=== PATIENT | female | born 1935 | race African-American/Black ===

== ENCOUNTER 2016-07-21 03:07 | Inpatient (IN) ==
[2016-07-21] MEDS ORDERED: ETOMIDATE 20 MG/10 ML VIAL IV ONE (03:29)
[2016-07-21] MEDS ORDERED: VECURONIUM 10 MG VIAL IV ONE (03:29)
[2016-07-21] MEDS ORDERED: methylPREDNISolone SOD SUC 125 MG/2 ML VIAL IV STA (03:33)
[2016-07-21] MEDS ORDERED: methylPREDNISolone SOD SUC 125 MG/2 ML VIAL ONE (03:34)
[2016-07-21] MEDS ORDERED: ALBUTEROL/IPRATROPIUM 3 ML NEB RESP TX STA (03:34)
[2016-07-21] MEDS ORDERED: SUCCINYLCHOLINE 200 MG/10 ML VIAL ONE (03:35)
--- NOTE | 2016-07-21 03:41 | Emergency Department Note ---
Arrival - Arrival Chief Complaint: Shortness of Breath Stated Complaint: SOB ED Nursing Triage Note: patient to ED via EMS with c/o SOB that woke her up at of her sleep. when EMS picked patient up patient noted to have +JVD and could only speak in 2-3 word sentence. patient history of lung CA. right lobectomy. Dr Broderick called to room immeadately to evaluate patient Mode of Arrival: Stretcher Limitations: Physical Limitation Source: Family Time Seen by Provider: 07/21/16 03:22 - History of Present Illness HPI Narrative: The patient arrives via EMS complaining of shortness of breath. She is currently lethargic and unable to speak so she can give no history. The family member states that she woke her up around 2:00 this morning saying she did not feel well and was short of breath. She complained of some "reflux symptoms" earlier in the day but denied any chest pain. They say she had not had fever or other recent illness. No vomiting. She did develop diaphoresis in route to the hospital. EMS says oxygen saturation was in the 70s and came up to 82 on nonrebreather. Allergies/Adverse Reactions: Allergies Allergy/AdvReac Type Severity Reaction Status Date / Time No Known Allergies Allergy Verified 01/12/15 19:15 Home Medications: Home Medications Medication Instructions Recorded Confirmed Type Allopurinol 100 mg PO BID 01/08/15 07/21/16 History Carvedilol [Coreg] 12.5 mg PO BID 01/08/15 07/21/16 History amLODIPine [Norvasc] 10 mg PO DAILY 01/08/15 07/21/16 History clonazePAM [Klonopin] 1 mg PO DAILY 01/08/15 07/21/16 History Levothyroxine Sodium [Synthroid] 1 tablet PO DAILY 01/12/15 07/21/16 History Ergocalciferol (Vitamin D2) 50,000 unit PO Q7D 04/01/15 07/21/16 History [Vitamin D2] Esomeprazole Magnesium [Nexium] 40 mg PO DAILY PRN 04/01/15 07/21/16 History Calcium Acetate 667 mg PO TID 11/20/15 07/21/16 History methylPREDNISolone DOSEPAK [Medrol 4 mg PO DIRECTED #1 pack 11/20/15 Rx Dosepak] cephALEXin [Keflex] 500 mg PO Q12HR #14 capsule 07/08/16 07/21/16 Rx Omeprazole 20 mg PO DAILY 07/21/16 07/21/16 History Review of System - Review of System ROS unobtainable: due to mental status Medical,Surgical,& Family Hx - Medical History Cardio: History of: CHF, Hypertension HEENT: History of: Eye Problem (GLASSES), Dental Problems (UPPER DENTURE AND LOWER PARITAL) Endocrine: History of: Thyroid Disorder Rheumatology: History of;: Gout Respiratory: History of: Pneumonia, Respiratory Problems (right lung cancer) Renal: History of: Dialysis ([facility]; DR OLVERA) Gastrointestinal: History of: GERD (OCCASIONAL) Musculoskeletal: History of: Back/Neck Problems (VERTABRAE FRACTURES), Musculoskeletal Problems (BURSITIS HIPS) Hematology: History of: Anemia (PAST HISTORY) Other: History of: Anesthesia Reactions (NAUSEA WITH PAIN MEDICATIONS), Cancer ( RIGHT LUNG CANCER), Miscellaneous Medical Problems (HAY FEVER) - Surgical History Thoracic Surgeries: Surgical HX of;: Lobectomy (right lung) HEENT Surgeries: Surgical HX of: Eye Surgery (BILATERAL CATARACT) Abdominal Surgeries: Surgical HX of: Appendectomy, Colonoscopy Reproductive Surgeries: Surgical HX of;: Hysterectomy Orthopedic Surgeries: Surgical HX of;: Implanted Devices (FISTULA RIGHT ARM, CATHETER LEFT SUBCLAVIAN), Spinal Surgery (DR ALEXANDER- KYPHOPLASTY) - Family History Family History: Reports;: Family Heart Disease, Family Hypertension - Social History Smoking Status: Never smoker Frequency of Alcohol Use: Unknown Type of Drug Use: Unknown Exam Physical Examination: GENERAL: Awake but lethargic. Not speaking. Severe respiratory distress. HEENT: Normocephalic and atraumatic. There is no nasal drainage. NECK: Normal inspection. Marked JVD bilaterally. Normal range of motion without evidence of pain. LUNGS: Severe respiratory distress. Tight and wheezing bilaterally with poor air movement. HEART: Regular tachycardia at 120 ABDOMEN: Soft, nontender and nondistended with normoactive bowel sounds. BACK: Normal inspection. SKIN: Color normal. Cool, diaphoretic. EXTREMITIES: Nontender. No pedal edema. Dialysis fistula in the right arm. Palpable pulse and thrill. NEUROLOGICAL/PSYCHIATRIC: Lethargic. Not speaking. Cannot assess orientation. Cranial nerves normal. No motor or sensory deficit. Vital Signs: Vital Signs Temperature 98.9 F 07/21/16 03:07 Pulse Rate 77 07/21/16 04:37 Respiratory Rate 12 07/21/16 04:37 Blood Pressure 73/48 07/21/16 04:37 O2 Sat by Pulse Oximetry 100 07/21/16 04:37 Course - Reevaluation(s) Reevaluation #1: The patient was lethargic on arrival and struggling to breathe. She was using accessory muscles and appeared to be tiring. She could not speak due to her dyspnea. I felt she needed to be intubated and this was done. See procedure note. Patient's sats jignesh to 100% after intubation. Time: 03:49 Reevaluation #2: Patient has remained stable after intubation. Her blood gases came back slightly acidotic with elevated CO2. I have decreased the oxygen concentration and increased ventilation rate and we are rechecking blood gases. I have discussed patient with Dr. Smith and will admit to Dr. Carmichael who will see her this morning. I am also consulting Dr. Sims for ventilator management and will consult Dr. Olvera as well. She will need dialysis this morning. Time: 05:37 Procedures - Intubation Time out performed: Yes sedative: Etomidate Mg Given: 20 paralytic: Vecuronium Mg Given: 5 Laryngoscope: Nara ET Tube Size: 7 ET Tube Uncuffed: No Tube Secured Depth (cm): 22 Tube Secured Location: teeth Tube Placement Confirmation: visualized tube passing through cords, equal breath sounds bilaterally, no breath sounds over epigastrium, confirmation detector color change Patient Tolerated Procedure: no complications Intubation Complications: none Results - Labs CBC & BMP: 07/21/16 03:24 07/21/16 03:24 Lab Results: I have reviewed the patients labs Labs: Laboratory Tests 07/21/16 07/21/16 07/21/16 03:24 03:24 03:24 ABG pH ABG pCO2 ABG pO2 ABG HCO3 ABG Total CO2 ABG O2 Saturation ABG Base Excess Magnesium 2.6 H Total Bilirubin 0.80 AST 25 ALT 16 Alkaline Phosphatase 130 H Troponin I 0.161 H B-Natriuretic Peptide 676 H Urine Leukocytes Large H Urine RBC 10 Urine WBC 291 Urine WBC Clumps Many Urine Bacteria Occasional Ur Culture Indicated? Results to follow 07/21/16 03:39 ABG pH 7.348 L ABG pCO2 57.2 H ABG pO2 465.0 H ABG HCO3 28.3 H ABG Total CO2 28.4 H ABG O2 Saturation 98.1 ABG Base Excess 4.3 H Magnesium Total Bilirubin AST ALT Alkaline Phosphatase Troponin I B-Natriuretic Peptide Urine Leukocytes Urine RBC Urine WBC Urine WBC Clumps Urine Bacteria Ur Culture Indicated? - Impressions Chest x-ray showed the mediastinum shifted to the right as on previous films due to prior lung resection. There is mild pulmonary edema. EKG shows a sinus rhythm with sinus arrhythmia at 95. There is left ventricular hypertrophy. Early re-pole in v1 and flipped T waves in 1 and V6. Critical Care Time Total Critical Care Time: 60 Disposition Clinical Impression: Acute respiratory failure, Bronchospasm, UTI (urinary tract infection), Chronic kidney disease with end stage renal failure on dialysis, Pulmonary edema Case discussed with: patient's family Disposition: Still a Patient Condition: Critical
[2016-07-21 03:44] LABS: Basophils % 0.3 % (0.0-0.8); Eosinophils # 0.3 10*3/uL (0.0-0.87); Eosinophils % 2.7 % (0.00-10.9); Hematocrit 39.2 VOL% (35.7-47.0); Hemoglobin 11.8 GM/DL (12.0-16.0); Immature Granulocytes % 0.7 %; Immature Granulocytes Absolute 0.08 #; Lymphocytes % 24.7 % (21.3-54.2); Mean Corpuscular HGB Conc 30.1 GM/DL (32-36); Mean Corpuscular Hemoglobin 31 PG (27-34); Mean Platelet Volume 12.8 FL (9.6-12.0); Monocytes # 1.4 10*3/uL (0.11-0.8); Neutrophils # 7.4 10*3/uL (1.4-7.4); Neutrophils % 60.6 % (38.7-73.9); Platelet Count 163 T/CUMM (130-400); Red Blood Count 3.77 MC/CUMM (3.8-5.5); Red Cell Distribution Width 15.5 % (9.3-17.3); White Blood Count 12.3 T/CUMM (4-12)
[2016-07-21 03:53] LABS: ABG Base Excess 4.3 MMOL/L (-2.5-2.5); ABG HCO3 28.3 MMOL/L (20-26); ABG Oxygen Saturation 98.1 % (95-100); ABG PCO2 57.2 MM HG (35-48); ABG PH 7.348 (7.35-7.45); ABG TCO2 28.4 MMOL/L (23-27)
[2016-07-21 03:56] LABS: Apearance,Urine CLOUDY (Clear); Bacteria,Urine Occasional /HPF (Few); Bilirubin,Urine Negative (Negative); Blood, Urine Negative (Negative); Glucose,Urine (UA) Negative (Negative); Ketones,Urine 5 mg/dL (Negative); Nitrite,Urine Negative (Negative); Protein,Urine 100 MG/DL; RBC,Urine 10 /HPF (0-4); Squamous Epithelial Cell,Urine Occasional /HPF (0-10); Urine Color Yellow (Yellow); Urine Specific Gravity 1.015 (1.001-1.035); Urine Urobilinogen < 2.0 EU/DL (0.2-1.0); WBC,Urine 291 /HPF (0-6)
[2016-07-21] MEDS: PROPOFOL 1,000 MG/100 ML BOTTLE IV SCH ×3 (04:00→20:33)
[2016-07-21 04:05] LABS: Lactic Acid 1.2 MMOL/L (0.4-2.0)
[2016-07-21 04:08] LABS: Alanine Aminotransferase 16 U/L (13-56); Albumin 3.4 G/DL (3.4-5.0); Alkaline Phosphatase 130 U/L (45-117); Aspartate Amino Transferase 25 U/L (0-37); Blood Urea Nitrogen 27 MG/DL (7-18); Calcium 8.3 MG/DL (8.5-10.1); Glucose 221 MG/DL (74-106); Magnesium 2.6 MG/DL (1.8-2.4); Osmolality,Calculated 292.3 MOS/KG (273-304); Potassium 4.1 MMOL/L (3.5-5.1); Sodium 141 MMOL/L (136-145); Total Protein 7.5 G/DL (6.4-8.3)
[2016-07-21 04:09] LABS: Troponin I Only 0.161 NG/ML (0.00-0.045)
[2016-07-21] MEDS ORDERED: PROPOFOL 1,000 MG/100 ML BOTTLE IV ONE (04:10)
[2016-07-21 04:49] LABS: PT Patient Result 10.7 SECS; Partial Thromboplastin Time 24.2 SECS (0-40)
[2016-07-21 05:40] LABS: ABG Base Excess 6.3 MMOL/L (-2.5-2.5); ABG HCO3 30.2 MMOL/L (20-26); ABG Oxygen Saturation 99.2 % (95-100); ABG PCO2 41.6 MM HG (35-48); ABG PH 7.473 (7.35-7.45); ABG TCO2 27.4 MMOL/L (23-27)
[2016-07-21] MEDS ORDERED: MORPHINE 2 MG/1 ML SYRINGE IV STA (06:00)
--- NOTE | 2016-07-21 06:09 | XRay Report ---
XR chest 1V portable Indication: Endotracheal tube placement confirmation. Comparison: Chest x-ray 07/08/2016. Technique: Portable AP chest was performed. Findings: Endotracheal tube terminates at the level of the aortic knob. Left lung demonstrates linear interstitial markings with a basilar gradient compatible with pulmonary edema primarily interstitial type. A few scattered airspace opacities in the lung base is not excluded. Postoperative changes and right-sided chest wall deformity appear stable. Stent within the right arm is stable. Impression: 1. Findings compatible with pulmonary edema, predominantly interstitial type. 07/21/2016 6:06 AM PROCEDURE INTERPRETED AT [facility] DEPARTMENT OF RADIOLOGY Final Report Signed by: Dr. Mario Bennett
[2016-07-21] MEDS ORDERED: MORPHINE 2 MG/1 ML SYRINGE ONE (06:13)
--- NOTE | 2016-07-21 07:11 | EKG Report ---
Stationary ECG Study [facility] Test Date: 07/21/2016 3:16 AM Pat Name: CARMEN TADEO Department: Room: Gender: F Prism Inspector: NEREYDA : 1935 Requested by: Alexander Alberto Order Number: [id number] Patrick MD: AMBER KEBEDE Intervals [place] Rate: 95 P: 54 NV: 146 QRS: 53 QRSD: 106 T: 176 QT: 351 QTc: 404 Interpretive Statements SINUS RHYTHM WITH SINUS ARRHYTHMIA LEFT VENTRICULAR HYPERTROPHY AND ST-T CHANGE Electronically Signed On 07-24-16 08:19:10 CDT by AMBER KEBEDE [email or web address]
--- NOTE | 2016-07-21 07:49 | EKG Report ---
Stationary ECG Study [facility] Test Date: 07/21/2016 5:18:01 AM Pat Name: CARMEN TADEO Department: Room: Gender: F News Technical Director: GEGE : 1935 Requested by: Alexander Alberto Order Number: [id number] Reading MD: AMBER KEBEDE Intervals [place] Rate: 82 P: 54 SD: 154 QRS: 40 QRSD: 96 T: 158 QT: 417 QTc: 455 Interpretive Statements SINUS RHYTHM LEFT VENTRICULAR HYPERTROPHY AND ST-T CHANGE Electronically Signed On 07-24-16 08:21:04 CDT by AMBER KEBEDE [email or web address]
--- NOTE | 2016-07-21 07:54 | Pulmonology Consult Note ---
Assessment and Plan (1) Status post pneumonectomy Status: Acute Assessment and plan: The patient had a previous right pneumonectomy for lung cancer. Current Visit: Yes (2) Acute respiratory failure Status: Acute Assessment and plan: The patient presents with acute respiratory distress and respiratory failure and is now on the ventilator. She probably had volume overload. Current Visit: Yes (3) Chronic kidney disease with end stage renal failure on dialysis Status: Acute Assessment and plan: She has end-stage renal disease and will continue with dialysis. Current Visit: Yes (4) Pulmonary edema Status: Acute Assessment and plan: This acute event is probably related to pulmonary edema. She will need dialysis soon. Current Visit: Yes History of Present Illness Chief complaint: Ventilator management History of present illness: Ms. Reyes is a 80 year old black female that has had a previous right pneumonectomy and is followed by Dr. Olvera with end-stage renal disease on dialysis. She apparently has been doing fairly well on outpatient dialysis. Recently she had a mild sinus infection was on the Medrol Dosepak and Keflex. She apparently woke up around 2 this morning very short of breath and presented to the emergency room in marked distress. She apparently was very tight in her chest and unable to talk. She was intubated and placed on the ventilator. Her chest x-ray does suggest some mild volume overload. She is now comfortable on the ventilator. 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 She has had a previous right pneumonectomy. She has not been having problems with her breathing in the past. She was not complaining of chest pain or fever. She mainly had the sinus problem. Home Medications Medication Instructions Recorded Confirmed Type Allopurinol 100 mg PO BID 01/08/15 07/21/16 History Carvedilol [Coreg] 12.5 mg PO BID 01/08/15 07/21/16 History amLODIPine [Norvasc] 10 mg PO DAILY 01/08/15 07/21/16 History clonazePAM [Klonopin] 1 mg PO DAILY 01/08/15 07/21/16 History Levothyroxine Sodium [Synthroid] 1 tablet PO DAILY 01/12/15 07/21/16 History Ergocalciferol (Vitamin D2) 50,000 unit PO Q7D 04/01/15 07/21/16 History [Vitamin D2] Esomeprazole Magnesium [Nexium] 40 mg PO DAILY PRN 04/01/15 07/21/16 History Calcium Acetate 667 mg PO TID 11/20/15 07/21/16 History methylPREDNISolone DOSEPAK [Medrol 4 mg PO DIRECTED #1 pack 11/20/15 Rx Dosepak] cephALEXin [Keflex] 500 mg PO Q12HR #14 capsule 07/08/16 07/21/16 Rx Omeprazole 20 mg PO DAILY 07/21/16 07/21/16 History Allergies Allergy/AdvReac Type Severity Reaction Status Date / Time No Known Allergies Allergy Verified 01/12/15 19:15 ROS unobtainable: due to endotracheal tube (She is unable to give any history at present.) Exam (Pulmonay) H&P - Constitutional Vitals: Period Temp Pulse Resp BP Sys/Brody Pulse Ox Last 24 Hr 98.9 F 75-120 10-40 73-181/48-92 79-100 General appearance: normal weight, other (Patient is sedated and comfortable on the ventilator.) - Head Head exam: Present: normal inspection, normocephalic - Eye Eye exam: Present: EOMI. Absent: scleral icterus Pupils: Present: ULISES - ENT ENT exam: Present: other (ET tube is in good position) - Neck Neck exam: Present: normal inspection. Absent: lymphadenopathy, thyromegaly - Respiratory Respiratory exam: Present: decreased breath sounds (She has absent breath sounds on the right), rhonchi - Cardiovascular Cardiovascular exam: Present: JVD, regular rate and rhythm, tachycardia. Absent : gallop, systolic murmur - GI/Abdominal GI/Abdominal exam: Present: normal bowel sounds, soft. Absent: organomegaly, tenderness - Extremities Exam Extremities exam: Absent: calf tenderness, edema - Neurological Exam Neurological exam: Present: other (Patient is sedated on the ventilator) - Skin Skin exam: Present: warm, dry Medical,Surgical,& Family Hx - Medical History Cardio: History of: CHF, Hypertension Neurology: No history of: Seizures HEENT: History of: Eye Problem (GLASSES), Dental Problems (UPPER DENTURE AND LOWER PARITAL) Endocrine: History of: Thyroid Disorder Rheumatology: History of;: Gout Respiratory: History of: Pneumonia, Respiratory Problems (right lung cancer) Renal: History of: Dialysis ([facility]; DR OLVERA) Gastrointestinal: History of: GERD (OCCASIONAL) Musculoskeletal: History of: Back/Neck Problems (VERTABRAE FRACTURES), Musculoskeletal Problems (BURSITIS HIPS) Hematology: History of: Anemia (PAST HISTORY) Other: History of: Anesthesia Reactions (NAUSEA WITH PAIN MEDICATIONS), Cancer ( RIGHT LUNG CANCER), Miscellaneous Medical Problems (HAY FEVER) - Surgical History Thoracic Surgeries: Surgical HX of;: Lobectomy (right lung) HEENT Surgeries: Surgical HX of: Eye Surgery (BILATERAL CATARACT) Abdominal Surgeries: Surgical HX of: Appendectomy, Colonoscopy Reproductive Surgeries: Surgical HX of;: Hysterectomy Orthopedic Surgeries: Surgical HX of;: Implanted Devices (FISTULA RIGHT ARM, CATHETER LEFT SUBCLAVIAN), Spinal Surgery (DR ALEXANDER- KYPHOPLASTY) - Family History Family History: Reports;: Family Heart Disease, Family Hypertension - Social History Smoking Status: Never smoker Frequency of Alcohol Use: Unknown Type of Drug Use: Unknown Results - Labs CBC & BMP: 07/21/16 03:24 07/21/16 03:24 Labs: Her PO2 is 149 now with a PCO2 of 41 and a pH of 7.47 - Diagnostic Findings Procedure: Chest x-ray: image reviewed by me, report reviewed by me (Chest x- ray shows a previous right pneumonectomy. There is increased markings in the left lower lung.)
[2016-07-21] MEDS ORDERED: cefTRIAXone 1,000 MG VIAL ONE (08:51)
[2016-07-21] MEDS: methylPREDNISolone SOD SUC 40 MG/1 ML VIAL IV SCH ×2 (09:19→18:22)
[2016-07-21] MEDS: cefTRIAXone 1,000 MG in SODIUM CHLORIDE 0.9% 100 ML IV SCH (09:19)
[2016-07-21] MEDS ORDERED: PROPOFOL 1,000 MG/100 ML BOTTLE IV SCH (11:51)
[2016-07-21] MEDS ORDERED: NON-FORMULARY MEDICATION (Esomeprazole Magnesium [Nexium] 40 MG) PO PRN (11:51)
[2016-07-21] MEDS ORDERED: ACETAMINOPHEN 325 MG TABLET PO PRN (11:51)
[2016-07-21] MEDS ORDERED: cefTRIAXone 1,000 MG in SODIUM CHLORIDE 0.9% 100 ML IV STA (11:51)
[2016-07-21] MEDS ORDERED: ONDANSETRON 4 MG/2 ML VIAL IV PRN (11:51)
[2016-07-21] MEDS: ALBUTEROL/IPRATROPIUM 3 ML NEB RESP TX SCH ×3 (12:35→19:24)
--- NOTE | 2016-07-21 15:02 | Family Practice History&Phys ---
Assessment and Plan (1) Acute respiratory failure Status: Acute Assessment and plan: Patient required endotracheal intubation in the emergency room and is presently on a respirator. Being followed by pulmonary we will continue present treatment plan Current Visit: Yes (2) Pulmonary edema Status: Acute Assessment and plan: We will start her on appropriate treatment Current Visit: Yes (3) UTI (urinary tract infection) Status: Acute Assessment and plan: We will obtain culture and start her on appropriate antibiotics Current Visit: Yes (4) Chronic kidney disease with end stage renal failure on dialysis Status: Chronic Assessment and plan: Patient is presently receiving dialysis. Current Visit: Yes (5) Hypertension Status: Chronic Assessment and plan: We will resume her home medications Current Visit: Yes (6) Status post carcinoma right lung Status: Chronic Assessment and plan: Stable at present Current Visit: Yes (7) Status post pneumonectomy Status: Acute Assessment and plan: Stable at present Current Visit: Yes (8) Hypothyroid Status: Chronic Assessment and plan: We will resume home medications and monitor Current Visit: Yes History of Present Illness Chief complaint: Respiratory failure History of present illness: Ms. Reyes is a 80 year old female ess Chief complaint: Ventilator management History of present illness: Ms. Reyes is a 80 year old black female that has had a previous right pneumonectomy and is followed by Dr. Olvera with end-stage renal disease on dialysis. She apparently has been doing fairly well on outpatient dialysis. Recently she had a mild sinus infection was on the Medrol Dosepak and Keflex. She apparently woke up around 2 this morning very short of breath and presented to the emergency room in marked distress. She apparently was very tight in her chest and unable to talk. She was intubated and placed on the ventilator. Her chest x-ray does suggest some mild volume overload. She is now comfortable on the ventilator. 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 She has had a previous right pneumonectomy. She has not been having problems with her breathing in the past. She was not complaining of chest pain or fever. She mainly had the sinus problem. Will admit to the intensive care close observation and therapy Home Medications Medication Instructions Recorded Confirmed Type Allopurinol 100 mg PO BID 01/08/15 07/21/16 History Carvedilol [Coreg] 12.5 mg PO BID 01/08/15 07/21/16 History amLODIPine [Norvasc] 10 mg PO DAILY 01/08/15 07/21/16 History clonazePAM [Klonopin] 1 mg PO DAILY 01/08/15 07/21/16 History Levothyroxine Sodium [Synthroid] 1 tablet PO DAILY 01/12/15 07/21/16 History Ergocalciferol (Vitamin D2) 50,000 unit PO Q7D 04/01/15 07/21/16 History [Vitamin D2] Esomeprazole Magnesium [Nexium] 40 mg PO DAILY PRN 04/01/15 07/21/16 History Calcium Acetate 667 mg PO TID 11/20/15 07/21/16 History methylPREDNISolone DOSEPAK [Medrol 4 mg PO DIRECTED #1 pack 11/20/15 Rx Dosepak] cephALEXin [Keflex] 500 mg PO Q12HR #14 capsule 07/08/16 07/21/16 Rx Omeprazole 20 mg PO DAILY 07/21/16 07/21/16 History Allergies Allergy/AdvReac Type Severity Reaction Status Date / Time No Known Allergies Allergy Verified 01/12/15 19:15 Medical,Surgical,& Family Hx - Medical History Cardio: History of: CHF, Hypertension Neurology: No history of: Seizures HEENT: History of: Eye Problem (GLASSES), Dental Problems (UPPER DENTURE AND LOWER PARITAL) Endocrine: History of: Thyroid Disorder Rheumatology: History of;: Gout Respiratory: History of: Pneumonia, Respiratory Problems (right lung cancer) Renal: History of: Dialysis ([facility] --[facility] [place]; DR OLVERA) Gastrointestinal: History of: GERD (OCCASIONAL) Musculoskeletal: History of: Back/Neck Problems (VERTABRAE FRACTURES), Musculoskeletal Problems (BURSITIS HIPS) Hematology: History of: Anemia (PAST HISTORY) Other: History of: Anesthesia Reactions (NAUSEA WITH PAIN MEDICATIONS), Cancer ( RIGHT LUNG CANCER), Miscellaneous Medical Problems (HAY FEVER) - Surgical History Thoracic Surgeries: Surgical HX of;: Lobectomy (right lung) HEENT Surgeries: Surgical HX of: Eye Surgery (BILATERAL CATARACT) Abdominal Surgeries: Surgical HX of: Appendectomy, Colonoscopy Reproductive Surgeries: Surgical HX of;: Hysterectomy Orthopedic Surgeries: Surgical HX of;: Implanted Devices (FISTULA RIGHT ARM, CATHETER LEFT SUBCLAVIAN), Spinal Surgery (DR ALEXANDER- KYPHOPLASTY) - Family History Family History: Reports;: Family Heart Disease, Family Hypertension - Social History Smoking Status: Never smoker Frequency of Alcohol Use: Unknown Type of Drug Use: Unknown Marital Status: Lives With:: Spouse Functional capacity: uses cane/walker Exam - Constitutional Vitals: Period Temp Pulse Resp BP Sys/Brody Pulse Ox Last 24 Hr 64-84 12-20 104-152/61-87 94-100 General appearance: mild distress, other (Presently on ventilator) - Head Head exam: Present: normocephalic - Eye Pupils: Present: ULISES - ENT ENT exam: Present: normal exam - Neck Neck exam: Present: normal inspection - Respiratory Respiratory exam: Present: rhonchi - Cardiovascular Cardiovascular exam: Present: irregular rhythm - GI/Abdominal GI/Abdominal exam: Present: normal bowel sounds, soft - Extremities Exam Extremities exam: Present: normal inspection - Back Exam Back exam: Present: normal inspection - Neurological Exam Neurological exam: Present: altered - Skin Skin exam: Present: normal color Results - Labs CBC & BMP: 07/21/16 03:24 07/21/16 03:24
--- NOTE | 2016-07-21 15:31 | Nephrology Consult Note ---
History of Present Illness Chief complaint: Referred for ESRD on Chronic hemodialysis History of present illness: Ms. Reyes is a 80 year old female with ESRD on CHD MWF at [facility]. Last HD on Sunday to EDW 47.2kg via RUAVF. Pt seen in ED, intubated, sedated , mechanically ventilated. History obtained from chart review, HD unit charge nurse and home health nurse at bedside (takes care of Ms Reyes's ). She states Ms Reyes c/o SOB yesterday. She is seen again in the CCU on dialysis. Urine looks c/w UTI, started empirically on rocephin. Home Medications Medication Instructions Recorded Confirmed Type Allopurinol 100 mg PO BID 01/08/15 07/21/16 History Carvedilol [Coreg] 12.5 mg PO BID 01/08/15 07/21/16 History amLODIPine [Norvasc] 10 mg PO DAILY 01/08/15 07/21/16 History clonazePAM [Klonopin] 1 mg PO DAILY 01/08/15 07/21/16 History Levothyroxine Sodium [Synthroid] 1 tablet PO DAILY 01/12/15 07/21/16 History Ergocalciferol (Vitamin D2) 50,000 unit PO Q7D 04/01/15 07/21/16 History [Vitamin D2] Esomeprazole Magnesium [Nexium] 40 mg PO DAILY PRN 04/01/15 07/21/16 History Calcium Acetate 667 mg PO TID 11/20/15 07/21/16 History methylPREDNISolone DOSEPAK [Medrol 4 mg PO DIRECTED #1 pack 11/20/15 Rx Dosepak] cephALEXin [Keflex] 500 mg PO Q12HR #14 capsule 07/08/16 07/21/16 Rx Omeprazole 20 mg PO DAILY 07/21/16 07/21/16 History Allergies Allergy/AdvReac Type Severity Reaction Status Date / Time No Known Allergies Allergy Verified 01/12/15 19:15 Medical,Surgical,& Family Hx - Medical History Cardio: History of: CHF, Hypertension Neurology: No history of: Seizures HEENT: History of: Eye Problem (GLASSES), Dental Problems (UPPER DENTURE AND LOWER PARITAL) Endocrine: History of: Thyroid Disorder Rheumatology: History of;: Gout Respiratory: History of: Pneumonia, Respiratory Problems (right lung cancer) Renal: History of: Dialysis ([facility], ; DR OLVERA) Gastrointestinal: History of: GERD (OCCASIONAL) Musculoskeletal: History of: Back/Neck Problems (VERTABRAE FRACTURES), Musculoskeletal Problems (BURSITIS HIPS) Hematology: History of: Anemia (PAST HISTORY) Other: History of: Anesthesia Reactions (NAUSEA WITH PAIN MEDICATIONS), Cancer ( RIGHT LUNG CANCER), Miscellaneous Medical Problems (HAY FEVER) - Surgical History Thoracic Surgeries: Surgical HX of;: Lobectomy (right lung) HEENT Surgeries: Surgical HX of: Eye Surgery (BILATERAL CATARACT) Abdominal Surgeries: Surgical HX of: Appendectomy, Colonoscopy Reproductive Surgeries: Surgical HX of;: Hysterectomy Orthopedic Surgeries: Surgical HX of;: Implanted Devices (FISTULA RIGHT ARM, CATHETER LEFT SUBCLAVIAN), Spinal Surgery (DR ALEXANDER- KYPHOPLASTY) - Family History Family History: Reports;: Family Heart Disease, Family Hypertension - Social History Smoking Status: Never smoker Frequency of Alcohol Use: Unknown Type of Drug Use: Unknown Review of Systems ROS unobtainable: due to endotracheal tube Exam - Vital Signs Vital signs: Period Temp Pulse Resp BP Sys/Brody Pulse Ox Last 24 Hr 64-84 12-20 104-152/61-87 94-100 - General Appearance General appearance: well-developed, chronically ill, sedated on ventilator, intubated EENT: ATNC, mucous membranes dry Neck: no JVD, no thyromegaly Respiratory: kyphosis, clear Cardiology: no murmurs, no rub, no edema Gastrointestinal: normoactive bowel sounds, no tenderness Integumentary: no rash, warm and dry Neurologic: obtunded Musculoskeletal: no cyanosis, no clubbing Results - Labs CBC & BMP: 07/21/16 03:24 07/21/16 03:24 Assessment and Plan (1) ESRD (end stage renal disease) on dialysis Problem details: Routine CHD today. UF as tolerated. CXR, BNP do not look impressive for volume overload being the cause of her SOB. Status: Acute Current Visit: Yes (2) UTI (urinary tract infection) Status: Acute Current Visit: Yes
[2016-07-21 16:30] LABS: Troponin I Only 0.325 NG/ML (0.00-0.045)
--- NOTE | 2016-07-21 16:53 | Cardiology Consult Note ---
Assessment and Plan - Time spent with patient Time spent with patient: Greater than 30 minutes (1) Pulmonary edema Status: Acute Assessment and plan: This is possibly multifactorial as patient has history of diastolic heart failure and end-stage renal disease on dialysis. Will adjust patient's medications as needed. -Will order echo in am -Continue to cycle cardiac biomarkers -EKG every am times 3 Further plan and addendum to follow per Dr. Baig. Current Visit: Yes (2) Elevated troponin Status: Acute Assessment and plan: This is in the setting of an elevated creatinine of 5.5. Will continue to cycle cardiac biomarkers and EKG every morning 3. Echo in am. Aspirin added to patient's medication regimen. Further plan and addendum to follow per Dr. Baig. Current Visit: Yes (3) Acute respiratory failure Status: Acute Assessment and plan: Patient is currently mechanically ventilated. Management per pulmonary. Current Visit: Yes (4) ESRD (end stage renal disease) on dialysis Problem details: Routine CHD today. UF as tolerated. CXR, BNP do not look impressive for volume overload being the cause of her SOB. Status: Chronic Assessment and plan: Patient is currently receiving hemodialysis. Tolerating well. Management per nephrology. Current Visit: Yes (5) Status post pneumonectomy Status: Acute Current Visit: Yes (6) UTI (urinary tract infection) Status: Acute Assessment and plan: Urine culture is pending. She is currently receiving appropriate antibiotics. Current Visit: Yes (7) Hypertension Status: Chronic Current Visit: Yes (8) Hypothyroid Status: Chronic Assessment and plan: Continue current plan of care with Synthroid. Current Visit: Yes (9) Status post carcinoma right lung Status: Chronic Assessment and plan: This is clinically stable. Current Visit: Yes History of Present Illness - Data of Consult Patient: known to practice within the last 3 years Consult date: 07/21/16 Requesting Physician: Ryder Carmichael Primary care physician: Ryder Carmichael - Consult Narrative Reason for consult: Volume overload History of present illness: Group Activities Aide: Dr. Baig PCP: Dr. Carmichael Radioisotope Production Operator: Dr. Olvera Cardiology consult note: Ms. Reyes is a 80 year old female without known history of coronary artery disease, routinely followed by Dr. Devyn Baig. Patient presented to the ER today with complaints of shortness of breath and required mechanical intubation in the ER. Patient has cardiac risk factors significant for hypertension, dyslipidemia, advanced age, family history of coronary artery disease and sedentary lifestyle. Patient has past medical history of diastolic heart failure, end-stage renal disease on dialysis, GERD, hypothyroidism, history of lung cancer with pneumonectomy and gout. It does not appear that patient has never undergone left heart catheterization. Patient had normal cardiac stress test May 2016. At that time she had an ejection fraction of 40 %. Patient is sedated and intubated in the CCU. Unable to obtain review of systems. Majority of information in this consult note was obtained from medical personnel and patient's medical record. Patient arrived to [facility] early this morning via EMS complaining of severe shortness of breath. She reports that her shortness of breath awaken her from her sleep. She was extremely lethargic and unable to speak upon arrival to the ER, saturations in the 70s. Per family's report, she denied any chest pain, heaviness and tightness. Chest x-ray does suggest mild volume overload. She is now resting blood on the ventilator, receiving hemodialysis. Patient has been admitted under Dr. Carmichael's service and housed in the CCU. Cardiology has been consulted due to patient's volume overload. Patient was seen and examined in the CCU. She is currently sedated and ventilated, resting comfortably. During my exam, patient was receiving hemodialysis. Patient is hemodynamically stable. Urinalysis reveals UTI. Urine culture pending. Patient's white blood cell count is mildly elevated at 12.3. Blood cultures are currently pending. BNP is elevated at 676. However, this is in the setting of an elevated creatinine of 5.5. Troponin of 0.161 and 0.325, however this is most likely secondary to patient's acute volume overload. Ekg does reveal ST abnormality inferiolaterally. We will continue to cycle cardiac biomarkers and repeat EKG every morning 3. Echocardiogram in a.m. Vital signs are stable. Further plan and addendum to follow per Dr. Baig CC: Ryder Carmichael, DO - Home Medications and Allergies Home Medications: Home Medications Medication Instructions Recorded Confirmed Type Allopurinol 100 mg PO BID 01/08/15 07/21/16 History Carvedilol [Coreg] 12.5 mg PO BID 01/08/15 07/21/16 History amLODIPine [Norvasc] 10 mg PO DAILY 01/08/15 07/21/16 History clonazePAM [Klonopin] 1 mg PO DAILY 01/08/15 07/21/16 History Levothyroxine Sodium [Synthroid] 1 tablet PO DAILY 01/12/15 07/21/16 History Ergocalciferol (Vitamin D2) 50,000 unit PO Q7D 04/01/15 07/21/16 History [Vitamin D2] Esomeprazole Magnesium [Nexium] 40 mg PO DAILY PRN 04/01/15 07/21/16 History Calcium Acetate 667 mg PO TID 11/20/15 07/21/16 History methylPREDNISolone DOSEPAK [Medrol 4 mg PO DIRECTED #1 pack 11/20/15 Rx Dosepak] cephALEXin [Keflex] 500 mg PO Q12HR #14 capsule 07/08/16 07/21/16 Rx Omeprazole 20 mg PO DAILY 07/21/16 07/21/16 History Allergies/Adverse Reactions: Allergies Allergy/AdvReac Type Severity Reaction Status Date / Time No Known Allergies Allergy Verified 01/12/15 19:15 ROS unobtainable: due to endotracheal tube Medical,Surgical,& Family Hx - Medical History Cardio: History of: CHF, Hypertension Neurology: No history of: Seizures Endocrine: History of: Thyroid Disorder Rheumatology: History of;: Gout Respiratory: History of: Pneumonia, Respiratory Problems (right lung cancer) Renal: History of: Dialysis ([facility] --[facility]; DR OLVERA) Gastrointestinal: History of: GERD (OCCASIONAL) Musculoskeletal: History of: Back/Neck Problems (VERTABRAE FRACTURES), Musculoskeletal Problems (BURSITIS HIPS) Hematology: History of: Anemia (PAST HISTORY) Other: History of: Anesthesia Reactions (NAUSEA WITH PAIN MEDICATIONS), Cancer ( RIGHT LUNG CANCER), Miscellaneous Medical Problems (HAY FEVER) - Surgical History Thoracic Surgeries: Surgical HX of;: Lobectomy (right lung) HEENT Surgeries: Surgical HX of: Eye Surgery (BILATERAL CATARACT) Abdominal Surgeries: Surgical HX of: Appendectomy, Colonoscopy Reproductive Surgeries: Surgical HX of;: Hysterectomy Orthopedic Surgeries: Surgical HX of;: Implanted Devices (FISTULA RIGHT ARM, CATHETER LEFT SUBCLAVIAN), Spinal Surgery (DR ALEXANDER- KYPHOPLASTY) - Family History Family History: Reports;: Family Heart Disease, Family Hypertension - Social History Smoking Status: Never smoker Frequency of Alcohol Use: Unknown Type of Drug Use: Unknown Physical Examination Vital Signs Temp Pulse Resp BP Pulse Ox 98.9 F 120 H 40 H 181/92 79 L 07/21/16 03:07 07/21/16 03:07 07/21/16 03:07 07/21/16 03:07 07/21/16 03:07 General: Present: Other (Patient is currently intubated and sedated on the ventilator.) Neck: Present: Supple Neck, Midline Trachea Cardiac: Present: Reg Rate and Rhythm, Regular Rate, Regular Rhythm, S1/S2 Lungs: Present: Ventilated Respirations. Absent: No Wheezes Abdomen: Present: Soft, Active Bowel Sounds, No Masses Skin: Present: Clear. Absent: Rash, Suspicious Lesions Extremities: Present: No Clubbing, No Cyanosis, No Edema, Normal Upper Extr. Pulses, Normal Lower Extr. Pulses Result/EKG - Labs CBC & BMP: 07/21/16 03:24 07/21/16 03:24 Lab Results: I have reviewed the past 24 hour labs
[2016-07-21] MEDS ORDERED: ASPIRIN 325 MG TABLET PO ONE (17:09)
[2016-07-21] MEDS: ALLOPURINOL 100 MG TABLET PO SCH ×2 (18:21→20:32)
[2016-07-21] MEDS: DOCUSATE SODIUM 100 MG CAPSULE PO SCH ×2 (18:21→20:32)
[2016-07-21] MEDS: ERGOCALCIFEROL 50,000 UNIT CAPSULE PO SCH (18:22)
[2016-07-21] MEDS: CARVEDILOL 12.5 MG TABLET PO SCH ×2 (18:22→20:32)
[2016-07-21] MEDS: PANTOPRAZOLE 40 MG VIAL IV SCH (18:22)
[2016-07-21] MEDS: CALCIUM ACETATE 667 MG CAPSULE PO SCH ×2 (18:22→20:31)
[2016-07-21] MEDS: amLODIPine 10 MG TABLET PO SCH (18:22)
[2016-07-21] MEDS: clonazePAM 0.5 MG TABLET PO SCH (18:22)
[2016-07-21] MEDS: LEVOTHYROXINE 25 MCG TABLET PO SCH (18:22)
[2016-07-21 19:23] LABS: Troponin I Only 0.322 NG/ML (0.00-0.045)
[2016-07-21 22:21] LABS: Troponin I Only 0.271 NG/ML (0.00-0.045)
[2016-07-22] MEDS: methylPREDNISolone SOD SUC 40 MG/1 ML VIAL IV SCH ×3 (00:05→16:30)
[2016-07-22] MEDS: ALBUTEROL/IPRATROPIUM 3 ML NEB RESP TX SCH ×4 (01:37→19:55)
[2016-07-22 03:12] LABS: ABG Base Excess 5.4 MMOL/L (-2.5-2.5); ABG HCO3 29.3 MMOL/L (20-26); ABG Oxygen Saturation 99.4 % (95-100); ABG PH 7.577 (7.35-7.45); ABG TCO2 24.2 MMOL/L (23-27); Allen Test Positive; Pt O2 Delivery Device Ventilator
[2016-07-22] MEDS: PROPOFOL 1,000 MG/100 ML BOTTLE IV SCH ×2 (04:00→15:27)
[2016-07-22 04:43] LABS: Basophils % 0.1 % (0.0-0.8); Hematocrit 30.8 VOL% (35.7-47.0); Hemoglobin 10.1 GM/DL (12.0-16.0); Immature Granulocytes % 0.4 %; Immature Granulocytes Absolute 0.06 #; Lymphocytes # 0.6 10*3/uL (1.4-4.0); Lymphocytes % 4.1 % (21.3-54.2); Mean Corpuscular HGB Conc 32.8 GM/DL (32-36); Mean Corpuscular Hemoglobin 31 PG (27-34); Mean Corpuscular Volume 94.5 FL (87-102); Mean Platelet Volume 13.3 FL (9.6-12.0); Monocytes # 0.8 10*3/uL (0.11-0.8); Monocytes % 4.9 % (1.7-12.7); Neutrophils % 90.5 % (38.7-73.9); Platelet Count 142 T/CUMM (130-400); Red Blood Count 3.26 MC/CUMM (3.8-5.5); Red Cell Distribution Width 15.6 % (9.3-17.3); White Blood Count 15.4 T/CUMM (4-12)
[2016-07-22 05:18] LABS: Troponin I Only 0.201 NG/ML (0.00-0.045)
[2016-07-22 05:19] LABS: Albumin 2.6 G/DL (3.4-5.0); Calcium 8.5 MG/DL (8.5-10.1); Free T4 (Free Thyroxine) 1.38 NG/DL (0.76-1.46); Osmolality,Calculated 281.5 MOS/KG (273-304); Potassium 3.6 MMOL/L (3.5-5.1); Risk Ratio 2.82; Thyroid Stimulating Hormone 0.487 uIU/ml (0.358-3.74); Total Protein 6.1 G/DL (6.4-8.3)
[2016-07-22 05:38] LABS: Hypochromasia 1+; Lymphocytes 3 % (20-55); Platelet Estimate Normal; Segmented Neutrophils 92 % (50-85); Total Cells Counted 100
--- NOTE | 2016-07-22 08:01 | EKG Report ---
Stationary ECG Study [facility] Test Date: 07/22/2016 8:01:06 AM Pat Name: CARMEN TADEO Department: Room: 128 Gender: F Post Graduate Internship: MELLO : 1935 Requested by: Opal Chappell Order Number: [id number] Reading MD: AMBER KEBEDE Intervals [place] Rate: 78 P: 54 ME: 141 QRS: 18 QRSD: 97 T: 142 QT: 447 QTc: 481 Interpretive Statements SINUS RHYTHM ST DEVIATION AND MODERATE T-WAVE ABNORMALITY, CONSIDER LATERAL ISCHEMIA Electronically Signed On 07-24-16 08:47:00 CDT by AMBER KEBEDE [email or web address]
[2016-07-22] MEDS: amLODIPine 10 MG TABLET PO SCH (09:17)
[2016-07-22] MEDS: CARVEDILOL 12.5 MG TABLET PO SCH ×2 (09:17→20:03)
[2016-07-22] MEDS: DOCUSATE SODIUM 100 MG CAPSULE PO SCH ×2 (09:17→20:03)
[2016-07-22] MEDS: clonazePAM 0.5 MG TABLET PO SCH (09:17)
[2016-07-22] MEDS: ASPIRIN EC 81 MG TABLET PO SCH (09:17)
[2016-07-22] MEDS: CALCIUM ACETATE 667 MG CAPSULE PO SCH ×3 (09:18→20:03)
[2016-07-22] MEDS: cefTRIAXone 1,000 MG in SODIUM CHLORIDE 0.9% 100 ML IV SCH (09:18)
[2016-07-22] MEDS: PANTOPRAZOLE 40 MG VIAL IV SCH (09:18)
[2016-07-22] MEDS: LEVOTHYROXINE 25 MCG TABLET PO SCH (09:19)
[2016-07-22] MEDS: ALLOPURINOL 100 MG TABLET PO SCH ×2 (09:19→20:03)
--- NOTE | 2016-07-22 09:28 | Pulmonology Progress Note ---
Pulmonary - PN: Subj Interval history: This 80-year-old female has chronic renal failure. She came into the emergency room night before last in respiratory distress and was found to be fluid overloaded. She was intubated. She has been dialyzed and her x-ray looks a little better. PO2 certainly is good. She has one long as previously had a right pneumonectomy. I will decrease her tidal volume and start CPAP and see if we can wean. Exam (Progress Note) - Constitutional Vitals: Period Temp Pulse Resp BP Sys/Brody Pulse Ox Last 24 Hr 97.8 F-99.2 F 64-86 14-21 83-152/50-83 94-100 Exam: Patient is sedated on the ventilator. Vital signs normal. Pupils react to light. Orotracheal tube in place. Neck supple. Chest reveals decreased breath sounds on the right side. Left lung sounds clear. Heart normal rate and rhythm. Abdomen soft nontender. Bowel sounds present. Extremities no clubbing cyanosis or edema. Results - Labs CBC & BMP: 07/22/16 03:51 07/22/16 03:51 Lab Results: I have reviewed the past 24 hour labs - Diagnostic Findings Procedure: Chest x-ray: image reviewed by me (Previous right pneumonectomy. Left lung looks a little bit better than yesterday. Almost clear.) Assessment and Plan (1) Acute respiratory failure Status: Acute Assessment and plan: ABGs look okay. Presently on the ventilator. Probably was fluid overloaded and has just one long since she has had a previous right pneumonectomy. she has been dialyzed now. Hopefully can start weaning Current Visit: Yes (2) Chronic kidney disease with end stage renal failure on dialysis Status: Chronic Assessment and plan: Had dialysis yesterday. Chest x-ray looks better. Current Visit: Yes (3) Pulmonary edema Status: Acute Assessment and plan: Looks better on chest x-ray. Current Visit: Yes (4) Status post pneumonectomy Status: Acute Assessment and plan: Had a right pneumonectomy for lung cancer. 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 Current Visit: Yes
[2016-07-22] MEDS ORDERED: LEVOFLOXACIN INJ 500 MG in PREMIX 1 EACH IV ONE (10:27)
--- NOTE | 2016-07-22 13:39 | XRay Report ---
Exam: XR chest 1V portable Indication: Intubated, history of right pneumonectomy Comparison study: 07/21/2016 Findings: Post surgical changes of right pneumonectomy are again noted. Left lung is predominantly clear with minimal interstitial opacities, which are decreased from prior. Endotracheal tube again terminates approximately 3 cm from the jeff. There is no pneumothorax. No significant pleural effusion is identified. Impression: Interval decrease in interstitial opacities, possibly representing resolving interstitial edema. No other significant change. PROCEDURE INTERPRETED AT [facility] DEPARTMENT OF RADIOLOGY Final Report Signed by: Royce Casanova
--- NOTE | 2016-07-22 14:12 | Nephrology Progress Note ---
Nephrology - PN: Subj Interval history: Intubated, sedated, mechanically ventilated. WBC up, had one dose rocephin on admission. Urine looks dirty, but no growth to date. Tolerated routine dialysis yesterday without complications. Exam (PN)-Nephrology - Vital Signs Vital signs: Period Temp Pulse Resp BP Sys/Brody Pulse Ox Last 24 Hr 97.8 F-99.2 F 77-102 12-27 82-150/50-83 97-100 - General Appearance General appearance: well-developed, chronically ill EENT: ATNC, PERRL Neck: no JVD, no thyromegaly Respiratory: no kyphosis, rales Cardiology: no murmurs, no rub Gastrointestinal: normoactive bowel sounds, no tenderness Integumentary: no rash, warm and dry Neurologic: no focal deficit, no asterixis Musculoskeletal: no deformities, no erythema - Lab 07/22/16 03:51 07/22/16 03:51 Most recent lab results ABG pH 7.577 (7.35-7.45) H 07/22/16 03:00 ABG pCO2 29.0 MM HG (35-48) L 07/22/16 03:00 ABG pO2 151.0 MM HG (80-95) H 07/22/16 03:00 ABG HCO3 29.3 MMOL/L (20-26) H 07/22/16 03:00 ABG O2 Saturation 99.4 % (95-100) 07/22/16 03:00 Calcium 8.5 MG/DL (8.5-10.1) 07/22/16 03:51 Magnesium 2.6 MG/DL (1.8-2.4) H 07/21/16 03:24 Assessment and Plan (1) ESRD (end stage renal disease) on dialysis Problem details: next routine CHD on Sunday. UF as tolerated. Status: Chronic Current Visit: Yes (2) UTI (urinary tract infection) Status: Acute Assessment and plan: Start levofloxacin 500mg IVPB now, then 250mg IVPB q48h. Current Visit: Yes
--- NOTE | 2016-07-22 17:22 | Family Practice Progress Note ---
Family Practice - PN: Subj Interval history: Staff report that the patient is improved today. She is responsive and moving all extremities at times. Dr. Magdaleno is trying to wean her off the respirator start CPAP if tolerated. They have not been able to do as much volume reduction is desired because of hypotension. Appreciate multiple consults. We will continue present treatment plan hopefully will continue to improve Exam (Progress Note) - Constitutional Vitals: Period Temp Pulse Resp BP Sys/Brody Pulse Ox Last 24 Hr 97.8 F-99.2 F 77-102 12-27 80-150/46-83 97-100 Results - Labs CBC & BMP: 07/22/16 03:51 07/22/16 03:51 Assessment and Plan (1) Acute respiratory failure Status: Acute Assessment and plan: Patient required endotracheal intubation in the emergency room and is presently on a respirator. Being followed by pulmonary we will continue present treatment plan Current Visit: Yes (2) Pulmonary edema Status: Acute Assessment and plan: We will start her on appropriate treatment Current Visit: Yes (3) UTI (urinary tract infection) Status: Acute Assessment and plan: We will obtain culture and start her on appropriate antibiotics Current Visit: Yes (4) Chronic kidney disease with end stage renal failure on dialysis Status: Chronic Assessment and plan: Patient is presently receiving dialysis. Current Visit: Yes (5) Hypertension Status: Chronic Assessment and plan: We will resume her home medications Current Visit: Yes (6) Status post carcinoma right lung Status: Chronic Assessment and plan: Stable at present Current Visit: Yes (7) Status post pneumonectomy Status: Acute Assessment and plan: Stable at present Current Visit: Yes (8) Hypothyroid Status: Chronic Assessment and plan: We will resume home medications and monitor Current Visit: Yes
--- NOTE | 2016-07-22 18:43 | ECHO Report ---
Ana Rosa Reyes Exam Date: 07/22/2016 09:23 Referring Physician: Technologist: Natali Zeng Age: 80 Ht (in): 64 Wt (lb): 165 Gender: F Exam Location: [facility] Echo Indications: acute resp failure, ESRD, hypothyroid, HTN, elevated troponin, pulmomary edema BP: 92 / 55 HR: 84 Rhythm: Sinus Technical Quality: Technically difficult study IMPRESSIONS Mildly increased septal wall thickness. Mildly increased posterior wall thickness. Left ventricular ejection fraction is estimated at 10-15 %, 2+ LVE. Mild - moderate mitral annular and leaflet calcification with mild mitral regurgitation. Mild aortic valve sclerosis. Moderate tricuspid valve regurgitation. Tricuspid regurgitation velocities suggest a PAP of 42.0 mmHg + RAP. Trace pulmonary valve regurgitation. No pericardial effusion. MEASUREMENTS (Male / Female) Normal Values 2D ECHO LV Diastolic Diameter PLAX 3.9 cm 4.2 - 5.9 / 3.9 - 5.3 cm LV Systolic Diameter PLAX 3.6 cm LV Fractional Shortening PLAX 7.4 % IVS Diastolic Thickness 1.2 cm 0.6 - 1.0 / 0.6 - 0.9 cm LVPW Diastolic Thickness 1.0 cm 0.6 - 1.0 / 0.6 - 0.9 cm RV Internal Dim ED PLAX 2.0 cm Aortic Root Diameter 2.4 cm LA Systolic Diameter LX 2.9 cm 3.0 - 4.0 / 2.7 - 3.8 cm DOPPLER TR Peak Velocity 324.0 cm/s TR Peak Gradient 42.0 mmHg FINDINGS Left Ventricle Mildly increased septal wall thickness. Mildly increased posterior wall thickness. diastolic dysfunction. Left ventricular ejection fraction is estimated at 10-15 %, 2+ LVE. Right Ventricle Normal right ventricular size and systolic function. Right Atrium The right atrium is mildly enlarged. Left Atrium Normal left atrial size. Mitral Valve Mild - moderate mitral annular and leaflet calcification with mild mitral regurgitation. Aortic Valve Mild aortic valve sclerosis. Tricuspid Valve Mild tricuspid valve sclerosis. Moderate tricuspid valve regurgitation. Tricuspid regurgitation velocities suggest a PAP of 42.0 mmHg + RAP. Pulmonic Valve Morphologically normal pulmonic valve. Trace pulmonary valve regurgitation. Pericardium No pericardial effusion. Aorta Normal size aortic root and proximal ascending aorta. Devyn Baig MD (Electronically Signed) Final Date: 22 July 2016 18:42
--- NOTE | 2016-07-22 20:15 | Cardiology Progress Note ---
Assessment and Plan (1) Pulmonary edema Status: Acute Assessment and plan: Troponins are going up slightly and now coming down. This would be worrisome for ACS/CAD. However, it could be due to the heart failure alone. Echo reveals severe LV systolic dysfunction. Plan/recommendation: Continue treatment for LV systolic dysfunction Dialyzed for volume as tolerated I have added a low-dose of carvedilol We will add a low-dose of MATHEW inhibitor when blood pressure allows We will discontinue Norvasc so we can add an MATHEW inhibitor Will likely need a heart cath on Sunday to evaluate for CAD to be the cause of this LV systolic dysfunction Prognosis remains guarded. Current Visit: Yes (2) Elevated troponin Status: Acute Current Visit: Yes (3) Acute respiratory failure Status: Acute Current Visit: Yes (4) Status post pneumonectomy Status: Acute Current Visit: Yes (5) Chronic kidney disease with end stage renal failure on dialysis Status: Chronic Current Visit: Yes (6) ESRD (end stage renal disease) on dialysis Problem details: next routine CHD on Sunday. UF as tolerated. Status: Chronic Current Visit: Yes (7) Status post carcinoma right lung Status: Chronic Current Visit: Yes Cardiology - PN: Subj Interval history: Remains sedated on the vent. Exam (Progress Note) - Constitutional Vitals: Period Temp Pulse Resp BP Sys/Brody Pulse Ox Last 24 Hr 97.8 F-99.2 F 77-102 12-27 80-144/46-83 97-100 Exam: HEENT: Pupils equal, reactive to light and accommodation Neck: NoJVD or bruit Lungs clear to auscultation Heart: Regular rhythm rate with normal S1 and S2. Apical S4, 2/6 systolic ejection murmur along left lower sternal border. Abdomen: No hepatosplenomegaly Spine/extremities: No clubbing, cyanosis, or edema Neuro: Nonfocal Psych: No depression or anxiety Result/EKG - Labs CBC & BMP: 07/22/16 03:51 07/22/16 03:51 Lab Results: I have reviewed the past 24 hour labs Labs: Laboratory Results - last 24 hr 07/21/16 07/22/16 07/22/16 21:39 03:00 03:51 WBC 15.4 H RBC 3.26 L Hgb 10.1 L Hct 30.8 L MCV 94.5 MCH 31 MCHC 32.8 RDW 15.6 Plt Count 142 MPV 13.3 H Neut % (Auto) 90.5 H Lymph % (Auto) 4.1 L [place] % (Auto) 4.9 Eos % (Auto) 0.0 Baso % (Auto) 0.1 Neut # (Auto) 14.0 H Lymph # (Auto) 0.6 L [place] # (Auto) 0.8 Eos # (Auto) 0.0 Baso # (Auto) 0.0 Total Counted 100 Immature Gran % 0.4 Nucleated RBC % 0.0 Immature Gran # 0.06 Segmented Neutrophils 92 H Lymphocytes 3 L Monocytes 5 Nucleated RBCs # 0.00 Platelet Estimate Normal Hypochromasia 1+ Morphology Comment ABG pH 7.577 H ABG pCO2 29.0 L ABG pO2 151.0 H ABG HCO3 29.3 H ABG Total CO2 24.2 ABG O2 Saturation 99.4 ABG Base Excess 5.4 H FiO2 50.00 Sodium Potassium Chloride Carbon Dioxide Anion Gap BUN Creatinine GFR Calculation BUN/Creatinine Ratio Glucose Calculated Osmolality Calcium Total Bilirubin AST ALT Alkaline Phosphatase Total Creatine Kinase 28 CK-MB (CK-2) < 1.0 Troponin I 0.271 H Total Protein Albumin Globulin Albumin/Globulin Ratio Triglycerides Cholesterol LDL Cholesterol VLDL Cholesterol HDL Cholesterol Heart Disease Risk Ratio Free T4 TSH 3rd Generation 07/22/16 07/22/16 03:51 03:51 WBC RBC Hgb Hct MCV MCH MCHC RDW Plt Count MPV Neut % (Auto) Lymph % (Auto) [place] % (Auto) Eos % (Auto) Baso % (Auto) Neut # (Auto) Lymph # (Auto) [place] # (Auto) Eos # (Auto) Baso # (Auto) Total Counted Immature Gran % Nucleated RBC % Immature Gran # Segmented Neutrophils Lymphocytes Monocytes Nucleated RBCs # Platelet Estimate Hypochromasia Morphology Comment ABG pH ABG pCO2 ABG pO2 ABG HCO3 ABG Total CO2 ABG O2 Saturation ABG Base Excess FiO2 Sodium 139 Potassium 3.6 Chloride 99 Carbon Dioxide 24 Anion Gap 19.6 H BUN 20 H Creatinine 3.80 H GFR Calculation 13 BUN/Creatinine Ratio 5.00 L Glucose 142 H Calculated Osmolality 281.5 Calcium 8.5 Total Bilirubin 1.00 AST 20 ALT 13 Alkaline Phosphatase 105 Total Creatine Kinase 24 L CK-MB (CK-2) < 1.0 Troponin I 0.201 H D Total Protein 6.1 L Albumin 2.6 L Globulin 3.5 Albumin/Globulin Ratio 0.7 L Triglycerides 135 Cholesterol 175 LDL Cholesterol 85.0 VLDL Cholesterol 27.0 HDL Cholesterol 62 H Heart Disease Risk Ratio 2.82 Free T4 1.38 TSH 3rd Generation 0.487 - Diagnostic Findings Procedure: Chest x-ray: report reviewed by me - EKG EKG results: interpreted by me Specialty Discharge - Follow Up or Referrals Follow up with: Devyn Baig MD [Physician] -
[2016-07-23] MEDS: methylPREDNISolone SOD SUC 40 MG/1 ML VIAL IV SCH ×3 (00:03→16:10)
[2016-07-23] MEDS: PROPOFOL 1,000 MG/100 ML BOTTLE IV SCH ×4 (00:25→22:32)
[2016-07-23] MEDS: ALBUTEROL/IPRATROPIUM 3 ML NEB RESP TX SCH ×4 (01:45→19:57)
[2016-07-23 03:14] LABS: ABG HCO3 27.4 MMOL/L (20-26); ABG Oxygen Saturation 98.9 % (95-100); ABG PCO2 36.9 MM HG (35-48); ABG PH 7.489 (7.35-7.45); ABG PO2 207.5 MM HG (80-95); ABG TCO2 28.6 MMOL/L (23-27); Allen Test Positive; Pt O2 Delivery Device Ventilator
[2016-07-23 04:55] LABS: Basophils % 0.1 % (0.0-0.8); Hematocrit 32.1 VOL% (35.7-47.0); Hemoglobin 10.3 GM/DL (12.0-16.0); Immature Granulocytes % 0.6 %; Immature Granulocytes Absolute 0.09 #; Lymphocytes # 0.4 10*3/uL (1.4-4.0); Lymphocytes % 2.6 % (21.3-54.2); Mean Corpuscular HGB Conc 32.1 GM/DL (32-36); Mean Corpuscular Hemoglobin 31 PG (27-34); Mean Corpuscular Volume 96.1 FL (87-102); Mean Platelet Volume 13.1 FL (9.6-12.0); Monocytes # 0.6 10*3/uL (0.11-0.8); Monocytes % 4.2 % (1.7-12.7); Neutrophils # 13.9 10*3/uL (1.4-7.4); Neutrophils % 92.5 % (38.7-73.9); Platelet Count 117 T/CUMM (130-400); Red Blood Count 3.34 MC/CUMM (3.8-5.5); Red Cell Distribution Width 15.6 % (9.3-17.3); White Blood Count 15.1 T/CUMM (4-12)
[2016-07-23 05:00] LABS: Albumin 2.6 G/DL (3.4-5.0); Bilirubin,Total 0.7 MG/DL (0.2-1.0); Calcium 7.8 MG/DL (8.5-10.1); Total Protein 6.1 G/DL (6.4-8.3)
[2016-07-23 05:01] LABS: Osmolality,Calculated 279.5 MOS/KG (273-304); Potassium 4.5 MMOL/L (3.5-5.1)
[2016-07-23 05:50] LABS: Lymphocytes 6 % (20-55); Segmented Neutrophils 91 % (50-85); Total Cells Counted 100
[2016-07-23 05:51] LABS: Platelet Estimate Adequate
--- NOTE | 2016-07-23 07:44 | EKG Report ---
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
--- NOTE | 2016-07-23 08:36 | Pulmonology Progress Note ---
Pulmonary - PN: Subj Interval history: This 80-year-old female has chronic renal failure. She came into the emergency room night before last in respiratory distress and was found to be fluid overloaded. She was intubated. She has been dialyzed and her x-ray looks a little better. PO2 certainly is good. She has one long as previously had a right pneumonectomy. I will decrease her tidal volume and start CPAP and see if we can wean. 07/23/2016 patient is making good progress with CPAP. We will see if we can get her extubated this morning. Chest x-ray is looking better. Exam (Progress Note) - Constitutional Vitals: Period Temp Pulse Resp BP Sys/Brody Pulse Ox Last 24 Hr 9.3 F-98.4 F 67-102 12-27 80-144/45-83 10-100 Exam: Patient is alert, on the ventilator. Vital signs normal. Pupils react to light. Orotracheal tube in place. Neck supple. Chest reveals decreased breath sounds on the right side. Left lung sounds clear. Heart normal rate and rhythm. Abdomen soft nontender. Bowel sounds present. Extremities no clubbing cyanosis or edema. Results - Labs CBC & BMP: 07/23/16 04:21 07/23/16 04:21 Lab Results: I have reviewed the past 24 hour labs - Diagnostic Findings Procedure: Chest x-ray: image reviewed by me (Previous right pneumonectomy. ET tube good position. Minimal bibasilar infiltrate on left side. Overall looks better.) Assessment and Plan (1) Acute respiratory failure Status: Acute Assessment and plan: ABGs look okay. Presently on the ventilator. Probably was fluid overloaded and has just one long since she has had a previous right pneumonectomy. she has been dialyzed now. Hopefully can start weaning 07/23/2016 ABGs look good. Weight is down 10 kg from admission. Tolerating CPAP. Will check mechanics and see if we can get her extubated. Current Visit: Yes (2) Chronic kidney disease with end stage renal failure on dialysis Status: Chronic Assessment and plan: Had dialysis yesterday. Chest x-ray looks better. 07/23/2016 to have dialysis tomorrow. Current Visit: Yes (3) Pulmonary edema Status: Acute Assessment and plan: Looks better on chest x-ray. 07/23/2016 clinically better Current Visit: Yes (4) Status post pneumonectomy Status: Acute Assessment and plan: Had a right pneumonectomy for lung cancer. 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 07/23/2016 restrictive lung disease due to previous right pneumonectomy. No evidence of any recurrence of her cancer. Current Visit: Yes Specialty Discharge - Follow Up or Referrals Follow up with: Devyn Baig MD [Physician] -
[2016-07-23] MEDS: cefTRIAXone 1,000 MG in SODIUM CHLORIDE 0.9% 100 ML IV SCH (09:00)
[2016-07-23 09:36] LABS: ABG Base Excess 1.9 MMOL/L (-2.5-2.5); ABG HCO3 26.1 MMOL/L (20-26); ABG Oxygen Saturation 99.1 % (95-100); ABG PCO2 44.2 MM HG (35-48); ABG PH 7.395 (7.35-7.45); ABG TCO2 24.7 MMOL/L (23-27)
[2016-07-23] MEDS: PANTOPRAZOLE 40 MG VIAL IV SCH (09:45)
[2016-07-23] MEDS: ASPIRIN EC 81 MG TABLET PO SCH (09:58)
[2016-07-23] MEDS: DOCUSATE SODIUM 100 MG CAPSULE PO SCH ×2 (09:58→20:02)
[2016-07-23] MEDS: CALCIUM ACETATE 667 MG CAPSULE PO SCH ×3 (09:58→20:01)
[2016-07-23] MEDS: amLODIPine 10 MG TABLET PO SCH (09:58)
[2016-07-23] MEDS: CARVEDILOL 12.5 MG TABLET PO SCH ×3 (09:58→21:07)
[2016-07-23] MEDS: clonazePAM 0.5 MG TABLET PO SCH (09:58)
[2016-07-23] MEDS: LEVOTHYROXINE 25 MCG TABLET PO SCH (09:59)
[2016-07-23] MEDS: ALLOPURINOL 100 MG TABLET PO SCH ×2 (09:59→20:01)
--- NOTE | 2016-07-23 11:41 | Cardiology Progress Note ---
Assessment and Plan (1) Pulmonary edema Status: Acute Assessment and plan: Troponins are going up slightly and now coming down. This would be worrisome for ACS/CAD. However, it could be due to the heart failure alone. Echo reveals severe LV systolic dysfunction. Plan/recommendation: Continue treatment for LV systolic dysfunction Dialyzed for volume as tolerated I have added a low-dose of carvedilol We will add a low-dose of MATHEW inhibitor when blood pressure allows We will discontinue Norvasc so we can add an MATHEW inhibitor Will likely need a heart cath on Sunday to evaluate for CAD to be the cause of this LV systolic dysfunction Prognosis remains guarded. 07/23/16: Assessment/plan/recommendation: Echo reveals severe LV dysfunction. Concern is for CAD is contributing to the pulmonary edema. Her troponins have trended downward. I had a long discussion with the patient's niece who is representing the family. I would recommend left heart cath and possible PTCA or stent or bypass. The risk and benefits were discussed with her. She agrees to proceed. Cath will be for tomorrow at 9 AM. When she is extubated also to plan her blood pressure will probably better. At that point we could add a low- dose of MATHEW inhibitor. Left heart cath and possible PTCA or stent were discussed with the patient. The risk of the procedure include but are not limited to a small risk of injury to the vessel, abnormal heart rhythm, stroke, heart attack, need for emergent surgery, contrast reaction, restenosis, or . The patient voices understanding, agrees with the plan, and desires to proceed with the heart catheterization. Current Visit: Yes (2) Elevated troponin Status: Acute Current Visit: Yes (3) Acute respiratory failure Status: Acute Current Visit: Yes (4) Status post pneumonectomy Status: Acute Current Visit: Yes (5) Chronic kidney disease with end stage renal failure on dialysis Status: Chronic Current Visit: Yes (6) ESRD (end stage renal disease) on dialysis Problem details: next routine CHD on Sunday. UF as tolerated. Status: Chronic Current Visit: Yes (7) Status post carcinoma right lung Status: Chronic Current Visit: Yes Cardiology - PN: Subj Interval history: On the vent. Awake but cannot interact. Exam (Progress Note) - Constitutional Vitals: Period Temp Pulse Resp BP Sys/Brody Pulse Ox Last 24 Hr 9.3 F-98.4 F 66-99 10-27 79-144/42-83 10-100 Exam: HEENT: Pupils equal, reactive to light and accommodation Neck: NoJVD or bruit Lungs clear to auscultation Heart: Regular rhythm rate with normal S1 and S2. Apical S4, 2/6 systolic ejection murmur along left lower sternal border. Abdomen: No hepatosplenomegaly Spine/extremities: No clubbing, cyanosis, or edema Neuro: Nonfocal Psych: No depression or anxiety Result/EKG - Labs CBC & BMP: 07/23/16 04:21 07/23/16 04:21 Lab Results: I have reviewed the past 24 hour labs Labs: Laboratory Results - last 24 hr 07/23/16 07/23/16 07/23/16 03:00 04:21 04:21 WBC 15.1 H RBC 3.34 L Hgb 10.3 L Hct 32.1 L MCV 96.1 MCH 31 MCHC 32.1 RDW 15.6 Plt Count 117 L MPV 13.1 H Neut % (Auto) 92.5 H Lymph % (Auto) 2.6 L [place] % (Auto) 4.2 Eos % (Auto) 0.0 Baso % (Auto) 0.1 Neut # (Auto) 13.9 H Lymph # (Auto) 0.4 L [place] # (Auto) 0.6 Eos # (Auto) 0.0 Baso # (Auto) 0.0 Total Counted 100 Immature Gran % 0.6 Nucleated RBC % 0.0 Immature Gran # 0.09 Segmented Neutrophils 91 H Lymphocytes 6 L Monocytes 3 Nucleated RBCs # 0.00 Platelet Estimate Adequate Pappenheimer Bodies Crystal Machining Coordinator ABG pH 7.489 H ABG pCO2 36.9 ABG pO2 207.5 H ABG HCO3 27.4 H ABG Total CO2 28.6 H ABG O2 Saturation 98.9 ABG Base Excess 4.0 H FiO2 40.00 Sodium 132 L Potassium 4.5 Chloride 95 L Carbon Dioxide 24 Anion Gap 17.5 H BUN 50 H Creatinine 5.60 H GFR Calculation 6 BUN/Creatinine Ratio 8.00 Glucose 159 H Calculated Osmolality 279.5 Calcium 7.8 L Total Bilirubin 0.70 AST 12 ALT 11 L Alkaline Phosphatase 96 Total Protein 6.1 L Albumin 2.6 L Globulin 3.5 Albumin/Globulin Ratio 0.7 L 07/23/16 09:17 WBC RBC Hgb Hct MCV MCH MCHC RDW Plt Count MPV Neut % (Auto) Lymph % (Auto) [place] % (Auto) Eos % (Auto) Baso % (Auto) Neut # (Auto) Lymph # (Auto) [place] # (Auto) Eos # (Auto) Baso # (Auto) Total Counted Immature Gran % Nucleated RBC % Immature Gran # Segmented Neutrophils Lymphocytes Monocytes Nucleated RBCs # Platelet Estimate Pappenheimer Bodies ABG pH 7.395 ABG pCO2 44.2 ABG pO2 169.0 H ABG HCO3 26.1 H ABG Total CO2 24.7 ABG O2 Saturation 99.1 ABG Base Excess 1.9 FiO2 Sodium Potassium Chloride Carbon Dioxide Anion Gap BUN Creatinine GFR Calculation BUN/Creatinine Ratio Glucose Calculated Osmolality Calcium Total Bilirubin AST ALT Alkaline Phosphatase Total Protein Albumin Globulin Albumin/Globulin Ratio - Diagnostic Findings Procedure: Chest x-ray: report reviewed by me - EKG EKG results: interpreted by me Specialty Discharge - Follow Up or Referrals Follow up with: Devyn Baig MD [Physician] -
[2016-07-23] MEDS ORDERED: MAGNESIUM SULF RIDER 2 GM in PREMIX 1 EACH IV PRN (11:42)
[2016-07-23] MEDS ORDERED: ASPIRIN CHEW 81 MG TABLET PO ONE (11:46)
--- NOTE | 2016-07-23 11:58 | Nephrology Progress Note ---
Nephrology - PN: Subj Interval history: No acute overnight events. Pt more alert this am, spontaneous eye opening. Cath planned for am. Exam (PN)-Nephrology - Vital Signs Vital signs: Period Temp Pulse Resp BP Sys/Brody Pulse Ox Last 24 Hr 9.3 F-98.4 F 66-99 10-27 79-144/42-83 10-100 - General Appearance General appearance: well-developed, chronically ill EENT: ATNC, PERRL, mucous membranes dry, hearing intact, vision intact Neck: no JVD, no thyromegaly Respiratory: no kyphosis, rales Cardiology: no murmurs, no rub Gastrointestinal: normoactive bowel sounds, no tenderness Integumentary: no rash, warm and dry Neurologic: no focal deficit, no asterixis, alert and oriented x3 Psychiatric: mood/affect appropriate, cooperative - Lab 07/23/16 04:21 07/23/16 04:21 Most recent lab results ABG pH 7.395 (7.35-7.45) 07/23/16 09:17 ABG pCO2 44.2 MM HG (35-48) 07/23/16 09:17 ABG pO2 169.0 MM HG (80-95) H 07/23/16 09:17 ABG HCO3 26.1 MMOL/L (20-26) H 07/23/16 09:17 ABG O2 Saturation 99.1 % (95-100) 07/23/16 09:17 Calcium 7.8 MG/DL (8.5-10.1) L 07/23/16 04:21 Magnesium 2.6 MG/DL (1.8-2.4) H 07/21/16 03:24 Assessment and Plan (1) ESRD (end stage renal disease) on dialysis Problem details: Next routine CHD on Sunday after am cath. UF as tolerated by hemodynamics. Status: Chronic Current Visit: Yes (2) UTI (urinary tract infection) Status: Acute Assessment and plan: Start levofloxacin 500mg IVPB now, then 250mg IVPB q48h. Current Visit: Yes Specialty Discharge - Follow Up or Referrals Follow up with: Devyn Baig MD [Physician] -
--- NOTE | 2016-07-23 15:22 | Family Practice Progress Note ---
Family Practice - PN: Subj Interval history: Patient is stable today and staff reports that she awakes and appears to be alert. Dr. Baig's evaluation has revealed severe left ventricular dysfunction. He is concerned that her heart failure may be due to coronary artery disease. He has scheduled her for a heart cath in a.m. It has been decided to not extubate patient until after she has her cath tomorrow. Dr. Baig is discussed this with family as I am not seeing any family members. Multiple consultants involved and I agree with present assessment and treatment plan. Exam (Progress Note) - Constitutional Vitals: Period Temp Pulse Resp BP Sys/Brody Pulse Ox Last 24 Hr 9.3 F-98.4 F 66-87 9-25 79-137/42-76 100-100 Results - Labs CBC & BMP: 07/23/16 04:21 07/23/16 04:21 Assessment and Plan (1) Acute respiratory failure Status: Acute Assessment and plan: Patient required endotracheal intubation in the emergency room and is presently on a respirator. Being followed by pulmonary we will continue present treatment plan Current Visit: Yes (2) Pulmonary edema Status: Acute Assessment and plan: We will start her on appropriate treatment Current Visit: Yes (3) UTI (urinary tract infection) Status: Acute Assessment and plan: We will obtain culture and start her on appropriate antibiotics Current Visit: Yes (4) Chronic kidney disease with end stage renal failure on dialysis Status: Chronic Assessment and plan: Patient is presently receiving dialysis. Current Visit: Yes (5) Hypertension Status: Chronic Assessment and plan: We will resume her home medications Current Visit: Yes (6) Status post carcinoma right lung Status: Chronic Assessment and plan: Stable at present Current Visit: Yes (7) Status post pneumonectomy Status: Acute Assessment and plan: Stable at present Current Visit: Yes (8) Hypothyroid Status: Chronic Assessment and plan: We will resume home medications and monitor Current Visit: Yes Specialty Discharge - Follow Up or Referrals Follow up with: Devyn Baig MD [Physician] -
--- NOTE | 2016-07-23 15:22 | XRay Report ---
Exam: XR chest 1V portable Indication: Intubated Comparison study: 07/22/2016 Findings: Endotracheal tube and esophagogastric tube are in similar position. Postsurgical changes of prior right pneumonectomy appear unchanged. Left lung remains predominantly clear. Impression: Endotracheal and esophagogastric tubes are in stable position. Otherwise, no significant change. PROCEDURE INTERPRETED AT [facility] DEPARTMENT OF RADIOLOGY Final Report Signed by: Royce Casanova
--- NOTE | 2016-07-23 21:00 | History and Physical Update ---
Sedation H&P Update - History and Physical H&P was reviewed, the patient examined and there: are no changes in the patients condition since last H&P was completed. - Dictation Physical: refer to H&P completed by admitting physician - Physical Exam Mental Status: alert and oriented Heart: regular rate and rhythm Lung: clear to auscultation Abdomen: within normal limits Vitals: within normal limits - Sedation Plan for Sedation: minimal Patient Consent: Procedure disscussed with patient and patinet has consented., Risks and benefits were discussed with patient,including infection,, bleeding, injury to surrounding structures, seizure, temporary nerve, Patient understands and accepts potential risks/benefits and agrees to, proceed. ASA Class: III Airway Assessment: Class II: Soft palate, uvula, fauces visible
[2016-07-24] MEDS: methylPREDNISolone SOD SUC 40 MG/1 ML VIAL IV SCH ×3 (00:31→17:28)
[2016-07-24] MEDS: ALBUTEROL/IPRATROPIUM 3 ML NEB RESP TX SCH ×4 (01:17→21:30)
[2016-07-24] MEDS: PROPOFOL 1,000 MG/100 ML BOTTLE IV SCH ×2 (03:08→11:28)
[2016-07-24] MEDS ORDERED: SODIUM CHLORIDE 0.9% 1,000 ML IV SCH (07:00)
--- NOTE | 2016-07-24 07:26 | EKG Report ---
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
[2016-07-24] MEDS ORDERED: diphenhydrAMINE 50 MG/1 ML VIAL IV ONE (08:00)
[2016-07-24] MEDS ORDERED: LIDOCAINE 1%/EPI INJ 20 ML VIAL ONE (08:23)
[2016-07-24] MEDS ORDERED: MEPERIDINE 25 MG/1 ML VIAL ONE (08:41)
[2016-07-24] MEDS ORDERED: HEPARIN 5,000 UNIT/1 ML VIAL ONE (08:53)
--- NOTE | 2016-07-24 09:00 | Pulmonology Progress Note ---
Pulmonary - PN: Subj Interval history: The patient is an 80-year-old black lady that has had a previous right pneumonectomy. She is on dialysis with end-stage renal disease. She came in with tightness in her chest and acute pulmonary edema was placed on the ventilator. She is doing better now and her left lung has cleared. She is going for cardiac catheterization today. Afterwards she will have dialysis. She should be able to come off the ventilator soon. Exam (Progress Note) - Constitutional Vitals: Period Temp Pulse Resp BP Sys/Brody Pulse Ox Last 24 Hr 97.8 F-98.9 F 59-87 9-25 82-153/44-76 10-100 Exam: General appearance: normal weight, other (Patient is sedated and comfortable on the ventilator. She does arouse easily.) - Head Head exam: Present: normal inspection, normocephalic - Eye Eye exam: Present: EOMI. Absent: scleral icterus Pupils: Present: ULISES - ENT ENT exam: Present: other (ET tube is in good position) - Neck Neck exam: Present: normal inspection. Absent: lymphadenopathy, thyromegaly - Respiratory Respiratory exam: Present: decreased breath sounds (She has absent breath sounds on the right), left lung has good breath sounds and is basically clear. - Cardiovascular Cardiovascular exam: Present: She has a regular rhythm now without a murmur or gallop. - GI/Abdominal GI/Abdominal exam: Present: normal bowel sounds, soft. Absent: organomegaly, tenderness - Extremities Exam Extremities exam: Absent: calf tenderness, edema - Neurological Exam Neurological exam: Present: other (Patient is sedated on the ventilator) - Skin Skin exam: Present: warm, dry Results - Labs CBC & BMP: 07/23/16 04:21 07/23/16 04:21 Labs: PO2 is 169 with a PCO2 of 44 and a pH of 7.39 - Diagnostic Findings Procedure: Chest x-ray: image reviewed by me, report reviewed by me (Chest x- ray shows a right pneumonectomy. Left lung is clear now.) Assessment and Plan (1) Status post pneumonectomy Status: Acute Assessment and plan: The patient had a previous right pneumonectomy for lung cancer. Current Visit: Yes (2) Acute respiratory failure Status: Acute Assessment and plan: The patient is stable on the ventilator now. The left lung is clear. She should do okay off the ventilator. Current Visit: Yes (3) Chronic kidney disease with end stage renal failure on dialysis Status: Chronic Assessment and plan: She has end-stage renal disease and will continue with dialysis. Current Visit: Yes (4) Pulmonary edema Status: Acute Assessment and plan: This acute event is probably related to pulmonary edema. Her lung has cleared fairly well on dialysis. Her chest x-ray is clear now. She is going for cardiac catheterization today. Current Visit: Yes Specialty Discharge - Follow Up or Referrals Follow up with: Devyn Baig MD [Physician] -
[2016-07-24] MEDS ORDERED: DOBUTamine 250 ML IV ONE (09:09)
[2016-07-24] MEDS ORDERED: TIROFIBAN 5,000 MCG/100 ML PREMIX IV ONE (09:09)
[2016-07-24] MEDS ORDERED: TIROFIBAN 5,000 MCG/100 ML PREMIX IV SCH (09:19)
[2016-07-24] MEDS: DOBUTamine 500 MG/250 ML PREMIX IV SCH (09:19)
--- NOTE | 2016-07-24 09:52 | Physician Query Form ---
CLICK EDIT DOCUMENT TO SELECT QUERY ANSWER --> OK --> SIGN Radha Bennett RN, CCDS Certified Clinical Distribution Associate W) [phone] (f) [phone] [email or web address] PROVIDERS: Make your selection(s) from the choices in EACH section by typing an "x" and enter comments in the comment section. Please use your independent medical judgment in providing your response. This request does not imply that any particular answer is desired or expected. CLINICAL INDICATORS: (Providers should not edit this section) The patient was admitted with acute respiratory failure, CHF, acute pulmonary edema, BNP of 676, and the patient has ESRD. "Echo/ Doppler-LVEF by gated SPECT imaging was about 40% a month or 2 ago outpatient" Please provide further specificity regarding CHF. ACUITY: ( ) Acute ( ) Chronic ( x) Acute on Chronic ( ) Clinically unable to determine TYPE: ( x) Systolic ( ) Diastolic ( ) Combined Systolic/Diastolic ( ) Other, please specify: ( ) Clinically unable to determine ( ) The patient does NOT have CHF COMMENTS: Use of terms such as suspected, likely, or probable (associated with a specific diagnosis that is being evaluated, monitored, or treated as if it exists) are acceptable and can be restated in the discharge summary if not ruled out. MTDD
[2016-07-24] MEDS ORDERED: PROPOFOL 1,000 MG/100 ML BOTTLE IV ONE (10:13)
[2016-07-24] MEDS ORDERED: TICAGRELOR 90 MG TABLET ONE (10:14)
--- NOTE | 2016-07-24 10:54 | Operative Note ---
Date of procedure: 07/24/16 Procedure Preformed: Left heart cath Coronary angiography Left ventriculography Aggrastat bolus and infusion Infusion of low-dose dobutamine- Angiogram of the right femoral artery Stent of the circumflex in 2 sites; Stent of the LAD in the midportion-second stent vessel Loading with Brilinta, 180 mg p.o. Angio-Seal of the right femoral artery-successful Surgeon / Physician: Devyn Baig Box Stapler: Kevin Jeffers Post-op diagnosis: same (Non-STEMI) Findings: Impression Critical three-vessel CAD Status post successful stenting of 2 lesions in the circumflex Status post successful stenting of the LAD-second vessel Severe LV systolic dysfunction, LVEF 20% Mild LV diastolic dysfunction, LVEDP 18 mmHg Aggrastat bolus and infusion Low-dose dobutamine to help support blood pressure Angiogram right femoral Loading with Brilinta, 180 mg p.o. Angio-Seal right femoral artery Plan/recommendations: The patient will have risk factors optimized.the patient will be on antiplatelet medications to include aspirin indefinitely and Plavix or Brilinta for at least a year. Follow-up will be scheduled. Addenda: I saw the patient post-cath. the groin puncture site and distal pulse are stable. vital signs are stable and the patient will be observed closely overnight. Specimens: none sent Estimated blood loss: minimal Condition: other Anesthesia: local, conscious sedation Disposition: ICU
[2016-07-24] MEDS: CALCIUM ACETATE 667 MG CAPSULE PO SCH ×3 (11:16→20:13)
--- NOTE | 2016-07-24 11:53 | EKG Report ---
Stationary ECG Study [facility] Test Date: 07/24/2016 11:52:59 AM Pat Name: CARMEN TADEO Department: Room: 128 Gender: F Paraplanner: HOWARD : 1935 Requested by: Devyn Baig Order Number: [id number] Reading MD: BOBBY ROBINS Intervals [place] Rate: 73 P: 58 OK: 148 QRS: 26 QRSD: 109 T: 96 QT: 429 QTc: 456 Interpretive Statements SINUS RHYTHM ST-T ABNORMALITY, CONSIDER LATERAL ISCHEMIA. Electronically Signed On 07-25-16 09:24:18 CDT by BOBBY ROBINS [email or web address]
[2016-07-24 11:58] LABS: Troponin I Only 0.102 NG/ML (0.00-0.045)
--- NOTE | 2016-07-24 12:35 | Cardiology Operative Report ---
Date of Procedure:: 07/24/16 Post-op diagnosis: same (Non-STEMI) Procedure: Date of procedure: 07/24/16 Procedure Preformed: Left heart cath Coronary angiography Left ventriculography Aggrastat bolus and infusion Infusion of low-dose dobutamine- Angiogram of the right femoral artery Stent of the circumflex in 2 sites; Stent of the LAD in the midportion-second stent vessel Loading with Brilinta, 180 mg p.o. Angio-Seal of the right femoral artery-successful Surgeon / Physician: Devyn Baig Inspector Assemblies And Installations: Kevin Jeffers Post-op diagnosis: same (Non-STEMI) procedure: The patient was prepped and draped in usual manner. Entered the right femoral artery via the Seldinger technique. I used a sheath and then used a JL4 and engaged left coronary. Multiple views were taken. I then exchanged for a JR4. Multiple views of the right coronary were taken. I then exchanged for an angled pigtail. I crossed the valve. Left ventricular end-diastolic pressures measured. Left ventriculography was done. Left ventricle pullback was done. The catheters were then removed from the patient. Please see the data sheets for the details of catheters used. Intervention: Cardiovascular surgery was available for any complications. I used a low-dose of dobutamine to help support blood pressure predicted intervention. She tolerated intervention very well. The coronary intervention was done using a EBU 3.5 guiding catheter, 0.014 run through wire,, After predilatation of the proximal circumflex with a 2.75 x 12 mm NC apex, then placed a 3.0 x 8 mm Zions Alpine coronary stent across the second lesion, non predilated. It was deployed. The results were good. I then placed a 3.0 x 12 mm Zions Alpine across the proximal lesion which had been dilated. It was deployed. Afterwards, there There was a good result. I then turned my attention to the proximal to mid LAD lesion. I used the same EBU guide and the same wire. I then predilated with the 2.75 x 12 mm NC apex, same balloon. I then placed a 3.0 x 18 mm Zions Alpine across the lesion and it was deployed. Results were very good. In the SINHALA view there was some narrowing but in retrospect that finding was noted on the preintervention films. It was unchanged. Angiogram of the right femoral artery was done, either at that time or as a follow-through from the aortogram/left ventriculogram. Angio-Seal was done. Patient was transferred to her room on telemetry in satisfactory condition. Please see the cath report for details of the pressures and times. Complications: none Hemodynamic data: LVEDP was 18 mmHg. Angiographic data: The left main coronary was large and had minimal luminal irregularities. The left anterior descending artery was large. There there are a few diagnoses a few septal perforators. At the proximal midportion there was a 90% tubular narrowing. The distal LAD had multiple significant, greater than 70% narrowing. The vessel itself had multiple mildly aneurysmal segments. The left circumflex system was moderate to large. It was 1 major obtuse marginal and 1 posterior lateral branches. There was a proximal 99% narrowing which is tubular. At the takeoff the obtuse marginal there was a 80% narrowing. There is ROMINA grade III flow across both these lesions. The right coronary artery was large in size, dominant vessel with the PDA. There was a moderate sized post lateral branch. This vessel was occluded in its mid extent. There were ROMINA grade I left to right collaterals. العلي left ventriculography revealed severe global left ventricle systolic dysfunction, overall ejection fraction is 20%. The inferior and inferobasal segment was more severely hypokinetic. After intervention of the circumflex,, the proximal lesion had a 0% residual and ROMINA grade III flow, the obtuse marginal lesion had a 0% lesion and a ROMINA grade III flow. There was some narrowing of the vessel distal to the obtuse marginal but over time it seemed to open up somewhat, suggestive that it was spasm. Nitroglycerin had not been used because of the borderline hypotension. After intervention of the proximal mid LAD there is a 0% residual and ROMINA grade III flow. Angiogram of the right femoral artery revealed the puncture site to be in a large vessel, above the bifurcation. It was suitable for Angio-Seal. Impression Critical three-vessel CAD Status post successful stenting of 2 lesions in the circumflex--- proximal lesion had a drug-eluting stent, obtuse marginal drug-eluting stent-see dictation above Status post successful stenting of the LAD-second cylgzq-vnla-ibuknol stent, see dictation above Severe LV systolic dysfunction, LVEF 20% Mild LV diastolic dysfunction, LVEDP 18 mmHg Aggrastat bolus and infusion-for ACS/non-STEMI Low-dose dobutamine to help support blood pressure Angiogram right femoral artery Loading with Brilinta, 180 mg p.o. Angio-Seal right femoral artery Plan/recommendations: The patient will have risk factors optimized.the patient will be on antiplatelet medications to include aspirin indefinitely and Plavix or Brilinta for at least a year. Follow-up will be scheduled. Addenda: I saw the patient post-cath. the groin puncture site and distal pulse are stable. vital signs are stable and the patient will be observed closely overnight. Specimens: none sent Estimated blood loss: minimal Condition: other Anesthesia: local, conscious sedation Disposition: ICU Anesthesia: local, minimal conscious sedation Surgeon / Physician: Devyn Baig Inspector Assemblies And Installations: other Estimated blood loss: minimal Specimens: none sent Condition: other Disposition: ICU/CCU
[2016-07-24] MEDS: amLODIPine 10 MG TABLET PO SCH (16:21)
[2016-07-24] MEDS: cefTRIAXone 1,000 MG in SODIUM CHLORIDE 0.9% 100 ML IV SCH (16:23)
[2016-07-24] MEDS: PANTOPRAZOLE 40 MG VIAL IV SCH (16:23)
[2016-07-24] MEDS: LEVOFLOXACIN INJ 250 MG in PREMIX 1 EACH IV SCH (16:23)
[2016-07-24] MEDS: DOCUSATE SODIUM 100 MG CAPSULE PO SCH ×2 (16:24→20:04)
[2016-07-24] MEDS: LEVOTHYROXINE 25 MCG TABLET PO SCH (16:24)
[2016-07-24] MEDS: ASPIRIN EC 81 MG TABLET PO SCH (16:24)
[2016-07-24] MEDS: clonazePAM 0.5 MG TABLET PO SCH (16:24)
[2016-07-24] MEDS: ALLOPURINOL 100 MG TABLET PO SCH ×2 (16:25→20:04)
[2016-07-24] MEDS: CARVEDILOL 12.5 MG TABLET PO SCH ×2 (16:25→20:04)
[2016-07-24] MEDS: TICAGRELOR 90 MG TABLET PO SCH (20:04)
[2016-07-24] MEDS: ROSUVASTATIN 10 MG TABLET PO SCH (20:06)
--- NOTE | 2016-07-24 22:40 | Nephrology Progress Note ---
Nephrology - PN: Subj Interval history: Patient's chart was reviewed. She was seen immediately post cardiac cath. She is still mildly sedated. Blood pressure is stable. She is on the ventilator. Exam (PN)-Nephrology - Vital Signs Vital signs: Period Temp Pulse Resp BP Sys/Brody Pulse Ox Last 24 Hr 97.0 F-98.9 F 59-90 12-20 107-203/44-103 10-100 Exam: Gen.: Sedated ENT: Pupils equal round reactive to light. Intubated Neck: Supple. No JVD or bruit. Cardiovascular: Regular rate and rhythm. No murmur rub or gallop Lungs: Clear on the left. Dullness on the right Abdomen: Soft. Nontender. Positive bowel sounds. No organomegaly Extremities: No edema - Lab 07/23/16 04:21 07/23/16 04:21 Most recent lab results ABG pH 7.395 (7.35-7.45) 07/23/16 09:17 ABG pCO2 44.2 MM HG (35-48) 07/23/16 09:17 ABG pO2 169.0 MM HG (80-95) H 07/23/16 09:17 ABG HCO3 26.1 MMOL/L (20-26) H 07/23/16 09:17 ABG O2 Saturation 99.1 % (95-100) 07/23/16 09:17 Calcium 7.8 MG/DL (8.5-10.1) L 07/23/16 04:21 Magnesium 2.6 MG/DL (1.8-2.4) H 07/21/16 03:24 Assessment and Plan (1) Acute UT Status: Acute Assessment and plan: 80-year-old woman admitted with: * Acute UT. She presented with acute onset shortness of breath and required intubation shortly after presentation. Troponin was elevated. Ejection fraction noted to be markedly depressed compared to recent outpatient study. She has not had prior admissions for pulmonary edema. She has been compliant with fluid restriction and typically has minimal fluid weight gains between dialysis sessions. Chest x-ray on admission showed mild pulmonary edema; I believe this is due to decreased ejection fraction DT ischemic event. * Three-vessel CAD. Status post placement today * Ventilatory failure. Wean from ventilator as tolerated * Remote right pneumonectomy * ESRD. Dialysis today * Hypertension Current Visit: Yes (2) CAD (coronary artery disease) Status: Acute Current Visit: Yes (3) Status post pneumonectomy Status: Acute Current Visit: Yes (4) ESRD (end stage renal disease) on dialysis Status: Chronic Current Visit: Yes (5) Hypertension Status: Chronic Current Visit: Yes (6) Ventilatory failure Status: Acute Current Visit: Yes Specialty Discharge - Follow Up or Referrals Follow up with: Devyn Baig MD [Physician] -
[2016-07-25] MEDS: methylPREDNISolone SOD SUC 40 MG/1 ML VIAL IV SCH ×3 (00:32→17:02)
[2016-07-25] MEDS: ALBUTEROL/IPRATROPIUM 3 ML NEB RESP TX SCH ×4 (01:17→19:03)
[2016-07-25 04:25] LABS: Hemoglobin 8.9 GM/DL (12.0-16.0); Immature Granulocytes % 0.7 %; Lymphocytes # 0.1 10*3/uL (1.4-4.0); Lymphocytes % 0.7 % (21.3-54.2); Mean Corpuscular HGB Conc 31.8 GM/DL (32-36); Mean Corpuscular Hemoglobin 31 PG (27-34); Mean Corpuscular Volume 95.9 FL (87-102); Mean Platelet Volume 13.3 FL (9.6-12.0); Monocytes # 0.4 10*3/uL (0.11-0.8); Monocytes % 3.1 % (1.7-12.7); Neutrophils # 13.8 10*3/uL (1.4-7.4); Neutrophils % 95.5 % (38.7-73.9); Platelet Count 113 T/CUMM (130-400); Red Blood Count 2.92 MC/CUMM (3.8-5.5); Red Cell Distribution Width 15.4 % (9.3-17.3); White Blood Count 14.4 T/CUMM (4-12)
[2016-07-25] MEDS: PROPOFOL 1,000 MG/100 ML BOTTLE IV SCH (04:36)
[2016-07-25 04:42] LABS: Calcium 6.7 MG/DL (8.5-10.1); Calcium 6.8 MG/DL (8.5-10.1); Magnesium 2.2 MG/DL (1.8-2.4); Osmolality,Calculated 275.8 MOS/KG (273-304); Potassium 5.1 MMOL/L (3.5-5.1)
[2016-07-25 04:44] LABS: CKMB % 3.6 %
[2016-07-25 04:45] LABS: Troponin I Only 2.2 NG/ML (0.00-0.045)
[2016-07-25 05:00] LABS: Lymphocytes 1 % (20-55); Segmented Neutrophils 97 % (50-85); Total Cells Counted 100
[2016-07-25 05:01] LABS: Platelet Estimate Adequate
[2016-07-25 05:02] LABS: Hypochromasia 1+; Microcytosis 1+; Target Cells Slight
--- NOTE | 2016-07-25 07:43 | EKG Report ---
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
--- NOTE | 2016-07-25 08:08 | Pulmonology Progress Note ---
Pulmonary - PN: Subj Interval history: The patient is an 80-year-old black lady that has had a previous right pneumonectomy. She is on dialysis with end-stage renal disease. She came in with tightness in her chest and acute pulmonary edema was placed on the ventilator. She is doing better now and her left lung has cleared. She had a cardiac catheterization yesterday and has significant triple-vessel coronary artery disease with a cardiomyopathy. She had multiple stents placed. She did dialysis yesterday and has been stable on the ventilator. Exam (Progress Note) - Constitutional Vitals: Period Temp Pulse Resp BP Sys/Brody Pulse Ox Last 24 Hr 97.0 F-97.9 F 63-90 12-20 121-203/52-103 100-100 Exam: General appearance: normal weight, other (Patient is sedated and comfortable on the ventilator. She does arouse easily.) - Head Head exam: Present: normal inspection, normocephalic - Eye Eye exam: Present: EOMI. Absent: scleral icterus Pupils: Present: ULISES - ENT ENT exam: Present: other (ET tube is in good position) - Neck Neck exam: Present: normal inspection. Absent: lymphadenopathy, thyromegaly - Respiratory Respiratory exam: Present: decreased breath sounds (She has absent breath sounds on the right), left lung has good breath sounds and is basically clear. - Cardiovascular Cardiovascular exam: Present: She has a regular rhythm now without a murmur or gallop. - GI/Abdominal GI/Abdominal exam: Present: normal bowel sounds, soft. Absent: organomegaly, tenderness - Extremities Exam Extremities exam: Absent: calf tenderness, edema - Neurological Exam Neurological exam: Present: other (Patient is sedated on the ventilator. She does respond and moves everything.) - Skin Skin exam: Present: warm, dry Results - Labs CBC & BMP: 07/25/16 03:45 07/25/16 03:45 Assessment and Plan (1) Status post pneumonectomy Status: Acute Assessment and plan: The patient had a previous right pneumonectomy for lung cancer. Current Visit: Yes (2) Acute respiratory failure Status: Acute Assessment and plan: The patient is stable on the ventilator now. The left lung is clear. Will try to extubate soon. Current Visit: Yes (3) Chronic kidney disease with end stage renal failure on dialysis Status: Chronic Assessment and plan: She has end-stage renal disease and will continue with dialysis. Current Visit: Yes (4) Pulmonary edema Status: Acute Assessment and plan: This acute event is probably related to pulmonary edema. Her lung has cleared fairly well on dialysis. She did well with her cardiac catheterization and her dialysis yesterday. Will check ABGs and chest x-ray and try to extubate. Current Visit: Yes Specialty Discharge - Follow Up or Referrals Follow up with: Devyn Baig MD [Physician] -
[2016-07-25] MEDS: clonazePAM 0.5 MG TABLET PO SCH (09:12)
[2016-07-25] MEDS: CALCIUM ACETATE 667 MG CAPSULE PO SCH ×3 (09:12→20:08)
[2016-07-25] MEDS: DOCUSATE SODIUM 100 MG CAPSULE PO SCH ×2 (09:12→20:08)
[2016-07-25] MEDS: CARVEDILOL 12.5 MG TABLET PO SCH ×2 (09:12→20:08)
[2016-07-25] MEDS: PANTOPRAZOLE 40 MG VIAL IV SCH (09:12)
[2016-07-25] MEDS: TICAGRELOR 90 MG TABLET PO SCH ×2 (09:12→20:08)
[2016-07-25] MEDS: cefTRIAXone 1,000 MG in SODIUM CHLORIDE 0.9% 100 ML IV SCH (09:13)
[2016-07-25] MEDS: ALLOPURINOL 100 MG TABLET PO SCH ×2 (09:14→20:08)
[2016-07-25] MEDS: LEVOTHYROXINE 25 MCG TABLET PO SCH (09:14)
--- NOTE | 2016-07-25 09:16 | XRay Report ---
History: Patient on ventilator Date: 07/25/2016 Study: Chest x-ray AP portable Comparison exam: January 22, 2017 chest x-ray The endotracheal and nasogastric tubes are in satisfactory position. The patient is status post right pneumonectomy. There is some minor strandy subsegmental atelectasis in the left lung base without change. There is no new or worsening infiltrate. There is no gross left pleural effusion. The cardiomediastinal silhouette is unchanged. The osseous structures are similar. Impression: No adverse interval change from the previous study. Minor subsegmental atelectasis left lung base. Previous right pneumonectomy PROCEDURE INTERPRETED AT [facility] DEPARTMENT OF RADIOLOGY Final Report Signed by: Dr. Leeanna Romano
[2016-07-25] MEDS: ASPIRIN EC 81 MG TABLET PO SCH (09:20)
[2016-07-25] MEDS: DOBUTamine 500 MG/250 ML PREMIX IV SCH (09:21)
[2016-07-25 09:35] LABS: Pt O2 Delivery Device Ventilator
[2016-07-25 09:37] LABS: ABG HCO3 22.7 MMOL/L (20-26); ABG Oxygen Saturation 98.6 % (95-100); ABG PCO2 39.3 MM HG (35-48); ABG PH 7.375 (7.35-7.45); ABG TCO2 21.1 MMOL/L (23-27)
--- NOTE | 2016-07-25 10:00 | Cardiology Progress Note ---
Assessment and Plan (1) Pulmonary edema Status: Acute Assessment and plan: This is most likely secondary to patient's underlying coronary artery disease. She is now status post revascularization. She seems to be clinically stable. Continue to wean from ventilator as she tolerates. Current Visit: Yes (2) Acute respiratory failure Status: Acute Assessment and plan: Patient is currently mechanically ventilated. Management per pulmonary. Current Visit: Yes (3) ESRD (end stage renal disease) on dialysis Problem details: Next routine CHD on Sunday after am cath. UF as tolerated by hemodynamics. Status: Chronic Assessment and plan: Management per nephrology. Current Visit: Yes (4) Status post pneumonectomy Status: Chronic Current Visit: Yes (5) UTI (urinary tract infection) Status: Acute Assessment and plan: Urine culture revealed no growth at 48 hours. She is currently receiving Rocephin and Levaquin. Management per attending. Current Visit: Yes (6) Hypertension Status: Chronic Assessment and plan: This is clinically stable. Continue current plan of care. Current Visit: Yes (7) Hypothyroid Status: Chronic Assessment and plan: Continue current plan of care with Synthroid. Current Visit: Yes (8) Status post carcinoma right lung Status: Chronic Assessment and plan: This is clinically stable. Current Visit: Yes (9) CAD (coronary artery disease) Status: Acute Assessment and plan: Patient is now status post revascularization. -Continue dual antiplatelet therapy with Brilinta and aspirin -Continue beta-luanne -Continue statin Further plan and addendum to follow per Dr. Gonzalez. Current Visit: Yes (10) Ischemic cardiomyopathy Status: Acute Assessment and plan: Patient is now revascularized. -Continue beta-luanne -We will add Imdur and hydralazine at this time for afterload reduction as patient has chronic renal failure and is on dialysis, avoiding MATHEW inhibitor due to fear of worsening renal function. Current Visit: Yes Cardiology - PN: Subj Interval history: Cupola Operator Insulation: Dr. Baig PCP: Dr. Carmichael Lab Pack Chemist: Dr. Hemphill Cardiology consult note: Ms. Reyes is a 80 year old female without known history of coronary artery disease, routinely followed by Dr. Devyn Baig. Patient has a history of end-stage renal disease on hemodialysis, diastolic heart failure, lung cancer with pneumonectomy, hypertension and dyslipidemia. Patient presented to the ER with sudden onset of pulmonary edema and required mechanical ventilation. Cardiology was consulted to further evaluate patient. Echocardiogram was done this admission which revealed severe LV dysfunction. This was concerning that underlying coronary artery disease was contributing to patient's flash pulmonary edema. Subsequently, patient underwent left heart catheterization per Dr. Baig with the following impressions noted: Impression Critical three-vessel CAD Status post successful stenting of 2 lesions in the circumflex--- proximal lesion had a drug-eluting stent, obtuse marginal drug-eluting stent Status post successful stenting of the LAD-second [id number]-gteb-ufhbivw stent Severe LV systolic dysfunction, LVEF 20% Mild LV diastolic dysfunction, LVEDP 18 mmHg Aggrastat bolus and infusion-for ACS/non-STEMI Low-dose dobutamine to help support blood pressure Angiogram right femoral artery Loading with Brilinta, 180 mg p.o. Angio-Seal right femoral artery Plan/recommendations: Status post NON-Stemi. The patient will have risk factors optimized. The patient will be on antiplatelet medications to include aspirin indefinitely and Plavix or Brilinta for at least a year. Follow-up will be scheduled. Post cardiac catheterization patient was transferred back to the CCU in stable condition. She continues to be sedated and ventilated. Right groin is soft without bleeding, hematoma and bruit. Distal pulses present. Patient is currently on appropriate dual antiplatelet therapy. Vital signs are stable. Further plan and addendum to follow per Dr. Gonzalez. Exam (Progress Note) - Constitutional Vitals: Period Temp Pulse Resp BP Sys/Brody Pulse Ox Last 24 Hr 97.0 F-97.9 F 63-90 12-20 121-203/52-103 100-100 General appearance: other (Patient is sedated and ventilated in the CCU.) - Head Head exam: Present: normal inspection, normocephalic, atraumatic - ENT ENT exam: Present: other (ET tube noted) - Neck Neck exam: Present: normal inspection. Absent: lymphadenopathy, tenderness, thyromegaly - Respiratory Respiratory exam: Present: clear to auscultation bilaterally. Absent: rales, rhonchi, stridor, wheezes - Cardiovascular Cardiovascular exam: Present: regular rate and rhythm, systolic murmur. Absent : gallop, rubs - GI/Abdominal GI/Abdominal exam: Present: hypoactive bowel sounds, soft. Absent: distended, firm, mass - Extremities Exam Extremities exam: Present: normal inspection, normal capillary refill, other ( Right groin is soft without bleeding, hematoma and bruit. Distal pulses present.). Absent: calf tenderness, edema - Neurological Exam Neurological exam: Present: other (Unable to adequately assess due to sedated on the ventilator.) - Psychiatric Psychiatric exam: Present: other (Unable to adequately assess due to patient currently on ventilator.) - Skin Skin exam: Present: normal color, warm, dry Result/EKG - Labs CBC & BMP: 07/25/16 03:45 07/25/16 03:45 Lab Results: I have reviewed the past 24 hour labs Labs: Laboratory Results - last 24 hr 07/24/16 07/24/16 07/25/16 11:18 19:26 03:45 WBC RBC Hgb Hct MCV MCH MCHC RDW Plt Count MPV Neut % (Auto) Lymph % (Auto) [place] % (Auto) Eos % (Auto) Baso % (Auto) Neut # (Auto) Lymph # (Auto) [place] # (Auto) Eos # (Auto) Baso # (Auto) Total Counted Immature Gran % Nucleated RBC % Immature Gran # Segmented Neutrophils Lymphocytes Monocytes Nucleated RBCs # Platelet Estimate Hypochromasia Microcytosis Target Cells ABG pH ABG pCO2 ABG pO2 ABG HCO3 ABG Total CO2 ABG O2 Saturation ABG Base Excess FiO2 Sodium Potassium Chloride Carbon Dioxide Anion Gap BUN Creatinine GFR Calculation BUN/Creatinine Ratio Glucose Calculated Osmolality Calcium Magnesium Total Creatine Kinase 151 D 189 D 222 H CK-MB (CK-2) < 1.0 2.9 8.0 H D CK and CKMB Interp 3.6 Troponin I 0.102 H D 1.020 H D 2.200 H D 07/25/16 07/25/16 07/25/16 03:45 03:45 03:45 WBC 14.4 H RBC 2.92 L Hgb 8.9 L Hct 28.0 L MCV 95.9 MCH 31 MCHC 31.8 L RDW 15.4 Plt Count 113 L MPV 13.3 H Neut % (Auto) 95.5 H Lymph % (Auto) 0.7 L [place] % (Auto) 3.1 Eos % (Auto) 0.0 Baso % (Auto) 0.0 Neut # (Auto) 13.8 H Lymph # (Auto) 0.1 L [place] # (Auto) 0.4 Eos # (Auto) 0.0 Baso # (Auto) 0.0 Total Counted 100 Immature Gran % 0.7 Nucleated RBC % 0.0 Immature Gran # 0.10 Segmented Neutrophils 97 H Lymphocytes 1 L Monocytes 2 Nucleated RBCs # 0.00 Platelet Estimate Adequate Hypochromasia 1+ Microcytosis 1+ Target Cells Slight ABG pH ABG pCO2 ABG pO2 ABG HCO3 ABG Total CO2 ABG O2 Saturation ABG Base Excess FiO2 Sodium 130 L 130 L Potassium 5.1 5.0 Chloride 94 L 93 L Carbon Dioxide 23 23 Anion Gap 18.1 H 19.0 H BUN 52 H 52 H Creatinine 4.40 H 4.40 H GFR Calculation 10 10 BUN/Creatinine Ratio 11.00 11.00 Glucose 130 H 129 H Calculated Osmolality 275.8 275.8 Calcium 6.8 L 6.7 L Magnesium 2.2 Total Creatine Kinase CK-MB (CK-2) CK and CKMB Interp Troponin I 07/25/16 09:30 WBC RBC Hgb Hct MCV MCH MCHC RDW Plt Count MPV Neut % (Auto) Lymph % (Auto) [place] % (Auto) Eos % (Auto) Baso % (Auto) Neut # (Auto) Lymph # (Auto) [place] # (Auto) Eos # (Auto) Baso # (Auto) Total Counted Immature Gran % Nucleated RBC % Immature Gran # Segmented Neutrophils Lymphocytes Monocytes Nucleated RBCs # Platelet Estimate Hypochromasia Microcytosis Target Cells ABG pH 7.375 ABG pCO2 39.3 ABG pO2 130.0 H ABG HCO3 22.7 ABG Total CO2 21.1 L ABG O2 Saturation 98.6 ABG Base Excess -2.0 FiO2 30.00 Sodium Potassium Chloride Carbon Dioxide Anion Gap BUN Creatinine GFR Calculation BUN/Creatinine Ratio Glucose Calculated Osmolality Calcium Magnesium Total Creatine Kinase CK-MB (CK-2) CK and CKMB Interp Troponin I Quality Measures - VTE Contraindication to Pharmacological VTE Prophylaxis: High Risk of Bleeding Specialty Discharge - Follow Up or Referrals Follow up with: Devyn Baig MD [Physician] -
[2016-07-25] MEDS: ISOSORBIDE MONONITRATE 30 MG TABLET PO SCH (12:25)
[2016-07-25] MEDS: hydrALAZINE 25 MG TABLET PO SCH ×2 (15:38→20:08)
--- NOTE | 2016-07-25 19:43 | Family Practice Progress Note ---
Family Practice - PN: Subj Interval history: Patient has done remarkably well post cardiac catheterization. Dr. Magdaleno is trying to wean off respirator. Reviewed multiple consultants notes and agree with their recommendations. No acute problems identified. Agree with present treatment recommendations. Exam (Progress Note) - Constitutional Vitals: Period Temp Pulse Resp BP Sys/Brody Pulse Ox Last 24 Hr 97.6 F-99.7 F 63-87 12-28 101-171/46-74 98-100 Results - Labs CBC & BMP: 07/25/16 03:45 07/25/16 03:45 Assessment and Plan (1) Acute respiratory failure Status: Acute Assessment and plan: Patient required endotracheal intubation in the emergency room and is presently on a respirator. Being followed by pulmonary we will continue present treatment plan Current Visit: Yes (2) Pulmonary edema Status: Acute Assessment and plan: We will start her on appropriate treatment Current Visit: Yes (3) UTI (urinary tract infection) Status: Acute Assessment and plan: We will obtain culture and start her on appropriate antibiotics Current Visit: Yes (4) Chronic kidney disease with end stage renal failure on dialysis Status: Chronic Assessment and plan: Patient is presently receiving dialysis. Current Visit: Yes (5) Hypertension Status: Chronic Assessment and plan: We will resume her home medications Current Visit: Yes (6) Status post carcinoma right lung Status: Chronic Assessment and plan: Stable at present Current Visit: Yes (7) Status post pneumonectomy Status: Chronic Assessment and plan: Stable at present Current Visit: Yes (8) Hypothyroid Status: Chronic Assessment and plan: We will resume home medications and monitor Current Visit: Yes Quality Measures - VTE Contraindication to Pharmacological VTE Prophylaxis: High Risk of Bleeding Specialty Discharge - Follow Up or Referrals Follow up with: Devyn Baig MD [Physician] -
[2016-07-25] MEDS: ROSUVASTATIN 10 MG TABLET PO SCH (20:07)
--- NOTE | 2016-07-25 21:17 | Nephrology Progress Note ---
Nephrology - PN: Subj Interval history: She was extubated late this morning. She is awake and alert. She denies chest pain Exam (PN)-Nephrology - Vital Signs Vital signs: Period Temp Pulse Resp BP Sys/Brody Pulse Ox Last 24 Hr 97.6 F-99.7 F 63-92 12-29 101-171/46-74 98-100 Exam: Gen.: Alert and oriented x3. ENT: Pupils equal round reactive to light. EOMs intact. Mucous membranes moist. Neck: Supple. No JVD or bruit. Cardiovascular: Regular rate and rhythm. No murmur rub or gallop Lungs: Clear Abdomen: Soft. Nontender. Positive bowel sounds. No organomegaly Extremities: No edema - Lab 07/25/16 03:45 07/25/16 03:45 Most recent lab results ABG pH 7.375 (7.35-7.45) 07/25/16 09:30 ABG pCO2 39.3 MM HG (35-48) 07/25/16 09:30 ABG pO2 130.0 MM HG (80-95) H 07/25/16 09:30 ABG HCO3 22.7 MMOL/L (20-26) 07/25/16 09:30 ABG O2 Saturation 98.6 % (95-100) 07/25/16 09:30 Calcium 6.8 MG/DL (8.5-10.1) L 07/25/16 03:45 Magnesium 2.2 MG/DL (1.8-2.4) 07/25/16 03:45 Assessment and Plan (1) Acute NH Status: Acute Assessment and plan: 80-year-old woman admitted with: * Acute NH. * Three-vessel CAD. Status post stent placement * Ventilatory failure. She was just extubated * Remote right pneumonectomy * ESRD. Dialysis MWF * Hypertension Current Visit: Yes (2) CAD (coronary artery disease) Status: Acute Current Visit: Yes (3) Status post pneumonectomy Status: Chronic Current Visit: Yes (4) ESRD (end stage renal disease) on dialysis Status: Chronic Current Visit: Yes (5) Hypertension Status: Chronic Current Visit: Yes (6) Ventilatory failure Status: Acute Current Visit: Yes Specialty Discharge - Follow Up or Referrals Follow up with: Devyn Baig MD [Physician] -
[2016-07-26] MEDS: methylPREDNISolone SOD SUC 40 MG/1 ML VIAL IV SCH ×3 (00:25→17:25)
[2016-07-26] MEDS: ALBUTEROL/IPRATROPIUM 3 ML NEB RESP TX SCH ×4 (01:24→18:58)
[2016-07-26] MEDS: PROPOFOL 1,000 MG/100 ML BOTTLE IV SCH (03:48)
[2016-07-26 04:57] LABS: Basophils % 0.1 % (0.0-0.8); Hematocrit 30.7 VOL% (35.7-47.0); Hemoglobin 9.7 GM/DL (12.0-16.0); Immature Granulocytes % 0.8 %; Immature Granulocytes Absolute 0.15 #; Lymphocytes # 0.1 10*3/uL (1.4-4.0); Lymphocytes % 0.8 % (21.3-54.2); Mean Corpuscular HGB Conc 31.6 GM/DL (32-36); Mean Corpuscular Hemoglobin 31 PG (27-34); Mean Corpuscular Volume 96.8 FL (87-102); Mean Platelet Volume 12.9 FL (9.6-12.0); Monocytes # 0.5 10*3/uL (0.11-0.8); Monocytes % 2.6 % (1.7-12.7); Neutrophils # 17.5 10*3/uL (1.4-7.4); Neutrophils % 95.7 % (38.7-73.9); Platelet Count 138 T/CUMM (130-400); Red Blood Count 3.17 MC/CUMM (3.8-5.5); Red Cell Distribution Width 15.2 % (9.3-17.3); White Blood Count 18.2 T/CUMM (4-12)
[2016-07-26 05:43] LABS: Albumin 2.9 G/DL (3.4-5.0); Bilirubin,Total 1.2 MG/DL (0.2-1.0); Calcium 6.9 MG/DL (8.5-10.1); Osmolality,Calculated 278.4 MOS/KG (273-304); Total Protein 6.4 G/DL (6.4-8.3)
[2016-07-26 05:44] LABS: Elliptocytes Few; Hypochromasia 1+; Lymphocytes 1 % (20-55); Microcytosis 1+; Platelet Estimate Normal; Segmented Neutrophils 98 % (50-85); Total Cells Counted 100
[2016-07-26 05:46] LABS: Potassium 5.9 MMOL/L (3.5-5.1)
--- NOTE | 2016-07-26 07:21 | EKG Report ---
Stationary ECG Study [facility] Test Date: 07/26/2016 7:06:05 AM Pat Name: CARMEN TADEO Department: Room: 128 Gender: F Marketing Project Lead: HOWARD : 1935 Requested by: Devyn Baig Order Number: [id number] Reading MD: JOSÉ MANUEL GERONIMO Intervals [place] Rate: 87 P: 18 MN: 149 QRS: 17 QRSD: 108 T: 209 QT: 388 QTc: 432 Interpretive Statements SINUS RHYTHM LEFT VENTRICULAR HYPERTROPHY AND ST-T CHANGE Electronically Signed On 07-26-16 13:54:01 CDT by JOSÉ MANUEL GERONIMO [email or web address]
--- NOTE | 2016-07-26 07:59 | Pulmonology Progress Note ---
Pulmonary - PN: Subj Interval history: The patient is an 80-year-old black lady that has had a previous right pneumonectomy. She is on dialysis with end-stage renal disease. She came in with tightness in her chest and acute pulmonary edema was placed on the ventilator. She is doing better now and her left lung has cleared. She had a cardiac catheterization and has significant triple-vessel coronary artery disease with a cardiomyopathy. She had multiple stents placed. She was extubated yesterday and her breathing is done well. She was very lethargic early on, but now she is quite confused. She is talking a lot more but she is not making much sense. She is not having any trouble breathing. Overall she is reasonably stable Exam (Progress Note) - Constitutional Vitals: Period Temp Pulse Resp BP Sys/Brody Pulse Ox Last 24 Hr 97.6 F-99.7 F 73-101 14-34 101-161/46-87 96-100 Exam: General appearance: normal weight, other (Patient is comfortable off of the ventilator but is confused.) - Head Head exam: Present: normal inspection, normocephalic - Eye Eye exam: Present: EOMI. Absent: scleral icterus Pupils: Present: ULISES - ENT ENT exam: Present: Unremarkable - Neck Neck exam: Present: normal inspection. Absent: lymphadenopathy, thyromegaly - Respiratory Respiratory exam: Present: decreased breath sounds (She has absent breath sounds on the right), left lung has good breath sounds and is basically clear. - Cardiovascular Cardiovascular exam: Present: She has a regular rhythm now without a murmur or gallop. - GI/Abdominal GI/Abdominal exam: Present: normal bowel sounds, soft. Absent: organomegaly, tenderness - Extremities Exam Extremities exam: Absent: calf tenderness, edema - Neurological Exam Neurological exam: Present: other (Patient is awake and talking and somewhat confused.) - Skin Skin exam: Present: warm, dry Results - Labs CBC & BMP: 07/26/16 03:30 07/26/16 03:30 Assessment and Plan (1) Status post pneumonectomy Status: Chronic Assessment and plan: The patient had a previous right pneumonectomy for lung cancer. Current Visit: Yes (2) Acute respiratory failure Status: Acute Assessment and plan: The patient is breathing comfortably now and doing well off the ventilator. Current Visit: Yes (3) Chronic kidney disease with end stage renal failure on dialysis Status: Chronic Assessment and plan: She has end-stage renal disease and will continue with dialysis. She will have dialysis today. Current Visit: Yes (4) Pulmonary edema Status: Acute Assessment and plan: This acute event is probably related to pulmonary edema. Her lung has cleared fairly well on dialysis. She does not have any respiratory problems now. Current Visit: Yes Specialty Discharge - Follow Up or Referrals Follow up with: Devyn Baig MD [Physician] -
[2016-07-26] MEDS: cefTRIAXone 1,000 MG in SODIUM CHLORIDE 0.9% 100 ML IV SCH (10:31)
[2016-07-26] MEDS: PANTOPRAZOLE 40 MG VIAL IV SCH (10:31)
[2016-07-26] MEDS: LEVOFLOXACIN INJ 250 MG in PREMIX 1 EACH IV SCH (10:32)
[2016-07-26] MEDS: DOBUTamine 500 MG/250 ML PREMIX IV SCH (11:54)
[2016-07-26] MEDS: hydrALAZINE 25 MG TABLET PO SCH ×3 (12:03→20:12)
[2016-07-26] MEDS: CARVEDILOL 12.5 MG TABLET PO SCH ×2 (12:04→20:12)
[2016-07-26] MEDS: ISOSORBIDE MONONITRATE 30 MG TABLET PO SCH (12:04)
[2016-07-26] MEDS: clonazePAM 0.5 MG TABLET PO SCH (12:04)
[2016-07-26] MEDS: DOCUSATE SODIUM 100 MG CAPSULE PO SCH ×2 (12:04→20:11)
[2016-07-26] MEDS: TICAGRELOR 90 MG TABLET PO SCH ×2 (12:04→20:11)
[2016-07-26] MEDS: ASPIRIN EC 81 MG TABLET PO SCH (12:04)
[2016-07-26] MEDS: LEVOTHYROXINE 25 MCG TABLET PO SCH (12:05)
[2016-07-26] MEDS: ALLOPURINOL 100 MG TABLET PO SCH ×2 (12:05→20:11)
[2016-07-26] MEDS: CALCIUM ACETATE 667 MG CAPSULE PO SCH ×3 (12:05→20:11)
--- NOTE | 2016-07-26 12:08 | Cardiology Progress Note ---
Assessment and Plan (1) Pulmonary edema Status: Acute Assessment and plan: She seems to be clinically stable. She was extubated from the ventilator yesterday afternoon. She is doing well post extubation and is without respiratory distress. Current Visit: Yes (2) Acute respiratory failure Status: Acute Assessment and plan: Patient was expanded from the ventilator yesterday afternoon and appears to be doing well today. Management per pulmonary. Current Visit: Yes (3) ESRD (end stage renal disease) on dialysis Problem details: Next routine CHD on Sunday after am cath. UF as tolerated by hemodynamics. Status: Chronic Assessment and plan: Management per nephrology. Current Visit: Yes (4) Status post pneumonectomy Status: Chronic Assessment and plan: This is stable at present. Current Visit: Yes (5) UTI (urinary tract infection) Status: Acute Assessment and plan: Urine culture revealed no growth at 48 hours. She is currently receiving Rocephin and Levaquin. Management per attending. Current Visit: Yes (6) Hypertension Status: Chronic Assessment and plan: This is clinically stable. Continue current plan of care. Current Visit: Yes (7) Hypothyroid Status: Chronic Assessment and plan: Continue current plan of care with Synthroid. Current Visit: Yes (8) Status post carcinoma right lung Status: Chronic Assessment and plan: This is clinically stable. Current Visit: Yes (9) CAD (coronary artery disease) Status: Acute Assessment and plan: Patient has now been revascularized. EKG this morning does reveal diffuse T- wave inversions with peaked T waves. Patient is in fact hyperkalemic. Currently undergoing hemodialysis. It is unclear whether her EKG changes are secondary to her hyperkalemia, possible stroke or cardiac ischemia. She currently denies chest pain, heaviness and tightness. However, due to her altered mental status it is unclear how reliable this information is. We will continue to monitor patient's cardiac biomarkers to ensure that these are infact trending down. She will undergo head CT after hemodialysis is completed. -Continue dual antiplatelet therapy with Brilinta and aspirin -Continue beta-luanne -Continue statin Further plan and addendum to follow per Dr. Gonzalez. Current Visit: Yes (10) Ischemic cardiomyopathy Status: Acute Assessment and plan: Patient is now revascularized. Status post successful PCI per Dr. Holden on Sunday. -Continue beta-luanne -Continue Imdur and hydralazine Further plan and addendum to follow per Dr. Gonzalez. Current Visit: Yes (11) Leukocytosis Status: Acute Assessment and plan: White blood cell count continues to trend up. Today 18.2. This could possibly be contributing to her confusion. We will repeat patient's blood cultures and urine culture at this time. Will defer further management to attending. Current Visit: Yes (12) Hyperkalemia Status: Acute Assessment and plan: Patient is currently undergoing hemodialysis. Will defer further management to nephrology. Current Visit: Yes (13) Hyponatremia Status: Acute Assessment and plan: This could possibly be contributing to patient's confusion. Will defer management of this to nephrology. Current Visit: Yes (14) Altered mental status Status: Acute Assessment and plan: Patient seems to be confused this morning. Daughter is at bedside and she confirms that this is not consistent with her baseline. Head CT has been ordered per Dr. Carmichael. I will repeat her blood cultures and urine culture at this time. Will defer further management of this to attending. Current Visit: Yes Cardiology - PN: Subj Interval history: Gasoline Service Attendant: Dr. Baig PCP: Dr. Carmichael Vinyl Flooring Installer: Dr. Hemphill Cardiology consult note: Ms. Reyes is a 80 year old female without known history of coronary artery disease, routinely followed by Dr. Devyn Baig. Patient has a history of end-stage renal disease on hemodialysis, diastolic heart failure, lung cancer with pneumonectomy, hypertension and dyslipidemia. Patient presented to the ER with sudden onset of pulmonary edema and required mechanical ventilation. Cardiology was consulted to further evaluate patient. Echocardiogram was done this admission which revealed severe LV dysfunction. This was concerning that underlying coronary artery disease was contributing to patient's flash pulmonary edema. Subsequently, patient underwent left heart catheterization per Dr. Baig with the following impressions noted: Impression Critical three-vessel CAD Status post successful stenting of 2 lesions in the circumflex--- proximal lesion had a drug-eluting stent, obtuse marginal drug-eluting stent Status post successful stenting of the LAD-second hmdetv-eblv-vtioyzn stent Severe LV systolic dysfunction, LVEF 20% Mild LV diastolic dysfunction, LVEDP 18 mmHg Aggrastat bolus and infusion-for ACS/non-STEMI Low-dose dobutamine to help support blood pressure Angiogram right femoral artery Loading with Brilinta, 180 mg p.o. Angio-Seal right femoral artery Plan/recommendations: Status post Non-STEMI. The patient will have risk factors optimized. The patient will be on antiplatelet medications to include aspirin indefinitely and Brilinta for at least a year. Follow-up will be scheduled. Post cardiac catheterization patient was transferred back to the CCU in stable condition. Patient was extubated from the ventilator yesterday afternoon. This morning she appears to be doing well and is without respiratory distress. She is currently on hemodialysis, tolerating well. Patient seem to be confused this morning. Daughter is at bedside and she confirms that this is not consistent with her baseline. Dr. Carmichael has ordered CT head that will be done after she completes hemodialysis. Right groin is soft without bleeding, hematoma and bruit. Distal pulses present. Patient is currently on appropriate dual antiplatelet therapy. EKG this morning does reveal diffuse T- wave inversions with peaked T waves. Patient is in fact hyperkalemic. Currently undergoing hemodialysis. It is unclear whether her EKG changes are secondary to her hyperkalemia, possible stroke or cardiac ischemia. She currently denies chest pain, heaviness and tightness. However, due to her altered mental status it is unclear how reliable this information is. We will continue to monitor patient's cardiac biomarkers and get EKG in the morning. Vital signs are stable. Further plan and addendum to follow per Dr. Gonzalez. Further plan and addendum to follow per Dr. Gonzalez. Exam (Progress Note) - Constitutional Vitals: Period Temp Pulse Resp BP Sys/Brody Pulse Ox Last 24 Hr 98.6 F-99.7 F 79-101 16-34 101-139/46-87 96-100 General appearance: normal weight, no acute distress - Head Head exam: Present: normal inspection, normocephalic, atraumatic - Neck Neck exam: Present: normal inspection. Absent: lymphadenopathy, tenderness, thyromegaly - Respiratory Respiratory exam: Present: decreased breath sounds (Decreased breath sounds on the right.), other (Left is clear throughout.). Absent: accessory muscle use, chest wall tenderness, rales, rhonchi, stridor, wheezes - Cardiovascular Cardiovascular exam: Present: regular rate and rhythm, systolic murmur. Absent : gallop, rubs - GI/Abdominal GI/Abdominal exam: Present: normal bowel sounds, soft. Absent: distended, firm , mass, tenderness - Extremities Exam Extremities exam: Present: normal inspection, other (Right groin is soft without bleeding, hematoma and bruit. Distal pulses present.). Absent: edema - Neurological Exam Neurological exam: Present: altered - Skin Skin exam: Present: normal color, warm, dry. Absent: cyanosis Result/EKG - Labs CBC & BMP: 07/26/16 03:30 07/26/16 03:30 Lab Results: I have reviewed the past 24 hour labs Labs: Laboratory Results - last 24 hr 07/26/16 07/26/16 03:30 03:30 WBC 18.2 H RBC 3.17 L Hgb 9.7 L Hct 30.7 L MCV 96.8 MCH 31 MCHC 31.6 L RDW 15.2 Plt Count 138 D MPV 12.9 H Neut % (Auto) 95.7 H Lymph % (Auto) 0.8 L [place] % (Auto) 2.6 Eos % (Auto) 0.0 Baso % (Auto) 0.1 Neut # (Auto) 17.5 H Lymph # (Auto) 0.1 L [place] # (Auto) 0.5 Eos # (Auto) 0.0 Baso # (Auto) 0.0 Total Counted 100 Immature Gran % 0.8 Nucleated RBC % 0.0 Immature Gran # 0.15 Segmented Neutrophils 98 H Lymphocytes 1 L Monocytes 1 L Nucleated RBCs # 0.00 Platelet Estimate Normal Hypochromasia 1+ Microcytosis 1+ Elliptocytes Few Morphology Comment Sodium 126 L Potassium 5.9 H Chloride 88 L Carbon Dioxide 19 L Anion Gap 24.9 H BUN 81 H D Creatinine 5.80 H GFR Calculation 7 BUN/Creatinine Ratio 13.00 Glucose 134 H Calculated Osmolality 278.4 Calcium 6.9 L Total Bilirubin 1.20 H AST 35 ALT 14 Alkaline Phosphatase 98 Total Protein 6.4 Albumin 2.9 L Globulin 3.5 Albumin/Globulin Ratio 0.8 L Quality Measures - VTE Contraindication to Pharmacological VTE Prophylaxis: High Risk of Bleeding Specialty Discharge - Follow Up or Referrals Follow up with: Devyn Baig MD [Physician] -
--- NOTE | 2016-07-26 14:29 | Nephrology Progress Note ---
Nephrology - PN: Subj Interval history: She tolerated dialysis this morning without problems. However she is significantly confused. She is awake and alert and recognized me but is refusing medications and thinks that nursing staff is trying to harm her rather than help her. She denies chest pain or shortness of breath. This is a significant variation from her normal mental status Exam (PN)-Nephrology - Vital Signs Vital signs: Period Temp Pulse Resp BP Sys/Brody Pulse Ox Last 24 Hr 98.6 F-99.7 F 79-101 16-34 102-141/46-87 96-100 Exam: ENT: Normal Cardiovascular: Regular rate and rhythm. No murmur rub or gallop Lungs: Clear Extremities: No edema - Lab 07/26/16 03:30 07/26/16 03:30 Most recent lab results ABG pH 7.375 (7.35-7.45) 07/25/16 09:30 ABG pCO2 39.3 MM HG (35-48) 07/25/16 09:30 ABG pO2 130.0 MM HG (80-95) H 07/25/16 09:30 ABG HCO3 22.7 MMOL/L (20-26) 07/25/16 09:30 ABG O2 Saturation 98.6 % (95-100) 07/25/16 09:30 Calcium 6.9 MG/DL (8.5-10.1) L 07/26/16 03:30 Magnesium 2.2 MG/DL (1.8-2.4) 07/25/16 03:45 Assessment and Plan (1) Acute MT Status: Acute Assessment and plan: 80-year-old woman admitted with: * Acute MT. * Three-vessel CAD. Status post stent placement * Confusion. CT has just been performed. She is hemodynamically stable. Electrolytes are being repeated * Remote right pneumonectomy * ESRD. Dialysis MWF. She tolerated dialysis without problems today * Hypertension Current Visit: Yes (2) CAD (coronary artery disease) Status: Acute Current Visit: Yes (3) Status post pneumonectomy Status: Chronic Current Visit: Yes (4) ESRD (end stage renal disease) on dialysis Status: Chronic Current Visit: Yes (5) Hypertension Status: Chronic Current Visit: Yes (6) Ventilatory failure Status: Acute Current Visit: Yes Specialty Discharge - Follow Up or Referrals Follow up with: Devyn Baig MD [Physician] -
[2016-07-26 14:33] LABS: CKMB % 2.4 %
[2016-07-26 14:37] LABS: Troponin I Only 5.08 NG/ML (0.00-0.045)
--- NOTE | 2016-07-26 15:58 | CT Report ---
CT head/brain wo/w con INDICATION: Altered mental status/confusion The total DLP is 2383 mGy*cm. COMPARISON: Noncontrast CT head dated 02/20/2014 Technique: Serial axial tomographic images of the brain were obtained prior to and following administration of intravenous contrast. Dose reduction: This CT exam was performed using one or more of the following dose reduction techniques: Automated exposure control, automated adjustment of the mA and/or KV according to patient size, or use of iterative reconstruction technique. Findings: Moderate generalized atrophy is noted with mild prominence of the sulci and cortical volume loss. Periventricular white matter hypodensity changes are noted bilaterally which do not demonstrate mass effect and are nonspecific but favored to represent sequela of chronic microvascular ischemia. There is no evidence of vascular territory infarct or acute intracranial hemorrhage. The news[place]-white matter differentiation is generally maintained. There is no hydrocephalus. The basilar cisterns are patent. On the precontrast images, there is an area of hyperdensity along the medial aspect of the right middle cranial fossa measuring 1.8 x 1.0 cm. In retrospect, a similar soft tissue density is noted at this location on the 2014 CT. Postcontrast imaging does not demonstrate evidence of abnormal parenchymal or leptomeningeal enhancement. However, there is significant motion at the skull base and evaluation for enhancement of the previously noted hyperdense lesion is severely limited. The visualized paranasal sinuses, mastoid air cells and middle ear cavities are predominantly clear. The included orbits and their contents appear within normal limits. The visualized osseous structures and overlying soft tissues of the skull and face demonstrate no acute abnormality. IMPRESSION: No acute intracranial hemorrhage or infarction. Denies atrophy and sequela of chronic microvascular ischemia. Hyperdense lesion along the middle cranial fossa which appears similar to slightly increased in size from the prior study may represent a meningioma or other suprasellar mass, but is otherwise indeterminant. Definitive evaluation could be obtained with MR imaging of the brain without and with contrast. No definite abnormal enhancement following administration of intravenous contrast. Portions of the post contrast images are nondiagnostic due to significant patient motion. PROCEDURE INTERPRETED AT [facility] DEPARTMENT OF RADIOLOGY Final Report Signed by: Royce Casanova
[2016-07-26 18:43] LABS: Potassium 4.6 MMOL/L (3.5-5.1)
[2016-07-26 18:58] LABS: CKMB % 2.5 %
[2016-07-26 19:01] LABS: Troponin I Only 4.48 NG/ML (0.00-0.045)
--- NOTE | 2016-07-26 19:13 | Family Practice Progress Note ---
Family Practice - PN: Subj Interval history: Patient has been stable today except for significant mental confusion. She has been confused and agitated since awakening this a.m. have reviewed lab studies and repeated abnormal electrolytes which are now back in the near normal range. Obtained a head CT in view of the confusion which is essentially unremarkable. The Patient is moving all extremities and is talking and swallowing well. No localizing features of any cerebrovascular event. I feel the confusion is secondary to her medical condition, age, and having been through significant treatment over the last several days. The confusion should slowly improve. We will continue present treatment plan and monitor. Will consider further evaluation if not improved. Have discussed in detail with daughter. Exam (Progress Note) - Constitutional Vitals: Period Temp Pulse Resp BP Sys/Brody Pulse Ox Last 24 Hr 97.1 F-99.4 F 80-101 16-34 97-149/47-87 96-100 Results - Labs CBC & BMP: 07/26/16 03:30 07/26/16 17:44 Assessment and Plan (1) Acute respiratory failure Status: Acute Assessment and plan: Patient required endotracheal intubation in the emergency room and is presently on a respirator. Being followed by pulmonary we will continue present treatment plan Current Visit: Yes (2) Pulmonary edema Status: Acute Assessment and plan: We will start her on appropriate treatment Current Visit: Yes (3) UTI (urinary tract infection) Status: Acute Assessment and plan: We will obtain culture and start her on appropriate antibiotics Current Visit: Yes (4) Chronic kidney disease with end stage renal failure on dialysis Status: Chronic Assessment and plan: Patient is presently receiving dialysis. Current Visit: Yes (5) Hypertension Status: Chronic Assessment and plan: We will resume her home medications Current Visit: Yes (6) Status post carcinoma right lung Status: Chronic Assessment and plan: Stable at present Current Visit: Yes (7) Status post pneumonectomy Status: Chronic Assessment and plan: Stable at present Current Visit: Yes (8) Hypothyroid Status: Chronic Assessment and plan: We will resume home medications and monitor Current Visit: Yes Quality Measures - VTE Contraindication to Pharmacological VTE Prophylaxis: High Risk of Bleeding Specialty Discharge - Follow Up or Referrals Follow up with: Devyn Baig MD [Physician] -
[2016-07-26] MEDS: ROSUVASTATIN 10 MG TABLET PO SCH (20:12)
[2016-07-26] MEDS: LORazepam 2 MG/1 ML VIAL IV PRN (20:16)
[2016-07-27] MEDS: methylPREDNISolone SOD SUC 40 MG/1 ML VIAL IV SCH ×3 (00:08→17:43)
[2016-07-27] MEDS: LORazepam 2 MG/1 ML VIAL IV PRN ×3 (00:08→08:57)
[2016-07-27] MEDS: ALBUTEROL/IPRATROPIUM 3 ML NEB RESP TX SCH ×5 (01:03→23:56)
[2016-07-27 04:49] LABS: Hematocrit 28.5 VOL% (35.7-47.0); Hemoglobin 9.3 GM/DL (12.0-16.0); Immature Granulocytes % 0.6 %; Immature Granulocytes Absolute 0.08 #; Lymphocytes # 0.1 10*3/uL (1.4-4.0); Lymphocytes % 0.5 % (21.3-54.2); Mean Corpuscular HGB Conc 32.6 GM/DL (32-36); Mean Corpuscular Hemoglobin 31 PG (27-34); Mean Corpuscular Volume 94.1 FL (87-102); Mean Platelet Volume 13.2 FL (9.6-12.0); Monocytes # 0.5 10*3/uL (0.11-0.8); Monocytes % 3.4 % (1.7-12.7); Neutrophils # 12.6 10*3/uL (1.4-7.4); Neutrophils % 95.5 % (38.7-73.9); Platelet Count 140 T/CUMM (130-400); Red Blood Count 3.03 MC/CUMM (3.8-5.5); Red Cell Distribution Width 15.1 % (9.3-17.3); White Blood Count 13.2 T/CUMM (4-12)
[2016-07-27 05:22] LABS: Calcium 7.3 MG/DL (8.5-10.1); Magnesium 2.6 MG/DL (1.8-2.4); Osmolality,Calculated 281.5 MOS/KG (273-304); Potassium 5.1 MMOL/L (3.5-5.1)
[2016-07-27 05:41] LABS: Total Cells Counted 100
[2016-07-27 05:45] LABS: Basophilic Stippling Few; Platelet Estimate Normal
[2016-07-27 05:46] LABS: Segmented Neutrophils 98 % (50-85)
[2016-07-27 06:18] LABS: Albumin 2.7 G/DL (3.4-5.0); Bilirubin,Total 0.7 MG/DL (0.2-1.0); Calcium 7.1 MG/DL (8.5-10.1); Osmolality,Calculated 280.5 MOS/KG (273-304); Potassium 5.1 MMOL/L (3.5-5.1)
--- NOTE | 2016-07-27 06:39 | EKG Report ---
Stationary ECG Study [facility] Test Date: 07/27/2016 6:38:41 AM Pat Name: CARMEN TADEO Department: Room: 128 Gender: F Transformer Maker: HOWARD : 1935 Requested by: Devyn Baig Order Number: [id number] Reading MD: NAILA ROBERTS Intervals [place] Rate: 96 P: 38 LA: 140 QRS: 24 QRSD: 102 T: 230 QT: 362 QTc: 415 Interpretive Statements SINUS RHYTHM LEFT VENTRICULAR HYPERTROPHY AND ST-T CHANGE Electronically Signed On 07-28-16 17:59:41 CDT by NAILA ROBERTS [email or web address]
--- NOTE | 2016-07-27 08:22 | Pulmonology Progress Note ---
Pulmonary - PN: Subj Interval history: The patient is an 80-year-old black lady that has had a previous right pneumonectomy. She is on dialysis with end-stage renal disease. She came in with tightness in her chest and acute pulmonary edema was placed on the ventilator. She is doing better now and her left lung has cleared. She had a cardiac catheterization and has significant triple-vessel coronary artery disease with a cardiomyopathy. She had multiple stents placed. She has done well off the ventilator and her breathing seems to be okay. She still has considerable confusion and anxiety. She apparently did not sleep very well at all last night despite getting some IV Ativan. She is breathing comfortably. She may do better in a regular room. Exam (Progress Note) - Constitutional Vitals: Period Temp Pulse Resp BP Sys/Brody Pulse Ox Last 24 Hr 97.1 F-99.3 F 80-99 9-26 97-149/48-82 97-100 Exam: General appearance: normal weight, other (Patient is comfortable off of the ventilator but is confused. She gets agitated easily.) - Head Head exam: Present: normal inspection, normocephalic - Eye Eye exam: Present: EOMI. Absent: scleral icterus Pupils: Present: ULISES - ENT ENT exam: Present: Unremarkable - Neck Neck exam: Present: normal inspection. Absent: lymphadenopathy, thyromegaly - Respiratory Respiratory exam: Present: decreased breath sounds (She has absent breath sounds on the right), left lung has good breath sounds and is basically clear. - Cardiovascular Cardiovascular exam: Present: She has a regular rhythm now without a murmur or gallop. - GI/Abdominal GI/Abdominal exam: Present: normal bowel sounds, soft. Absent: organomegaly, tenderness - Extremities Exam Extremities exam: Absent: calf tenderness, edema - Neurological Exam Neurological exam: Present: other (Patient is awake and talking and somewhat confused. She has no focal deficits.) - Skin Skin exam: Present: warm, dry Results - Labs CBC & BMP: 07/27/16 04:19 07/27/16 04:19 - Diagnostic Findings Procedure: CT: report reviewed by me (The CT of her head was unremarkable.) Assessment and Plan (1) Status post pneumonectomy Status: Chronic Assessment and plan: The patient had a previous right pneumonectomy for lung cancer. Current Visit: Yes (2) Acute respiratory failure Status: Acute Assessment and plan: The patient is breathing comfortably now and doing well off the ventilator. She does not appear to have any respiratory distress now. Current Visit: Yes (3) Chronic kidney disease with end stage renal failure on dialysis Status: Chronic Assessment and plan: She has end-stage renal disease and will continue with dialysis. Her volume status appears better. Current Visit: Yes (4) Pulmonary edema Status: Acute Assessment and plan: This acute event is probably related to pulmonary edema. Her lung has cleared fairly well on dialysis. She does not have any respiratory problems now. She is stable from a pulmonary standpoint and can move to a regular room. Current Visit: Yes (5) Altered mental status Status: Acute Assessment and plan: She continues to have considerable confusion but maybe this will clear when she is with her family. Her CT scan was negative. Current Visit: Yes Specialty Discharge - Follow Up or Referrals Follow up with: Devyn Baig MD [Physician] -
[2016-07-27] MEDS: cefTRIAXone 1,000 MG in SODIUM CHLORIDE 0.9% 100 ML IV SCH (08:59)
[2016-07-27] MEDS: TICAGRELOR 90 MG TABLET PO SCH ×2 (08:59→20:16)
[2016-07-27] MEDS: PANTOPRAZOLE 40 MG VIAL IV SCH (08:59)
[2016-07-27] MEDS: ASPIRIN EC 81 MG TABLET PO SCH (08:59)
[2016-07-27] MEDS: CALCIUM ACETATE 667 MG CAPSULE PO SCH ×3 (08:59→20:15)
[2016-07-27] MEDS: ISOSORBIDE MONONITRATE 30 MG TABLET PO SCH (08:59)
[2016-07-27] MEDS: CARVEDILOL 12.5 MG TABLET PO SCH ×2 (08:59→20:15)
[2016-07-27] MEDS: DOCUSATE SODIUM 100 MG CAPSULE PO SCH ×2 (08:59→20:15)
[2016-07-27] MEDS: hydrALAZINE 25 MG TABLET PO SCH ×3 (08:59→20:15)
[2016-07-27] MEDS: clonazePAM 0.5 MG TABLET PO SCH (08:59)
[2016-07-27] MEDS: ALLOPURINOL 100 MG TABLET PO SCH ×2 (09:00→20:15)
[2016-07-27] MEDS: LEVOTHYROXINE 25 MCG TABLET PO SCH (09:00)
[2016-07-27] MEDS: DOBUTamine 500 MG/250 ML PREMIX IV SCH (09:02)
--- NOTE | 2016-07-27 10:31 | Cardiology Progress Note ---
Assessment and Plan (1) CAD (coronary artery disease) Status: Acute Assessment and plan: Patient has now been revascularized. EKG this morning continues to show diffuse T-wave inversions. She continues to deny chest pain, heaviness and tightness. However, due to her altered mental status it is unclear how reliable this information is. Troponin is now trending down. This morning 4.48. However, patient does have history of chronic renal failure on hemodialysis with troponin of 4.2. We will obtain echocardiogram this morning to reevaluate patient's cardiomyopathy. At time of catheterization her ejection fraction was noted to be 20%. If her ejection fraction is in fact getting better this will make cardiac ischemia very unlikely. -Continue dual antiplatelet therapy with Brilinta and aspirin -Continue beta-luanne -Continue statin Further plan and addendum to follow per Dr. Gonzalez. Current Visit: Yes (2) Pulmonary edema Status: Acute Assessment and plan: This seems to be clinically stable. She is doing well post extubation and is without respiratory distress. Continue current plan of care. Current Visit: Yes (3) Acute respiratory failure Status: Resolved Assessment and plan: Resolved. Current Visit: Yes (4) ESRD (end stage renal disease) on dialysis Problem details: Next routine CHD on Sunday after am cath. UF as tolerated by hemodynamics. Status: Chronic Assessment and plan: Management per nephrology. Current Visit: Yes (5) Status post pneumonectomy Status: Chronic Assessment and plan: This is stable at present. Current Visit: Yes (6) UTI (urinary tract infection) Status: Acute Assessment and plan: Urine culture revealed no growth at 48 hours. She is currently receiving Rocephin and Levaquin. Management per attending. Current Visit: Yes (7) Hypertension Status: Chronic Assessment and plan: This is clinically stable. Continue current plan of care. Current Visit: Yes (8) Hypothyroid Status: Chronic Assessment and plan: Continue current plan of care with Synthroid. Current Visit: Yes (9) Status post carcinoma right lung Status: Chronic Assessment and plan: This is clinically stable. Current Visit: Yes (10) Ischemic cardiomyopathy Status: Acute Assessment and plan: Patient is now revascularized. Status post successful PCI per Dr. Baig on Sunday. -Continue beta-luanne -Continue Imdur and hydralazine Further plan and addendum to follow per Dr. Gonzalez. Current Visit: Yes (11) Leukocytosis Status: Acute Assessment and plan: This is down trending down this morning. Afebrile. Repeat blood cultures and urine culture was obtained yesterday. Defer further management to attending. Current Visit: Yes (12) Hyperkalemia Status: Resolved Assessment and plan: Resolved. Current Visit: Yes (13) Hyponatremia Status: Acute Assessment and plan: This could possibly be contributing to patient's confusion. Will defer management of this to nephrology. Current Visit: Yes (14) Altered mental status Status: Acute Assessment and plan: Patient remains confused this morning. Nurse reports that patient has been without sleep since she was extubated a few days ago. Repeat blood and urine cultures were obtained yesterday. Head CT was completed yesterday. This did not reveal acute intracranial hemorrhage or infarction. However, hyperdense lesion along the middle cranial fossa was noted. This may represent a meningioma or other type of mass. Patient may benefit from MRI. Will defer further management of this to patient's attending physician. Current Visit: Yes Cardiology - PN: Subj Interval history: [employer]: Dr. Baig PCP: Dr. Carmichael St[employer]: Dr. Hemphill Cardiology consult note: Ms. Reyes is a 80 year old female without known history of coronary artery disease, routinely followed by Dr. Devyn Baig. Patient has a history of end-stage renal disease on hemodialysis, diastolic heart failure, lung cancer with pneumonectomy, hypertension and dyslipidemia. Patient presented to the ER with sudden onset of pulmonary edema and required mechanical ventilation. Cardiology was consulted to further evaluate patient. Echocardiogram was done this admission which revealed severe LV dysfunction. This was concerning that underlying coronary artery disease was contributing to patient's flash pulmonary edema. Subsequently, patient underwent left heart catheterization per Dr. Baig with the following impressions noted: Impression Critical three-vessel CAD Status post successful stenting of 2 lesions in the circumflex--- proximal lesion had a drug-eluting stent, obtuse marginal drug-eluting stent Status post successful stenting of the LAD-second [id number] stent Severe LV systolic dysfunction, LVEF 20% Mild LV diastolic dysfunction, LVEDP 18 mmHg Aggrastat bolus and infusion-for ACS/non-STEMI Low-dose dobutamine to help support blood pressure Angiogram right femoral artery Loading with Brilinta, 180 mg p.o. Angio-Seal right femoral artery Plan/recommendations: Status post Non-STEMI. The patient will have risk factors optimized. The patient will be on antiplatelet medications to include aspirin indefinitely and Brilinta for at least a year. Follow-up will be scheduled. Patient was seen and examined in the CCU. She remains confused this morning. She underwent head CT yesterday which did not reveal any acute hemorrhage or infarction. Patient may benefit from undergoing MRI. She continues to deny chest pain, heaviness and tightness. She also denies shortness of breath. She continues to do well post extubation and is without any respiratory distress. Right groin is soft without bleeding, hematoma and bruit. Distal pulses present. Vital signs are stable. Further plan an addendum to follow per Dr. Gonzalez. Exam (Progress Note) - Constitutional Vitals: Period Temp Pulse Resp BP Sys/Brody Pulse Ox Last 24 Hr 97.1 F-99.3 F 80-99 9-26 97-149/48-82 96-100 Exam: General appearance: normal weight, no acute distress - Head Head exam: Present: normal inspection, normocephalic, atraumatic - Neck Neck exam: Present: normal inspection. Absent: lymphadenopathy, tenderness, thyromegaly - Respiratory Respiratory exam: Present: decreased breath sounds (Decreased breath sounds on the right.), other (Left is clear throughout.). Absent: accessory muscle use, chest wall tenderness, rales, rhonchi, stridor, wheezes - Cardiovascular Cardiovascular exam: Present: regular rate and rhythm, systolic murmur. Absent : gallop, rubs - GI/Abdominal GI/Abdominal exam: Present: normal bowel sounds, soft. Absent: distended, firm , mass, tenderness - Extremities Exam Extremities exam: Present: normal inspection, other (Right groin is soft without bleeding, hematoma and bruit. Distal pulses present.). Absent: edema - Neurological Exam Neurological exam: Present: altered - Skin Skin exam: Present: normal color, warm, dry. Absent: cyanosis Result/EKG - Labs CBC & BMP: 07/27/16 04:19 07/27/16 04:19 Lab Results: I have reviewed the past 24 hour labs Labs: Laboratory Results - last 24 hr 07/26/16 07/26/16 07/26/16 13:41 17:44 17:44 WBC RBC Hgb Hct MCV MCH MCHC RDW Plt Count MPV Neut % (Auto) Lymph % (Auto) [place] % (Auto) Eos % (Auto) Baso % (Auto) Neut # (Auto) Lymph # (Auto) Valencia # (Auto) Eos # (Auto) Baso # (Auto) Total Counted Immature Gran % Nucleated RBC % Immature Gran # Segmented Neutrophils Monocytes Nucleated RBCs # Platelet Estimate Basophilic Stippling Sodium 131 L Potassium 4.6 Chloride 94 L Carbon Dioxide 23 Anion Gap 18.6 H BUN Creatinine GFR Calculation BUN/Creatinine Ratio Glucose Calculated Osmolality Calcium Magnesium Total Bilirubin AST ALT Alkaline Phosphatase Total Creatine Kinase 450 H D 382 H CK-MB (CK-2) 10.6 H 9.5 H CK and CKMB Interp 2.4 2.5 Troponin I 5.080 H D 4.480 H Total Protein Albumin Globulin Albumin/Globulin Ratio 07/27/16 07/27/16 07/27/16 04:19 04:19 04:19 WBC 13.2 H RBC 3.03 L Hgb 9.3 L Hct 28.5 L MCV 94.1 MCH 31 MCHC 32.6 RDW 15.1 Plt Count 140 MPV 13.2 H Neut % (Auto) 95.5 H Lymph % (Auto) 0.5 L Valencia % (Auto) 3.4 Eos % (Auto) 0.0 Baso % (Auto) 0.0 Neut # (Auto) 12.6 H Lymph # (Auto) 0.1 L Valencia # (Auto) 0.5 Eos # (Auto) 0.0 Baso # (Auto) 0.0 Total Counted 100 Immature Gran % 0.6 Nucleated RBC % 0.0 Immature Gran # 0.08 Segmented Neutrophils 98 H Monocytes 2 Nucleated RBCs # 0.00 Platelet Estimate Normal Basophilic Stippling Few Sodium 132 L 132 L Potassium 5.1 5.1 Chloride 95 L 95 L Carbon Dioxide 22 22 Anion Gap 20.1 H 20.1 H BUN 54 H 52 H Creatinine 4.20 H 4.20 H GFR Calculation 10 9 BUN/Creatinine Ratio 12.00 12.00 Glucose 150 H 149 H Calculated Osmolality 281.5 280.5 Calcium 7.3 L 7.1 L Magnesium 2.6 H Total Bilirubin 0.70 AST 29 ALT 11 L Alkaline Phosphatase 97 Total Creatine Kinase CK-MB (CK-2) CK and CKMB Interp Troponin I Total Protein 6.0 L Albumin 2.7 L Globulin 3.3 Albumin/Globulin Ratio 0.8 L Quality Measures - VTE Contraindication to Pharmacological VTE Prophylaxis: High Risk of Bleeding Specialty Discharge - Follow Up or Referrals Follow up with: Devyn Baig MD [Physician] -
--- NOTE | 2016-07-27 13:43 | Physician Query Form ---
CLICK EDIT DOCUMENT TO SELECT QUERY ANSWER --> OK --> SIGN Radha Bennett RN, CCDS Certified Clinical Instructional Systems Specialist W) [phone] (f) [phone] [email or web address] PROVIDERS: Make your selection(s) from the choices in EACH section by typing an "x" and enter comments in the comment section. Please use your independent medical judgment in providing your response. This request does not imply that any particular answer is desired or expected. CLINICAL INDICATORS: (Providers should not edit this section) The medical record indicates that the patient was admitted with respiratory failure, on the "she is significantly confused", "this is a significant variation from her normal mental status" and "obtained a head CT in view of the confusion which is essentially unremarkable". ACUITY: ( x) Acute ( ) Acute on Chronic ( ) Chronic ( ) Clinically unable to determine NATURE: ( x) Delirium due to general medical condition ( ) Dementia ( ) Encephalopathy ( ) Unconscious ( ) Transient level of awareness ( ) Comatose ( ) Locked-in State ( ) Persistent Vegetative State ( ) Other, please specify: ( ) Clinically unable to determine Please indicate the underlying cause of the altered mental status (CHECK ALL THAT APPLY): ( ) Baseline dementia ( ) Alzheimer's disease ( ) Parkinson's disease ( ) Lewy body dementia ( ) Acute stroke ( ) Late effect of stroke ( ) Reactive (from emotional stress, psychological trauma) ( ) Due to narcotics/other drugs ( ) Post procedural delirium ( ) Transient ischemic attack ( ) Generalized cerebral edema ( ) Normal pressure hydrocephalus ( ) Psychiatric illness (x ) Other, please specify multifactorial from respiratory failure, acute myocardial infarction, and pulmonary edema ( ) Clinically unable to determine Please indicate if there is an infection, sepsis, dehydration or specific organ failure that is causing the dementia. Be specific with clarifying the relationship between that process and the mental status change. COMMENTS: Use of terms such as suspected, likely, or probable (associated with a specific diagnosis that is being evaluated, monitored, or treated as if it exists) are acceptable and can be restated in the discharge summary if not ruled out. MTDD
--- NOTE | 2016-07-27 17:42 | Nephrology Progress Note ---
Nephrology - PN: Subj Interval history: She remains confused today. Blood pressure is stable. No shortness of breath or chest pain. Exam (PN)-Nephrology - Vital Signs Vital signs: Period Temp Pulse Resp BP Sys/Brody Pulse Ox Last 24 Hr 97.7 F-99.3 F 80-100 9-26 95-147/48-91 94-100 Exam: Gen.: Awake but confused ENT: Pupils equal round reactive to light. EOMs intact. Mucous membranes moist. Neck: Supple. No JVD or bruit. Cardiovascular: Regular rate and rhythm. No murmur rub or gallop Lungs: Clear Abdomen: Soft. Nontender. Positive bowel sounds. No organomegaly Extremities: No edema - Lab 07/27/16 04:19 07/27/16 04:19 Most recent lab results ABG pH 7.375 (7.35-7.45) 07/25/16 09:30 ABG pCO2 39.3 MM HG (35-48) 07/25/16 09:30 ABG pO2 130.0 MM HG (80-95) H 07/25/16 09:30 ABG HCO3 22.7 MMOL/L (20-26) 07/25/16 09:30 ABG O2 Saturation 98.6 % (95-100) 07/25/16 09:30 Calcium 7.1 MG/DL (8.5-10.1) L 07/27/16 04:19 Magnesium 2.6 MG/DL (1.8-2.4) H 07/27/16 04:19 Assessment and Plan (1) Acute [place] Status: Acute Assessment and plan: 80-year-old woman admitted with: * Acute [place]. * Three-vessel CAD. Status post stent placement * Confusion. CT showed no acute pathology * Hyperkalemia, hyponatremia resolved dialysis * Remote right pneumonectomy * ESRD. Dialysis MWF. She tolerated dialysis without problems today * Hypertension Current Visit: Yes (2) CAD (coronary artery disease) Status: Acute Current Visit: Yes (3) Status post pneumonectomy Status: Chronic Current Visit: Yes (4) ESRD (end stage renal disease) on dialysis Status: Chronic Current Visit: Yes (5) Hypertension Status: Chronic Current Visit: Yes (6) Ventilatory failure Status: Acute Current Visit: Yes Specialty Discharge - Follow Up or Referrals Follow up with: Devyn Baig MD [Physician] -
--- NOTE | 2016-07-27 19:19 | Family Practice Progress Note ---
Family Practice - PN: Subj Interval history: The patient is had a much better afternoon. Family and staff thinks that she is more alert. She still has some confusion but this is improved significantly. She slept a good part of the day and is somewhat lethargic at the time of evaluation. I reviewed lab studies which are stable. Reviewed multiple consultants notes and recommendations. She had a cardiac echo this p.m. which is pending. Her physical exam is stable at present. She recognizes me, know she is at [facility].She is moving all extremities and is swallowing and talking well. No localizing neurological deficits noted. I discussed in detail with patient's son. We will continue present treatment plan and moved to telemetry floor in a.m. if doing well. Hopefully she will continue to improve Exam (Progress Note) - Constitutional Vitals: Period Temp Pulse Resp BP Sys/Brody Pulse Ox Last 24 Hr 97.7 F-99.3 F 80-100 9-26 95-147/48-91 94-100 Results - Labs CBC & BMP: 07/27/16 04:19 07/27/16 04:19 Assessment and Plan (1) Acute respiratory failure Status: Resolved Assessment and plan: Patient required endotracheal intubation in the emergency room and is presently on a respirator. Being followed by pulmonary we will continue present treatment plan Current Visit: Yes (2) Pulmonary edema Status: Acute Assessment and plan: We will start her on appropriate treatment Current Visit: Yes (3) UTI (urinary tract infection) Status: Acute Assessment and plan: We will obtain culture and start her on appropriate antibiotics Current Visit: Yes (4) Chronic kidney disease with end stage renal failure on dialysis Status: Chronic Assessment and plan: Patient is presently receiving dialysis. Current Visit: Yes (5) Hypertension Status: Chronic Assessment and plan: We will resume her home medications Current Visit: Yes (6) Status post carcinoma right lung Status: Chronic Assessment and plan: Stable at present Current Visit: Yes (7) Status post pneumonectomy Status: Chronic Assessment and plan: Stable at present Current Visit: Yes (8) Hypothyroid Status: Chronic Assessment and plan: We will resume home medications and monitor Current Visit: Yes Quality Measures - VTE Contraindication to Pharmacological VTE Prophylaxis: High Risk of Bleeding Specialty Discharge - Follow Up or Referrals Follow up with: Devyn Baig MD [Physician] -
[2016-07-27] MEDS: ROSUVASTATIN 10 MG TABLET PO SCH (20:15)
[2016-07-28] MEDS: methylPREDNISolone SOD SUC 40 MG/1 ML VIAL IV SCH ×2 (02:01→14:12)
[2016-07-28 07:10] LABS: Basophils % 0.1 % (0.0-0.8); Hematocrit 30.3 VOL% (35.7-47.0); Hemoglobin 9.7 GM/DL (12.0-16.0); Immature Granulocytes % 1.1 %; Immature Granulocytes Absolute 0.17 #; Lymphocytes # 0.1 10*3/uL (1.4-4.0); Lymphocytes % 0.5 % (21.3-54.2); Mean Corpuscular Hemoglobin 31 PG (27-34); Mean Corpuscular Volume 97.4 FL (87-102); Mean Platelet Volume 12.4 FL (9.6-12.0); Monocytes # 0.6 10*3/uL (0.11-0.8); Monocytes % 3.7 % (1.7-12.7); Neutrophils # 14.7 10*3/uL (1.4-7.4); Neutrophils % 94.6 % (38.7-73.9); Platelet Count 147 T/CUMM (130-400); Red Blood Count 3.11 MC/CUMM (3.8-5.5); Red Cell Distribution Width 15.7 % (9.3-17.3); White Blood Count 15.5 T/CUMM (4-12)
--- NOTE | 2016-07-28 07:31 | EKG Report ---
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
[2016-07-28 07:40] LABS: Calcium 6.7 MG/DL (8.5-10.1); Magnesium 2.8 MG/DL (1.8-2.4); Osmolality,Calculated 295.4 MOS/KG (273-304); Potassium 5.8 MMOL/L (3.5-5.1)
--- NOTE | 2016-07-28 07:59 | Pulmonology Progress Note ---
Pulmonary - PN: Subj Interval history: The patient is an 80-year-old black lady that has had a previous right pneumonectomy. She is on dialysis with end-stage renal disease. She came in with tightness in her chest and acute pulmonary edema was placed on the ventilator. She is doing better now and her left lung has cleared. She had a cardiac catheterization and has significant triple-vessel coronary artery disease with a cardiomyopathy. She had multiple stents placed. She has done well off the ventilator and her breathing seems to be okay. She did have a better day and apparently slept better. This morning she says she feels much better. She says she had a good night sleep. She is not as agitated today. She has not had any breathing problems. Exam (Progress Note) - Constitutional Vitals: Period Temp Pulse Resp BP Sys/Brody Pulse Ox Last 24 Hr 97.6 F-98.5 F 84-100 14-33 95-147/46-91 94-100 Exam: General appearance: normal weight, other (Patient is comfortable off of the ventilator. She seems calmer and is resting better.) - Head Head exam: Present: normal inspection, normocephalic - Eye Eye exam: Present: EOMI. Absent: scleral icterus Pupils: Present: ULISES - ENT ENT exam: Present: Unremarkable - Neck Neck exam: Present: normal inspection. Absent: lymphadenopathy, thyromegaly - Respiratory Respiratory exam: Present: decreased breath sounds (She has absent breath sounds on the right), left lung has good breath sounds and is basically clear. - Cardiovascular Cardiovascular exam: Present: She has a regular rhythm now without a murmur or gallop. - GI/Abdominal GI/Abdominal exam: Present: normal bowel sounds, soft. Absent: organomegaly, tenderness - Extremities Exam Extremities exam: Absent: calf tenderness, edema - Neurological Exam Neurological exam: Present: other (Patient is responding okay and does seem to be resting better.) - Skin Skin exam: Present: warm, dry Results - Labs CBC & BMP: 07/28/16 06:28 07/28/16 06:28 Assessment and Plan (1) Status post pneumonectomy Status: Chronic Assessment and plan: The patient had a previous right pneumonectomy for lung cancer. Current Visit: Yes (2) Acute respiratory failure Status: Resolved Assessment and plan: The patient is breathing comfortably now and doing well off the ventilator. Her left lung is clear. She is maintaining her O2 saturation well and is not having any respiratory distress. Current Visit: Yes (3) Chronic kidney disease with end stage renal failure on dialysis Status: Chronic Assessment and plan: She has end-stage renal disease and will continue with dialysis. Her volume status appears better. Current Visit: Yes (4) Pulmonary edema Status: Acute Assessment and plan: This acute event is probably related to pulmonary edema. Her lung has cleared fairly well on dialysis. She does not have any respiratory problems now. She is stable from a pulmonary standpoint and can move to a regular room. Current Visit: Yes (5) Altered mental status Status: Acute Assessment and plan: She apparently rested much better last night after Ativan. She seems calmer and less confused. Current Visit: Yes Specialty Discharge - Follow Up or Referrals Follow up with: Devyn Baig MD [Physician] -
--- NOTE | 2016-07-28 08:17 | Cardiology Progress Note ---
Assessment and Plan (1) CAD (coronary artery disease) Status: Acute Assessment and plan: Patient has now been revascularized. EKG is better this morning. No longer revealing diffuse T-wave inversions. Peaked T waves noted. Potassium is 5.8. She continues to deny anginal symptoms and is hemodynamically stable. Echocardiogram was obtained yesterday, results pending. -Continue dual antiplatelet therapy with Brilinta and aspirin -Continue beta-luanne -Continue statin Further plan and addendum to follow per Dr. Gonzalez. Current Visit: Yes (2) Pulmonary edema Status: Acute Assessment and plan: This seems to be clinically stable. She is doing well post extubation and is without respiratory distress. Continue current plan of care. Current Visit: Yes (3) Acute respiratory failure Status: Resolved Assessment and plan: Resolved. Current Visit: Yes (4) ESRD (end stage renal disease) on dialysis Problem details: Next routine CHD on Sunday after am cath. UF as tolerated by hemodynamics. Status: Chronic Assessment and plan: Management per nephrology. Current Visit: Yes (5) Status post pneumonectomy Status: Chronic Assessment and plan: This is stable at present. Current Visit: Yes (6) UTI (urinary tract infection) Status: Acute Assessment and plan: Urine culture revealed no growth at 48 hours. She is currently receiving Rocephin and Levaquin. Management per attending. Current Visit: Yes (7) Hypertension Status: Chronic Assessment and plan: This is clinically stable. Continue current plan of care. Current Visit: Yes (8) Hypothyroid Status: Chronic Assessment and plan: Continue current plan of care with Synthroid. Current Visit: Yes (9) Status post carcinoma right lung Status: Chronic Assessment and plan: This is clinically stable. Current Visit: Yes (10) Ischemic cardiomyopathy Status: Acute Assessment and plan: Patient is now revascularized. Status post successful PCI per Dr. Baig on Sunday. -Continue beta-luanne -Continue Imdur and hydralazine -Echocardiogram was performed yesterday, results pending. Further plan and addendum to follow per Dr. Gonzalez. Current Visit: Yes (11) Leukocytosis Status: Acute Assessment and plan: Afebrile. Blood cultures and urine cultures have been repeated. Blood cultures revealed no growth at 1 day. Urine culture is pending. Defer further management to attending. Current Visit: Yes (12) Hyperkalemia Status: Resolved Assessment and plan: Potassium is 5.8. She is scheduled for hemodialysis today. Defer management of this to nephrology. Current Visit: Yes (13) Hyponatremia Status: Acute Assessment and plan: defer management of this to nephrology. Current Visit: Yes (14) Altered mental status Status: Acute Assessment and plan: This has somewhat improved overnight. Nursing staff reports that she rested well overnight and most of the day yesterday. Head CT did not reveal acute intracranial hemorrhage or infarction. Will defer further management of this to patient's attending physician. Current Visit: Yes Cardiology - PN: Subj Interval history: Membership Solicitor: Dr. Baig PCP: Dr. Carmichael Animal Feeder: Dr. Hemphill Cardiology consult note: Ms. Reyes is a 80 year old female without known history of coronary artery disease, routinely followed by Dr. Devyn Baig. Patient has a history of end-stage renal disease on hemodialysis, diastolic heart failure, lung cancer with pneumonectomy, hypertension and dyslipidemia. Patient presented to the ER with sudden onset of pulmonary edema and required mechanical ventilation. Cardiology was consulted to further evaluate patient. Echocardiogram was done this admission which revealed severe LV dysfunction. This was concerning that underlying coronary artery disease was contributing to patient's flash pulmonary edema. Subsequently, patient underwent left heart catheterization per Dr. Baig with the following impressions noted: Impression Critical three-vessel CAD Status post successful stenting of 2 lesions in the circumflex--- proximal lesion had a drug-eluting stent, obtuse marginal drug-eluting stent Status post successful stenting of the LAD-second [id number] stent Severe LV systolic dysfunction, LVEF 20% Mild LV diastolic dysfunction, LVEDP 18 mmHg Aggrastat bolus and infusion-for ACS/non-STEMI Low-dose dobutamine to help support blood pressure Angiogram right femoral artery Loading with Brilinta, 180 mg p.o. Angio-Seal right femoral artery Plan/recommendations: Status post Non-STEMI. The patient will have risk factors optimized. The patient will be on antiplatelet medications to include aspirin indefinitely and Brilinta for at least a year. Follow-up will be scheduled. Patient was seen and examined in the CCU. Patient remains slightly confused. However, this has somewhat improved overnight. Nursing staff reports that patient has rested well throughout the night and most of the day yesterday. She is drowsy this morning. She had echocardiogram yesterday. These results are pending. She is without complaints this morning. She denies chest pain, heaviness and tightness. She also denies shortness of breath. Right groin is soft without bleeding, hematoma and bruit. Distal pulses present. EKG this morning reveals peaked T waves. Diffuse T-wave inversions have now resolved. Labs have been reviewed. Potassium is noted to be 5.8. Patient will undergo dialysis today. Vital signs are stable. Patient is currently normal sinus rhythm with heart rates in the 90s without any overt arrhythmias or ectopy noted. Further plan and addendum to follow per Dr. Gonzalez. Exam (Progress Note) - Constitutional Vitals: Period Temp Pulse Resp BP Sys/Brody Pulse Ox Last 24 Hr 97.6 F-98.5 F 84-100 14-33 95-147/46-91 94-100 Exam: General appearance: Drowsy, resting comfortably in bed. Normal weight, no acute distress - Head Head exam: Present: normal inspection, normocephalic, atraumatic - Neck Neck exam: Present: normal inspection. Absent: lymphadenopathy, tenderness, thyromegaly - Respiratory Respiratory exam: Present: decreased breath sounds (Decreased breath sounds on the right.), other (Left is clear throughout.). Absent: accessory muscle use, chest wall tenderness, rales, rhonchi, stridor, wheezes - Cardiovascular Cardiovascular exam: Present: regular rate and rhythm, systolic murmur. Absent : gallop, rubs - GI/Abdominal GI/Abdominal exam: Present: normal bowel sounds, soft. Absent: distended, firm , mass, tenderness - Extremities Exam Extremities exam: Present: normal inspection, other (Right groin is soft without bleeding, hematoma and bruit. Distal pulses present.). Absent: edema - Neurological Exam Neurological exam: Present: altered - Skin Skin exam: Present: normal color, warm, dry. Absent: cyanosis Result/EKG - Labs CBC & BMP: 07/28/16 06:28 07/28/16 06:28 Lab Results: I have reviewed the past 24 hour labs Labs: Laboratory Results - last 24 hr 07/28/16 07/28/16 06:28 06:28 WBC 15.5 H RBC 3.11 L Hgb 9.7 L Hct 30.3 L MCV 97.4 MCH 31 MCHC 32.0 RDW 15.7 Plt Count 147 MPV 12.4 H Neut % (Auto) 94.6 H Lymph % (Auto) 0.5 L [place] % (Auto) 3.7 Eos % (Auto) 0.0 Baso % (Auto) 0.1 Neut # (Auto) 14.7 H Lymph # (Auto) 0.1 L [place] # (Auto) 0.6 Eos # (Auto) 0.0 Baso # (Auto) 0.0 Immature Gran % 1.1 Nucleated RBC % 0.0 Immature Gran # 0.17 Nucleated RBCs # 0.00 Sodium 133 L Potassium 5.8 H Chloride 96 L Carbon Dioxide 22 Anion Gap 20.8 H BUN 85 H Creatinine 5.90 H GFR Calculation 6 BUN/Creatinine Ratio 14.00 Glucose 167 H Calculated Osmolality 295.4 Calcium 6.7 L Magnesium 2.8 H Quality Measures - VTE Contraindication to Pharmacological VTE Prophylaxis: High Risk of Bleeding Specialty Discharge - Follow Up or Referrals Follow up with: Devyn Baig MD [Physician] -
[2016-07-28] MEDS: ALBUTEROL/IPRATROPIUM 3 ML NEB RESP TX SCH ×3 (08:23→20:14)
[2016-07-28] MEDS: cefTRIAXone 1,000 MG in SODIUM CHLORIDE 0.9% 100 ML IV SCH (08:35)
[2016-07-28] MEDS: PANTOPRAZOLE 40 MG VIAL IV SCH (08:37)
[2016-07-28] MEDS: ASPIRIN EC 81 MG TABLET PO SCH (08:37)
[2016-07-28] MEDS: CALCIUM ACETATE 667 MG CAPSULE PO SCH ×3 (08:37→20:58)
[2016-07-28] MEDS: clonazePAM 0.5 MG TABLET PO SCH (08:37)
[2016-07-28] MEDS: ALLOPURINOL 100 MG TABLET PO SCH ×2 (08:38→20:53)
[2016-07-28] MEDS: LEVOTHYROXINE 25 MCG TABLET PO SCH (08:38)
[2016-07-28] MEDS: CARVEDILOL 12.5 MG TABLET PO SCH ×2 (08:38→20:52)
[2016-07-28] MEDS: DOCUSATE SODIUM 100 MG CAPSULE PO SCH ×2 (08:38→20:58)
[2016-07-28] MEDS: ISOSORBIDE MONONITRATE 30 MG TABLET PO SCH (08:38)
[2016-07-28] MEDS: hydrALAZINE 25 MG TABLET PO SCH ×3 (08:38→20:58)
[2016-07-28] MEDS: TICAGRELOR 90 MG TABLET PO SCH ×2 (08:38→20:52)
[2016-07-28 08:56] LABS: Hypochromasia 1+; Lymphocytes 2 % (20-55); Platelet Estimate Adequate; Polychromasia Slight; Segmented Neutrophils 96 % (50-85); Spherocytes Few; Target Cells Slight; Total Cells Counted 100
[2016-07-28] MEDS: DOBUTamine 500 MG/250 ML PREMIX IV SCH (09:09)
--- NOTE | 2016-07-28 10:12 | ECHO Report ---
Ana Rosa Reyes Exam Date: 07/27/2016 10:55 Referring Physician: Technologist: Marilia Barahona WILLIAN Age: 80 Ht (in): 64 Wt (lb): 102 Gender: F Exam Location: [facility] Echo Indications: Altered mental status, CAD, Ischemic cardiomyopathy, Pulmonary edema, Acute respiratory failure, unspecified whether with hypoxia or hypercapnia, End stage renal disease, Essential (primary) hypertension, Leukocytosis, Hyperkalemia, Re-Evaluate EF BP: 108 / 52 HR: 90 Rhythm: Sinus Technical Quality: Very technically difficult study IMPRESSIONS Very technically difficult study. Left ventricular ejection fraction is estimated at 35-40 % which is improved since her intervention. Mild mitral annular and leaflet calcification with mild mitral regurgitation. Mild aortic valve sclerosis without stenosis. Trace to mild tricuspid valve regurgitation. MEASUREMENTS (Male / Female) Normal Values 2D ECHO LV Diastolic Diameter PLAX 5.1 cm 4.2 - 5.9 / 3.9 - 5.3 cm LV Systolic Diameter PLAX 4.4 cm LV Fractional Shortening PLAX 14.1 % IVS Diastolic Thickness 0.8 cm 0.6 - 1.0 / 0.6 - 0.9 cm LVPW Diastolic Thickness 0.8 cm 0.6 - 1.0 / 0.6 - 0.9 cm RV Internal Dim ED PLAX 2.6 cm Aortic Root Diameter 2.6 cm LA Systolic Diameter LX 2.7 cm 3.0 - 4.0 / 2.7 - 3.8 cm DOPPLER TR Peak Velocity 328.0 cm/s TR Peak Gradient 43.0 mmHg FINDINGS Left Ventricle Mostly normal left ventricular cavity size. Normal left ventricular wall thickness. Left ventricular ejection fraction is estimated at 35- 40 %. Right Ventricle The right ventricle is normal in size and function. Right Atrium Grossly normal Left Atrium Grossly normal Mitral Valve Mild mitral annular and leaflet calcification with mild mitral regurgitation. Aortic Valve Mild aortic valve sclerosis without stenosis. Tricuspid Valve Morphologically normal tricuspid valve. Trace to mild tricuspid valve regurgitation. Tricuspid regurgitation velocities suggest a PAP of 53 mmHg. Pulmonic Valve Morphologically normal pulmonic valve without significant stenosis. There is no pulmonic regurgitation. Pericardium Normal pericardium without effusion. Aorta Normal ascending aorta dimension. Gonzalez Gonzalez (Electronically Signed) Final Date: 28 Jul 2016 10:10
[2016-07-28] MEDS: LEVOFLOXACIN INJ 250 MG in PREMIX 1 EACH IV SCH (11:05)
--- NOTE | 2016-07-28 11:23 | Family Practice Progress Note ---
Family Practice - PN: Subj Interval history: Patient is less agitated and is more lethargic this a.m.. Answers questions appropriately. Apparently he rested well during the night. Son feels that he can see an improvement this a.m.. Reviewed echo report which reveals a improved left ventricular function with ejection fraction of 35-40% which is significantly improved from the initial 20% prior to the calf. I reviewed chart and labs in detail. Patient appears to be stable for transfer to telemetry floor. Hopefully the patient will continue to improve. We will continue present treatment plan. Discussed in detail with the patient's son and he seems to have a good understanding of the overall situation. Exam (Progress Note) - Constitutional Vitals: Period Temp Pulse Resp BP Sys/Brody Pulse Ox Last 24 Hr 97.1 F-98.5 F 84-95 14-33 81-127/46-66 99-100 Results - Labs CBC & BMP: 07/28/16 06:28 07/28/16 06:28 Assessment and Plan (1) Acute respiratory failure Status: Resolved Assessment and plan: Patient required endotracheal intubation in the emergency room and is presently on a respirator. Being followed by pulmonary we will continue present treatment plan Current Visit: Yes (2) Pulmonary edema Status: Acute Assessment and plan: We will start her on appropriate treatment Current Visit: Yes (3) UTI (urinary tract infection) Status: Acute Assessment and plan: We will obtain culture and start her on appropriate antibiotics Current Visit: Yes (4) Chronic kidney disease with end stage renal failure on dialysis Status: Chronic Assessment and plan: Patient is presently receiving dialysis. Current Visit: Yes (5) Hypertension Status: Chronic Assessment and plan: We will resume her home medications Current Visit: Yes (6) Status post carcinoma right lung Status: Chronic Assessment and plan: Stable at present Current Visit: Yes (7) Status post pneumonectomy Status: Chronic Assessment and plan: Stable at present Current Visit: Yes (8) Hypothyroid Status: Chronic Assessment and plan: We will resume home medications and monitor Current Visit: Yes Quality Measures - VTE Contraindication to Pharmacological VTE Prophylaxis: High Risk of Bleeding Specialty Discharge - Follow Up or Referrals Follow up with: Devyn Baig MD [Physician] -
[2016-07-28] MEDS: ERGOCALCIFEROL 50,000 UNIT CAPSULE PO SCH (14:11)
[2016-07-28] MEDS: ROSUVASTATIN 10 MG TABLET PO SCH (20:51)
--- NOTE | 2016-07-28 23:29 | Nephrology Progress Note ---
Nephrology - PN: Subj Interval history: Seen during dialysis. She is much better oriented today. Exam (PN)-Nephrology - Vital Signs Vital signs: Period Temp Pulse Resp BP Sys/Brody Pulse Ox Last 24 Hr 96.6 F-98.4 F 71-95 14-27 81-128/46-66 91-100 Exam: ENT: Normal Cardiovascular: Regular rate and rhythm. No murmur rub or gallop Lungs: Clear Extremities: No edema - Lab 07/28/16 06:28 07/28/16 06:28 Most recent lab results ABG pH 7.375 (7.35-7.45) 07/25/16 09:30 ABG pCO2 39.3 MM HG (35-48) 07/25/16 09:30 ABG pO2 130.0 MM HG (80-95) H 07/25/16 09:30 ABG HCO3 22.7 MMOL/L (20-26) 07/25/16 09:30 ABG O2 Saturation 98.6 % (95-100) 07/25/16 09:30 Calcium 6.7 MG/DL (8.5-10.1) L 07/28/16 06:28 Magnesium 2.8 MG/DL (1.8-2.4) H 07/28/16 06:28 Assessment and Plan (1) Acute [place] Status: Acute Assessment and plan: 80-year-old woman admitted with: * Acute [place]. * Three-vessel CAD. Status post stent placement * Confusion. CT showed no acute pathology. Mental status has improved * Remote right pneumonectomy * ESRD. Dialysis MWF. Stable during dialysis today * Hypertension Current Visit: Yes (2) CAD (coronary artery disease) Status: Acute Current Visit: Yes (3) Status post pneumonectomy Status: Chronic Current Visit: Yes (4) ESRD (end stage renal disease) on dialysis Status: Chronic Current Visit: Yes (5) Hypertension Status: Chronic Current Visit: Yes (6) Ventilatory failure Status: Acute Current Visit: Yes Specialty Discharge - Follow Up or Referrals Follow up with: Devyn Baig MD [Physician] -
[2016-07-29] MEDS: ALBUTEROL/IPRATROPIUM 3 ML NEB RESP TX SCH ×4 (01:23→21:17)
[2016-07-29] MEDS: methylPREDNISolone SOD SUC 40 MG/1 ML VIAL IV SCH ×2 (02:18→16:03)
[2016-07-29 04:22] LABS: Basophils % 0.1 % (0.0-0.8); Hematocrit 27.9 VOL% (35.7-47.0); Hemoglobin 8.6 GM/DL (12.0-16.0); Immature Granulocytes % 0.9 %; Immature Granulocytes Absolute 0.13 #; Lymphocytes # 0.2 10*3/uL (1.4-4.0); Lymphocytes % 1.3 % (21.3-54.2); Mean Corpuscular HGB Conc 30.8 GM/DL (32-36); Mean Corpuscular Hemoglobin 31 PG (27-34); Mean Corpuscular Volume 98.9 FL (87-102); Mean Platelet Volume 12.6 FL (9.6-12.0); Monocytes # 1.3 10*3/uL (0.11-0.8); Monocytes % 8.6 % (1.7-12.7); Neutrophils # 13.1 10*3/uL (1.4-7.4); Neutrophils % 89.1 % (38.7-73.9); Platelet Count 132 T/CUMM (130-400); Red Blood Count 2.82 MC/CUMM (3.8-5.5); Red Cell Distribution Width 15.3 % (9.3-17.3); White Blood Count 14.7 T/CUMM (4-12)
[2016-07-29 04:53] LABS: Calcium 7.5 MG/DL (8.5-10.1); Magnesium 2.6 MG/DL (1.8-2.4); Potassium 4.7 MMOL/L (3.5-5.1)
[2016-07-29 05:27] LABS: Hypochromasia 1+; Lymphocytes 4 % (20-55); Microcytosis Slight; Ovalocytes Slight; Platelet Estimate Normal; Segmented Neutrophils 92 % (50-85); Total Cells Counted 100
--- NOTE | 2016-07-29 07:57 | EKG Report ---
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
[2016-07-29] MEDS: DOBUTamine 500 MG/250 ML PREMIX IV SCH (09:02)
--- NOTE | 2016-07-29 09:08 | Pulmonology Progress Note ---
Pulmonary - PN: Subj Interval history: The patient is an 80-year-old black lady that has had a previous right pneumonectomy. She is on dialysis with end-stage renal disease. She came in with tightness in her chest and acute pulmonary edema was placed on the ventilator. She is doing better now and her left lung has cleared. She had a cardiac catheterization and has significant triple-vessel coronary artery disease with a cardiomyopathy. She had multiple stents placed. She has been moved to telemetry and is doing better. She says she rested fairly well last night. Her confusion has been improving. She says she wants to try to get up today. She is not having any shortness of breath. Exam (Progress Note) - Constitutional Vitals: Period Temp Pulse Resp BP Sys/Brody Pulse Ox Last 24 Hr 96.6 F-99.6 F 71-96 12-23 81-128/46-66 90-100 Exam: General appearance: normal weight, other (Patient is fairly alert now and breathing comfortably. ) - Head Head exam: Present: normal inspection, normocephalic - Eye Eye exam: Present: EOMI. Absent: scleral icterus Pupils: Present: ULISES - ENT ENT exam: Present: Unremarkable - Neck Neck exam: Present: normal inspection. Absent: lymphadenopathy, thyromegaly - Respiratory Respiratory exam: Present: decreased breath sounds (She has absent breath sounds on the right), left lung has good breath sounds and is basically clear. She is moving air well on the left. - Cardiovascular Cardiovascular exam: Present: She has a regular rhythm now without a murmur or gallop. - GI/Abdominal GI/Abdominal exam: Present: normal bowel sounds, soft. Absent: organomegaly, tenderness - Extremities Exam Extremities exam: Absent: calf tenderness, edema - Neurological Exam Neurological exam: Present: other (Patient is more alert today and is having less confusion.) - Skin Skin exam: Present: warm, dry Results - Labs CBC & BMP: 07/29/16 03:14 07/29/16 03:14 Assessment and Plan (1) Status post pneumonectomy Status: Chronic Assessment and plan: The patient had a previous right pneumonectomy for lung cancer. Current Visit: Yes (2) Acute respiratory failure Status: Resolved Assessment and plan: The patient is breathing comfortably now and doing well off the ventilator. Her left lung is clear. She is not having any respiratory distress now. Current Visit: Yes (3) Chronic kidney disease with end stage renal failure on dialysis Status: Chronic Assessment and plan: She has end-stage renal disease and will continue with dialysis. Her volume status appears better. Current Visit: Yes (4) Pulmonary edema Status: Acute Assessment and plan: This acute event is probably related to pulmonary edema. Her lung has cleared fairly well on dialysis. She does not have any respiratory problems now. She did well last night on telemetry. Current Visit: Yes (5) Altered mental status Status: Acute Assessment and plan: She is not as confused now . Current Visit: Yes Specialty Discharge - Follow Up or Referrals Follow up with: Devyn Baig MD [Physician] -
[2016-07-29] MEDS: CALCIUM ACETATE 667 MG CAPSULE PO SCH ×3 (10:00→21:04)
[2016-07-29] MEDS: PANTOPRAZOLE 40 MG VIAL IV SCH (10:09)
[2016-07-29] MEDS: LEVOTHYROXINE 25 MCG TABLET PO SCH (10:13)
[2016-07-29] MEDS: TICAGRELOR 90 MG TABLET PO SCH ×2 (10:13→21:04)
[2016-07-29] MEDS: hydrALAZINE 25 MG TABLET PO SCH ×3 (10:13→21:03)
[2016-07-29] MEDS: ASPIRIN EC 81 MG TABLET PO SCH (10:18)
[2016-07-29] MEDS: CARVEDILOL 12.5 MG TABLET PO SCH ×2 (10:18→21:04)
[2016-07-29] MEDS: ISOSORBIDE MONONITRATE 30 MG TABLET PO SCH (10:19)
[2016-07-29] MEDS: cefTRIAXone 1,000 MG in SODIUM CHLORIDE 0.9% 100 ML IV SCH (10:36)
--- NOTE | 2016-07-29 11:55 | Cardiology Progress Note ---
Assessment and Plan (1) CAD (coronary artery disease) Status: Acute Assessment and plan: She is status post stenting by Dr. Baig. Her left ventricular ejection fraction has improved since stenting. She is slowly better. Continue current management. Current Visit: Yes (2) Ischemic cardiomyopathy Status: Acute Assessment and plan: This seems improved since percutaneous coronary intervention by Dr. Baig. Continue current management. Current Visit: Yes (3) ESRD (end stage renal disease) on dialysis Problem details: Next routine CHD on Sunday after am cath. UF as tolerated by hemodynamics. Status: Chronic Current Visit: Yes (4) Hypertension Status: Chronic Current Visit: Yes (5) Hypothyroid Status: Chronic Current Visit: Yes (6) Status post carcinoma right lung Status: Chronic Current Visit: Yes (7) Acute respiratory failure Status: Resolved Current Visit: Yes (8) Hyperkalemia Status: Resolved Current Visit: Yes (9) Debility Status: Acute Assessment and plan: The patient may need transfer to a swing bed or LTAC for continued recovery. Current Visit: Yes (10) Frailty Status: Acute Current Visit: Yes Cardiology - PN: Subj Interval history: Clinically the patient is slowly improving. She is still very weak. She denies any angina or palpitations. Her recent echo showed an improvement in the left ventricular ejection fraction from prior to the stents. Her EKG changes were transient and seem to be resolving back to baseline. She denies any new complaints today. Current Medications Acetaminophen (Tylenol Tab) 650 mg PO Q6H PRN PRN Reason: Fever > 100.4 or Headache Albuterol/Ipratropium (Duoneb) 3 ml RESP TX RT Q6H [facility] Last Admin: 07/29/16 07:50 Dose: 3 ml Allopurinol (Zyloprim) 100 mg PO BID [facility] Last Admin: 07/28/16 20:53 Dose: 100 mg Aspirin () 81 mg PO DAILY [facility] Last Admin: 07/29/16 10:18 Dose: 81 mg Calcium Acetate (Phoslo) 667 mg PO TID [facility] Last Admin: 07/29/16 10:00 Dose: Not Given Carvedilol (Coreg) 12.5 mg PO BID [facility] Last Admin: 07/29/16 10:18 Dose: 12.5 mg Docusate Sodium (Colace Cap) 100 mg PO BID [facility] Last Admin: 07/28/16 20:58 Dose: 100 mg Ergocalciferol (Drisdol) 50,000 unit PO Q7D [facility] Last Admin: 07/28/16 14:11 Dose: 50,000 unit Hydralazine HCl (Apresoline Tab) 25 mg PO TID [facility] Last Admin: 07/29/16 10:13 Dose: Not Given Ceftriaxone Sodium 1,000 mg/ (Sodium Chloride) 100 mls @ 200 mls/hr IV Q24H [facility] Last Admin: 07/29/16 10:36 Dose: 100 mls/hr Levofloxacin/Dextrose 250 mg/ (Premix) 50 mls @ 50 mls/hr IV Q48H [facility] Last Admin: 07/28/16 11:05 Dose: 50 mls/hr Magnesium Sulfate 2 gm/ Premix 50 mls @ 25 mls/hr IV ONCE PRN PRN Reason: Magnesium less than 1.8 Potassium Chloride 10 meq/ (Premix) 100 mls @ 100 mls/hr IV Q1H PRN PRN Reason: Potassium less than 3.5 Dobutamine HCl/Dextrose () 500 mg in 250 mls @ 4.056 mls/hr IV TITRATE JOSÉ MIGUEL; 2 MCG/KG/MIN PRN Reason: Protocol Last Admin: 07/29/16 09:02 Dose: Not Given Isosorbide Mononitrate (Imdur) 30 mg PO DAILY [facility] Last Admin: 07/29/16 10:19 Dose: 30 mg Levothyroxine Sodium (Synthroid Tab) 25 mcg PO DAILY [facility] Last Admin: 07/29/16 10:13 Dose: 25 mcg Lorazepam (Ativan Inj) 0.5 mg IV Q4H PRN PRN Reason: Agitation Last Admin: 07/27/16 08:57 Dose: 0.5 mg Methylprednisolone Sodium Succinate (Solumedrol) 20 mg IV Q12H [facility] Last Admin: 07/29/16 02:18 Dose: 20 mg Ondansetron HCl (Zofran Inj) 4 mg IV Q6H PRN PRN Reason: Nausea/Vomiting Pantoprazole Sodium (Protonix Inj) 40 mg IV DAILY [facility] Last Admin: 07/29/16 10:09 Dose: 40 mg Rosuvastatin Calcium (Crestor) 5 mg PO BEDTIME [facility] Last Admin: 07/28/16 20:51 Dose: 5 mg Ticagrelor (Brilinta) 90 mg PO BID [facility] Last Admin: 07/29/16 10:13 Dose: 90 mg Exam (Progress Note) - Constitutional Vitals: Period Temp Pulse Resp BP Sys/Brody Pulse Ox Last 24 Hr 96.6 F-99.6 F 71-96 12-20 104-128/47-66 90-100 Exam: General: Frail, elderly, chronically ill-appearing HEENT: Normocephalic, atraumatic Neck: Supple Neck, Midline Trachea Cardiac: Regular rhythm, 2/6 systolic murmur, no gallop, no rub Lungs: Clear to Ascultation, No Wheeze, Rales, Rhonchi Neuro: Cranial Nerve 2-12 Intact, diffuse generalized weakness Abdomen: Soft, Active Bowel Sounds, No Masses, No Pulsations/Bruits Skin: Normal color, no rash Extremities: No Clubbing, No Cyanosis, No Edema, Normal Upper Extr. Pulses Musculoskeletal: No acute abnormality noted Psychiatric: The patient is alert and oriented. The patient has a flat affect but does not appear to be anxious or depressed. Result/EKG - Labs CBC & BMP: 07/29/16 03:14 07/29/16 03:14 Lab Results: I have reviewed the past 24 hour labs Labs: Laboratory Results - last 24 hr 07/29/16 07/29/16 03:14 03:14 WBC 14.7 H RBC 2.82 L Hgb 8.6 L Hct 27.9 L MCV 98.9 MCH 31 MCHC 30.8 L RDW 15.3 Plt Count 132 MPV 12.6 H Neut % (Auto) 89.1 H Lymph % (Auto) 1.3 L [place] % (Auto) 8.6 Eos % (Auto) 0.0 Baso % (Auto) 0.1 Neut # (Auto) 13.1 H Lymph # (Auto) 0.2 L [place] # (Auto) 1.3 H Eos # (Auto) 0.0 Baso # (Auto) 0.0 Total Counted 100 Immature Gran % 0.9 Nucleated RBC % 0.0 Immature Gran # 0.13 Segmented Neutrophils 92 H Lymphocytes 4 L Monocytes 4 Nucleated RBCs # 0.00 Platelet Estimate Normal Hypochromasia 1+ Microcytosis Slight Ovalocytes Slight Morphology Comment Sodium 136 Potassium 4.7 Chloride 99 Carbon Dioxide 23 Anion Gap 18.7 H BUN 55 H D Creatinine 4.20 H GFR Calculation 9 BUN/Creatinine Ratio 13.00 Glucose 109 H Calculated Osmolality 287.0 Calcium 7.5 L Magnesium 2.6 H - EKG EKG results: interpreted by me Quality Measures - VTE Contraindication to Pharmacological VTE Prophylaxis: High Risk of Bleeding Specialty Discharge - Follow Up or Referrals Follow up with: Devyn Baig MD [Physician] -
--- NOTE | 2016-07-29 12:06 | Internal Med Progress Note ---
Assessment and Plan (1) CAD (coronary artery disease) Status: Acute Assessment and plan: 80-year-old female admitted to acute * Coronary artery disease. Status post stent placement. She is stable. Her echocardiogram showed better ejection fraction * Hypertension. Blood pressure is stable * Hypothyroidism. Continue levothyroxine * Respiratory failure. Much better * End-stage renal disease. On hemodialysis 3 times a week * Continue current management Current Visit: Yes (2) Ischemic cardiomyopathy Status: Acute Current Visit: Yes (3) Pulmonary edema Status: Acute Current Visit: Yes (4) ESRD (end stage renal disease) on dialysis Problem details: Next routine CHD on Sunday after am cath. UF as tolerated by hemodynamics. Status: Chronic Current Visit: Yes (5) Hypertension Status: Chronic Current Visit: Yes (6) Hypothyroid Status: Chronic Current Visit: Yes Internal Medicine - PN: Subj Interval history: 80-year-old female with history of multiple medical problems who was admitted with pulmonary edema and was on ventilator. She has history of previous right pneumonectomy, end-stage renal disease on hemodialysis, coronary artery disease , cardiomyopathy. She had recent stents placed. She moved to telemetry a few days ago and is feeling better. She denies any chest pain or shortness of breath. She denies any nausea or vomiting Exam (Progress Note) - Constitutional Vitals: Period Temp Pulse Resp BP Sys/Brody Pulse Ox Last 24 Hr 96.7 F-99.6 F 71-96 12-20 104-119/47-66 90-100 General appearance: normal weight, no acute distress - Head Head exam: Present: normal inspection - Eye Eye exam: Present: EOMI Pupils: Present: ULISES - Neck Neck exam: Present: normal inspection - Respiratory Respiratory exam: Present: clear to auscultation bilaterally - Cardiovascular Cardiovascular exam: Present: regular rate and rhythm - GI/Abdominal GI/Abdominal exam: Present: normal bowel sounds, soft. Absent: tenderness - Extremities Exam Extremities exam: Present: normal inspection. Absent: edema Results - Labs CBC & BMP: 07/29/16 03:14 07/29/16 03:14 Lab Results: I have reviewed the past 24 hour labs Quality Measures - VTE Contraindication to Pharmacological VTE Prophylaxis: High Risk of Bleeding Specialty Discharge - Follow Up or Referrals Follow up with: Devyn Baig MD [Physician] -
--- NOTE | 2016-07-29 12:39 | Nephrology Progress Note ---
Nephrology - PN: Subj Interval history: Ms. Reyes is seen in follow-up for end-stage renal disease. We saw her during lunch and she had apparently choked on some of her food. She was having a difficult time talking but once she was able to cough up some of that and vomit a bit she was able to talk again. She is in no distress but is quite weak and will continue to support with dialysis. We will get a chest x-ray following this episode of possible aspiration. Exam (PN)-Nephrology - Vital Signs Vital signs: Period Temp Pulse Resp BP Sys/Brody Pulse Ox Last 24 Hr 96.7 F-99.6 F 71-96 12-20 104-119/47-66 90-100 - Lab 07/29/16 03:14 07/29/16 03:14 Most recent lab results ABG pH 7.375 (7.35-7.45) 07/25/16 09:30 ABG pCO2 39.3 MM HG (35-48) 07/25/16 09:30 ABG pO2 130.0 MM HG (80-95) H 07/25/16 09:30 ABG HCO3 22.7 MMOL/L (20-26) 07/25/16 09:30 ABG O2 Saturation 98.6 % (95-100) 07/25/16 09:30 Calcium 7.5 MG/DL (8.5-10.1) L 07/29/16 03:14 Magnesium 2.6 MG/DL (1.8-2.4) H 07/29/16 03:14 Specialty Discharge - Follow Up or Referrals Follow up with: Devyn Baig MD [Physician] -
[2016-07-29] MEDS: ALLOPURINOL 100 MG TABLET PO SCH ×2 (13:16→21:04)
[2016-07-29] MEDS: DOCUSATE SODIUM 100 MG CAPSULE PO SCH ×2 (13:16→21:04)
--- NOTE | 2016-07-29 14:02 | XRay Report ---
Referring Physician: Lincoln Patricio Exam: XR chest 1V portable Date: July 29, 2016 at 1:25 PM Reason: Shortness of breath Comparison: Chest one view portable July 25, 2016, chest PA lateral January 26, 2014 Findings: The previously seen endotracheal tube and feeding tube have been removed. The cardiomediastinal silhouette appears stable. There is surgical change at the right chest, which is suggestive of right pneumonectomy. This is similar to multiple prior studies. There are mild opacities at the left lung base which are most consistent with atelectasis. There could also be minimal pulmonary edema. No pneumothorax is identified, but minimal left pleural fluid is suspected. The osseous structures appear stable. A vascular stent and surgical clips are noted at the right arm. Impression: There is slight increased atelectasis at the left lung base, and minimal left pleural fluid is suspected. The previously seen endotracheal tube and feeding tube have also been removed. The study is otherwise similar to before. PROCEDURE INTERPRETED AT [facility] DEPARTMENT OF RADIOLOGY Final Report Signed by: Dr. Devyn Banda
[2016-07-29] MEDS: ROSUVASTATIN 10 MG TABLET PO SCH (21:04)
[2016-07-30] MEDS: ALBUTEROL/IPRATROPIUM 3 ML NEB RESP TX SCH ×4 (01:29→18:20)
[2016-07-30] MEDS: methylPREDNISolone SOD SUC 40 MG/1 ML VIAL IV SCH ×2 (03:35→15:20)
[2016-07-30 04:24] LABS: Hematocrit 25.4 VOL% (35.7-47.0); Hemoglobin 8.1 GM/DL (12.0-16.0); Immature Granulocytes % 1.5 %; Immature Granulocytes Absolute 0.22 #; Lymphocytes # 0.1 10*3/uL (1.4-4.0); Lymphocytes % 0.8 % (21.3-54.2); Mean Corpuscular HGB Conc 31.9 GM/DL (32-36); Mean Corpuscular Hemoglobin 31 PG (27-34); Mean Corpuscular Volume 97.7 FL (87-102); Mean Platelet Volume 12.8 FL (9.6-12.0); Monocytes # 1.1 10*3/uL (0.11-0.8); Monocytes % 7.3 % (1.7-12.7); Neutrophils # 13.1 10*3/uL (1.4-7.4); Neutrophils % 90.4 % (38.7-73.9); Platelet Count 135 T/CUMM (130-400); Red Cell Distribution Width 15.5 % (9.3-17.3); White Blood Count 14.5 T/CUMM (4-12)
[2016-07-30 05:46] LABS: Band Neutrophils 2 % (0-10); Hypochromasia 2+; Lymphocytes 1 % (20-55); Platelet Estimate Decreased; Segmented Neutrophils 93 % (50-85); Total Cells Counted 100
--- NOTE | 2016-07-30 08:50 | Pulmonology Progress Note ---
Pulmonary - PN: Subj Interval history: The patient is an 80-year-old black lady that has had a previous right pneumonectomy. She is on dialysis with end-stage renal disease. She came in with tightness in her chest and acute pulmonary edema was placed on the ventilator. She is doing better now and her left lung has cleared. She had a cardiac catheterization and has significant triple-vessel coronary artery disease with a cardiomyopathy. She had multiple stents placed. The patient says that she had a fairly good night and rested better. She apparently had some choking spell yesterday but is breathing better now. She says she is not short of breath. Her chest x-ray looks relatively stable. Exam (Progress Note) - Constitutional Vitals: Period Temp Pulse Resp BP Sys/Brody Pulse Ox Last 24 Hr 96.8 F-98.1 F 76-98 12-20 106-121/54-63 91-100 Exam: General appearance: normal weight, other (Patient is fairly alert now and breathing comfortably. ) - Head Head exam: Present: normal inspection, normocephalic - Eye Eye exam: Present: EOMI. Absent: scleral icterus Pupils: Present: ULISES - ENT ENT exam: Present: Unremarkable - Neck Neck exam: Present: normal inspection. Absent: lymphadenopathy, thyromegaly - Respiratory Respiratory exam: Present: decreased breath sounds (She has absent breath sounds on the right), left lung has good breath sounds and is basically clear. Her lungs still sound fairly clear on the left. - Cardiovascular Cardiovascular exam: Present: She has a regular rhythm now without a murmur or gallop. - GI/Abdominal GI/Abdominal exam: Present: normal bowel sounds, soft. Absent: organomegaly, tenderness - Extremities Exam Extremities exam: Absent: calf tenderness, edema - Neurological Exam Neurological exam: Present: other (Patient is more alert today and seems to be talking clearly now. ) - Skin Skin exam: Present: warm, dry Results - Labs CBC & BMP: 07/30/16 03:15 07/29/16 03:14 - Diagnostic Findings Procedure: Chest x-ray: image reviewed by me, report reviewed by me (Chest x- ray shows a right pneumonectomy in the left lung is basically clear.) Assessment and Plan (1) Status post pneumonectomy Status: Chronic Assessment and plan: The patient had a previous right pneumonectomy for lung cancer. Current Visit: Yes (2) Acute respiratory failure Status: Resolved Assessment and plan: The patient is breathing comfortably now and doing well off the ventilator. Her left lung is clear. She is not having any respiratory distress now. She did have some coughing yesterday but is better now. Current Visit: Yes (3) Chronic kidney disease with end stage renal failure on dialysis Status: Chronic Assessment and plan: She has end-stage renal disease and will continue with dialysis. Her volume status appears better. Current Visit: Yes (4) Pulmonary edema Status: Acute Assessment and plan: This acute event is probably related to pulmonary edema. Her lung has cleared fairly well on dialysis. She does not have any respiratory problems now. She appears to be stable at this point. Current Visit: Yes (5) Altered mental status Status: Acute Assessment and plan: She is not as confused now . She does seem to be a little more alert. Current Visit: Yes Specialty Discharge - Follow Up or Referrals Follow up with: Devyn Baig MD [Physician] -
[2016-07-30] MEDS: PANTOPRAZOLE 40 MG VIAL IV SCH (09:16)
[2016-07-30] MEDS: ASPIRIN EC 81 MG TABLET PO SCH (09:17)
[2016-07-30] MEDS: CALCIUM ACETATE 667 MG CAPSULE PO SCH ×3 (09:17→22:19)
[2016-07-30] MEDS: ISOSORBIDE MONONITRATE 30 MG TABLET PO SCH (09:17)
[2016-07-30] MEDS: CARVEDILOL 12.5 MG TABLET PO SCH ×2 (09:17→22:19)
[2016-07-30] MEDS: hydrALAZINE 25 MG TABLET PO SCH ×3 (09:17→22:19)
[2016-07-30] MEDS: TICAGRELOR 90 MG TABLET PO SCH ×2 (09:17→22:19)
[2016-07-30] MEDS: LEVOTHYROXINE 25 MCG TABLET PO SCH (09:17)
[2016-07-30] MEDS: DOCUSATE SODIUM 100 MG CAPSULE PO SCH ×2 (09:17→22:19)
[2016-07-30] MEDS: ALLOPURINOL 100 MG TABLET PO SCH ×2 (09:17→22:19)
[2016-07-30] MEDS: cefTRIAXone 1,000 MG in SODIUM CHLORIDE 0.9% 100 ML IV SCH (09:18)
[2016-07-30] MEDS: DOBUTamine 500 MG/250 ML PREMIX IV SCH (09:18)
--- NOTE | 2016-07-30 10:15 | Nephrology Progress Note ---
Nephrology - PN: Subj Interval history: Ms. Reyes is seen in follow-up of her end-stage renal disease. She dialyzed on Sunday. Yesterday she had an episode of choking on some food. Chest x-ray demonstrated no significant atelectasis in the left lung yesterday after that episode. Today she is stronger but still has a very weak voice but is in no distress. Plan is for dialysis again tomorrow. Exam (PN)-Nephrology - Vital Signs Vital signs: Period Temp Pulse Resp BP Sys/Brody Pulse Ox Last 24 Hr 96.8 F-98.1 F 76-98 12-20 106-121/54-63 91-100 - Lab 07/30/16 03:15 07/29/16 03:14 Most recent lab results ABG pH 7.375 (7.35-7.45) 07/25/16 09:30 ABG pCO2 39.3 MM HG (35-48) 07/25/16 09:30 ABG pO2 130.0 MM HG (80-95) H 07/25/16 09:30 ABG HCO3 22.7 MMOL/L (20-26) 07/25/16 09:30 ABG O2 Saturation 98.6 % (95-100) 07/25/16 09:30 Calcium 7.5 MG/DL (8.5-10.1) L 07/29/16 03:14 Magnesium 2.6 MG/DL (1.8-2.4) H 07/29/16 03:14 Specialty Discharge - Follow Up or Referrals Follow up with: Devyn Baig MD [Physician] -
--- NOTE | 2016-07-30 10:54 | Internal Med Progress Note ---
Assessment and Plan (1) CAD (coronary artery disease) Status: Acute Assessment and plan: 80-year-old female admitted to acute * Coronary artery disease. Doing well * Hypertension. Blood pressure is stable * Hypothyroidism. Continue levothyroxine * Respiratory failure. Her chest x-ray looked okay yesterday * We will get speech therapy to evaluate her. * End-stage renal disease. On hemodialysis 3 times a week * Continue current management Current Visit: Yes (2) Ischemic cardiomyopathy Status: Acute Current Visit: Yes (3) Pulmonary edema Status: Acute Current Visit: Yes (4) ESRD (end stage renal disease) on dialysis Problem details: Next routine CHD on Sunday after am cath. UF as tolerated by hemodynamics. Status: Chronic Current Visit: Yes (5) Hypertension Status: Chronic Current Visit: Yes (6) Hypothyroid Status: Chronic Current Visit: Yes Internal Medicine - PN: Subj Interval history: 80-year-old female with history of multiple medical problems who was admitted with pulmonary edema and was on ventilator. She has history of previous right pneumonectomy, end-stage renal disease on hemodialysis, coronary artery disease , cardiomyopathy. Recently had stents placed. She moved to telemetry a few days ago and is feeling better. She had an episode yesterday on which she choked on [place]. She feels okay this morning. No specific complaints Exam (Progress Note) - Constitutional Vitals: Period Temp Pulse Resp BP Sys/Brody Pulse Ox Last 24 Hr 96.8 F-98.1 F 76-98 12-20 106-121/54-63 91-100 General appearance: normal weight, no acute distress - Head Head exam: Present: normal inspection - Eye Eye exam: Present: EOMI Pupils: Present: ULISES - Neck Neck exam: Present: normal inspection - Respiratory Respiratory exam: Present: clear to auscultation bilaterally - Cardiovascular Cardiovascular exam: Present: regular rate and rhythm - GI/Abdominal GI/Abdominal exam: Present: normal bowel sounds, soft. Absent: tenderness - Extremities Exam Extremities exam: Present: normal inspection. Absent: edema Results - Labs CBC & BMP: 07/30/16 03:15 07/29/16 03:14 Lab Results: I have reviewed the past 24 hour labs Quality Measures - VTE Contraindication to Pharmacological VTE Prophylaxis: High Risk of Bleeding Specialty Discharge - Follow Up or Referrals Follow up with: Devyn Baig MD [Physician] -
--- NOTE | 2016-07-30 11:03 | Cardiology Progress Note ---
Assessment and Plan (1) CAD (coronary artery disease) Status: Acute Assessment and plan: She is status post stenting by Dr. Baig. Her left ventricular ejection fraction has improved since stenting. She is slowly better. Continue current management. Current Visit: Yes (2) Ischemic cardiomyopathy Status: Acute Assessment and plan: This seems improved since percutaneous coronary intervention by Dr. Baig. Continue current management. Current Visit: Yes (3) ESRD (end stage renal disease) on dialysis Problem details: Next routine CHD on Sunday after am cath. UF as tolerated by hemodynamics. Status: Chronic Current Visit: Yes (4) Hypertension Status: Chronic Current Visit: Yes (5) Hypothyroid Status: Chronic Current Visit: Yes (6) Status post carcinoma right lung Status: Chronic Current Visit: Yes (7) Acute respiratory failure Status: Resolved Current Visit: Yes (8) Hyperkalemia Status: Resolved Current Visit: Yes (9) Debility Status: Acute Assessment and plan: The patient may need transfer to a swing bed or LTAC for continued recovery. Current Visit: Yes (10) Frailty Status: Acute Current Visit: Yes Cardiology - PN: Subj Interval history: Clinically the patient is slowly improving. She is still very weak. She denies any cardiac symptoms such as angina or palpitations. Her recent echo showed an improvement in the left ventricular ejection fraction from prior to the stents. Her EKG changes were transient and seem to be resolving back to baseline. She denies any new complaints today. Current Medications Acetaminophen (Tylenol Tab) 650 mg PO Q6H PRN PRN Reason: Fever > 100.4 or Headache Albuterol/Ipratropium (Duoneb) 3 ml RESP TX RT Q6H [facility] Last Admin: 07/30/16 07:16 Dose: 3 ml Allopurinol (Zyloprim) 100 mg PO BID [facility] Last Admin: 07/30/16 09:17 Dose: 100 mg Aspirin () 81 mg PO DAILY [facility] Last Admin: 07/30/16 09:17 Dose: 81 mg Calcium Acetate (Phoslo) 667 mg PO TID [facility] Last Admin: 07/30/16 09:17 Dose: 667 mg Carvedilol (Coreg) 12.5 mg PO BID [facility] Last Admin: 07/30/16 09:17 Dose: 12.5 mg Docusate Sodium (Colace Cap) 100 mg PO BID [facility] Last Admin: 07/30/16 09:17 Dose: 100 mg Ergocalciferol (Drisdol) 50,000 unit PO Q7D [facility] Last Admin: 07/28/16 14:11 Dose: 50,000 unit Hydralazine HCl (Apresoline Tab) 25 mg PO TID [facility] Last Admin: 07/30/16 09:17 Dose: 25 mg Ceftriaxone Sodium 1,000 mg/ (Sodium Chloride) 100 mls @ 200 mls/hr IV Q24H [facility] Last Admin: 07/30/16 09:18 Dose: 100 mls/hr Levofloxacin/Dextrose 250 mg/ (Premix) 50 mls @ 50 mls/hr IV Q48H [facility] Last Admin: 07/28/16 11:05 Dose: 50 mls/hr Magnesium Sulfate 2 gm/ Premix 50 mls @ 25 mls/hr IV ONCE PRN PRN Reason: Magnesium less than 1.8 Potassium Chloride 10 meq/ (Premix) 100 mls @ 100 mls/hr IV Q1H PRN PRN Reason: Potassium less than 3.5 Dobutamine HCl/Dextrose () 500 mg in 250 mls @ 4.056 mls/hr IV TITRATE JOSÉ MIGUEL; 2 MCG/KG/MIN PRN Reason: Protocol Last Admin: 07/30/16 09:18 Dose: Not Given Isosorbide Mononitrate (Imdur) 30 mg PO DAILY [facility] Last Admin: 07/30/16 09:17 Dose: 30 mg Levothyroxine Sodium (Synthroid Tab) 25 mcg PO DAILY [facility] Last Admin: 07/30/16 09:17 Dose: 25 mcg Lorazepam (Ativan Inj) 0.5 mg IV Q4H PRN PRN Reason: Agitation Last Admin: 07/27/16 08:57 Dose: 0.5 mg Methylprednisolone Sodium Succinate (Solumedrol) 20 mg IV Q12H [facility] Last Admin: 07/30/16 03:35 Dose: 20 mg Ondansetron HCl (Zofran Inj) 4 mg IV Q6H PRN PRN Reason: Nausea/Vomiting Pantoprazole Sodium (Protonix Inj) 40 mg IV DAILY [facility] Last Admin: 07/30/16 09:16 Dose: 40 mg Rosuvastatin Calcium (Crestor) 5 mg PO BEDTIME [facility] Last Admin: 07/29/16 21:04 Dose: 5 mg Ticagrelor (Brilinta) 90 mg PO BID [facility] Last Admin: 07/30/16 09:17 Dose: 90 mg Exam (Progress Note) - Constitutional Vitals: Period Temp Pulse Resp BP Sys/Brody Pulse Ox Last 24 Hr 96.8 F-98.1 F 76-98 12-20 106-121/54-63 91-100 Exam: General: Frail, elderly, chronically ill-appearing HEENT: Normocephalic, atraumatic Neck: Supple Neck, Midline Trachea Cardiac: Regular rhythm, 2/6 systolic murmur, no gallop, no rub Lungs: Clear to Ascultation, No Wheeze, Rales, Rhonchi Neuro: Cranial Nerve 2-12 Intact, diffuse generalized weakness Abdomen: Soft, Active Bowel Sounds, No Masses, No Pulsations/Bruits Skin: Normal color, no rash Extremities: No Clubbing, No Cyanosis, No Edema, Normal Upper Extr. Pulses Musculoskeletal: No acute abnormality noted Psychiatric: The patient is a little drowsy. The patient has a flat affect but does not appear to be anxious or depressed. Result/EKG - Labs CBC & BMP: 07/30/16 03:15 07/29/16 03:14 Lab Results: I have reviewed the past 24 hour labs Labs: Laboratory Results - last 24 hr 07/30/16 03:15 WBC 14.5 H RBC 2.60 L Hgb 8.1 L Hct 25.4 L MCV 97.7 MCH 31 MCHC 31.9 L RDW 15.5 Plt Count 135 MPV 12.8 H Neut % (Auto) 90.4 H Lymph % (Auto) 0.8 L Petroleum % (Auto) 7.3 Eos % (Auto) 0.0 Baso % (Auto) 0.0 Neut # (Auto) 13.1 H Lymph # (Auto) 0.1 L Petroleum # (Auto) 1.1 H Eos # (Auto) 0.0 Baso # (Auto) 0.0 Total Counted 100 Immature Gran % 1.5 Nucleated RBC % 0.0 Immature Gran # 0.22 Segmented Neutrophils 93 H Band Neutrophils 2 Lymphocytes 1 L Monocytes 4 Nucleated RBCs # 0.00 Platelet Estimate Decreased Hypochromasia 2+ - EKG EKG results: interpreted by me Quality Measures - VTE Contraindication to Pharmacological VTE Prophylaxis: High Risk of Bleeding Specialty Discharge - Follow Up or Referrals Follow up with: Devyn Baig MD [Physician] -
[2016-07-30] MEDS: LEVOFLOXACIN INJ 250 MG in PREMIX 1 EACH IV SCH (12:11)
[2016-07-30] MEDS: ROSUVASTATIN 10 MG TABLET PO SCH (22:15)
[2016-07-31] MEDS: ALBUTEROL/IPRATROPIUM 3 ML NEB RESP TX SCH ×4 (00:52→19:27)
[2016-07-31] MEDS: methylPREDNISolone SOD SUC 40 MG/1 ML VIAL IV SCH ×2 (02:00→18:04)
[2016-07-31] MEDS: TICAGRELOR 90 MG TABLET PO SCH ×4 (02:59→21:34)
[2016-07-31] MEDS: hydrALAZINE 25 MG TABLET PO SCH ×5 (02:59→21:34)
[2016-07-31] MEDS: DOCUSATE SODIUM 100 MG CAPSULE PO SCH ×4 (02:59→21:34)
[2016-07-31] MEDS: CALCIUM ACETATE 667 MG CAPSULE PO SCH ×5 (03:00→21:34)
[2016-07-31] MEDS: ALLOPURINOL 100 MG TABLET PO SCH ×4 (03:00→21:34)
[2016-07-31] MEDS: CARVEDILOL 12.5 MG TABLET PO SCH ×4 (03:00→21:34)
[2016-07-31] MEDS ORDERED: LACTULOSE 20 GM/30 ML UDCUP PO PRN (08:59)
[2016-07-31] MEDS: ISOSORBIDE MONONITRATE 30 MG TABLET PO SCH ×2 (10:12→12:45)
[2016-07-31] MEDS: LEVOTHYROXINE 25 MCG TABLET PO SCH ×2 (10:12→12:44)
[2016-07-31] MEDS: ASPIRIN EC 81 MG TABLET PO SCH ×2 (10:12→12:59)
[2016-07-31] MEDS: cefTRIAXone 1,000 MG in SODIUM CHLORIDE 0.9% 100 ML IV SCH (10:13)
[2016-07-31] MEDS: PANTOPRAZOLE 40 MG VIAL IV SCH (10:13)
--- NOTE | 2016-07-31 10:29 | Cardiology Progress Note ---
<Opal Chappell - Last Filed: 07/31/16 10:23> Assessment and Plan (1) CAD (coronary artery disease) Status: Acute Assessment and plan: Patient has now been revascularized, status post stenting per Dr. Baig. Her left ventricular ejection fraction has improved since stenting, EF 35-40%. She is slowly improving. Continue current management. -Continue dual antiplatelet therapy with Brilinta and aspirin -Continue beta-luanne -Continue statin Further plan and addendum to follow per Dr. Vang. Current Visit: Yes (2) Acute respiratory failure Status: Resolved Assessment and plan: Resolved. Current Visit: Yes (3) ESRD (end stage renal disease) on dialysis Problem details: Next routine CHD on Sunday after am cath. UF as tolerated by hemodynamics. Status: Chronic Assessment and plan: Management per nephrology. Dialysis MWF. Current Visit: Yes (4) Status post pneumonectomy Status: Chronic Assessment and plan: This is stable at present. Current Visit: Yes (5) Hypertension Status: Chronic Assessment and plan: This is clinically stable. Continue current plan of care. Current Visit: Yes (6) Hypothyroid Status: Chronic Assessment and plan: Continue current plan of care with Synthroid. Current Visit: Yes (7) Status post carcinoma right lung Status: Chronic Assessment and plan: This is clinically stable. Current Visit: Yes (8) Ischemic cardiomyopathy Status: Acute Assessment and plan: Patient is now revascularized. Status post successful PCI per Dr. Baig. Per echo ejection fraction has improved since [facility], EF 35-40%. -Continue beta-luanne -Continue Imdur and hydralazine -Echocardiogram was performed yesterday, results pending. Further plan and addendum to follow per Dr. Vang. Current Visit: Yes (9) Leukocytosis Status: Acute Assessment and plan: Afebrile. Defer further management to attending. Current Visit: Yes (10) Hyperkalemia Status: Resolved Current Visit: Yes (11) Hyponatremia Status: Resolved Current Visit: Yes (12) Debility Status: Acute Assessment and plan: The patient may need transfer to a swing bed or LTAC for continued recovery. Current Visit: Yes Cardiology - PN: Subj Interval history: Course Developer: Dr. Baig PCP: Dr. Carmichael Hris Administrator: Dr. Hemphill Cardiology consult note: Ms. Reyes is a 80 year old female without known history of coronary artery disease, routinely followed by Dr. Devyn Baig. Patient has a history of end-stage renal disease on hemodialysis, diastolic heart failure, lung cancer with pneumonectomy, hypertension and dyslipidemia. Patient presented to the ER with sudden onset of pulmonary edema and required mechanical ventilation. Cardiology was consulted to further evaluate patient. Echocardiogram was done this admission which revealed severe LV dysfunction. This was concerning that underlying coronary artery disease was contributing to patient's flash pulmonary edema. Subsequently, patient underwent left heart catheterization per Dr. Baig with the following impressions noted: Impression Critical three-vessel CAD Status post successful stenting of 2 lesions in the circumflex--- proximal lesion had a drug-eluting stent, obtuse marginal drug-eluting stent Status post successful stenting of the LAD-second [id number] stent Severe LV systolic dysfunction, LVEF 20% Mild LV diastolic dysfunction, LVEDP 18 mmHg Aggrastat bolus and infusion-for ACS/non-STEMI Low-dose dobutamine to help support blood pressure Angiogram right femoral artery Loading with Brilinta, 180 mg p.o. Angio-Seal right femoral artery Plan/recommendations: Status post Non-STEMI. The patient will have risk factors optimized. The patient will be on antiplatelet medications to include aspirin indefinitely and Brilinta for at least a year. Follow-up will be scheduled. Patient was seen and examined on the telemetry unit. Patient remains slightly confused and drowsy. Clinically, the patient is slowly improving. She is still very weak. PT has been consulted to evaluate patient. She denies any cardiac symptoms such as angina or palpitations. Her recent echo showed an improvement in the left ventricular ejection fraction since her [facility] last week, EF 35-40%. Post cath she did have EKG changes. These were transient and seem to be resolving back to baseline. She denies any new complaints today. She denies chest pain, heaviness and tightness. Right groin is soft without bleeding, hematoma and bruit. Distal pulses present. Patient will undergo dialysis today. Vital signs are stable. Patient is currently normal sinus rhythm with heart rates in the 90s. Further plan and addendum to follow per Dr. Vang. Exam (Progress Note) - Constitutional Vitals: Period Temp Pulse Resp BP Sys/Brody Pulse Ox Last 24 Hr 97 F-98.9 F 85-101 12-20 119-148/57-73 83-100 Exam: General: Frail, elderly, chronically ill-appearing HEENT: Normocephalic, atraumatic Neck: Supple Neck, Midline Trachea Cardiac: Regular rhythm, 2/6 systolic murmur, no gallop, no rub Lungs: Clear to Ascultation, No Wheeze, Rales, Rhonchi Neuro: Cranial Nerve 2-12 Intact, diffuse generalized weakness Abdomen: Soft, Active Bowel Sounds, No Masses, No Pulsations/Bruits Skin: Normal color, no rash Extremities: No Clubbing, No Cyanosis, No Edema, Normal Upper Extr. Pulses Musculoskeletal: No acute abnormality noted Psychiatric: The patient is a little drowsy. The patient has a flat affect but does not appear to be anxious or depressed. Result/EKG - Labs CBC & BMP: 07/30/16 03:15 07/29/16 03:14 Lab Results: I have reviewed the past 24 hour labs Quality Measures - VTE Contraindication to Pharmacological VTE Prophylaxis: High Risk of Bleeding Specialty Discharge - Follow Up or Referrals Follow up with: Devyn Baig MD [Physician] - <Curt Vang - Last Filed: 07/31/16 15:54> Cardiology - PN: Subj Interval history: Patient personally interviewed and examined and chart reviewed. Discussed his case with Opal Chappell PSYCHIATRIC REGISTERED NURSE. Agree with evaluation and assessment. This patient has had mental status changes and neurology is to evaluate today. Part of the issue though is that she's been unable to swallow her medications including her Brilinta, she's had recent PCI. She needs NG tube/feeding tube for administration of her medications. Clinically her evaluation is unchanged. She is on dialysis this afternoon. We'll continue to monitor her cardiac status. Exam (Progress Note) - Constitutional Vitals: Period Temp Pulse Resp BP Sys/Brody Pulse Ox Last 24 Hr 97.7 F-98.9 F 88-101 12-20 119-148/57-75 83-98 Result/EKG - Labs CBC & BMP: 07/30/16 03:15 07/29/16 03:14 Labs: Laboratory Results - last 24 hr 07/31/16 12:50 POC Glucose 119 H
[2016-07-31] MEDS: DOBUTamine 500 MG/250 ML PREMIX IV SCH (10:45)
--- NOTE | 2016-07-31 11:49 | Pulmonology Progress Note ---
Pulmonary - PN: Subj Interval history: The patient is an 80-year-old black lady that has had a previous right pneumonectomy. She is on dialysis with end-stage renal disease. She came in with tightness in her chest and acute pulmonary edema was placed on the ventilator. She is doing better now and her left lung has cleared. She had a cardiac catheterization and has significant triple-vessel coronary artery disease with a cardiomyopathy. She had multiple stents placed. Over the weekend she has been very weak. The sitter says she is having some choking spells. She apparently is complaining of some mild nausea and abdominal discomfort. She may be constipated a little. She seems to be breathing okay. Exam (Progress Note) - Constitutional Vitals: Period Temp Pulse Resp BP Sys/Brody Pulse Ox Last 24 Hr 97 F-98.9 F 85-101 12-20 119-148/57-73 83-100 Exam: General appearance: normal weight, other (Patient does look chronically ill and fatigued. She seems to be breathing okay.) - Head Head exam: Present: normal inspection, normocephalic - Eye Eye exam: Present: EOMI. Absent: scleral icterus Pupils: Present: ULISES - ENT ENT exam: Present: Unremarkable - Neck Neck exam: Present: normal inspection. Absent: lymphadenopathy, thyromegaly - Respiratory Respiratory exam: Present: decreased breath sounds (She has absent breath sounds on the right), left lung has good breath sounds and is basically clear. Her lungs still sound fairly clear on the left. - Cardiovascular Cardiovascular exam: Present: She has a regular rhythm now without a murmur or gallop. - GI/Abdominal GI/Abdominal exam: Present: normal bowel sounds, soft. Her abdomen is soft and nontender and no localized findings. - Extremities Exam Extremities exam: Absent: calf tenderness, edema - Neurological Exam Neurological exam: Present: other (Patient is quite sleepy but does arouse okay. ) - Skin Skin exam: Present: warm, dry Results - Labs CBC & BMP: 07/30/16 03:15 07/29/16 03:14 Assessment and Plan (1) Status post pneumonectomy Status: Chronic Assessment and plan: The patient had a previous right pneumonectomy for lung cancer. Current Visit: Yes (2) Acute respiratory failure Status: Resolved Assessment and plan: The patient is breathing comfortably now and doing well off the ventilator. Her left lung is clear. She seems to be breathing okay although she is a little lethargic. We will have to watch her closely. Current Visit: Yes (3) Chronic kidney disease with end stage renal failure on dialysis Status: Chronic Assessment and plan: She has end-stage renal disease and will continue with dialysis. She is scheduled for dialysis today. Current Visit: Yes (4) Pulmonary edema Status: Acute Assessment and plan: This acute event is probably related to pulmonary edema. Her lung has cleared fairly well on dialysis. She does not have any respiratory problems now. She appears to be stable at this point. Current Visit: Yes (5) Altered mental status Status: Acute Assessment and plan: She is sleeping a lot and very weak. She does arouse easily. She does not seem to be too terribly confused. Current Visit: Yes Specialty Discharge - Follow Up or Referrals Follow up with: Devyn Baig MD [Physician] -
--- NOTE | 2016-07-31 17:08 | Event Note ---
Patient is gone for dialysis
--- NOTE | 2016-07-31 17:38 | Neurology Consult Note ---
History of Present Illness History of present illness: Ms. Reyes is a 80 year old -[place] lady with ESRD on on hemodialysis at [facility]. Last HD on Sunday to EDW 47.2kg via RUAVF. Pt came to the emergency department frequently intubated, sedated, mechanically ventilated then extubated. Family reported that she has been quite obtunded for last 2-3 days since she had cardiac cath and stenting done. She is not eating. She is appended to the point that she is not waking up much at all. She would open her eyes and drift off frequently. A CT scan revealed no acute abnormalities done on 07/26/2016. Home Medications Medication Instructions Recorded Confirmed Type Allopurinol 100 mg PO BID 01/08/15 07/21/16 History Carvedilol [Coreg] 12.5 mg PO BID 01/08/15 07/21/16 History amLODIPine [Norvasc] 10 mg PO DAILY 01/08/15 07/21/16 History clonazePAM [Klonopin] 1 mg PO DAILY 01/08/15 07/21/16 History Levothyroxine Sodium [Synthroid] 1 tablet PO DAILY 01/12/15 07/21/16 History Ergocalciferol (Vitamin D2) 50,000 unit PO Q7D 04/01/15 07/21/16 History [Vitamin D2] Esomeprazole Magnesium [Nexium] 40 mg PO DAILY PRN 04/01/15 07/21/16 History Calcium Acetate 667 mg PO TID 11/20/15 07/21/16 History methylPREDNISolone DOSEPAK [Medrol 4 mg PO DIRECTED #1 pack 11/20/15 Rx Dosepak] cephALEXin [Keflex] 500 mg PO Q12HR #14 capsule 07/08/16 07/21/16 Rx Omeprazole 20 mg PO DAILY 07/21/16 07/21/16 History Allergies Allergy/AdvReac Type Severity Reaction Status Date / Time No Known Allergies Allergy Verified 01/12/15 19:15 ROS unobtainable: due to mental status Medical,Surgical,& Family Hx - Medical History Cardio: History of: CHF, Hypertension Neurology: No history of: Seizures HEENT: History of: Eye Problem (GLASSES), Dental Problems (UPPER DENTURE AND LOWER PARITAL) Endocrine: History of: Thyroid Disorder Rheumatology: History of;: Gout Respiratory: History of: Pneumonia, Respiratory Problems (right lung cancer) Renal: History of: Dialysis ([facility] --[facility] [place]; DR OLVERA) Gastrointestinal: History of: GERD (OCCASIONAL) Musculoskeletal: History of: Back/Neck Problems (VERTABRAE FRACTURES), Musculoskeletal Problems (BURSITIS HIPS) Hematology: History of: Anemia (PAST HISTORY) Other: History of: Anesthesia Reactions (NAUSEA WITH PAIN MEDICATIONS), Cancer ( RIGHT LUNG CANCER), Miscellaneous Medical Problems (HAY FEVER) - Surgical History Thoracic Surgeries: Surgical HX of;: Lobectomy (right lung) HEENT Surgeries: Surgical HX of: Eye Surgery (BILATERAL CATARACT) Abdominal Surgeries: Surgical HX of: Appendectomy, Colonoscopy Reproductive Surgeries: Surgical HX of;: Hysterectomy Orthopedic Surgeries: Surgical HX of;: Implanted Devices (FISTULA RIGHT ARM, CATHETER LEFT SUBCLAVIAN), Spinal Surgery (DR ALEXANDER- KYPHOPLASTY) - Family History Family History: Reports;: Family Heart Disease, Family Hypertension - Social History Smoking Status: Never smoker Frequency of Alcohol Use: Unknown Type of Drug Use: Unknown Exam - Constitutional Vitals: Period Temp Pulse Resp BP Sys/Brody Pulse Ox Last 24 Hr 97.7 F-98.9 F 88-101 12-20 122-148/57-75 83-98 Exam: GENERAL: Patient is in no acute distress. NECK: Neck is supple. There is no JVD. No carotid bruits present. No thyroid masses. CVS: First and second heart sounds are normal. There is no S3 present. Regular rate and rhythm. RESPIRATORY: Lungs are clear to auscultation without any rales or rhonchi. ABDOMEN: Soft and non-tender. Bowel sounds are present. There is no hepatosplenomegaly. EXT: There is no palpable edema. Peripheral pulses are present. Skin: No rashes Central Nervous system: General: Obtunded Speech: None Comprehension: Impaired Facial expressions: Normal Cranial Nerves: Pupils are equally reactive to light. Doll's head eye movements are positive. No facial asymmetry seen Motor: Bulk and Tone is normal. Strength symmetrical however unable to assess much Sensory: Cannot be assessed Reflexes: 1+ and symmetrical Cerebellar function: Cannot be assessed Toes: Equivocal Gait: Cannot be assessed Results - Labs CBC & BMP: 07/30/16 03:15 05/06/17 03:14 Assessment and Plan (1) Decreased level of consciousness Status: Acute Assessment and plan: Etiology is not clear, differential would include infectious encephalopathy, stroke, metabolic encephalopathy. Repeat CAT scan head EEG Check ammonia level Thank you for the consult Current Visit: Yes Specialty Discharge - Follow Up or Referrals Follow up with: Devyn Baig MD [Physician] -
[2016-07-31] MEDS ORDERED: ENOXAPARIN 40 MG/0.4 ML SYRINGE SUBCUT SCH (18:00)
--- NOTE | 2016-07-31 19:14 | Family Practice Progress Note ---
Family Practice - PN: Subj Interval history: Staff reports that patient has been very lethargic throughout the day today. Staff and family report that she is much more lethargic and obtunded today than she has since her recent cardiac cath. Reviewed labs and x-rays and did not find any abnormalities that would explain this acute change. Patient is having a head CT repeated and plan to repeat lab studies in early a.m.. Appreciate consultants help with this case. I have discussed with family member. Exam (Progress Note) - Constitutional Vitals: Period Temp Pulse Resp BP Sys/Brody Pulse Ox Last 24 Hr 97.7 F-98.9 F 88-101 12-20 122-148/57-75 83-98 Results - Labs CBC & BMP: 07/30/16 03:15 07/29/16 03:14 Assessment and Plan (1) Acute respiratory failure Status: Resolved Assessment and plan: Patient required endotracheal intubation in the emergency room and is presently on a respirator. Being followed by pulmonary we will continue present treatment plan Current Visit: Yes (2) Pulmonary edema Status: Acute Assessment and plan: We will start her on appropriate treatment Current Visit: Yes (3) UTI (urinary tract infection) Status: Acute Assessment and plan: We will obtain culture and start her on appropriate antibiotics Current Visit: Yes (4) Chronic kidney disease with end stage renal failure on dialysis Status: Chronic Assessment and plan: Patient is presently receiving dialysis. Current Visit: Yes (5) Hypertension Status: Chronic Assessment and plan: We will resume her home medications Current Visit: Yes (6) Status post carcinoma right lung Status: Chronic Assessment and plan: Stable at present Current Visit: Yes (7) Status post pneumonectomy Status: Chronic Assessment and plan: Stable at present Current Visit: Yes (8) Hypothyroid Status: Chronic Assessment and plan: We will resume home medications and monitor Current Visit: Yes Quality Measures - VTE Contraindication to Pharmacological VTE Prophylaxis: High Risk of Bleeding Specialty Discharge - Follow Up or Referrals Follow up with: Devyn Baig MD [Physician] -
--- NOTE | 2016-07-31 19:19 | CT Report ---
Referring physician: Ryder Carmichael Exam: CT brain without contrast Date: July 31, 2016 Comparison: CT brain without contrast July 26, 2016 Reason: Mental status change The patient is an inpatient who was admitted on July 21, 2016. Technique: Axial images of the head were obtained without the use of contrast. Total DLP was 1042.6 mGy*cm. Findings: There is a stable well-circumscribed hyperdensity at the medial aspect of the right middle cranial fossa, again measuring approximately 1.8 x 1.0 cm. This could represent a meningioma. There is mild generalized cerebral and cerebellar atrophy/volume loss and probable chronic microvascular ischemic change. No hydrocephalus or midline shift is present. There is no evidence of recent intracranial hemorrhage or acute infarction. No acute osseous process is seen. Prominent calcified plaque is noted at the intracranial internal carotid arteries bilaterally. There is moderate fluid within the right mastoid air cells, which could reflect mastoiditis. The left mastoid air cells are clear. There is mild mucosal thickening within the ethmoid air cells bilaterally. Impression: 1. No acute intracranial process is identified. 2. Chronic intracranial findings, similar to before. 3. Interval development of moderate fluid within the right mastoid air cells. This could represent mastoiditis. The CT exam was performed using one or more of the following dose reduction techniques: Automated exposure control and adjustment of the mA and/or kV according to patient size. PROCEDURE INTERPRETED AT [facility] [place] DEPARTMENT OF RADIOLOGY Final Report Signed by: Dr. Devyn Banda
--- NOTE | 2016-07-31 19:23 | XRay Report ---
Referring Physician: Ryder Carmichael Exam: XR chest 1V portable Date: July 31, 2016 at 6:36 PM Reason: Nasogastric tube placement Comparison: Chest one view portable July 29, 2016 Findings: A feeding tube is in place with its distal tip within the stomach, likely at the junction of the gastric fundus and body. The cardiomediastinal silhouette appears stable. There is again surgical change and diffuse density at the right chest, suggesting pneumonectomy. Scattered opacities are also again seen within the left lung. Contrast is noted within the bowel. The osseous structures appear stable with kyphoplasty/vertebroplasty change at the lumbar spine. Surgical clips are noted at the left arm. Impression: A feeding tube is in place with its distal tip within the stomach, likely at the junction of the gastric fundus and body. PROCEDURE INTERPRETED AT [facility] DEPARTMENT OF RADIOLOGY Final Report Signed by: Dr. Devyn Banda
--- NOTE | 2016-07-31 20:24 | Nephrology Progress Note ---
Nephrology - PN: Subj Interval history: Seen during dialysis. She has been more lethargic since yesterday, according to family members. She will awaken to her name but drifts off to sleep quickly. Blood pressure has been stable. Accu-Chek just done was 119 Exam (PN)-Nephrology - Vital Signs Vital signs: Period Temp Pulse Resp BP Sys/Brody Pulse Ox Last 24 Hr 97.7 F-98.9 F 88-101 15-20 122-146/57-75 83-98 Exam: ENT: CHARLEYRLA. Cardiovascular: Regular rate and rhythm. No murmur rub or gallop Lungs: Clear Extremities: Trace edema - Lab 07/30/16 03:15 07/29/16 03:14 Most recent lab results ABG pH 7.375 (7.35-7.45) 07/25/16 09:30 ABG pCO2 39.3 MM HG (35-48) 07/25/16 09:30 ABG pO2 130.0 MM HG (80-95) H 07/25/16 09:30 ABG HCO3 22.7 MMOL/L (20-26) 07/25/16 09:30 ABG O2 Saturation 98.6 % (95-100) 07/25/16 09:30 Calcium 7.5 MG/DL (8.5-10.1) L 07/29/16 03:14 Magnesium 2.6 MG/DL (1.8-2.4) H 07/29/16 03:14 Assessment and Plan (1) Acute DC Status: Acute Assessment and plan: 80-year-old woman admitted with: * Acute DC. * Three-vessel CAD. Status post stent placement * Decreased LOC. Repeat CT pending. Neurology has been consulted * Remote right pneumonectomy * ESRD. Dialysis MWF. Stable during dialysis today * Hypertension Current Visit: Yes (2) CAD (coronary artery disease) Status: Acute Current Visit: Yes (3) Status post pneumonectomy Status: Chronic Current Visit: Yes (4) ESRD (end stage renal disease) on dialysis Status: Chronic Current Visit: Yes (5) Hypertension Status: Chronic Current Visit: Yes (6) Ventilatory failure Status: Acute Current Visit: Yes Specialty Discharge - Follow Up or Referrals Follow up with: Devyn Baig MD [Physician] -
[2016-07-31] MEDS: ROSUVASTATIN 10 MG TABLET PO SCH (21:33)
[2016-08-01] MEDS: ALBUTEROL/IPRATROPIUM 3 ML NEB RESP TX SCH ×4 (01:12→20:15)
[2016-08-01] MEDS: methylPREDNISolone SOD SUC 40 MG/1 ML VIAL IV SCH ×2 (01:47→14:45)
[2016-08-01 05:20] LABS: Basophils % 0.1 % (0.0-0.8); Hematocrit 24.2 VOL% (35.7-47.0); Hemoglobin 7.5 GM/DL (12.0-16.0); Immature Granulocytes % 1.3 %; Immature Granulocytes Absolute 0.18 #; Lymphocytes # 0.1 10*3/uL (1.4-4.0); Lymphocytes % 0.6 % (21.3-54.2); Mean Corpuscular Hemoglobin 31 PG (27-34); Mean Corpuscular Volume 99.2 FL (87-102); Mean Platelet Volume 12.4 FL (9.6-12.0); Monocytes # 0.6 10*3/uL (0.11-0.8); Platelet Count 142 T/CUMM (130-400); Red Blood Count 2.44 MC/CUMM (3.8-5.5); White Blood Count 13.9 T/CUMM (4-12)
[2016-08-01 05:45] LABS: Basophilic Stippling Slight; Hypochromasia 1+; Lymphocytes 1 % (20-55); Segmented Neutrophils 98 % (50-85); Total Cells Counted 100
[2016-08-01 05:46] LABS: Macrocytosis Slight; Platelet Estimate Adequate
[2016-08-01 05:58] LABS: Albumin 2.5 G/DL (3.4-5.0); Bilirubin,Total 0.6 MG/DL (0.2-1.0); Calcium 7.8 MG/DL (8.5-10.1); Magnesium 2.4 MG/DL (1.8-2.4); Osmolality,Calculated 286.8 MOS/KG (273-304); Potassium 4.5 MMOL/L (3.5-5.1); Total Protein 5.3 G/DL (6.4-8.3)
--- NOTE | 2016-08-01 07:48 | XRay Report ---
XR chest 1V portable Indication: Bronchitis Comparison: Chest x-ray dated July 31, 2016 Technique: Single frontal view of the chest Findings: Side-port of enteric tube near the expected location of the gastroesophageal junction. Heart remains obscured. Diffuse opacification of the right hemithorax with volume loss and significant rib cage deformity again noted. Surgical clips again project over the right hilar region. Continued nonspecific interstitial prominence throughout the left lung may reflect interstitial pulmonary edema or bronchitis. Vascular stent noted within the proximal right arm. IMPRESSION: As above. PROCEDURE INTERPRETED AT [facility] DEPARTMENT OF RADIOLOGY Final Report Signed by: Dr Kirt Ureña
--- NOTE | 2016-08-01 08:10 | Family Practice Progress Note ---
Family Practice - PN: Subj Interval history: Patient is mentally much improved this a.m. She is awake and answering questions appropriately. Requested to have the NG tube removed. Daughter states that she is near her normal mental state. CT scan last p.m. was normal. Her a.m. labs are stable except hemoglobin is 7.5 with hematocrit of 24.2. No new problems identified. Lung villavicencio are clear to auscultation. Will have staff try sips of fluid in if patient is swallowing well will consider removing NG tube and start liquid diet. Also have physical therapy try to stand and ambulate. hopefully she is turning the corner and will continue to improve. Exam (Progress Note) - Constitutional Vitals: Period Temp Pulse Resp BP Sys/Brody Pulse Ox Last 24 Hr 97.4 F-99.2 F 88-111 15-25 96-146/53-75 92-98 Results - Labs CBC & BMP: 08/01/16 04:54 08/01/16 04:54 Assessment and Plan (1) Acute respiratory failure Status: Resolved Assessment and plan: Patient required endotracheal intubation in the emergency room and is presently on a respirator. Being followed by pulmonary we will continue present treatment plan Current Visit: Yes (2) Pulmonary edema Status: Acute Assessment and plan: We will start her on appropriate treatment Current Visit: Yes (3) UTI (urinary tract infection) Status: Acute Assessment and plan: We will obtain culture and start her on appropriate antibiotics Current Visit: Yes (4) Chronic kidney disease with end stage renal failure on dialysis Status: Chronic Assessment and plan: Patient is presently receiving dialysis. Current Visit: Yes (5) Hypertension Status: Chronic Assessment and plan: We will resume her home medications Current Visit: Yes (6) Status post carcinoma right lung Status: Chronic Assessment and plan: Stable at present Current Visit: Yes (7) Status post pneumonectomy Status: Chronic Assessment and plan: Stable at present Current Visit: Yes (8) Hypothyroid Status: Chronic Assessment and plan: We will resume home medications and monitor Current Visit: Yes Quality Measures - VTE Contraindication to Pharmacological VTE Prophylaxis: High Risk of Bleeding Specialty Discharge - Follow Up or Referrals Follow up with: Devyn Baig MD [Physician] -
--- NOTE | 2016-08-01 08:34 | Pulmonology Progress Note ---
Pulmonary - PN: Subj Interval history: The patient is an 80-year-old black lady that has had a previous right pneumonectomy. She is on dialysis with end-stage renal disease. She came in with tightness in her chest and acute pulmonary edema was placed on the ventilator. She is doing better now and her left lung has cleared. She had a cardiac catheterization and has significant triple-vessel coronary artery disease with a cardiomyopathy. She had multiple stents placed. Yesterday she had some abdominal discomfort and confusion. She did do okay with dialysis. She is more alert today and is feeling better. She has not had any nausea or vomiting or abdominal pain now. She is breathing comfortably at present. Exam (Progress Note) - Constitutional Vitals: Period Temp Pulse Resp BP Sys/Brody Pulse Ox Last 24 Hr 97.4 F-99.2 F 88-111 15-25 96-146/53-75 92-99 Exam: General appearance: normal weight, other (Patient does look chronically ill and fatigued. She seems to be breathing okay. She looks like she feels better today.) - Head Head exam: Present: normal inspection, normocephalic - Eye Eye exam: Present: EOMI. Absent: scleral icterus Pupils: Present: ULISES - ENT ENT exam: Present: Unremarkable, she has an NG tube in place. - Neck Neck exam: Present: normal inspection. Absent: lymphadenopathy, thyromegaly - Respiratory Respiratory exam: Present: decreased breath sounds (She has absent breath sounds on the right), left lung has good breath sounds and is basically clear. Her lungs still sound fairly clear on the left. - Cardiovascular Cardiovascular exam: Present: She has a regular rhythm now without a murmur or gallop. - GI/Abdominal GI/Abdominal exam: Present: normal bowel sounds, soft. Her abdomen is soft and nontender and no localized findings. - Extremities Exam Extremities exam: Absent: calf tenderness, edema - Neurological Exam Neurological exam: Present: other (Patient is more alert today and talking more. ) - Skin Skin exam: Present: warm, dry Results - Labs CBC & BMP: 08/01/16 04:54 08/01/16 04:54 Assessment and Plan (1) Status post pneumonectomy Status: Chronic Assessment and plan: The patient had a previous right pneumonectomy for lung cancer. Current Visit: Yes (2) Acute respiratory failure Status: Resolved Assessment and plan: The patient is breathing comfortably now and doing well off the ventilator. Her left lung is clear. She looks like she feels better today and is breathing comfortably. Current Visit: Yes (3) Chronic kidney disease with end stage renal failure on dialysis Status: Chronic Assessment and plan: She has end-stage renal disease and will continue with dialysis. She is scheduled for dialysis today. Current Visit: Yes (4) Pulmonary edema Status: Acute Assessment and plan: This acute event is probably related to pulmonary edema. Her lung has cleared fairly well on dialysis. She does not have any respiratory problems now. She appears to be stable at this point. Current Visit: Yes (5) Altered mental status Status: Acute Assessment and plan: She is more alert today and looks comfortable. She looks like she feels better today. Current Visit: Yes Specialty Discharge - Follow Up or Referrals Follow up with: Devyn Baig MD [Physician] -
[2016-08-01] MEDS: ISOSORBIDE MONONITRATE 30 MG TABLET PO SCH (09:09)
[2016-08-01] MEDS: CARVEDILOL 12.5 MG TABLET PO SCH ×2 (09:09→21:33)
[2016-08-01] MEDS: ASPIRIN EC 81 MG TABLET PO SCH (09:09)
[2016-08-01] MEDS: DOCUSATE SODIUM 100 MG CAPSULE PO SCH ×2 (09:09→21:33)
[2016-08-01] MEDS: TICAGRELOR 90 MG TABLET PO SCH ×2 (09:09→21:33)
[2016-08-01] MEDS: hydrALAZINE 25 MG TABLET PO SCH ×3 (09:10→21:33)
[2016-08-01] MEDS: LEVOTHYROXINE 25 MCG TABLET PO SCH (09:10)
[2016-08-01] MEDS: ALLOPURINOL 100 MG TABLET PO SCH ×2 (09:10→21:33)
[2016-08-01] MEDS: cefTRIAXone 1,000 MG in SODIUM CHLORIDE 0.9% 100 ML IV SCH ×2 (09:10→11:40)
[2016-08-01] MEDS: CALCIUM ACETATE 667 MG CAPSULE PO SCH ×3 (09:10→21:33)
[2016-08-01] MEDS: PANTOPRAZOLE 40 MG VIAL IV SCH ×2 (09:10→11:40)
[2016-08-01] MEDS: DOBUTamine 500 MG/250 ML PREMIX IV SCH (10:17)
--- NOTE | 2016-08-01 11:18 | Cardiology Progress Note ---
<Opal Chappell - Last Filed: 08/01/16 11:15> Assessment and Plan (1) CAD (coronary artery disease) Status: Acute Assessment and plan: Patient has now been revascularized, status post stenting per Dr. Baig. Her left ventricular ejection fraction has improved since stenting, EF 35-40%. Continue current management. -Continue dual antiplatelet therapy with Brilinta and aspirin -Continue beta-luanne -Continue statin Further plan and addendum to follow per Dr. Vang. Current Visit: Yes (2) Ischemic cardiomyopathy Status: Acute Assessment and plan: Patient is now revascularized. Status post successful PCI per Dr. Baig. Per recent echo, ejection fraction has improved since [facility], EF 35-40%. -Continue beta-luanne -Continue Imdur and hydralazine -Echocardiogram was performed yesterday, results pending. Further plan and addendum to follow per Dr. Vnag. Current Visit: Yes (3) ESRD (end stage renal disease) on dialysis Problem details: Next routine CHD on Sunday after am cath. UF as tolerated by hemodynamics. Status: Chronic Assessment and plan: Management per nephrology. Dialysis MWF. Current Visit: Yes (4) Status post pneumonectomy Status: Chronic Assessment and plan: This is stable at present. Current Visit: Yes (5) Hypertension Status: Chronic Assessment and plan: This is clinically stable. Continue current plan of care. Current Visit: Yes (6) Hypothyroid Status: Chronic Assessment and plan: Continue current plan of care with Synthroid. Current Visit: Yes (7) Status post carcinoma right lung Status: Chronic Assessment and plan: This is clinically stable. Current Visit: Yes (8) Leukocytosis Status: Acute Assessment and plan: Afebrile. Urine and blood cultures reveal no growth. Defer further management to attending. Current Visit: Yes (9) Debility Status: Acute Assessment and plan: Physical therapy has been consulted. The patient may need transfer to a swing bed or LTAC for continued recovery. Current Visit: Yes (10) Altered mental status Status: Acute Assessment and plan: This has somewhat improved overnight. Dr. Deluna saw patient in consultation yesterday. His differential diagnoses included infectious encephalopathy, stroke and metabolic encephalopathy. She underwent repeat head CT yesterday which did not reveal any acute intracranial processes. However, interval development of moderate fluid within the right mastoid air cells was noted which could possibly represent mastoiditis. EEG was done this morning. Results are pending. Ammonia level within normal limits. White blood cell count remains high with a left shift. Blood and urine cultures have been negative. Will defer further workup of this to attending and neurology. Current Visit: Yes Cardiology - PN: Subj Interval history: Dry Placer Machine Operator: Dr. Baig PCP: Dr. Carmichael Pile Driver Operator Helper: Dr. Hemphill Ms. Reyse is a 80 year old female without known history of coronary artery disease, routinely followed by Dr. Devyn Baig. Patient has a history of end-stage renal disease on hemodialysis, diastolic heart failure, lung cancer with pneumonectomy, hypertension and dyslipidemia. Patient presented to the ER with sudden onset of pulmonary edema and required mechanical ventilation. Cardiology was consulted to further evaluate patient. Echocardiogram was done this admission which revealed severe LV dysfunction. This was concerning that underlying coronary artery disease was contributing to patient's flash pulmonary edema. Subsequently, patient underwent left heart catheterization per Dr. Baig with the following impressions noted: Impression Critical three-vessel CAD Status post successful stenting of 2 lesions in the circumflex--- proximal lesion had a drug-eluting stent, obtuse marginal drug-eluting stent Status post successful stenting of the LAD-second [id number] stent Severe LV systolic dysfunction, LVEF 20% Mild LV diastolic dysfunction, LVEDP 18 mmHg Aggrastat bolus and infusion-for ACS/non-STEMI Low-dose dobutamine to help support blood pressure Angiogram right femoral artery Loading with Brilinta, 180 mg p.o. Angio-Seal right femoral artery Plan/recommendations: Status post Non-STEMI. The patient will have risk factors optimized. The patient will be on antiplatelet medications to include aspirin indefinitely and Brilinta for at least a year. Follow-up will be scheduled. Patient was seen and examined on the telemetry unit. Clinically, the patient is slowly improving. Mental status seems to have improved overnight. Her daughter is at bedside and she confirms that her confusion has improved. However, she is not back to her baseline. Neurology was consulted yesterday. She underwent repeat head CT which did not reveal any acute intracranial processes. Interval development of moderate fluid within the right mastoid air cells which could possibly represent mastoiditis. EEG was done this morning. Results are pending. Ammonia level within normal limits. She is still very weak. PT was consulted and will evaluate the patient today. NGT was placed yesterday as patient was too lethargic to take her Brilinta. This has now been discontinued and patient is able to take medicines as directed. She denies any new complaints today. She denies chest pain, heaviness and tightness. Right groin is soft without bleeding, hematoma and bruit. Distal pulses present. Patient will undergo dialysis tomorrow. Vital signs are stable. Patient is currently normal sinus rhythm with heart rates in the 90s. Further plan and addendum to follow per Dr. Vang. Exam (Progress Note) - Constitutional Vitals: Period Temp Pulse Resp BP Sys/Brody Pulse Ox Last 24 Hr 97.4 F-99.2 F 88-111 15-25 96-146/53-75 92-100 Exam: General: Frail, elderly, chronically ill-appearing HEENT: Normocephalic, atraumatic Neck: Supple Neck, Midline Trachea Cardiac: Regular rhythm, 2/6 systolic murmur, no gallop, no rub Lungs: Clear to Ascultation, No Wheeze, Rales, Rhonchi Neuro: Cranial Nerve 2-12 Intact, diffuse generalized weakness Abdomen: Soft, Active Bowel Sounds, No Masses, No Pulsations/Bruits Skin: Normal color, no rash Extremities: No Clubbing, No Cyanosis, No Edema, Normal Upper Extr. Pulses. Right groin soft without bleeding, hematoma or bruit. Distal pulses present. Musculoskeletal: No acute abnormality noted Psychiatric: The patient is a little drowsy. The patient has a flat affect but does not appear to be anxious or depressed. Result/EKG - Labs CBC & BMP: 08/01/16 04:54 08/01/16 04:54 Lab Results: I have reviewed the past 24 hour labs Labs: Laboratory Results - last 24 hr 07/31/16 07/31/16 08/01/16 12:50 18:09 04:54 WBC RBC Hgb Hct MCV MCH MCHC RDW Plt Count MPV Neut % (Auto) Lymph % (Auto) [place] % (Auto) Eos % (Auto) Baso % (Auto) Neut # (Auto) Lymph # (Auto) [place] # (Auto) Eos # (Auto) Baso # (Auto) Total Counted Immature Gran % Nucleated RBC % Immature Gran # Segmented Neutrophils Lymphocytes Monocytes Nucleated RBCs # Platelet Estimate Hypochromasia Basophilic Stippling Macrocytosis Sodium 137 Potassium 4.5 Chloride 98 Carbon Dioxide 26 Anion Gap 17.5 H BUN 53 H Creatinine 4.10 H GFR Calculation 10 BUN/Creatinine Ratio 12.00 Glucose 99 POC Glucose 119 H Calculated Osmolality 286.8 Calcium 7.8 L Magnesium 2.4 Total Bilirubin 0.60 AST 19 ALT 13 Alkaline Phosphatase 85 Ammonia 22 Total Protein 5.3 L Albumin 2.5 L Globulin 2.8 Albumin/Globulin Ratio 0.8 L 08/01/16 04:54 WBC 13.9 H RBC 2.44 L Hgb 7.5 L Hct 24.2 L MCV 99.2 MCH 31 MCHC 31.0 L RDW 15.0 Plt Count 142 MPV 12.4 H Neut % (Auto) 94.0 H Lymph % (Auto) 0.6 L [place] % (Auto) 4.0 Eos % (Auto) 0.0 Baso % (Auto) 0.1 Neut # (Auto) 13.0 H Lymph # (Auto) 0.1 L [place] # (Auto) 0.6 Eos # (Auto) 0.0 Baso # (Auto) 0.0 Total Counted 100 Immature Gran % 1.3 Nucleated RBC % 0.0 Immature Gran # 0.18 Segmented Neutrophils 98 H Lymphocytes 1 L Monocytes 1 L Nucleated RBCs # 0.00 Platelet Estimate Adequate Hypochromasia 1+ Basophilic Stippling Slight Macrocytosis Slight Sodium Potassium Chloride Carbon Dioxide Anion Gap BUN Creatinine GFR Calculation BUN/Creatinine Ratio Glucose POC Glucose Calculated Osmolality Calcium Magnesium Total Bilirubin AST ALT Alkaline Phosphatase Ammonia Total Protein Albumin Globulin Albumin/Globulin Ratio Quality Measures - VTE Contraindication to Pharmacological VTE Prophylaxis: High Risk of Bleeding Specialty Discharge - Follow Up or Referrals Follow up with: Devyn Baig MD [Physician] - <Curt Vang - Last Filed: 08/01/16 12:37> Cardiology - PN: Subj Interval history: Patient personally interviewed and examined and chart reviewed. Discussed case with Opal Chappell NP. Agree with assessment and evaluation and plans. Data the patient has noticed certainly much more awake and responsive. She is taking by mouth medications now. She's not had any cardiac symptomatology of angina or equivalent. She denies any shortness of breath. She has a persistent chronic fair appetite. Telemetry is been stable. Exam (Progress Note) - Constitutional Vitals: Period Temp Pulse Resp BP Sys/Brody Pulse Ox Last 24 Hr 97.4 F-99.5 F 89-111 16-25 96-135/53-67 95-100 Result/EKG - Labs CBC & BMP: 08/01/16 04:54 08/01/16 04:54 Labs: Laboratory Results - last 24 hr 07/31/16 07/31/16 08/01/16 12:50 18:09 04:54 WBC RBC Hgb Hct MCV MCH MCHC RDW Plt Count MPV Neut % (Auto) Lymph % (Auto) [place] % (Auto) Eos % (Auto) Baso % (Auto) Neut # (Auto) Lymph # (Auto) [place] # (Auto) Eos # (Auto) Baso # (Auto) Total Counted Immature Gran % Nucleated RBC % Immature Gran # Segmented Neutrophils Lymphocytes Monocytes Nucleated RBCs # Platelet Estimate Hypochromasia Basophilic Stippling Macrocytosis Sodium 137 Potassium 4.5 Chloride 98 Carbon Dioxide 26 Anion Gap 17.5 H BUN 53 H Creatinine 4.10 H GFR Calculation 10 BUN/Creatinine Ratio 12.00 Glucose 99 POC Glucose 119 H Calculated Osmolality 286.8 Calcium 7.8 L Magnesium 2.4 Total Bilirubin 0.60 AST 19 ALT 13 Alkaline Phosphatase 85 Ammonia 22 Total Protein 5.3 L Albumin 2.5 L Globulin 2.8 Albumin/Globulin Ratio 0.8 L 08/01/16 04:54 WBC 13.9 H RBC 2.44 L Hgb 7.5 L Hct 24.2 L MCV 99.2 MCH 31 MCHC 31.0 L RDW 15.0 Plt Count 142 MPV 12.4 H Neut % (Auto) 94.0 H Lymph % (Auto) 0.6 L [place] % (Auto) 4.0 Eos % (Auto) 0.0 Baso % (Auto) 0.1 Neut # (Auto) 13.0 H Lymph # (Auto) 0.1 L [place] # (Auto) 0.6 Eos # (Auto) 0.0 Baso # (Auto) 0.0 Total Counted 100 Immature Gran % 1.3 Nucleated RBC % 0.0 Immature Gran # 0.18 Segmented Neutrophils 98 H Lymphocytes 1 L Monocytes 1 L Nucleated RBCs # 0.00 Platelet Estimate Adequate Hypochromasia 1+ Basophilic Stippling Slight Macrocytosis Slight Sodium Potassium Chloride Carbon Dioxide Anion Gap BUN Creatinine GFR Calculation BUN/Creatinine Ratio Glucose POC Glucose Calculated Osmolality Calcium Magnesium Total Bilirubin AST ALT Alkaline Phosphatase Ammonia Total Protein Albumin Globulin Albumin/Globulin Ratio
[2016-08-01] MEDS: LEVOFLOXACIN INJ 250 MG in PREMIX 1 EACH IV SCH (12:47)
--- NOTE | 2016-08-01 15:12 | Neurology Progress Note ---
Neurology - PN : Subjective Interval history: Patient seems to be doing really well this morning. She woke up this morning and doing very well. She is alert awake and oriented. Her speech is fluent. She is just weak all over. Exam (Progress Note) - Constitutional Vitals: Period Temp Pulse Resp BP Sys/Brody Pulse Ox Last 24 Hr 97.4 F-99.5 F 89-111 16-25 96-135/53-67 95-100 Exam: GENERAL: Patient is in no acute distress. NECK: Neck is supple. There is no JVD. No carotid bruits present. No thyroid masses. CVS: First and second heart sounds are normal. There is no S3 present. Regular rate and rhythm. RESPIRATORY: Lungs are clear to auscultation without any rales or rhonchi. ABDOMEN: Soft and non-tender. Bowel sounds are present. There is no hepatosplenomegaly. EXT: There is no palpable edema. Peripheral pulses are present. Skin: No rashes Central Nervous system: General: Obtunded Speech: None Comprehension: Impaired Facial expressions: Normal Cranial Nerves: Pupils are equally reactive to light. Doll's head eye movements are positive. No facial asymmetry seen Motor: Bulk and Tone is normal. Strength symmetrical however unable to assess much Sensory: Cannot be assessed Reflexes: 1+ and symmetrical Cerebellar function: Cannot be assessed Toes: Equivocal Gait: Cannot be assessed Results - Labs CBC & BMP: 08/01/16 04:54 08/01/16 04:54 Assessment and Plan (1) Decreased level of consciousness Status: Acute Assessment and plan: This is likely due to infection. No evidence of a stroke. Continue current management. She may benefit from inpatient rehab. Current Visit: Yes Quality Measures - VTE Contraindication to Pharmacological VTE Prophylaxis: High Risk of Bleeding Specialty Discharge - Follow Up or Referrals Follow up with: Devyn Baig MD [Physician] -
[2016-08-01] MEDS: ROSUVASTATIN 10 MG TABLET PO SCH (21:33)
[2016-08-01] MEDS: ENOXAPARIN 30 MG/0.3 ML SYRINGE SUBCUT SCH (21:34)
--- NOTE | 2016-08-01 22:20 | Nephrology Progress Note ---
Nephrology - PN: Subj Interval history: She is much more alert today. She is oriented. She denies shortness of breath. Exam (PN)-Nephrology - Vital Signs Vital signs: Period Temp Pulse Resp BP Sys/Brody Pulse Ox Last 24 Hr 97.4 F-99.5 F 86-111 16-25 96-135/53-67 95-100 Exam: ENT: Normal Cardiovascular: Regular rate and rhythm. No murmur rub or gallop Lungs: Clear Extremities: No edema - Lab 08/01/16 04:54 08/01/16 04:54 Most recent lab results ABG pH 7.375 (7.35-7.45) 07/25/16 09:30 ABG pCO2 39.3 MM HG (35-48) 07/25/16 09:30 ABG pO2 130.0 MM HG (80-95) H 07/25/16 09:30 ABG HCO3 22.7 MMOL/L (20-26) 07/25/16 09:30 ABG O2 Saturation 98.6 % (95-100) 07/25/16 09:30 Calcium 7.8 MG/DL (8.5-10.1) L 08/01/16 04:54 Magnesium 2.4 MG/DL (1.8-2.4) 08/01/16 04:54 Assessment and Plan (1) Acute [place] Status: Acute Assessment and plan: 80-year-old woman admitted with: * Acute [place]. * Three-vessel CAD. Status post stent placement * Decreased LOC. Markedly improved today * Remote right pneumonectomy * ESRD. Dialysis MWF. * Hypertension * Anemia. She may require transfusion during dialysis tomorrow Current Visit: Yes (2) CAD (coronary artery disease) Status: Acute Current Visit: Yes (3) Status post pneumonectomy Status: Chronic Current Visit: Yes (4) ESRD (end stage renal disease) on dialysis Status: Chronic Current Visit: Yes (5) Hypertension Status: Chronic Current Visit: Yes (6) Ventilatory failure Status: Acute Current Visit: Yes Specialty Discharge - Follow Up or Referrals Follow up with: Devyn Baig MD [Physician] -
[2016-08-02] MEDS: methylPREDNISolone SOD SUC 40 MG/1 ML VIAL IV SCH ×2 (01:30→15:00)
[2016-08-02] MEDS: ALBUTEROL/IPRATROPIUM 3 ML NEB RESP TX SCH ×4 (01:30→19:28)
[2016-08-02 05:48] LABS: Basophils % 0.1 % (0.0-0.8); Hematocrit 24.2 VOL% (35.7-47.0); Hemoglobin 7.6 GM/DL (12.0-16.0); Immature Granulocytes % 0.8 %; Immature Granulocytes Absolute 0.12 #; Lymphocytes # 0.1 10*3/uL (1.4-4.0); Lymphocytes % 0.5 % (21.3-54.2); Mean Corpuscular HGB Conc 31.4 GM/DL (32-36); Mean Corpuscular Hemoglobin 31 PG (27-34); Mean Corpuscular Volume 98.4 FL (87-102); Mean Platelet Volume 12.6 FL (9.6-12.0); Monocytes # 0.7 10*3/uL (0.11-0.8); Monocytes % 4.7 % (1.7-12.7); Neutrophils # 14.9 10*3/uL (1.4-7.4); Neutrophils % 93.9 % (38.7-73.9); Platelet Count 150 T/CUMM (130-400); Red Blood Count 2.46 MC/CUMM (3.8-5.5); White Blood Count 15.9 T/CUMM (4-12)
[2016-08-02 06:10] LABS: Hypochromasia 1+; Lymphocytes 4 % (20-55); Segmented Neutrophils 92 % (50-85); Total Cells Counted 100
[2016-08-02 06:11] LABS: Macrocytosis Slight; Platelet Estimate Adequate
[2016-08-02 06:27] LABS: Calcium 7.9 MG/DL (8.5-10.1); Magnesium 2.5 MG/DL (1.8-2.4); Osmolality,Calculated 293.1 MOS/KG (273-304)
--- NOTE | 2016-08-02 08:06 | Family Practice Progress Note ---
Family Practice - PN: Subj Interval history: Patient continues to improve mentally. Very alert this a.m. answering questions appropriately. Daughter states that she ate well yesterday. She sat up on the side of the bed but did not stand or attempt to ambulate. Advised daughter that this is a major next is for his getting the patient moving and ambulating. Reviewed her a.m. labs which are stable for this patient. Patient denies any new complaints. Physical examination is stable this a.m. We will again encourage physical therapy to ambulate with walker and to get up in chair as much as possible. We will otherwise continue present treatment plan Exam (Progress Note) - Constitutional Vitals: Period Temp Pulse Resp BP Sys/Brody Pulse Ox Last 24 Hr 98.1 F-99.5 F 86-98 16-18 107-137/49-104 92-100 Results - Labs CBC & BMP: 08/02/16 05:07 08/02/16 05:07 Assessment and Plan (1) Acute respiratory failure Status: Resolved Assessment and plan: Patient required endotracheal intubation in the emergency room and is presently on a respirator. Being followed by pulmonary we will continue present treatment plan Current Visit: Yes (2) Pulmonary edema Status: Acute Assessment and plan: We will start her on appropriate treatment Current Visit: Yes (3) UTI (urinary tract infection) Status: Acute Assessment and plan: We will obtain culture and start her on appropriate antibiotics Current Visit: Yes (4) Chronic kidney disease with end stage renal failure on dialysis Status: Chronic Assessment and plan: Patient is presently receiving dialysis. Current Visit: Yes (5) Hypertension Status: Chronic Assessment and plan: We will resume her home medications Current Visit: Yes (6) Status post carcinoma right lung Status: Chronic Assessment and plan: Stable at present Current Visit: Yes (7) Status post pneumonectomy Status: Chronic Assessment and plan: Stable at present Current Visit: Yes (8) Hypothyroid Status: Chronic Assessment and plan: We will resume home medications and monitor Current Visit: Yes Quality Measures - VTE Contraindication to Pharmacological VTE Prophylaxis: High Risk of Bleeding Specialty Discharge - Follow Up or Referrals Follow up with: Devyn Baig MD [Physician] -
--- NOTE | 2016-08-02 08:38 | Pulmonology Progress Note ---
Pulmonary - PN: Subj Interval history: The patient is an 80-year-old black lady that has had a previous right pneumonectomy. She is on dialysis with end-stage renal disease. She came in with tightness in her chest and acute pulmonary edema was placed on the ventilator. She is doing better now and her left lung has cleared. She had a cardiac catheterization and has significant triple-vessel coronary artery disease with a cardiomyopathy. She had multiple stents placed. She apparently had a fairly good day yesterday. She is trying to sit up a little and she did eat. Her confusion is getting better. She is not having any respiratory distress. She is going to dialysis today. Exam (Progress Note) - Constitutional Vitals: Period Temp Pulse Resp BP Sys/Brody Pulse Ox Last 24 Hr 98.6 F-99.5 F 86-98 16-18 107-137/49-104 92-100 Exam: General appearance: normal weight, other (Patient does look chronically ill and fatigued. She seems to be breathing okay. She is more alert and comfortable today.) - Head Head exam: Present: normal inspection, normocephalic - Eye Eye exam: Present: EOMI. Absent: scleral icterus Pupils: Present: ULISES - ENT ENT exam: Present: Unremarkable - Neck Neck exam: Present: normal inspection. Absent: lymphadenopathy, thyromegaly - Respiratory Respiratory exam: Present: decreased breath sounds (She has absent breath sounds on the right), left lung has good breath sounds and is basically clear. Her lungs still sound fairly clear on the left. - Cardiovascular Cardiovascular exam: Present: She has a regular rhythm now without a murmur or gallop. - GI/Abdominal GI/Abdominal exam: Present: normal bowel sounds, soft. Her abdomen is soft and nontender and no localized findings. - Extremities Exam Extremities exam: Absent: calf tenderness, edema - Neurological Exam Neurological exam: Present: other (Patient is more alert today and talking more. ) - Skin Skin exam: Present: warm, dry Results - Labs CBC & BMP: 08/02/16 05:07 08/02/16 05:07 Assessment and Plan (1) Status post pneumonectomy Status: Chronic Assessment and plan: The patient had a previous right pneumonectomy for lung cancer. Current Visit: Yes (2) Acute respiratory failure Status: Resolved Assessment and plan: The patient is breathing comfortably now and doing well off the ventilator. Her left lung is clear. She is not having any respiratory distress now. I will sign off for now.Thanks Current Visit: Yes (3) Chronic kidney disease with end stage renal failure on dialysis Status: Chronic Assessment and plan: She has end-stage renal disease and will continue with dialysis. She is scheduled for dialysis today. Current Visit: Yes (4) Pulmonary edema Status: Acute Assessment and plan: This acute event is probably related to pulmonary edema. Her lung has cleared fairly well on dialysis. She does not have any respiratory problems now. She appears to be stable at this point. Current Visit: Yes (5) Altered mental status Status: Acute Assessment and plan: She is more alert today and looks comfortable. She looks like she feels better today. She is eating better and moving around a little more. She does appear more alert. Current Visit: Yes Specialty Discharge - Follow Up or Referrals Follow up with: Devyn Baig MD [Physician] -
[2016-08-02] MEDS: ALLOPURINOL 100 MG TABLET PO SCH ×2 (09:04→21:47)
[2016-08-02] MEDS: CARVEDILOL 12.5 MG TABLET PO SCH ×2 (09:04→21:47)
[2016-08-02] MEDS: hydrALAZINE 25 MG TABLET PO SCH ×3 (09:04→21:47)
[2016-08-02] MEDS: DOCUSATE SODIUM 100 MG CAPSULE PO SCH ×2 (09:04→21:47)
[2016-08-02] MEDS: PANTOPRAZOLE 40 MG VIAL IV SCH (09:04)
[2016-08-02] MEDS: LEVOTHYROXINE 25 MCG TABLET PO SCH (09:04)
[2016-08-02] MEDS: TICAGRELOR 90 MG TABLET PO SCH ×2 (09:04→21:47)
[2016-08-02] MEDS: ISOSORBIDE MONONITRATE 30 MG TABLET PO SCH (09:04)
[2016-08-02] MEDS: CALCIUM ACETATE 667 MG CAPSULE PO SCH ×3 (09:04→21:47)
[2016-08-02] MEDS: ASPIRIN EC 81 MG TABLET PO SCH (09:05)
[2016-08-02] MEDS: cefTRIAXone 1,000 MG in SODIUM CHLORIDE 0.9% 100 ML IV SCH (09:05)
[2016-08-02] MEDS: DOBUTamine 500 MG/250 ML PREMIX IV SCH (09:54)
[2016-08-02] MEDS ORDERED: SODIUM CHLORIDE 0.9% 250 ML IV PRN (12:51)
--- NOTE | 2016-08-02 14:35 | Nephrology Progress Note ---
Nephrology - PN: Subj Interval history: She is seen during dialysis. She is awake and alert. Mental status normal Exam (PN)-Nephrology - Vital Signs Vital signs: Period Temp Pulse Resp BP Sys/Brody Pulse Ox Last 24 Hr 98.6 F-99.3 F 86-95 16-18 107-137/49-104 92-100 Exam: ENT: Normal Cardiovascular: Regular rate and rhythm. No murmur rub or gallop Lungs: Clear Extremities: No edema - Lab 08/02/16 05:07 08/02/16 05:07 Most recent lab results ABG pH 7.375 (7.35-7.45) 07/25/16 09:30 ABG pCO2 39.3 MM HG (35-48) 07/25/16 09:30 ABG pO2 130.0 MM HG (80-95) H 07/25/16 09:30 ABG HCO3 22.7 MMOL/L (20-26) 07/25/16 09:30 ABG O2 Saturation 98.6 % (95-100) 07/25/16 09:30 Calcium 7.9 MG/DL (8.5-10.1) L 08/02/16 05:07 Magnesium 2.5 MG/DL (1.8-2.4) H 08/02/16 05:07 Assessment and Plan (1) Acute [place] Status: Acute Assessment and plan: 80-year-old woman admitted with: * Acute [place]. * Three-vessel CAD. Status post stent placement * Confusion. Resolved * Remote right pneumonectomy * ESRD. Dialysis MWF. Stable during dialysis today * Hypertension * Anemia. She is to be transfused today Current Visit: Yes (2) CAD (coronary artery disease) Status: Acute Current Visit: Yes (3) Status post pneumonectomy Status: Chronic Current Visit: Yes (4) ESRD (end stage renal disease) on dialysis Status: Chronic Current Visit: Yes (5) Hypertension Status: Chronic Current Visit: Yes (6) Ventilatory failure Status: Acute Current Visit: Yes Specialty Discharge - Follow Up or Referrals Follow up with: Devyn Baig MD [Physician] -
--- NOTE | 2016-08-02 15:33 | Cardiology Progress Note ---
<Opal Chappell - Last Filed: 08/02/16 15:31> Assessment and Plan (1) CAD (coronary artery disease) Status: Acute Assessment and plan: Patient has now been revascularized, status post stenting per Dr. Baig. Her left ventricular ejection fraction has improved since stenting, EF 35-40%. Continue current management. -Continue dual antiplatelet therapy with Brilinta and aspirin -Continue beta-luanne -Continue statin Further plan and addendum to follow per Dr. Vang. Current Visit: Yes (2) Ischemic cardiomyopathy Status: Acute Assessment and plan: Patient is now revascularized. Status post successful PCI per Dr. Baig. Per recent echo, ejection fraction has improved since [facility], EF 35-40%. -Continue beta-luanne -Continue Imdur and hydralazine for afterload reduction Current Visit: Yes (3) ESRD (end stage renal disease) on dialysis Problem details: Next routine CHD on Sunday after am cath. UF as tolerated by hemodynamics. Status: Chronic Assessment and plan: Management per nephrology. Dialysis MWF. Current Visit: Yes (4) Status post pneumonectomy Status: Chronic Assessment and plan: This is stable at present. Current Visit: Yes (5) Hypertension Status: Chronic Assessment and plan: This is clinically stable. Continue current plan of care. Current Visit: Yes (6) Hypothyroid Status: Chronic Assessment and plan: Continue current plan of care with Synthroid. Current Visit: Yes (7) Status post carcinoma right lung Status: Chronic Assessment and plan: This is clinically stable. Current Visit: Yes (8) Leukocytosis Status: Acute Assessment and plan: Afebrile. Urine and blood cultures reveal no growth. Defer further management to attending. Current Visit: Yes (9) Debility Status: Acute Assessment and plan: Physical therapy has been consulted. The patient may need transfer to a swing bed or LTAC for continued recovery. Current Visit: Yes (10) Altered mental status Status: Acute Assessment and plan: This continues to slowly improve. Dr. Deluna is now on board. He feels as though this is secondary to infection. No evidence of acute stroke. White blood cell count remains high with a left shift. Blood and urine cultures have been negative. Defer management of this to attending and neurology. Current Visit: Yes (11) Anemia Status: Chronic Assessment and plan: Most likely anemia of chronic disease. Today H&H 7 and 24. No overt bleeding noted. Patient is currently undergoing dialysis with defer further management of this to nephrology. Current Visit: Yes Cardiology - PN: Subj Interval history: Infantryman: Dr. Baig PCP: Dr. Carmichael Data Entry Operator: Dr. Hemphill Ms. Reyes is a 80 year old female without known history of coronary artery disease, routinely followed by Dr. Devyn Baig. Patient has a history of end-stage renal disease on hemodialysis, diastolic heart failure, lung cancer with pneumonectomy, hypertension and dyslipidemia. Patient presented to the ER with sudden onset of pulmonary edema and required mechanical ventilation. Cardiology was consulted to further evaluate patient. Echocardiogram was done this admission which revealed severe LV dysfunction. This was concerning that underlying coronary artery disease was contributing to patient's flash pulmonary edema. Subsequently, patient underwent left heart catheterization per Dr. Baig with the following impressions noted: Impression Critical three-vessel CAD Status post successful stenting of 2 lesions in the circumflex--- proximal lesion had a drug-eluting stent, obtuse marginal drug-eluting stent Status post successful stenting of the LAD-second [id number] stent Severe LV systolic dysfunction, LVEF 20% Mild LV diastolic dysfunction, LVEDP 18 mmHg Aggrastat bolus and infusion-for ACS/non-STEMI Low-dose dobutamine to help support blood pressure Angiogram right femoral artery Loading with Brilinta, 180 mg p.o. Angio-Seal right femoral artery Plan/recommendations: Status post Non-STEMI. The patient will have risk factors optimized. The patient will be on antiplatelet medications to include aspirin indefinitely and Brilinta for at least a year. Follow-up will be scheduled. Patient was seen and examined in dialysis. Mental status continues to slowly improve. She is awake and alert this afternoon able to answer all questions appropriately. She is tolerating dialysis well and is without complaints of chest pain, heaviness and tightness. Dr. Deluna is now on board and feels that patient's altered mental status is most likely related to an infectious process. White blood cell count remains elevated with left shift. Urine and blood cultures negative. EEG results pending. Patient remains extremely weak. Physical therapy was consulted yesterday. Today, patient has taken her medicines without difficulty. Right groin is soft without bleeding, hematoma and bruit. Distal pulses present. Vital signs are stable. Further plan and addendum to follow per Dr. Vang. Exam (Progress Note) - Constitutional Vitals: Period Temp Pulse Resp BP Sys/Brody Pulse Ox Last 24 Hr 98.6 F-99.3 F 86-95 16-18 107-137/49-104 92-100 Exam: General: Frail, elderly, chronically ill-appearing HEENT: Normocephalic, atraumatic Neck: Supple Neck, Midline Trachea Cardiac: Regular rhythm, 2/6 systolic murmur, no gallop, no rub Lungs: Clear to Ascultation, No Wheeze, Rales, Rhonchi Neuro: Cranial Nerve 2-12 Intact, diffuse generalized weakness Abdomen: Soft, Active Bowel Sounds, No Masses, No Pulsations/Bruits Skin: Normal color, no rash Extremities: No Clubbing, No Cyanosis, No Edema, Normal Upper Extr. Pulses. Right groin soft without bleeding, hematoma or bruit. Distal pulses present. Musculoskeletal: No acute abnormality noted Psychiatric: The patient is a little drowsy. The patient has a flat affect but does not appear to be anxious or depressed. Result/EKG - Labs CBC & BMP: 08/02/16 05:07 08/02/16 05:07 Lab Results: I have reviewed the past 24 hour labs Labs: Laboratory Results - last 24 hr 08/02/16 08/02/16 08/02/16 05:07 05:07 13:38 WBC 15.9 H RBC 2.46 L Hgb 7.6 L Hct 24.2 L MCV 98.4 MCH 31 MCHC 31.4 L RDW 15.0 Plt Count 150 MPV 12.6 H Neut % (Auto) 93.9 H Lymph % (Auto) 0.5 L Burnet % (Auto) 4.7 Eos % (Auto) 0.0 Baso % (Auto) 0.1 Neut # (Auto) 14.9 H Lymph # (Auto) 0.1 L Burnet # (Auto) 0.7 Eos # (Auto) 0.0 Baso # (Auto) 0.0 Total Counted 100 Immature Gran % 0.8 Nucleated RBC % 0.0 Immature Gran # 0.12 Segmented Neutrophils 92 H Lymphocytes 4 L Monocytes 4 Nucleated RBCs # 0.00 Platelet Estimate Adequate Hypochromasia 1+ Macrocytosis Slight Sodium 135 L Potassium 5.0 Chloride 97 L Carbon Dioxide 24 Anion Gap 19.0 H BUN 73 H Creatinine 5.50 H GFR Calculation 7 BUN/Creatinine Ratio 13.00 Glucose 136 H Calculated Osmolality 293.1 Calcium 7.9 L Magnesium 2.5 H Blood Type AB POSITIVE Antibody Screen Crossmatch 08/02/16 Unknown WBC RBC Hgb Hct MCV MCH MCHC RDW Plt Count MPV Neut % (Auto) Lymph % (Auto) Burnet % (Auto) Eos % (Auto) Baso % (Auto) Neut # (Auto) Lymph # (Auto) Burnet # (Auto) Eos # (Auto) Baso # (Auto) Total Counted Immature Gran % Nucleated RBC % Immature Gran # Segmented Neutrophils Lymphocytes Monocytes Nucleated RBCs # Platelet Estimate Hypochromasia Macrocytosis Sodium Potassium Chloride Carbon Dioxide Anion Gap BUN Creatinine GFR Calculation BUN/Creatinine Ratio Glucose Calculated Osmolality Calcium Magnesium Blood Type AB POSITIVE Antibody Screen Negative Crossmatch See Detail Quality Measures - VTE Contraindication to Pharmacological VTE Prophylaxis: High Risk of Bleeding Specialty Discharge - Follow Up or Referrals Follow up with: Devyn Baig MD [Physician] - <Curt Vang - Last Filed: 08/02/16 19:20> Cardiology - PN: Subj Interval history: Patient personally interviewed and examined chart reviewed. Discussed this case with Opal Chappell DOUGHNUT DOUGH MIXER. I agree with the assessment and evaluation and plan. From a cardiac standpoint the patient really has done well. His or other issues of been a problem. She is being dialyzed and has mental status issues but this is slowly improving. We will continue to monitor while she is in the hospital. We have no changes to recommend today. Exam (Progress Note) - Constitutional Vitals: Period Temp Pulse Resp BP Sys/Brody Pulse Ox Last 24 Hr 98.3 F-99.3 F 86-95 16-18 107-166/49-104 92-100 Result/EKG - Labs CBC & BMP: 08/02/16 05:07 08/02/16 05:07 Labs: Laboratory Results - last 24 hr 08/02/16 08/02/16 08/02/16 05:07 05:07 13:38 WBC 15.9 H RBC 2.46 L Hgb 7.6 L Hct 24.2 L MCV 98.4 MCH 31 MCHC 31.4 L RDW 15.0 Plt Count 150 MPV 12.6 H Neut % (Auto) 93.9 H Lymph % (Auto) 0.5 L Burnet % (Auto) 4.7 Eos % (Auto) 0.0 Baso % (Auto) 0.1 Neut # (Auto) 14.9 H Lymph # (Auto) 0.1 L Burnet # (Auto) 0.7 Eos # (Auto) 0.0 Baso # (Auto) 0.0 Total Counted 100 Immature Gran % 0.8 Nucleated RBC % 0.0 Immature Gran # 0.12 Segmented Neutrophils 92 H Lymphocytes 4 L Monocytes 4 Nucleated RBCs # 0.00 Platelet Estimate Adequate Hypochromasia 1+ Macrocytosis Slight Sodium 135 L Potassium 5.0 Chloride 97 L Carbon Dioxide 24 Anion Gap 19.0 H BUN 73 H Creatinine 5.50 H GFR Calculation 7 BUN/Creatinine Ratio 13.00 Glucose 136 H Calculated Osmolality 293.1 Calcium 7.9 L Magnesium 2.5 H Blood Type AB POSITIVE Antibody Screen Crossmatch 08/02/16 Unknown WBC RBC Hgb Hct MCV MCH MCHC RDW Plt Count MPV Neut % (Auto) Lymph % (Auto) Burnet % (Auto) Eos % (Auto) Baso % (Auto) Neut # (Auto) Lymph # (Auto) Burnet # (Auto) Eos # (Auto) Baso # (Auto) Total Counted Immature Gran % Nucleated RBC % Immature Gran # Segmented Neutrophils Lymphocytes Monocytes Nucleated RBCs # Platelet Estimate Hypochromasia Macrocytosis Sodium Potassium Chloride Carbon Dioxide Anion Gap BUN Creatinine GFR Calculation BUN/Creatinine Ratio Glucose Calculated Osmolality Calcium Magnesium Blood Type AB POSITIVE Antibody Screen Negative Crossmatch See Detail
--- NOTE | 2016-08-02 16:14 | Electroencephalogram ---
HISTORY: An 80-year-old patient with a history of change in mental status. INTRODUCTION: A digital EEG was performed using the standard 10/20 system of electrode placement wi th one channel of EKG monitoring. Photic stimulation is performed. DESCRIPTION OF RECORD: The background is very disorganized and consists of intermixed 4 to 6 hertz delta-theta activity. Photic stimulation elicit a driving response of slower flash frequencies. Hy perventilation was not performed. There are no focal, sharp wave, spike or wave activity seen. Heart rate 60 beats per minute. IMPRESSION: ABNORMAL ELECTROENCEPHALOGRAM DUE TO GENERALIZED SLOWING. CLINICAL CORRELATION: This record is supportive of moderate to severe encephalopathy, which could be secondary to postictal state, posthypoxic state, metabolic disorder, diffuse DISTRICT WILDLIFE MANAGER insult or increase d intracranial pressure. No epileptiform/seizure activity seen. Clinical correlation suggested.
--- NOTE | 2016-08-02 16:15 | Neurology Progress Note ---
Neurology - PN : Subjective Interval history: Patient seems to be doing really well. No new problems reported. Getting dialyzed today. Exam (Progress Note) - Constitutional Vitals: Period Temp Pulse Resp BP Sys/Brody Pulse Ox Last 24 Hr 98.6 F-99.3 F 89-95 16-18 107-137/49-104 92-100 Exam: GENERAL: Patient is in no acute distress. NECK: Neck is supple. There is no JVD. No carotid bruits present. No thyroid masses. CVS: First and second heart sounds are normal. There is no S3 present. Regular rate and rhythm. RESPIRATORY: Lungs are clear to auscultation without any rales or rhonchi. ABDOMEN: Soft and non-tender. Bowel sounds are present. There is no hepatosplenomegaly. EXT: There is no palpable edema. Peripheral pulses are present. Skin: No rashes Central Nervous system: General: Obtunded Speech: None Comprehension: Impaired Facial expressions: Normal Cranial Nerves: Pupils are equally reactive to light. Doll's head eye movements are positive. No facial asymmetry seen Motor: Bulk and Tone is normal. Strength symmetrical however unable to assess much Sensory: Cannot be assessed Reflexes: 1+ and symmetrical Cerebellar function: Cannot be assessed Toes: Equivocal Gait: Cannot be assessed Results - Labs CBC & BMP: 08/02/16 05:07 08/02/16 05:07 Assessment and Plan (1) Decreased level of consciousness Status: Acute Assessment and plan: This is likely due to infection. No evidence of a stroke. Continue current management. Consider TMR if indicated Sign off please call as needed Current Visit: Yes Quality Measures - VTE Contraindication to Pharmacological VTE Prophylaxis: High Risk of Bleeding Specialty Discharge - Follow Up or Referrals Follow up with: Devyn Baig MD [Physician] -
[2016-08-02] MEDS: ROSUVASTATIN 10 MG TABLET PO SCH (21:47)
[2016-08-02] MEDS: ENOXAPARIN 30 MG/0.3 ML SYRINGE SUBCUT SCH (21:48)
[2016-08-03] MEDS: ALBUTEROL/IPRATROPIUM 3 ML NEB RESP TX SCH ×4 (00:23→21:30)
[2016-08-03] MEDS: methylPREDNISolone SOD SUC 40 MG/1 ML VIAL IV SCH ×2 (05:52→13:30)
[2016-08-03 06:59] LABS: Basophils % 0.1 % (0.0-0.8); Hematocrit 30.4 VOL% (35.7-47.0); Immature Granulocytes % 0.8 %; Immature Granulocytes Absolute 0.12 #; Lymphocytes # 0.3 10*3/uL (1.4-4.0); Lymphocytes % 2.1 % (21.3-54.2); Mean Corpuscular HGB Conc 33.9 GM/DL (32-36); Mean Corpuscular Hemoglobin 31 PG (27-34); Mean Corpuscular Volume 91.3 FL (87-102); Mean Platelet Volume 11.7 FL (9.6-12.0); Monocytes # 1.6 10*3/uL (0.11-0.8); Monocytes % 10.2 % (1.7-12.7); Neutrophils # 13.2 10*3/uL (1.4-7.4); Neutrophils % 86.8 % (38.7-73.9); Red Cell Distribution Width 16.2 % (9.3-17.3); White Blood Count 15.2 T/CUMM (4-12)
[2016-08-03 07:09] LABS: Red Blood Count 3.33 MC/CUMM (3.8-5.5)
[2016-08-03 07:10] LABS: Hemoglobin 10.3 GM/DL (12.0-16.0); Platelet Count 116 T/CUMM (130-400)
[2016-08-03 07:26] LABS: Band Neutrophils 1 % (0-10); Hypochromasia 2+; Lymphocytes 2 % (20-55); Microcytosis 1+; Segmented Neutrophils 91 % (50-85); Total Cells Counted 100
[2016-08-03 07:27] LABS: Platelet Estimate Decreased; Target Cells Slight
[2016-08-03 07:33] LABS: Calcium 7.7 MG/DL (8.5-10.1); Magnesium 2.2 MG/DL (1.8-2.4); Potassium 3.3 MMOL/L (3.5-5.1)
[2016-08-03] MEDS: PANTOPRAZOLE 40 MG VIAL IV SCH ×2 (08:22→09:12)
[2016-08-03] MEDS: hydrALAZINE 25 MG TABLET PO SCH ×3 (08:23→21:21)
[2016-08-03] MEDS: CARVEDILOL 12.5 MG TABLET PO SCH ×2 (08:23→21:20)
[2016-08-03] MEDS: CALCIUM ACETATE 667 MG CAPSULE PO SCH ×3 (08:23→21:20)
[2016-08-03] MEDS: ASPIRIN EC 81 MG TABLET PO SCH (08:23)
[2016-08-03] MEDS: DOCUSATE SODIUM 100 MG CAPSULE PO SCH ×2 (08:24→21:20)
[2016-08-03] MEDS: LEVOTHYROXINE 25 MCG TABLET PO SCH (08:24)
[2016-08-03] MEDS: ALLOPURINOL 100 MG TABLET PO SCH ×2 (08:24→21:20)
[2016-08-03] MEDS: ISOSORBIDE MONONITRATE 30 MG TABLET PO SCH (08:24)
[2016-08-03] MEDS: cefTRIAXone 1,000 MG in SODIUM CHLORIDE 0.9% 100 ML IV SCH (09:13)
[2016-08-03] MEDS: TICAGRELOR 90 MG TABLET PO SCH ×2 (09:32→21:20)
[2016-08-03] MEDS: POTASSIUM CHLORIDE RIDER 10 MEQ in PREMIX 1 EACH IV PRN ×2 (09:50→10:59)
--- NOTE | 2016-08-03 10:35 | EKG Report ---
Stationary ECG Study [facility] Test Date: 08/03/2016 10:35:07 AM Pat Name: CARMEN TADEO Department: Room: 284 Gender: F Clinical Data Management Director: : [id number] Requested by: Opal Chappell Order Number: [id number] Reading MD: TAVARES MACHADO Intervals [place] Rate: 94 P: 55 NV: 134 QRS: 8 QRSD: 92 T: 100 QT: 381 QTc: 433 Interpretive Statements SINUS RHYTHM WITH OCCASIONAL VENTRICULAR PREMATURE COMPLEXES at [address] DEPRESSIO; UNCHANGED FROM PREVIOUS TRACING July 29, 2016 ABNORMAL QRS-T ANGLE Electronically Signed On 08-07-16 16:03:55 CDT by TAVARES MACHADO [email or web address]
--- NOTE | 2016-08-03 11:25 | XRay Report ---
Exam: XR chest 1V portable Date: 08/03/2016 9:07 AM Indication: Hemoptysis Comparison: 08/01/2016 Technical: AP portable Findings: Deformity of the right chest cavity with previous right pneumonectomy suspected and volume loss shift of the mediastinum and heart towards the right. Complete opacification right hemithorax present. Surgical clips are present. Stents are present in the right upper arm. Mediastinum reveals slight prominence on the left unchanged from prior study. Previous vertebral plasty lower thoracic lumbar junction Impression: 1. Status post right pneumonectomy with deformity of the right chest cavity 2. Removal of the nasogastric tube 3. Previous right upper arm stents 4. No obvious pneumothorax or infiltrates otherwise noted within the lung parenchyma bilaterally PROCEDURE INTERPRETED AT [facility] DEPARTMENT OF RADIOLOGY Final Report Signed by: Dr. Alexander Raman
[2016-08-03] MEDS: LEVOFLOXACIN INJ 250 MG in PREMIX 1 EACH IV SCH (12:32)
--- NOTE | 2016-08-03 13:40 | Cardiology Progress Note ---
Assessment and Plan (1) CAD (coronary artery disease) Status: Acute Assessment and plan: She is post coronary stent placement. She is doing well with this. Current Visit: Yes (2) Hypertension Status: Chronic Assessment and plan: This is stable. Current Visit: Yes (3) Chronic kidney disease with end stage renal failure on dialysis Status: Chronic Assessment and plan: This is managed by nephrology. Current Visit: Yes (4) Status post pneumonectomy Status: Chronic Current Visit: Yes (5) Ischemic cardiomyopathy Status: Acute Assessment and plan: Clinically this is stable. Current Visit: Yes (6) Frailty Status: Acute Assessment and plan: Patient would probably benefit from swing bed or rehabilitation center after discharge. Current Visit: Yes Cardiology - PN: Subj Interval history: Patient has been generally stable from cardiac standpoint. She is real sedate but opens her eyes when spoken to and carries out in response to commands. She is generally weak. Physical therapy apparently try to work with her today but was unable to stand. She's not had any cardiac symptomatology. Her ECG today is unchanged and stable. Telemetry revealed a continuous sinus rhythm without abnormalities. Her heart rates at times are elevated and for the most part are in the 90s. At this time I'm not going to change her medication but we could go up on her beta blockers necessary. I discussed the patient's situation with the daughter that is present. She will probably need to go to a swing bed or rehabilitation center. We will sign off at this time but will be around and available if needed. She should follow-up with Dr. Baig about 3 weeks after discharge. Exam (Progress Note) - Constitutional Vitals: Period Temp Pulse Resp BP Sys/Brody Pulse Ox Last 24 Hr 98.2 F-99 F 86-105 16-20 117-166/58-93 91-100 Exam: General: Frail, elderly, chronically ill-appearing. She's not spontaneous but does respond to commands and some verbal stimulation. HEENT: Normocephalic, atraumatic Neck: Supple Neck, Midline Trachea Cardiac: Regular rhythm, 1-2/6 systolic murmur, no gallop, no rub Lungs: Clear to Ascultation, No Wheeze, Rales, Rhonchi Neuro: Cranial Nerve 2-12 Intact, diffuse generalized weakness Abdomen: Soft, Active Bowel Sounds, No Masses, No Pulsations/Bruits Skin: Normal color, no rash Extremities: No Clubbing, No Cyanosis, No Edema, Normal Upper Extr. Pulses. Right groin cath site is stable. Distal pulses present. Musculoskeletal: No acute abnormality noted Neurologic/Psychiatric: Patient remains somewhat lethargic but responds to commands and verbal stimuli. She is not very spontaneous at all. Result/EKG - Labs CBC & BMP: 08/03/16 06:50 08/03/16 06:50 Lab Results: I have reviewed the past 24 hour labs (her H&H is better, potassium is a little low and magnesium is okay. Creatinine continues to improve.) Labs: Laboratory Results - last 24 hr 08/02/16 08/02/16 08/03/16 13:38 Unknown 06:50 WBC 15.2 H RBC 3.33 L D Hgb 10.3 L D Hct 30.4 L MCV 91.3 MCH 31 MCHC 33.9 RDW 16.2 Plt Count 116 L D MPV 11.7 Neut % (Auto) 86.8 H Lymph % (Auto) 2.1 L Mobile % (Auto) 10.2 Eos % (Auto) 0.0 Baso % (Auto) 0.1 Neut # (Auto) 13.2 H Lymph # (Auto) 0.3 L Mobile # (Auto) 1.6 H Eos # (Auto) 0.0 Baso # (Auto) 0.0 Total Counted 100 Immature Gran % 0.8 Nucleated RBC % 0.0 Immature Gran # 0.12 Segmented Neutrophils 91 H Band Neutrophils 1 Lymphocytes 2 L Monocytes 6 Nucleated RBCs # 0.00 Platelet Estimate Decreased Hypochromasia 2+ Microcytosis 1+ Target Cells Slight Sodium Potassium Chloride Carbon Dioxide Anion Gap BUN Creatinine GFR Calculation BUN/Creatinine Ratio Glucose Calculated Osmolality Calcium Magnesium Blood Type AB POSITIVE AB POSITIVE Antibody Screen Negative Crossmatch See Detail 08/03/16 06:50 WBC RBC Hgb Hct MCV MCH MCHC RDW Plt Count MPV Neut % (Auto) Lymph % (Auto) [place] % (Auto) Eos % (Auto) Baso % (Auto) Neut # (Auto) Lymph # (Auto) Mobile # (Auto) Eos # (Auto) Baso # (Auto) Total Counted Immature Gran % Nucleated RBC % Immature Gran # Segmented Neutrophils Band Neutrophils Lymphocytes Monocytes Nucleated RBCs # Platelet Estimate Hypochromasia Microcytosis Target Cells Sodium 136 Potassium 3.3 L Chloride 99 Carbon Dioxide 27 Anion Gap 13.3 BUN 21 H Creatinine 2.40 H GFR Calculation 18 BUN/Creatinine Ratio 8.00 Glucose 100 Calculated Osmolality 274.0 Calcium 7.7 L Magnesium 2.2 Blood Type Antibody Screen Crossmatch - Impressions Impressions: ECG today was sinus rhythm with isolated PVC. There are no acute changes. Chest x-ray report from today reveals no real significant changes. Quality Measures - VTE Contraindication to Pharmacological VTE Prophylaxis: High Risk of Bleeding Specialty Discharge - Follow Up or Referrals Follow up with: Devyn Baig MD [Physician] - (Follow with Dr. Devyn Baig with ECG 3 weeks after discharge)
--- NOTE | 2016-08-03 14:47 | Post Interventional Procedure ---
Pre-op diagnosis: UTI, ESRD on HD Post-op diagnosis: same Procedure: Left subclavian 3-lumen central line Flouroscopy: 0.3 min Radiologist: Curt Forde Anesthesia: local Specimens: none sent Estimated blood loss: none Complications: none Condition: stable Description/Findings: Central line placed per DOQI guidelines. Assessment and Plan - Time spent with patient Time spent with patient: Less than 30 minutes
--- NOTE | 2016-08-03 15:10 | Interventional Radiology Rpt ---
IR cvc insert nt >5, Consult to Interventional Rad, US guide vascular access Indication: UTI. MRSA infection. Patient is on dialysis, relative contraindication to PICC. CENTRAL LINE Description: A formal timeout was performed. Maximum sterile barrier technique was used. Sonographic evaluation of the left subclavian region demonstrates patent and compressible left subclavian vein. The left anterior upper chest wall was prepped and draped in sterile fashion. 3 cc 1% lidocaine was administered subcutaneously. Under sonographic guidance, a micropuncture needle was advanced into the vein. A captured sonographic image documents the position of the needle. Needle was exchanged over a wire for a vascular dilator. A triple lumen central line was advanced until the tip was at the RA-SVC junction. The catheter depth was noted to be 18 cm. The position of the catheter was confirmed with fluoroscopic guidance and an image stored in PACS. The wire was removed. All 3 ports of the central line were aspirated and flushed with heparinized saline. The device was secured with suture, and a sterile dressing applied. Fluoroscopy: 0.3 minutes, one captured image. Impression: Central ready for immediate use. Routine catheter care. PROCEDURE INTERPRETED AT [facility] DEPARTMENT OF RADIOLOGY Final Report Signed by: Curt Forde M.D.
--- NOTE | 2016-08-03 17:36 | Nephrology Progress Note ---
Nephrology - PN: Subj Interval history: No shortness of breath or chest pain. She is alert and responsive Exam (PN)-Nephrology - Vital Signs Vital signs: Period Temp Pulse Resp BP Sys/Brody Pulse Ox Last 24 Hr 98.2 F-99 F 91-105 16-20 117-144/58-93 91-100 Exam: ENT: Normal Cardiovascular: Regular rate and rhythm. No murmur rub or gallop Lungs: Clear Extremities: No edema - Lab 08/03/16 06:50 08/03/16 06:50 Most recent lab results ABG pH 7.375 (7.35-7.45) 07/25/16 09:30 ABG pCO2 39.3 MM HG (35-48) 07/25/16 09:30 ABG pO2 130.0 MM HG (80-95) H 07/25/16 09:30 ABG HCO3 22.7 MMOL/L (20-26) 07/25/16 09:30 ABG O2 Saturation 98.6 % (95-100) 07/25/16 09:30 Calcium 7.7 MG/DL (8.5-10.1) L 08/03/16 06:50 Magnesium 2.2 MG/DL (1.8-2.4) 08/03/16 06:50 Assessment and Plan (1) Acute DE Status: Acute Assessment and plan: 80-year-old woman admitted with: * Acute DE. * Three-vessel CAD. Status post stent placement * Remote right pneumonectomy * ESRD. Dialysis MWF. * Hypertension * Anemia. Posttransfusion Current Visit: Yes (2) CAD (coronary artery disease) Status: Acute Current Visit: Yes (3) Status post pneumonectomy Status: Chronic Current Visit: Yes (4) ESRD (end stage renal disease) on dialysis Status: Chronic Current Visit: Yes (5) Hypertension Status: Chronic Current Visit: Yes (6) Ventilatory failure Status: Acute Current Visit: Yes Specialty Discharge - Follow Up or Referrals Follow up with: Devyn Baig MD [Physician] - (Follow with Dr. Devyn Baig with ECG 3 weeks after discharge)
[2016-08-03] MEDS: ROSUVASTATIN 10 MG TABLET PO SCH (21:20)
[2016-08-03] MEDS: ENOXAPARIN 30 MG/0.3 ML SYRINGE SUBCUT SCH (21:20)
[2016-08-04] MEDS: ALBUTEROL/IPRATROPIUM 3 ML NEB RESP TX SCH ×4 (01:25→19:44)
[2016-08-04] MEDS: methylPREDNISolone SOD SUC 40 MG/1 ML VIAL IV SCH ×2 (01:35→13:20)
[2016-08-04] MEDS: TICAGRELOR 90 MG TABLET PO SCH ×2 (08:09→21:02)
[2016-08-04] MEDS: ASPIRIN EC 81 MG TABLET PO SCH (08:09)
[2016-08-04] MEDS: LEVOTHYROXINE 25 MCG TABLET PO SCH (08:09)
[2016-08-04] MEDS: DOCUSATE SODIUM 100 MG CAPSULE PO SCH ×2 (08:09→21:02)
[2016-08-04] MEDS: CALCIUM ACETATE 667 MG CAPSULE PO SCH ×3 (08:09→21:01)
[2016-08-04] MEDS: ALLOPURINOL 100 MG TABLET PO SCH ×2 (08:09→21:02)
[2016-08-04] MEDS: PANTOPRAZOLE 40 MG VIAL IV SCH (08:09)
--- NOTE | 2016-08-04 08:25 | Case Mgmt Physician Query Form ---
LONG STAY PHYSICIAN RECERTIFICATION *This form is to be completed for all Medicare patients before they reach day 20 of their hospitalization. Please complete each section as appropriate.* I certify that hospitalization, and continued hospitalization, for this patient is medically necessary as follows: 1) Reasons of either continued hospitalization of the patient for medical treatment or medically required diagnostic study or special or unusual services for cost outlier cases are as follows: 2) Estimated time patient will need to remain in hospital: 3) Plan for Post Hospital Care: ( ) Home with Primary Care Follow up ( ) Home with Home Health Follow up (x ) LTACH/ Acute Care Rehab/ SNF/Retirement ( ) Other: If you have any questions, please contact me. Thank you, Maylin Leigh RN Case Management P: [phone] F [phone] E: [email or web address]
[2016-08-04 08:39] LABS: Basophils % 0.1 % (0.0-0.8); Hematocrit 31.2 VOL% (35.7-47.0); Hemoglobin 10.3 GM/DL (12.0-16.0); Immature Granulocytes % 1.1 %; Immature Granulocytes Absolute 0.19 #; Lymphocytes # 0.1 10*3/uL (1.4-4.0); Lymphocytes % 0.7 % (21.3-54.2); Mean Corpuscular Hemoglobin 31 PG (27-34); Mean Corpuscular Volume 92.9 FL (87-102); Mean Platelet Volume 12.5 FL (9.6-12.0); Monocytes # 0.5 10*3/uL (0.11-0.8); Monocytes % 3.1 % (1.7-12.7); Neutrophils # 16.2 10*3/uL (1.4-7.4); Platelet Count 103 T/CUMM (130-400); Red Blood Count 3.36 MC/CUMM (3.8-5.5); Red Cell Distribution Width 16.1 % (9.3-17.3)
[2016-08-04 09:01] LABS: Band Neutrophils 1 % (0-10); Lymphocytes 2 % (20-55); Segmented Neutrophils 93 % (50-85); Total Cells Counted 100
[2016-08-04 09:02] LABS: Hypochromasia Slight; Microcytosis 1+; Platelet Estimate Decreased
[2016-08-04 09:19] LABS: Magnesium 2.3 MG/DL (1.8-2.4); Osmolality,Calculated 282.2 MOS/KG (273-304); Potassium 4.2 MMOL/L (3.5-5.1)
[2016-08-04] MEDS: hydrALAZINE 25 MG TABLET PO SCH ×3 (11:06→21:02)
--- NOTE | 2016-08-04 11:58 | Cardiology Progress Note ---
Assessment and Plan (1) CAD (coronary artery disease) Status: Acute Assessment and plan: Patient has now been revascularized, status post stenting per Dr. Baig. Her left ventricular ejection fraction has improved since stenting, EF 35-40%. Continue current management. -Continue dual antiplatelet therapy with Brilinta and aspirin -Continue beta-luanne -Continue statin Further plan and addendum to follow per Dr. Vang. Current Visit: Yes (2) Ischemic cardiomyopathy Status: Acute Assessment and plan: Patient is now revascularized. Status post successful PCI per Dr. Baig. Per recent echo, ejection fraction has improved since [facility], EF 35-40%. -Continue beta-luanne -Continue Imdur and hydralazine for afterload reduction Current Visit: Yes (3) ESRD (end stage renal disease) on dialysis Problem details: Next routine CHD on Sunday after am cath. UF as tolerated by hemodynamics. Status: Chronic Assessment and plan: Management per nephrology. Dialysis MWF. Current Visit: Yes (4) Status post pneumonectomy Status: Chronic Assessment and plan: This is stable at present. Current Visit: Yes (5) Hypertension Status: Chronic Assessment and plan: This is clinically stable. Continue current plan of care. Current Visit: Yes (6) Hypothyroid Status: Chronic Assessment and plan: Continue current plan of care with Synthroid. Current Visit: Yes (7) Status post carcinoma right lung Status: Chronic Assessment and plan: This is clinically stable. Current Visit: Yes (8) Leukocytosis Status: Acute Assessment and plan: Afebrile. Urine and blood cultures reveal no growth. Defer further management to attending. Current Visit: Yes (9) Debility Status: Acute Assessment and plan: Physical therapy has been consulted. The patient may need transfer to a swing bed or LTAC for continued recovery. Current Visit: Yes (10) Altered mental status Status: Acute Assessment and plan: This continues to slowly improve. Dr. Deluna is now on board. He feels as though this is secondary to infection. No evidence of acute stroke. White blood cell count remains high with a left shift. Blood and urine cultures have been negative. Defer management of this to attending and neurology. Current Visit: Yes (11) Anemia Status: Chronic Assessment and plan: Most likely anemia of chronic disease. Today H&H 7 and 24. No overt bleeding noted. Patient is currently undergoing dialysis with defer further management of this to nephrology. Current Visit: Yes Cardiology - PN: Subj Interval history: Tunnel Elastic Operator Lockstitch: Dr. Baig PCP: Dr. Carmichael Leasing Coordinator: Dr. Hemphill Ms. Reyes is a 80 year old female without known history of coronary artery disease, routinely followed by Dr. Devyn Baig. Patient has a history of end-stage renal disease on hemodialysis, diastolic heart failure, lung cancer with pneumonectomy, hypertension and dyslipidemia. Patient presented to the ER with sudden onset of pulmonary edema and required mechanical ventilation. Cardiology was consulted to further evaluate patient. Echocardiogram was done this admission which revealed severe LV dysfunction. This was concerning that underlying coronary artery disease was contributing to patient's flash pulmonary edema. Subsequently, patient underwent left heart catheterization per Dr. Baig with the following impressions noted: Impression Critical three-vessel CAD Status post successful stenting of 2 lesions in the circumflex--- proximal lesion had a drug-eluting stent, obtuse marginal drug-eluting stent Status post successful stenting of the LAD-second [id number] stent Severe LV systolic dysfunction, LVEF 20% Mild LV diastolic dysfunction, LVEDP 18 mmHg Aggrastat bolus and infusion-for ACS/non-STEMI Low-dose dobutamine to help support blood pressure Angiogram right femoral artery Loading with Brilinta, 180 mg p.o. Angio-Seal right femoral artery Plan/recommendations: Status post Non-STEMI. The patient will have risk factors optimized. The patient will be on antiplatelet medications to include aspirin indefinitely and Brilinta for at least a year. Follow-up will be scheduled. Patient was seen and examined in the dialysis unit. Patient is alert and able to answer questions appropriately. She denies chest pain, heaviness and tightness. Right groin remained stable without bleeding, hematoma or bruit noted. Distal pulses present. Patient remains weak. Physical therapy is now on board and working with patient. Vital signs stable. Exam (Progress Note) - Constitutional Vitals: Period Temp Pulse Resp BP Sys/Brody Pulse Ox Last 24 Hr 98.1 F-100.2 F 85-99 16-20 108-130/52-64 94-100 Result/EKG - Labs CBC & BMP: 08/04/16 07:56 08/04/16 07:56 Labs: Laboratory Results - last 24 hr 08/04/16 08/04/16 07:56 07:56 WBC 17.0 H RBC 3.36 L Hgb 10.3 L Hct 31.2 L MCV 92.9 MCH 31 MCHC 33.0 RDW 16.1 Plt Count 103 L MPV 12.5 H Neut % (Auto) 95.0 H Lymph % (Auto) 0.7 L [place]verse % (Auto) 3.1 Eos % (Auto) 0.0 Baso % (Auto) 0.1 Neut # (Auto) 16.2 H Lymph # (Auto) 0.1 L [place] # (Auto) 0.5 Eos # (Auto) 0.0 Baso # (Auto) 0.0 Total Counted 100 Immature Gran % 1.1 Nucleated RBC % 0.0 Immature Gran # 0.19 Segmented Neutrophils 93 H Band Neutrophils 1 Lymphocytes 2 L Monocytes 4 Nucleated RBCs # 0.00 Platelet Estimate Decreased Hypochromasia Slight Microcytosis 1+ Morphology Comment Sodium 134 L Potassium 4.2 Chloride 98 Carbon Dioxide 26 Anion Gap 14.2 BUN 50 H Creatinine 3.90 H GFR Calculation 10 BUN/Creatinine Ratio 12.00 Glucose 127 H Calculated Osmolality 282.2 Calcium 8.0 L Magnesium 2.3 Quality Measures - VTE Contraindication to Pharmacological VTE Prophylaxis: High Risk of Bleeding Specialty Discharge - Follow Up or Referrals Follow up with: Devyn Baig MD [Physician] - (Follow with Dr. Devyn Baig with ECG 3 weeks after discharge)
[2016-08-04] MEDS: ISOSORBIDE MONONITRATE 30 MG TABLET PO SCH (13:20)
[2016-08-04] MEDS: ERGOCALCIFEROL 50,000 UNIT CAPSULE PO SCH (13:20)
[2016-08-04] MEDS: CARVEDILOL 12.5 MG TABLET PO SCH ×2 (13:20→21:02)
[2016-08-04] MEDS: cefTRIAXone 1,000 MG in SODIUM CHLORIDE 0.9% 100 ML IV SCH (13:25)
--- NOTE | 2016-08-04 13:46 | Family Practice Progress Note ---
Family Practice - PN: Subj Interval history: Patient has just returned from dialysis. He is alert and probably back to her normal mental status. She still extremely weak. Still not ambulating. Discussed with family about rehab on discharge. Family states they will discuss it is a family unit this week and will give me a decision. I explained that it would be very difficult to manage her at home in her present state. She is otherwise stable and improving daily. No new problems identified. Appetite is slowly improving. We will continue present treatment plan over the weekend. Exam (Progress Note) - Constitutional Vitals: Period Temp Pulse Resp BP Sys/Brody Pulse Ox Last 24 Hr 98.1 F-100.2 F 85-99 16-20 99-130/50-64 94-100 Results - Labs CBC & BMP: 08/04/16 07:56 08/04/16 07:56 Assessment and Plan (1) Acute respiratory failure Status: Resolved Assessment and plan: Patient required endotracheal intubation in the emergency room and is presently on a respirator. Being followed by pulmonary we will continue present treatment plan Current Visit: Yes (2) Pulmonary edema Status: Acute Assessment and plan: We will start her on appropriate treatment Current Visit: Yes (3) UTI (urinary tract infection) Status: Acute Assessment and plan: We will obtain culture and start her on appropriate antibiotics Current Visit: Yes (4) Chronic kidney disease with end stage renal failure on dialysis Status: Chronic Assessment and plan: Patient is presently receiving dialysis. Current Visit: Yes (5) Hypertension Status: Chronic Assessment and plan: We will resume her home medications Current Visit: Yes (6) Status post carcinoma right lung Status: Chronic Assessment and plan: Stable at present Current Visit: Yes (7) Status post pneumonectomy Status: Chronic Assessment and plan: Stable at present Current Visit: Yes (8) Hypothyroid Status: Chronic Assessment and plan: We will resume home medications and monitor Current Visit: Yes Quality Measures - VTE Contraindication to Pharmacological VTE Prophylaxis: High Risk of Bleeding Specialty Discharge - Follow Up or Referrals Follow up with: Devyn Baig MD [Physician] - (Follow with Dr. Devyn Baig with ECG 3 weeks after discharge)
--- NOTE | 2016-08-04 14:08 | Nephrology Progress Note ---
Nephrology - PN: Subj Interval history: Seen during dialysis. Blood pressure stable. Mental status normal Exam (PN)-Nephrology - Vital Signs Vital signs: Period Temp Pulse Resp BP Sys/Brody Pulse Ox Last 24 Hr 98.1 F-100.2 F 85-99 16-20 99-130/50-64 94-100 Exam: ENT: Normal Cardiovascular: Regular rate and rhythm. No murmur rub or gallop Lungs: Clear Extremities: No edema - Lab 08/04/16 07:56 08/04/16 07:56 Most recent lab results ABG pH 7.375 (7.35-7.45) 07/25/16 09:30 ABG pCO2 39.3 MM HG (35-48) 07/25/16 09:30 ABG pO2 130.0 MM HG (80-95) H 07/25/16 09:30 ABG HCO3 22.7 MMOL/L (20-26) 07/25/16 09:30 ABG O2 Saturation 98.6 % (95-100) 07/25/16 09:30 Calcium 8.0 MG/DL (8.5-10.1) L 08/04/16 07:56 Magnesium 2.3 MG/DL (1.8-2.4) 08/04/16 07:56 Assessment and Plan (1) Acute [place] Status: Acute Assessment and plan: 80-year-old woman admitted with: * Acute [place]. * Three-vessel CAD. Status post stent placement * Remote right pneumonectomy * ESRD. Dialysis MWF. Stable during dialysis today * Hypertension * Anemia. Posttransfusion Current Visit: Yes (2) CAD (coronary artery disease) Status: Acute Current Visit: Yes (3) Status post pneumonectomy Status: Chronic Current Visit: Yes (4) ESRD (end stage renal disease) on dialysis Status: Chronic Current Visit: Yes (5) Hypertension Status: Chronic Current Visit: Yes (6) Ventilatory failure Status: Acute Current Visit: Yes Specialty Discharge - Follow Up or Referrals Follow up with: Devyn Baig MD [Physician] - (Follow with Dr. Devyn Baig with ECG 3 weeks after discharge)
[2016-08-04] MEDS: ROSUVASTATIN 10 MG TABLET PO SCH (21:01)
[2016-08-04] MEDS: ENOXAPARIN 30 MG/0.3 ML SYRINGE SUBCUT SCH (21:03)
[2016-08-05] MEDS: ALBUTEROL/IPRATROPIUM 3 ML NEB RESP TX SCH ×4 (00:06→20:32)
[2016-08-05] MEDS: methylPREDNISolone SOD SUC 40 MG/1 ML VIAL IV SCH ×2 (01:43→13:39)
[2016-08-05 04:44] LABS: Basophils % 0.1 % (0.0-0.8); Eosinophils % 0.1 % (0.00-10.9); Hematocrit 30.1 VOL% (35.7-47.0); Hemoglobin 9.9 GM/DL (12.0-16.0); Immature Granulocytes Absolute 0.17 #; Lymphocytes # 0.2 10*3/uL (1.4-4.0); Mean Corpuscular HGB Conc 32.9 GM/DL (32-36); Mean Corpuscular Hemoglobin 31 PG (27-34); Mean Corpuscular Volume 92.6 FL (87-102); Mean Platelet Volume 12.7 FL (9.6-12.0); Monocytes # 1.1 10*3/uL (0.11-0.8); Monocytes % 6.1 % (1.7-12.7); Neutrophils % 91.7 % (38.7-73.9); Platelet Count 95 T/CUMM (130-400); Red Blood Count 3.25 MC/CUMM (3.8-5.5); Red Cell Distribution Width 15.6 % (9.3-17.3); White Blood Count 17.4 T/CUMM (4-12)
[2016-08-05 05:10] LABS: Lymphocytes 10 % (20-55); Platelet Estimate Decreased; Segmented Neutrophils 87 % (50-85); Total Cells Counted 100
[2016-08-05 05:11] LABS: INR 1.1; PT Patient Result 11.4 SECS
[2016-08-05 05:12] LABS: Calcium 7.5 MG/DL (8.5-10.1); Magnesium 2.2 MG/DL (1.8-2.4); Potassium 4.1 MMOL/L (3.5-5.1)
[2016-08-05] MEDS: LEVOTHYROXINE 25 MCG TABLET PO SCH (08:54)
[2016-08-05] MEDS: hydrALAZINE 25 MG TABLET PO SCH ×3 (08:55→21:33)
[2016-08-05] MEDS: CALCIUM ACETATE 667 MG CAPSULE PO SCH ×3 (08:55→21:33)
[2016-08-05] MEDS: DOCUSATE SODIUM 100 MG CAPSULE PO SCH ×2 (08:55→21:33)
[2016-08-05] MEDS: CARVEDILOL 12.5 MG TABLET PO SCH ×2 (08:55→21:33)
[2016-08-05] MEDS: ALLOPURINOL 100 MG TABLET PO SCH ×2 (08:55→21:34)
[2016-08-05] MEDS: ISOSORBIDE MONONITRATE 30 MG TABLET PO SCH (08:55)
[2016-08-05] MEDS: PANTOPRAZOLE 40 MG VIAL IV SCH (08:55)
[2016-08-05] MEDS: ASPIRIN EC 81 MG TABLET PO SCH (08:55)
[2016-08-05] MEDS: TICAGRELOR 90 MG TABLET PO SCH ×2 (08:55→21:33)
[2016-08-05] MEDS: LEVOFLOXACIN INJ 250 MG in PREMIX 1 EACH IV SCH (12:40)
--- NOTE | 2016-08-05 13:03 | Internal Med Progress Note ---
Assessment and Plan (1) Acute [place] Status: Resolved Current Visit: Yes Qualifiers: Myocardial infarction ST status: ST elevation myocardial infarction (2) CAD (coronary artery disease) Status: Chronic Current Visit: Yes Qualifiers: Coronary Disease-Associated Artery/Lesion type: [place] artery [place] vs. transplanted heart: [place] heart Associated angina: with unstable angina Qualified Code(s): I25.110 - Atherosclerotic heart disease of [place] coronary artery with unstable angina pectoris (3) Debility Status: Chronic Current Visit: Yes (4) Ischemic cardiomyopathy Status: Chronic Current Visit: Yes (5) Anemia Status: Chronic Current Visit: Yes Qualifiers: Other causes of anemia: chronic disease, kidney (6) ESRD (end stage renal disease) on dialysis Problem details: Next routine CHD on Sunday after am cath. UF as tolerated by hemodynamics. Status: Chronic Current Visit: Yes (7) Hypertension Status: Chronic Current Visit: Yes (8) Hypothyroid Status: Chronic Current Visit: Yes (9) Status post carcinoma right lung Status: Chronic Current Visit: Yes (10) Status post pneumonectomy Status: Chronic Current Visit: Yes Internal Medicine - PN: Subj Interval history: This is an 80 year old female patient of Dr. Carmichael with history of ESRD on hemodialysis followed by Dr. Hemphill, CHF, ischemic cardiomyopathy, CAD and status post stent placement, HTN, dyslipidemia, anemia of chronic illness and status post blood transfusion, who presented to ER with CHF and was found to have UTI, acute [place], CAD three vessel disease requiring stent placement. She is now on Brilinta. The cental line site was oozing this morning, and prophylactic lovenox was stopped. Exam (Progress Note) - Constitutional Vitals: Period Temp Pulse Resp BP Sys/Brody Pulse Ox Last 24 Hr 97.4 F-99.7 F 95-108 15-20 96-136/47-76 92-100 General appearance: no acute distress - Head Head exam: Present: normocephalic - Eye Eye exam: Present: EOMI - Respiratory Respiratory exam: Present: clear to auscultation bilaterally. Absent: rhonchi - Cardiovascular Cardiovascular exam: Present: regular rate and rhythm - GI/Abdominal GI/Abdominal exam: Present: soft. Absent: tenderness - Extremities Exam Extremities exam: Absent: edema - Neurological Exam Neurological exam: Present: alert - Psychiatric Psychiatric exam: Present: normal mood - Skin Skin exam: Present: warm, dry Results - Labs CBC & BMP: 08/05/16 03:52 08/05/16 03:52 Quality Measures - VTE Contraindication to Pharmacological VTE Prophylaxis: High Risk of Bleeding Specialty Discharge - Follow Up or Referrals Follow up with: Devyn Baig MD [Physician] - (Follow with Dr. Devyn Baig with ECG 3 weeks after discharge)
--- NOTE | 2016-08-05 16:26 | Nephrology Progress Note ---
Nephrology - PN: Subj Interval history: The patient is resting comfortably no acute changes. Family at the bedside. Exam (PN)-Nephrology - Vital Signs Vital signs: Period Temp Pulse Resp BP Sys/Brody Pulse Ox Last 24 Hr 97.4 F-99.4 F 95-108 15-20 96-136/60-76 92-100 - General Appearance General appearance: well-developed, well-nourished EENT: ATNC Neck: supple Respiratory: clear Cardiology: regular rate, regular rhythm Gastrointestinal: normoactive bowel sounds, no tenderness, no guarding Neurologic: alert and oriented x3 Musculoskeletal: no clubbing Psychiatric: mood/affect appropriate - Lab 08/05/16 03:52 08/05/16 03:52 Most recent lab results ABG pH 7.375 (7.35-7.45) 07/25/16 09:30 ABG pCO2 39.3 MM HG (35-48) 07/25/16 09:30 ABG pO2 130.0 MM HG (80-95) H 07/25/16 09:30 ABG HCO3 22.7 MMOL/L (20-26) 07/25/16 09:30 ABG O2 Saturation 98.6 % (95-100) 07/25/16 09:30 Calcium 7.5 MG/DL (8.5-10.1) L 08/05/16 03:52 Magnesium 2.2 MG/DL (1.8-2.4) 08/05/16 03:52 Assessment and Plan (1) ESRD (end stage renal disease) on dialysis Problem details: Next routine CHD on Sunday after am cath. UF as tolerated by hemodynamics. Status: Chronic Current Visit: Yes (2) Status post pneumonectomy Status: Chronic Assessment and plan: The patient is continued to recover. Current Visit: Yes Specialty Discharge - Follow Up or Referrals Follow up with: Devyn Baig MD [Physician] - (Follow with Dr. Devyn Baig with ECG 3 weeks after discharge)
[2016-08-05] MEDS: ROSUVASTATIN 10 MG TABLET PO SCH (21:33)
[2016-08-05] MEDS: ZALEPLON 5 MG CAPSULE PO PRN (21:33)
[2016-08-06] MEDS: ALBUTEROL/IPRATROPIUM 3 ML NEB RESP TX SCH ×4 (01:58→19:16)
[2016-08-06] MEDS: methylPREDNISolone SOD SUC 40 MG/1 ML VIAL IV SCH ×2 (05:45→15:30)
[2016-08-06 06:08] LABS: Basophils % 0.1 % (0.0-0.8); Eosinophils % 0.2 % (0.00-10.9); Hematocrit 28.3 VOL% (35.7-47.0); Hemoglobin 9.6 GM/DL (12.0-16.0); Immature Granulocytes Absolute 0.15 #; Lymphocytes # 0.5 10*3/uL (1.4-4.0); Lymphocytes % 3.3 % (21.3-54.2); Mean Corpuscular HGB Conc 33.9 GM/DL (32-36); Mean Corpuscular Hemoglobin 31 PG (27-34); Mean Corpuscular Volume 92.5 FL (87-102); Mean Platelet Volume 12.5 FL (9.6-12.0); Monocytes # 1.3 10*3/uL (0.11-0.8); Monocytes % 8.9 % (1.7-12.7); Neutrophils % 86.5 % (38.7-73.9); Platelet Count 97 T/CUMM (130-400); Red Blood Count 3.06 MC/CUMM (3.8-5.5); Red Cell Distribution Width 15.4 % (9.3-17.3)
[2016-08-06 06:24] LABS: Calcium 7.8 MG/DL (8.5-10.1); Magnesium 2.1 MG/DL (1.8-2.4); Osmolality,Calculated 284.1 MOS/KG (273-304); Potassium 4.1 MMOL/L (3.5-5.1)
[2016-08-06 07:32] LABS: Hypochromasia 1+; Lymphocytes 4 % (20-55); Platelet Estimate Decreased; Segmented Neutrophils 91 % (50-85); Total Cells Counted 100
[2016-08-06] MEDS: CARVEDILOL 12.5 MG TABLET PO SCH ×2 (09:09→21:36)
[2016-08-06] MEDS: ALLOPURINOL 100 MG TABLET PO SCH ×2 (09:10→21:37)
[2016-08-06] MEDS: ISOSORBIDE MONONITRATE 30 MG TABLET PO SCH (09:10)
[2016-08-06] MEDS: PANTOPRAZOLE 40 MG VIAL IV SCH (09:10)
[2016-08-06] MEDS: CALCIUM ACETATE 667 MG CAPSULE PO SCH ×3 (09:10→21:37)
[2016-08-06] MEDS: hydrALAZINE 25 MG TABLET PO SCH ×3 (09:10→21:35)
[2016-08-06] MEDS: DOCUSATE SODIUM 100 MG CAPSULE PO SCH ×2 (09:10→21:36)
[2016-08-06] MEDS: LEVOTHYROXINE 25 MCG TABLET PO SCH (09:10)
[2016-08-06] MEDS: ASPIRIN EC 81 MG TABLET PO SCH (09:10)
[2016-08-06] MEDS: TICAGRELOR 90 MG TABLET PO SCH ×2 (09:10→21:35)
--- NOTE | 2016-08-06 12:31 | Nephrology Progress Note ---
Nephrology - PN: Subj Interval history: Patient is resting. States she just feels tired today. Not been able to eat much of solid foods today. Continuing to encourage patient. No fevers or chills. Exam (PN)-Nephrology - Vital Signs Vital signs: Period Temp Pulse Resp BP Sys/Brody Pulse Ox Last 24 Hr 98 F-99.1 F 89-98 15-20 124-182/60-84 91-99 - General Appearance General appearance: fatigue, frail EENT: ATNC Neck: supple Respiratory: clear Cardiology: regular rate, regular rhythm Gastrointestinal: normoactive bowel sounds, no tenderness Neurologic: alert and oriented x3 Musculoskeletal: no clubbing - Lab 08/06/16 03:55 08/06/16 03:55 Most recent lab results ABG pH 7.375 (7.35-7.45) 07/25/16 09:30 ABG pCO2 39.3 MM HG (35-48) 07/25/16 09:30 ABG pO2 130.0 MM HG (80-95) H 07/25/16 09:30 ABG HCO3 22.7 MMOL/L (20-26) 07/25/16 09:30 ABG O2 Saturation 98.6 % (95-100) 07/25/16 09:30 Calcium 7.8 MG/DL (8.5-10.1) L 08/06/16 03:55 Magnesium 2.1 MG/DL (1.8-2.4) 08/06/16 03:55 Assessment and Plan (1) ESRD (end stage renal disease) on dialysis Problem details: Next routine CHD on Sunday after am cath. UF as tolerated by hemodynamics. Status: Chronic Current Visit: Yes (2) Status post pneumonectomy Status: Chronic Assessment and plan: The patient is continued to recover. Current Visit: Yes Specialty Discharge - Follow Up or Referrals Follow up with: Devyn Baig MD [Physician] - (Follow with Dr. Devyn Baig with ECG 3 weeks after discharge)
--- NOTE | 2016-08-06 15:35 | Internal Med Progress Note ---
Assessment and Plan (1) CAD (coronary artery disease) Status: Chronic Current Visit: Yes Qualifiers: Coronary Disease-Associated Artery/Lesion type: [place] artery [place] vs. transplanted heart: [place] heart Associated angina: with unstable angina Qualified Code(s): I25.110 - Atherosclerotic heart disease of [place] coronary artery with unstable angina pectoris (2) Debility Status: Chronic Current Visit: Yes (3) Ischemic cardiomyopathy Status: Chronic Current Visit: Yes (4) Anemia Status: Chronic Current Visit: Yes Qualifiers: Other causes of anemia: chronic disease, kidney (5) ESRD (end stage renal disease) on dialysis Problem details: Next routine CHD on Sunday after am cath. UF as tolerated by hemodynamics. Status: Chronic Current Visit: Yes (6) Hypertension Status: Chronic Current Visit: Yes Internal Medicine - PN: Subj Interval history: This is an 80 year old female patient of Dr. Carmichael with history of ESRD on hemodialysis followed by Dr. Hemphill, CHF, ischemic cardiomyopathy, CAD and status post stent placement, HTN, dyslipidemia, anemia of chronic illness and status post blood transfusion, who presented to ER with CHF and was found to have UTI, acute [place], CAD three vessel disease requiring stent placement. She is now on Brilinta. The cental line site was oozing this morning, and prophylactic lovenox was stopped. Sunday, she is doing better overall, but seems depressed. Zoloft started low dose. A beautiful day outdoors, but she had curtain closed and in a dark room. The oozing from around central line entry site has resolved with pressure bandage. Looks better today. Exam (Progress Note) - Constitutional Vitals: Period Temp Pulse Resp BP Sys/Brody Pulse Ox Last 24 Hr 98 F-99.1 F 85-97 16-20 109-182/56-84 91-100 General appearance: no acute distress - Respiratory Respiratory exam: Present: clear to auscultation bilaterally - Cardiovascular Cardiovascular exam: Present: regular rate and rhythm - GI/Abdominal GI/Abdominal exam: Present: soft. Absent: tenderness - Extremities Exam Extremities exam: Absent: edema - Neurological Exam Neurological exam: Present: alert - Psychiatric Psychiatric exam: Present: depressed - Skin Skin exam: Present: warm, dry Results - Labs CBC & BMP: 08/06/16 03:55 08/06/16 03:55 Quality Measures - VTE Contraindication to Pharmacological VTE Prophylaxis: High Risk of Bleeding Specialty Discharge - Follow Up or Referrals Follow up with: Devyn Baig MD [Physician] - (Follow with Dr. Devyn Baig with ECG 3 weeks after discharge)
[2016-08-06] MEDS: ROSUVASTATIN 10 MG TABLET PO SCH (21:36)
[2016-08-06] MEDS: ZALEPLON 5 MG CAPSULE PO PRN (21:46)
[2016-08-07] MEDS: ALBUTEROL/IPRATROPIUM 3 ML NEB RESP TX SCH ×4 (00:37→19:08)
[2016-08-07] MEDS: methylPREDNISolone SOD SUC 40 MG/1 ML VIAL IV SCH ×2 (02:03→13:39)
[2016-08-07 05:58] LABS: Basophils % 0.1 % (0.0-0.8); Hematocrit 29.2 VOL% (35.7-47.0); Hemoglobin 9.6 GM/DL (12.0-16.0); Immature Granulocytes % 0.6 %; Immature Granulocytes Absolute 0.09 #; Lymphocytes # 0.2 10*3/uL (1.4-4.0); Lymphocytes % 0.9 % (21.3-54.2); Mean Corpuscular HGB Conc 32.9 GM/DL (32-36); Mean Corpuscular Hemoglobin 31 PG (27-34); Mean Corpuscular Volume 92.7 FL (87-102); Mean Platelet Volume 12.5 FL (9.6-12.0); Monocytes # 0.5 10*3/uL (0.11-0.8); Neutrophils # 15.3 10*3/uL (1.4-7.4); Neutrophils % 95.4 % (38.7-73.9); Platelet Count 104 T/CUMM (130-400); Red Blood Count 3.15 MC/CUMM (3.8-5.5); White Blood Count 16.1 T/CUMM (4-12)
[2016-08-07 06:18] LABS: Calcium 7.7 MG/DL (8.5-10.1); Magnesium 2.4 MG/DL (1.8-2.4); Osmolality,Calculated 292.1 MOS/KG (273-304); Potassium 5.2 MMOL/L (3.5-5.1)
[2016-08-07 06:36] LABS: Hypochromasia Slight; Lymphocytes 1 % (20-55); Segmented Neutrophils 96 % (50-85); Total Cells Counted 100
[2016-08-07 06:37] LABS: Microcytosis 1+; Platelet Estimate Decreased
--- NOTE | 2016-08-07 12:26 | Nephrology Progress Note ---
Nephrology - PN: Subj Interval history: Seen during dialysis. Blood pressure stable. No shortness of breath. Exam (PN)-Nephrology - Vital Signs Vital signs: Period Temp Pulse Resp BP Sys/Brody Pulse Ox Last 24 Hr 98.0 F-98.7 F 81-103 18-92 124-129/57-68 92-99 Exam: ENT: Normal Cardiovascular: Regular rate and rhythm. No murmur rub or gallop Lungs: Clear Extremities: No edema - Lab 08/07/16 04:46 08/07/16 04:46 Most recent lab results ABG pH 7.375 (7.35-7.45) 07/25/16 09:30 ABG pCO2 39.3 MM HG (35-48) 07/25/16 09:30 ABG pO2 130.0 MM HG (80-95) H 07/25/16 09:30 ABG HCO3 22.7 MMOL/L (20-26) 07/25/16 09:30 ABG O2 Saturation 98.6 % (95-100) 07/25/16 09:30 Calcium 7.7 MG/DL (8.5-10.1) L 08/07/16 04:46 Magnesium 2.4 MG/DL (1.8-2.4) 08/07/16 04:46 Assessment and Plan (1) Acute [place] Status: Resolved Assessment and plan: 80-year-old woman admitted with: * Acute [place]. * Three-vessel CAD. Status post stent placement * Remote right pneumonectomy * ESRD. Dialysis MWF. Stable during dialysis today * Hypertension * Anemia. Posttransfusion Current Visit: Yes Qualifiers: Myocardial infarction ST status: ST elevation myocardial infarction (2) CAD (coronary artery disease) Status: Chronic Current Visit: Yes Qualifiers: Coronary Disease-Associated Artery/Lesion type: [place] artery [place] vs. transplanted heart: [place] heart Associated angina: with unstable angina Qualified Code(s): I25.110 - Atherosclerotic heart disease of [place] coronary artery with unstable angina pectoris (3) Status post pneumonectomy Status: Chronic Current Visit: Yes (4) ESRD (end stage renal disease) on dialysis Status: Chronic Current Visit: Yes (5) Hypertension Status: Chronic Current Visit: Yes (6) Ventilatory failure Status: Acute Current Visit: Yes Specialty Discharge - Follow Up or Referrals Follow up with: Devyn Baig MD [Physician] - (AUGUST 30, 2016 AT 10:20 AT [facility] SEPTEMBER 05, 2016 AT 8:[address] [facility] [address] MOREIRA)
[2016-08-07] MEDS: ASPIRIN EC 81 MG TABLET PO SCH (13:29)
[2016-08-07] MEDS: CALCIUM ACETATE 667 MG CAPSULE PO SCH ×3 (13:29→20:26)
[2016-08-07] MEDS: LEVOTHYROXINE 25 MCG TABLET PO SCH (13:29)
[2016-08-07] MEDS: SERTRALINE 25 MG TABLET PO SCH (13:29)
[2016-08-07] MEDS: DOCUSATE SODIUM 100 MG CAPSULE PO SCH ×2 (13:29→20:26)
[2016-08-07] MEDS: PANTOPRAZOLE 40 MG VIAL IV SCH (13:30)
[2016-08-07] MEDS: TICAGRELOR 90 MG TABLET PO SCH ×2 (13:31→20:26)
[2016-08-07] MEDS: ISOSORBIDE MONONITRATE 30 MG TABLET PO SCH (13:31)
[2016-08-07] MEDS: hydrALAZINE 25 MG TABLET PO SCH ×3 (13:31→20:26)
[2016-08-07] MEDS: ALLOPURINOL 100 MG TABLET PO SCH ×2 (13:31→20:27)
[2016-08-07] MEDS: CARVEDILOL 12.5 MG TABLET PO SCH ×2 (13:31→20:27)
--- NOTE | 2016-08-07 18:21 | Family Practice Progress Note ---
Family Practice - PN: Subj Interval history: Patient doing much better spirits today. Smiling and is eating better. Patient has still not ambulating. She remains extremely weak. Overall she has continued to improve. I discussed in detail with 2 of the daughters and they seem to have poor understanding about swing bed placement. Daughter seem to think that we were talking that sometime in the future. I have advised it patient is ready for placement in swing bed immediately. She has reached maximum medical improvement for inpatient stay and family needs to make decision about swing bed placement. Daughter states that she will talk with social work associate in a.m. and try to make some type of arrangements. Her physical examination is otherwise stable. We will continue present treatment plan. Exam (Progress Note) - Constitutional Vitals: Period Temp Pulse Resp BP Sys/Brody Pulse Ox Last 24 Hr 97.8 F-98.6 F 81-103 16-92 124-144/57-72 92-99 Results - Labs CBC & BMP: 08/07/16 04:46 08/07/16 04:46 Assessment and Plan (1) Acute respiratory failure Status: Resolved Assessment and plan: Patient required endotracheal intubation in the emergency room and is presently on a respirator. Being followed by pulmonary we will continue present treatment plan Current Visit: Yes (2) Pulmonary edema Status: Acute Assessment and plan: We will start her on appropriate treatment Current Visit: Yes (3) UTI (urinary tract infection) Status: Acute Assessment and plan: We will obtain culture and start her on appropriate antibiotics Current Visit: Yes (4) Chronic kidney disease with end stage renal failure on dialysis Status: Chronic Assessment and plan: Patient is presently receiving dialysis. Current Visit: Yes (5) Hypertension Status: Chronic Assessment and plan: We will resume her home medications Current Visit: Yes (6) Status post carcinoma right lung Status: Chronic Assessment and plan: Stable at present Current Visit: Yes (7) Status post pneumonectomy Status: Chronic Assessment and plan: Stable at present Current Visit: Yes (8) Hypothyroid Status: Chronic Assessment and plan: We will resume home medications and monitor Current Visit: Yes Quality Measures - VTE Contraindication to Pharmacological VTE Prophylaxis: High Risk of Bleeding Specialty Discharge - Follow Up or Referrals Follow up with: Devyn Baig MD [Physician] - (AUGUST 30, 2016 AT 10:20 AT [facility] SEPTEMBER 05, 2016 AT 8:[address] [facility] [address] MOREIRA)
[2016-08-07] MEDS: ZALEPLON 5 MG CAPSULE PO PRN (20:26)
[2016-08-07] MEDS: ROSUVASTATIN 10 MG TABLET PO SCH (20:26)
[2016-08-08] MEDS: ALBUTEROL/IPRATROPIUM 3 ML NEB RESP TX SCH ×3 (02:39→13:20)
[2016-08-08] MEDS: methylPREDNISolone SOD SUC 40 MG/1 ML VIAL IV SCH (03:48)
[2016-08-08 05:30] LABS: Basophils % 0.1 % (0.0-0.8); Eosinophils % 0.1 % (0.00-10.9); Hematocrit 28.7 VOL% (35.7-47.0); Hemoglobin 9.5 GM/DL (12.0-16.0); Immature Granulocytes % 0.7 %; Lymphocytes # 0.2 10*3/uL (1.4-4.0); Lymphocytes % 1.5 % (21.3-54.2); Mean Corpuscular HGB Conc 33.1 GM/DL (32-36); Mean Corpuscular Hemoglobin 31 PG (27-34); Mean Corpuscular Volume 93.5 FL (87-102); Monocytes # 0.9 10*3/uL (0.11-0.8); Monocytes % 5.6 % (1.7-12.7); Platelet Count 100 T/CUMM (130-400); Red Blood Count 3.07 MC/CUMM (3.8-5.5); Red Cell Distribution Width 14.9 % (9.3-17.3); White Blood Count 15.2 T/CUMM (4-12)
[2016-08-08 05:53] LABS: Hypochromasia 1+; Lymphocytes 2 % (20-55); Platelet Estimate Decreased; Segmented Neutrophils 95 % (50-85); Total Cells Counted 100
[2016-08-08 05:54] LABS: Microcytosis Slight; Ovalocytes Slight
[2016-08-08 05:58] LABS: Calcium 7.8 MG/DL (8.5-10.1); Osmolality,Calculated 279.1 MOS/KG (273-304); Potassium 4.3 MMOL/L (3.5-5.1)
[2016-08-08] MEDS ORDERED: methylPREDNISolone SOD SUC 40 MG/1 ML VIAL IM SCH (07:30)
--- NOTE | 2016-08-08 08:01 | Family Practice Progress Note ---
Family Practice - PN: Subj Interval history: Family states that patient rested well. Patient alert and denies any new issues. Appetite is slowly returning. Knows her daughter is present this a.m. who apparently is 1 makes the decisions. States she will discuss was child protective services social worker today about swing bed placement. A.m. labs are stable. Physical examination is stable her lung villavicencio are clear abdomen is soft. His area of blister formation on the posterior left heel. Staff states that she has had heel protectors on but has not kept him in place. Will have them make sure that the heel protectors stay attached appropriately. We will watch this closely. We will otherwise continue present therapy and await swing bed placement Exam (Progress Note) - Constitutional Vitals: Period Temp Pulse Resp BP Sys/Brody Pulse Ox Last 24 Hr 97.2 F-98.7 F 70-96 16-20 124-153/57-72 95-99 Results - Labs CBC & BMP: 08/08/16 05:22 08/08/16 05:22 Assessment and Plan (1) Acute respiratory failure Status: Resolved Assessment and plan: Patient required endotracheal intubation in the emergency room and is presently on a respirator. Being followed by pulmonary we will continue present treatment plan Current Visit: Yes (2) Pulmonary edema Status: Acute Assessment and plan: We will start her on appropriate treatment Current Visit: Yes (3) UTI (urinary tract infection) Status: Acute Assessment and plan: We will obtain culture and start her on appropriate antibiotics Current Visit: Yes (4) Chronic kidney disease with end stage renal failure on dialysis Status: Chronic Assessment and plan: Patient is presently receiving dialysis. Current Visit: Yes (5) Hypertension Status: Chronic Assessment and plan: We will resume her home medications Current Visit: Yes (6) Status post carcinoma right lung Status: Chronic Assessment and plan: Stable at present Current Visit: Yes (7) Status post pneumonectomy Status: Chronic Assessment and plan: Stable at present Current Visit: Yes (8) Hypothyroid Status: Chronic Assessment and plan: We will resume home medications and monitor Current Visit: Yes Quality Measures - VTE Contraindication to Pharmacological VTE Prophylaxis: High Risk of Bleeding Specialty Discharge - Follow Up or Referrals Follow up with: Devyn Baig MD [Physician] - (AUGUST 30, 2016 AT 10:20 AT [facility] FOR LAB SEPTEMBER 05, 2016 AT 8:40 [address] [facility] [address] MOREIRA)
[2016-08-08] MEDS: PANTOPRAZOLE 40 MG VIAL IV SCH (08:27)
[2016-08-08] MEDS: hydrALAZINE 25 MG TABLET PO SCH ×2 (08:28→14:39)
[2016-08-08] MEDS: SERTRALINE 25 MG TABLET PO SCH (08:28)
[2016-08-08] MEDS: ISOSORBIDE MONONITRATE 30 MG TABLET PO SCH (08:28)
[2016-08-08] MEDS: DOCUSATE SODIUM 100 MG CAPSULE PO SCH (08:28)
[2016-08-08] MEDS: CALCIUM ACETATE 667 MG CAPSULE PO SCH ×2 (08:28→14:38)
[2016-08-08] MEDS: ASPIRIN EC 81 MG TABLET PO SCH (08:28)
[2016-08-08] MEDS: LEVOTHYROXINE 25 MCG TABLET PO SCH (08:28)
[2016-08-08] MEDS: ALLOPURINOL 100 MG TABLET PO SCH (08:28)
[2016-08-08] MEDS: CARVEDILOL 12.5 MG TABLET PO SCH (08:28)
[2016-08-08] MEDS: TICAGRELOR 90 MG TABLET PO SCH (08:28)
[2016-08-08] MEDS ORDERED: CEFUROXIME 250 MG TABLET PO SCH (09:00)
--- NOTE | 2016-08-08 14:08 | Discharge Summary ---
Hospital Course - Hospital Course Hospital Course: History of present illness: Ms. Reyes is a 80 year old black female that has had a previous right pneumonectomy and is followed by Dr. Hemphill with end-stage renal disease on dialysis. She apparently has been doing fairly well on outpatient dialysis. Recently she had a mild sinus infection was on the Medrol Dosepak and Keflex. She apparently woke up around 2 this morning very short of breath and presented to the emergency room in marked distress. She apparently was very tight in her chest and unable to talk. She was intubated and placed on the ventilator. Her chest x-ray does suggest some mild volume overload. She is now comfortable on the ventilator. 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 She has had a previous right pneumonectomy. She has not been having problems with her breathing in the past. She was not complaining of chest pain or fever. She mainly had the sinus problem. Will admit to the intensive care close observation and therapy Hospital course-patient was admitted to the emergency room in respiratory failure. He was found to be in severe pulmonary edema. She required endotracheal intubation in the emergency room. Subsequently transferred to coronary care unit. Patient's isoenzymes were elevated with normal EKGs. She was felt to have a non-STEMI. She was seen in consultation by Dr. Devyn Baig. He is familiar with the case and was concerned that her acute pulmonary edema may be secondary to coronary artery disease. Patient was seen in consultation for Dr. Josh Hemphill and dialysis was carried out which helps with the fluid overload. post on obtain a cardiac echo which revealed severe left ventricular dysfunction. In view of this a cardiac catheterization was recommended. Patient was taken to the [facility] by Dr. Baig and was found to have critical 3 vessel coronary artery disease. She underwent stenting in the circumflex obtuse marginal and in the left anterior descending vessels. She was noted to have an ejection fracture of 20% . Patient tolerated procedure well and was transferred back to the coronary care unit. Multiple consultants were involved in the case. Patient responded well to the stenting. She was very slow to recover following the catheterization and maintaining very lethargic. She slowly improved and when stabilized was transferred to telemetry. She is slowly returned back to her near-normal mental status exam. She was much improved at time of discharge and was tolerating diet and medications. She has remained extremely weak and is not ambulating. Arrangements are made for patient to be transferred to swing bed for physical therapy. She'll be discharged today and will arrange follow- up after release from swing bed. She will continue to receive her regular dialysis treatments. Diagnosis - Discharge Diagnosis (1) acute non-STEMI Status: Acute (2) Acute respiratory failure Status: Resolved (3) Pulmonary edema Status: Acute (4) coronary artery disease with stenting Status: Acute (5) UTI (urinary tract infection) Status: Acute (6) Chronic kidney disease with end stage renal failure on dialysis Status: Chronic (7) Hypertension Status: Chronic (8) Status post carcinoma right lung Status: Chronic (9) Status post pneumonectomy Status: Chronic (10) Hypothyroid Status: Chronic Specialty Discharge - Follow Up or Referrals Follow up with: Devyn Baig MD [Physician] - (AUGUST 30, 2016 AT 10:20 AT [facility] FOR LAB SEPTEMBER 05, 2016 AT 8:40 AT [facility] [address] CHAPARRO.) Ryder Carmichael DO [Primary Care Provider] - (Patient will need routine follow- up after discharge. She is to keep whatever appointment set aj schedule) Discharge Plan - Discharge Data Disposition: Swing Bed, Hos Based, [facility] [place] Condition at Discharge: Stable Discharge Diet: advance to your usual diet Activity: ambulate only with your walker Weight Bearing at Discharge: weight bear as tolerated Contact your physician if you experience:: fever over 101, Shortness of breath - Discharge Medications New Rosuvastatin [Crestor] 5 mg PO BEDTIME #30 tablet Sertraline [Zoloft] 25 mg PO DAILY #30 tablet hydrALAZINE TAB [Apresoline Tab] 25 mg PO TID #90 tablet Cefuroxime Tab [Ceftin] 250 mg PO Q48H #14 tablet Isosorbide Mononitrate [Imdur] 30 mg PO DAILY #30 tablet Ticagrelor [Brilinta] 90 mg PO BID #60 tablet Continue amLODIPine [Norvasc] 10 mg PO DAILY Carvedilol [Coreg] 12.5 mg PO BID Allopurinol 100 mg PO BID Levothyroxine Sodium [Synthroid] 25 mcg PO DAILY Esomeprazole Magnesium [Nexium] 40 mg PO DAILY PRN PRN Reason: Reflux Calcium Acetate 667 mg PO TID Discontinued Ergocalciferol (Vitamin D2) [Vitamin D2] 50,000 unit PO Q7D methylPREDNISolone DOSEPAK [Medrol Dosepak] 4 mg PO DIRECTED #1 pack cephALEXin [Keflex] 500 mg PO Q12HR #14 capsule Omeprazole 20 mg PO DAILY No Action clonazePAM [Clonazepam] 1 mg PO DAILY - Follow Up or Referral Follow Up: Devyn Baig MD [Physician] - (AUGUST 30, 2016 AT 10:20 AT [facility] FOR LAB SEPTEMBER 05, 2016 AT 8:[address] [facility] [address] MOREIRA) Ryder Carmichael DO [Primary Care Provider] - (Patient will need routine follow- up after discharge. She is to keep whatever appointment set lardy schedule) - Forms/Instructions Instructions: Coronary Artery Disease (GEN), Left Heart Catheterization (DC), Heart Healthy Diet (GEN), Coronary Intravascular Stent Placement, Residential Builder (GEN) Exam - Constitutional Vitals: Period Temp Pulse Resp BP Sys/Brody Pulse Ox Last 24 Hr 97.2 F-99 F 70-96 16-20 128-164/60-85 95-99 General appearance: mild distress - Head Head exam: Present: normal inspection - Eye Pupils: Present: ULISES - ENT ENT exam: Present: normal exam - Neck Neck exam: Present: normal inspection - Respiratory Respiratory exam: Present: clear to auscultation bilaterally - Cardiovascular Cardiovascular exam: Present: irregular rhythm - GI/Abdominal GI/Abdominal exam: Present: normal bowel sounds, soft - Extremities Exam Extremities exam: Present: full ROM - Back Exam Back exam: Present: normal inspection - Neurological Exam Neurological exam: Present: alert - Psychiatric Psychiatric exam: Present: normal affect, flat affect - Skin Skin exam: Present: normal color Discharge Results Labs on day of discharge: Labs from last 24 hours 08/08/16 08/08/16 05:22 05:22 WBC 15.2 H RBC 3.07 L Hgb 9.5 L Hct 28.7 L MCV 93.5 MCH 31 MCHC 33.1 RDW 14.9 Plt Count 100 L MPV 12.0 Neut % (Auto) 92.0 H Lymph % (Auto) 1.5 L [place] % (Auto) 5.6 Eos % (Auto) 0.1 Baso % (Auto) 0.1 Neut # (Auto) 14.0 H Lymph # (Auto) 0.2 L [place] # (Auto) 0.9 H Eos # (Auto) 0.0 Baso # (Auto) 0.0 Total Counted 100 Immature Gran % 0.7 Nucleated RBC % 0.0 Immature Gran # 0.10 Segmented Neutrophils 95 H Lymphocytes 2 L Monocytes 3 Nucleated RBCs # 0.00 Platelet Estimate Decreased Hypochromasia 1+ Microcytosis Slight Ovalocytes Slight Sodium 135 L Potassium 4.3 Chloride 99 Carbon Dioxide 26 Anion Gap 14.3 BUN 41 H Creatinine 3.70 H GFR Calculation 11 BUN/Creatinine Ratio 11.00 Glucose 98 Calculated Osmolality 279.1 Calcium 7.8 L DS: Provider Date of admission: 07/21/16 05:30 Primary care physician: Ryder Carmichael DO Attending physician on admission: Ryder Carmichael DO Consults: 07/21/16 10:58 Consult to Physician [CONS] Routine Comment: respirator management and evaluation Consulting Provider: Wily Magdaleno 07/21/16 11:51 Consult to Case Mgmt/Social Srvs [CONS] Routine Reason for Case Mgmt/Social Srvs: Discharge Planning Consult to Physician [CONS] Routine Comment: Please inform Dr Hemphill office of his patient Consulting Provider: Josh Hemphill Consult to Physician [CONS] Routine Comment: Respiratory failure on ventilator Consulting Provider: Too Sims 07/21/16 13:36 Consult to Pharmacy [CONS] Routine Reason for Pharmacy Consult: Adjust Meds Renal Funct 07/21/16 15:31 Consult to Physician [CONS] Routine Comment: volume overload Consulting Provider: Consult to Specialist Group: Cardiology When should Consulting Provider be notified: Now Person Notified: [email or web address] Date Notified: 07/21/16 Time Notified: 15:35 07/21/16 16:44 Consult to Dietitian [CONS] Routine Reason for Dietitian: Dietary Consult 07/24/16 10:47 Consult to Cardiac Rehabilitation [CONS] Routine Reason for Cardiac Rehabilitation: Risk Factor Modification Home Exercise Program/Eze Appt Out Pt Cardiac Rehab 07/29/16 07:52 Consult to Physical Therapy [CONS] Routine Reason for Physical Therapy: Evaluate and Treat 07/31/16 11:30 Consult to Physician [CONS] Routine Comment: Consulting Provider: Consult to Specialist Group: Neurology When should Consulting Provider be notified: Now Person Notified: Dr. Deluna office Date Notified: 07/31/16 Time Notified: 11:31 Consult Notification Comment: left message 08/01/16 11:39 Consult to Physical Therapy [CONS] Routine Reason for Physical Therapy: Evaluate and Treat Start Therapy: Today Discharging clinician: Ryder Carmichael DO
[2016-08-08] MEDS ORDERED: ALUMINUM/MAGNES/SIMETH MAX STR 30 ML UDCUP PO PRN (14:26)
[2016-08-08] MEDS ORDERED: TUBERCULIN SKIN TEST 0.1 ML SYRINGE INTRADERM ONE (14:30)
--- NOTE | 2016-08-08 16:34 | Case Mgmt Physician Query Form ---
TB Signs and Symptoms Screening ([place]) INSTRUCTIONS: To be completed annually on residents/staff with a significant Tuberculin Skin Test (TST) upon admission/hire or a prior significant TST. To be completed on all staff at hire. Please respond to each listed symptom with an (X) in either the "YES" or "NO" box. Do you currently have any of the following symptoms: YES NO ( ) x( ) A cough If yes, is it: ( ) Productive ( ) Non- productive ( ) (x ) Hemoptysis (spitting up blood) ( ) ( x) Chest pains ( ) (x) Weight Loss ( ) x( ) Fever ( ) x( ) Night Sweats ( ) (x ) Weakness ( ) (x ) Loss of Appetite ( ) (x) Difficulty Breathing If you answered YES" to any of the above questions, how long have symptoms been present? Comments: If you have any questions, please contact me. thank you, Rolando Sofia RN Case Manager O:[phone] P: [phone] F: [phone] [email or web address]
[2016-08-08 18:15] VITALS: BP 118/55
--- NOTE | 2016-08-08 21:36 | Nephrology Progress Note ---
Nephrology - PN: Subj Interval history: Patient was seen this morning. She denies shortness of breath or chest pain. Exam (PN)-Nephrology - Vital Signs Vital signs: Period Temp Pulse Resp BP Sys/Brody Pulse Ox Last 24 Hr 98.6 F-99.5 F 78-101 16-20 118-164/55-85 93-99 Exam: ENT: Normal Cardiovascular: Regular rate and rhythm. No murmur rub or gallop Lungs: Clear Extremities: No edema - Lab 08/08/16 05:22 08/08/16 05:22 Most recent lab results ABG pH 7.375 (7.35-7.45) 07/25/16 09:30 ABG pCO2 39.3 MM HG (35-48) 07/25/16 09:30 ABG pO2 130.0 MM HG (80-95) H 07/25/16 09:30 ABG HCO3 22.7 MMOL/L (20-26) 07/25/16 09:30 ABG O2 Saturation 98.6 % (95-100) 07/25/16 09:30 Calcium 7.8 MG/DL (8.5-10.1) L 08/08/16 05:22 Magnesium 2.4 MG/DL (1.8-2.4) 08/07/16 04:46 Assessment and Plan (1) Acute UT Status: Resolved Assessment and plan: 80-year-old woman admitted with: * Acute UT. * Three-vessel CAD. Status post stent placement * Remote right pneumonectomy * ESRD. Dialysis MWF. * Hypertension * Anemia. Qualifiers: Myocardial infarction ST status: ST elevation myocardial infarction (2) CAD (coronary artery disease) Status: Chronic Qualifiers: Coronary Disease-Associated Artery/Lesion type: [place] artery [place] vs. transplanted heart: [place] heart Associated angina: with unstable angina Qualified Code(s): I25.110 - Atherosclerotic heart disease of [place] coronary artery with unstable angina pectoris (3) Status post pneumonectomy Status: Chronic (4) ESRD (end stage renal disease) on dialysis Status: Chronic (5) Hypertension Status: Chronic (6) Ventilatory failure Status: Acute Specialty Discharge - Follow Up or Referrals Follow up with: Devyn Baig MD [Physician] - (AUGUST 30, 2016 AT 10:20 AT [facility] FOR LAB SEPTEMBER 05, 2016 AT 8:40 AT [facility] DR. MOREIRA) Ryder Carmichael, [Primary Care Provider] - (Patient will need routine follow- up after discharge. She is to keep whatever appointment set lardy schedule)
== END 2016-08-08 19:10 | disposition swing bed (61) | DRG 981 ==
LOC: EDUNIT# → EDBD → N.ED 03:07 → N.EDINP 05:30 → N.CC 13:05 → N.TELEN 07-28 15:19
PROVIDERS: ADMIT Family Medicine; ATTEND Family Medicine
PROC: CLCCHCL (ICD-10-PCS; 2016-07-24 09:15)

== ENCOUNTER 2016-08-09 16:29 | Inpatient (IN) ==
[2016-08-09] MEDS ORDERED: LACTATED RINGERS 500 ML IV ONE (17:42)
[2016-08-09 17:51] LABS: Basophils % 0.1 % (0.0-0.8); Eosinophils % 0.1 % (0.00-10.9); Hemoglobin 8.3 GM/DL (12.0-16.0); Immature Granulocytes % 0.7 %; Immature Granulocytes Absolute 0.12 #; Lymphocytes # 0.4 10*3/uL (1.4-4.0); Lymphocytes % 2.1 % (21.3-54.2); Mean Corpuscular HGB Conc 33.2 GM/DL (32-36); Mean Corpuscular Hemoglobin 31 PG (27-34); Monocytes # 0.9 10*3/uL (0.11-0.8); Monocytes % 5.4 % (1.7-12.7); Neutrophils # 15.1 10*3/uL (1.4-7.4); Neutrophils % 91.6 % (38.7-73.9); Platelet Count 99 T/CUMM (130-400); Red Blood Count 2.66 MC/CUMM (3.8-5.5); White Blood Count 16.5 T/CUMM (4-12)
[2016-08-09 17:57] LABS: INR 1.1; PT Patient Result 11.4 SECS
[2016-08-09 18:05] LABS: Albumin 2.1 G/DL (3.4-5.0); Bilirubin,Total 0.4 MG/DL (0.2-1.0); Calcium 7.4 MG/DL (8.5-10.1); Magnesium 2.1 MG/DL (1.8-2.4); Osmolality,Calculated 287.4 MOS/KG (273-304); Potassium 3.7 MMOL/L (3.5-5.1); Total Protein 4.6 G/DL (6.4-8.3)
[2016-08-09 18:06] LABS: Troponin I Only 0.364 NG/ML (0.00-0.045)
--- NOTE | 2016-08-09 18:11 | XRay Report ---
XR chest 1V portable Indication: Shortness of breath Comparison: 03 Aug 2016 Findings: The heart and mediastinum are similar in size and configuration with chronic changes in the right hemithorax. The pulmonary vascularity is slightly increased with bilateral increased interstitial lung density. No other lung infiltrates, effusions, pneumothorax or other abnormality is demonstrated. Impression: Findings suggest mild cardiac decompensation. PROCEDURE INTERPRETED AT [facility] DEPARTMENT OF RADIOLOGY Final Report Signed by: Dr. Vahid Sheehan
--- NOTE | 2016-08-09 18:18 | Emergency Department Note ---
Wilbert Thayer Mantricia, am scribing for, and in the presence of, Ru Fritz MD 17:52. Lam Thayer Charles R, MD, personally performed the services described in this documentation, ascribed by Sarai Atkins in my presence, and it is both accurate and complete 818 . Arrival - Arrival Chief Complaint: Non-Specific ED Nursing Triage Note: Pt arrived via ems from dialysis. EMS reports pt de- accessed herself from dialysis machine during dialysis. Patient states the needle came out she didnt pull it out. EMS reports patient was upset because she is in a senior care. Denies any pain or discomfort. Mode of Arrival: Stretcher Limitations: No Limitations Source: Patient Time Seen by Provider: 08/09/16 16:49 - History of Present Illness HPI Narrative: Pt is an 80 y/o black female arriving to ED by EMS from dialysis. EMS states that pt de-accessed herself from her dialysis machine. EMS reported that pt lost a lot of blood. Family states that pt has been confused since her surgery last week. She had 3 stents placed. Pt has been going to dialysis for years, family states. They also report that pt has been weak and SOB. Pt's PCP is Dr. Carmichael. No other complaints were reported to ED. Onset (ago): hour(s) Consistency: constant Severity: mild Allergies/Adverse Reactions: Allergies Allergy/AdvReac Type Severity Reaction Status Date / Time No Known Allergies Allergy Verified 01/12/15 19:15 Home Medications: Home Medications Medication Instructions Recorded Confirmed Type Allopurinol 100 mg PO BID 01/08/15 08/09/16 History Carvedilol [Coreg] 12.5 mg PO BID 01/08/15 08/09/16 History amLODIPine [Norvasc] 10 mg PO DAILY 01/08/15 08/09/16 History Levothyroxine Sodium [Synthroid] 25 mcg PO DAILY 01/12/15 08/09/16 History Esomeprazole Magnesium [Nexium] 40 mg PO DAILY PRN 04/01/15 08/09/16 History Calcium Acetate 667 mg PO TID 11/20/15 08/09/16 History Cefuroxime Tab [Ceftin] 250 mg PO Q48H #14 tablet 08/08/16 08/09/16 Rx Isosorbide Mononitrate [Imdur] 30 mg PO DAILY #30 tablet 08/08/16 08/09/16 Rx Rosuvastatin [Crestor] 5 mg PO BEDTIME #30 tablet 08/08/16 08/09/16 Rx Sertraline [Zoloft] 25 mg PO DAILY #30 tablet 08/08/16 08/09/16 Rx Ticagrelor [Brilinta] 90 mg PO BID #60 tablet 08/08/16 08/09/16 Rx hydrALAZINE TAB [Apresoline Tab] 25 mg PO TID #90 tablet 08/08/16 08/09/16 Rx clonazePAM [Clonazepam] 1 mg PO DAILY 08/09/16 08/09/16 History Review of System - Review of System 12 point system: reviewed and no additional remarkable complaints except as stated - Review of System Constitutional: Present: other (blood loss due to de-assessment from dialysis machine). Absent: chills, diaphoresis, fever Eyes: Absent: discharge, pain Head/Ears/Nose/Throat: Absent: earache, epistaxis Respiratory: Absent: cough, respiratory distress, wheezing Cardiovascular: Absent: chest pain, palpitations, dyspnea on exertion Gastrointestinal: Absent: abdominal pain, nausea, vomiting, diarrhea Genitourinary female: Absent: abnormal menses, dysuria Musculoskeletal: Absent: arm pain, back pain, leg pain, neck pain Skin: Absent: rash, lesions Neurological: Absent: headache, weakness Psychiatric: Absent: anxiety, depression Medical,Surgical,& Family Hx - Medical History Cardio: History of: CHF, Hypertension Neurology: No history of: Seizures HEENT: History of: Eye Problem (GLASSES), Dental Problems (UPPER DENTURE AND LOWER PARITAL) Endocrine: History of: Thyroid Disorder Rheumatology: History of;: Gout Respiratory: History of: Pneumonia, Respiratory Problems (right lung cancer) Renal: History of: Dialysis ([facility] --[facility]; DR OLVERA) Gastrointestinal: History of: GERD (OCCASIONAL) Musculoskeletal: History of: Back/Neck Problems (VERTABRAE FRACTURES), Musculoskeletal Problems (BURSITIS HIPS) Hematology: History of: Anemia (PAST HISTORY) Other: History of: Anesthesia Reactions (NAUSEA WITH PAIN MEDICATIONS), Cancer ( RIGHT LUNG CANCER), Miscellaneous Medical Problems (HAY FEVER) - Surgical History Thoracic Surgeries: Surgical HX of;: Lobectomy (right lung) HEENT Surgeries: Surgical HX of: Eye Surgery (BILATERAL CATARACT) Abdominal Surgeries: Surgical HX of: Appendectomy, Colonoscopy Reproductive Surgeries: Surgical HX of;: Hysterectomy Orthopedic Surgeries: Surgical HX of;: Implanted Devices (FISTULA RIGHT ARM, CATHETER LEFT SUBCLAVIAN), Spinal Surgery (DR ALEXANDER- KYPHOPLASTY) - Family History Family History: Reports;: Family Heart Disease, Family Hypertension - Social History Smoking Status: Never smoker Frequency of Alcohol Use: None Type of Drug Use: None Exam Vital Signs: Vital Signs Temperature 96.6 F L 08/09/16 16:33 Pulse Rate 94 H 08/09/16 16:33 Respiratory Rate 12 08/09/16 16:33 Blood Pressure 96/48 08/09/16 16:33 O2 Sat by Pulse Oximetry 95 08/09/16 16:33 - General Exam limited due to: other (low blood pressure 84/46; confused) General appearance: alert, in no apparent distress - Head Head exam: Present: atraumatic, normocephalic, normal inspection - Eye Eye exam: Present: normal appearance, PERRL, EOMI - ENT ENT exam: Present: normal exam, normal oropharynx, mucous membranes moist, TM's normal bilaterally, normal external ear exam - Neck Neck exam: Present: normal inspection, full ROM, trachea midline. Absent: tenderness - Chest Chest inspection: Present: normal inspection, symmetric chest wall rise. Absent : tenderness - Respiratory Respiratory exam: Present: normal lung sounds bilaterally - Cardiovascular Cardiovascular exam: Present: regular rate, normal rhythm, normal heart sounds - Abdominal Exam Abdominal exam: Present: soft, normal bowel sounds. Absent: distention, tenderness, guarding, rebound - Extremities Exam Extremities exam: Present: normal inspection, full ROM, normal capillary refill. Absent: tenderness, pedal edema - Back Exam Back exam: Present: normal inspection, full ROM. Absent: tenderness - Neurological Exam Neurological exam: Present: alert, oriented X3, CN II-XII intact, normal gait - Psychiatric Psychiatric exam: Present: normal affect, normal mood - Skin Skin exam: Present: warm, dry, intact, normal color Course - Consultations Consultation #1: Dr. Carmichael will admit patient Time: 18:21 Results - Labs CBC & BMP: 08/09/16 17:36 08/09/16 17:36 Lab Results: I have reviewed the patients labs Critical Care Time Critical Care Time: Yes Total Critical Care Time: 60 Disposition Clinical Impression: ESRD (end stage renal disease) on dialysis, Acute blood loss anemia, Acute bleed from dialysis graft, Hypotension (arterial), Generalized weakness Case discussed with: patient, patient's family Disposition: Still a Patient Condition: Guarded Time of Disposition: 18:23
[2016-08-09 20:24] LABS: Band Neutrophils 3 % (0-10); Lymphocytes 1 % (20-55); Platelet Estimate Decreased; Segmented Neutrophils 93 % (50-85); Total Cells Counted 100
[2016-08-09] MEDS ORDERED: ACETAMINOPHEN 325 MG TABLET PO PRN (20:28)
[2016-08-09] MEDS ORDERED: NON-FORMULARY MEDICATION (Esomeprazole Magnesium [Nexium] 40 MG) PO PRN (20:28)
[2016-08-09] MEDS ORDERED: ONDANSETRON 4 MG/2 ML VIAL IV PRN (20:28)
[2016-08-09] MEDS ORDERED: SODIUM CHLORIDE 0.9% 250 ML IV PRN (20:28)
[2016-08-09] MEDS ORDERED: MORPHINE 2 MG/1 ML SYRINGE IV PRN (20:28)
[2016-08-09 21:54] LABS: Basophils % 0.1 % (0.0-0.8); Hematocrit 25.2 VOL% (35.7-47.0); Hemoglobin 8.3 GM/DL (12.0-16.0); Immature Granulocytes % 0.5 %; Immature Granulocytes Absolute 0.06 #; Lymphocytes # 0.2 10*3/uL (1.4-4.0); Lymphocytes % 1.8 % (21.3-54.2); Mean Corpuscular HGB Conc 32.9 GM/DL (32-36); Mean Corpuscular Hemoglobin 31 PG (27-34); Mean Corpuscular Volume 93.3 FL (87-102); Mean Platelet Volume 12.9 FL (9.6-12.0); Monocytes # 0.6 10*3/uL (0.11-0.8); Neutrophils # 11.6 10*3/uL (1.4-7.4); Neutrophils % 92.6 % (38.7-73.9); Red Cell Distribution Width 15.1 % (9.3-17.3); White Blood Count 12.5 T/CUMM (4-12)
[2016-08-09 22:08] LABS: Platelet Count 48 T/CUMM (130-400)
[2016-08-09] MEDS: DOCUSATE SODIUM 100 MG CAPSULE PO SCH (23:51)
[2016-08-09] MEDS: TICAGRELOR 90 MG TABLET PO SCH (23:51)
[2016-08-10] MEDS: ROSUVASTATIN 10 MG TABLET PO SCH ×2 (00:06→21:21)
[2016-08-10] MEDS: CALCIUM ACETATE 667 MG CAPSULE PO SCH ×4 (00:07→21:22)
[2016-08-10] MEDS: ALLOPURINOL 100 MG TABLET PO SCH ×3 (00:07→21:22)
[2016-08-10] MEDS: hydrALAZINE 25 MG TABLET PO SCH ×4 (00:08→21:23)
[2016-08-10] MEDS: CARVEDILOL 12.5 MG TABLET PO SCH ×4 (00:10→21:23)
[2016-08-10 00:48] LABS: Lymphocytes 1 % (20-55); Segmented Neutrophils 99 % (50-85); Total Cells Counted 100
[2016-08-10 00:49] LABS: Anisocytosis 1+; Hypochromasia Slight; Platelet Estimate Decreased
[2016-08-10] MEDS: SODIUM CHLORIDE 0.9% 1,000 ML IV SCH ×2 (03:09→21:22)
[2016-08-10 06:19] LABS: Albumin 2.1 G/DL (3.4-5.0); Bilirubin,Total 0.7 MG/DL (0.2-1.0); Calcium 7.6 MG/DL (8.5-10.1); Magnesium 2.3 MG/DL (1.8-2.4); Osmolality,Calculated 290.1 MOS/KG (273-304); Potassium 4.2 MMOL/L (3.5-5.1); Total Protein 4.3 G/DL (6.4-8.3)
--- NOTE | 2016-08-10 07:28 | XRay Report ---
Exam: XR chest 1V portable Date: 08/10/2016 4:00 AM Indication: Shortness of breath Comparison: None Technical: 08/09/2016 Findings: Deformity the right chest is present. Previous right pneumonectomy are noted with obscuration of the right chest with opacification. The heart is shifted towards the right. Patchy interstitial densities present in the left base. Surgical clips are present in the left upper arm and multiple stents in the right upper arm. Trachea is deviated to right. Previous vertebral plasty in the thoracolumbar junction. External cardiac leads are present TUBING is noted. Impression: 1. Previous deformity right chest in pneumonectomy the some patchy interstitial infiltrate the left base 2. Multiple dialysis access sites suspected with stents in the right axillary region and left upper arm 3. Slight increasing density in the left base could represent infiltrate PROCEDURE INTERPRETED AT [facility] DEPARTMENT OF RADIOLOGY Final Report Signed by: Dr. Alexander Raman
--- NOTE | 2016-08-10 07:58 | Family Practice History&Phys ---
Assessment and Plan (1) Acute blood loss anemia Status: Acute Assessment and plan: Apparently the dialysis catheter dislodged during dialysis and patient had significant blood loss. Being admitted for transfusion and evaluation Current Visit: Yes (2) Generalized weakness Status: Acute Assessment and plan: Patient has had significant weakness since recent staining for coronary artery disease. She had a non-STEMI. Current Visit: Yes (3) coronary artery disease with stenting Status: Acute Assessment and plan: Recent admission for non-STEMI with coronary artery disease and stenting Current Visit: No (4) Chronic kidney disease with end stage renal failure on dialysis Status: Chronic Assessment and plan: Patient has been on chronic dialysis Current Visit: No (5) Hypertension Status: Chronic Assessment and plan: Stable at present Current Visit: No (6) Ischemic cardiomyopathy Status: Chronic Assessment and plan: Stable at present Current Visit: No (7) Hypothyroidism Status: Chronic Assessment and plan: Stable at present Current Visit: Yes History of Present Illness Chief complaint: Acute blood loss and weakness History of present illness: Ms. Reyes is a 80 year old female Pt is an 80 y/o black female arriving to ED by EMS from dialysis. EMS states that pt de-accessed herself from her dialysis machine. EMS reported that pt lost a lot of blood. Family states that pt has been confused since her surgery last week. She had 3 stents placed. Pt has been going to dialysis for years, family states. They also report that pt has been weak and SOB. Apparently the patient was receiving dialysis and the needle from the dialysis machine dislodged. He apparently lost a significant amount of blood. She was sent from the dialysis center to the emergency room and admitted. Transfusion has been started. Home Medications Medication Instructions Recorded Confirmed Type Allopurinol 100 mg PO BID 01/08/15 08/09/16 History Carvedilol [Coreg] 12.5 mg PO BID 01/08/15 08/09/16 History amLODIPine [Norvasc] 10 mg PO DAILY 01/08/15 08/09/16 History Levothyroxine Sodium [Synthroid] 25 mcg PO DAILY 01/12/15 08/09/16 History Esomeprazole Magnesium [Nexium] 40 mg PO DAILY PRN 04/01/15 08/09/16 History Calcium Acetate 667 mg PO TID 11/20/15 08/09/16 History Cefuroxime Tab [Ceftin] 250 mg PO Q48H #14 tablet 08/08/16 08/09/16 Rx Isosorbide Mononitrate [Imdur] 30 mg PO DAILY #30 tablet 08/08/16 08/09/16 Rx Rosuvastatin [Crestor] 5 mg PO BEDTIME #30 tablet 08/08/16 08/09/16 Rx Sertraline [Zoloft] 25 mg PO DAILY #30 tablet 08/08/16 08/09/16 Rx Ticagrelor [Brilinta] 90 mg PO BID #60 tablet 08/08/16 08/09/16 Rx hydrALAZINE TAB [Apresoline Tab] 25 mg PO TID #90 tablet 08/08/16 08/09/16 Rx clonazePAM [Clonazepam] 1 mg PO DAILY 08/09/16 08/09/16 History Allergies Allergy/AdvReac Type Severity Reaction Status Date / Time No Known Allergies Allergy Verified 01/12/15 19:15 Medical,Surgical,& Family Hx - Medical History Cardio: History of: CHF, Hypertension, Cardiovascular Problems Neurology: No history of: Seizures HEENT: History of: Eye Problem (GLASSES), Dental Problems (UPPER DENTURE AND LOWER PARITAL) Endocrine: History of: Thyroid Disorder Rheumatology: History of;: Gout Respiratory: History of: Pneumonia, Lung Cancer, Respiratory Problems (right lung cancer) No history of: Obstructive Sleep Apnea Renal: History of: Dialysis ([facility] [place]; DR OLVERA), Renal Failure Gastrointestinal: History of: GERD (OCCASIONAL) Musculoskeletal: History of: Back/Neck Problems (VERTABRAE FRACTURES), Musculoskeletal Problems (BURSITIS HIPS) No history of: Amputation Hematology: History of: Anemia (PAST HISTORY) Other: History of: Anesthesia Reactions (NAUSEA WITH PAIN MEDICATIONS), Cancer ( RIGHT LUNG CANCER), MRSA (Last hospital admission patient's nasal swab was positive per RN.), Miscellaneous Medical Problems (HAY FEVER) - Surgical History Cardiac Surgeries: Sugical HX of: Cardiac Catheterization Thoracic Surgeries: Surgical HX of;: Lobectomy (right lung) HEENT Surgeries: Surgical HX of: Eye Surgery (BILATERAL CATARACT) Abdominal Surgeries: Surgical HX of: Appendectomy, Colonoscopy Reproductive Surgeries: Surgical HX of;: Gynecologic Surgery, Hysterectomy Orthopedic Surgeries: Surgical HX of;: Implanted Devices (FISTULA RIGHT ARM, CATHETER LEFT SUBCLAVIAN), Spinal Surgery (DR ALEXANDER- KYPHOPLASTY) - Family History Family History: Reports;: Family Heart Disease, Family Hypertension - Social History Smoking Status: Never smoker Frequency of Alcohol Use: None Type of Drug Use: None Marital Status: Lives With:: Spouse Functional capacity: uses cane/walker Exam - Constitutional Vitals: Period Temp Pulse Resp BP Sys/Brody Pulse Ox Last 24 Hr 96.5 F-98.5 F 89-102 18-26 100-129/52-66 97-100 General appearance: mild distress - Head Head exam: Present: normocephalic - ENT ENT exam: Present: normal exam - Neck Neck exam: Present: normal inspection - Respiratory Respiratory exam: Present: clear to auscultation bilaterally - Cardiovascular Cardiovascular exam: Present: irregular rhythm, systolic murmur - GI/Abdominal GI/Abdominal exam: Present: normal bowel sounds, soft - Extremities Exam Extremities exam: Present: normal inspection - Back Exam Back exam: Present: normal inspection - Neurological Exam Neurological exam: Present: alert - Psychiatric Psychiatric exam: Present: normal affect, flat affect - Skin Skin exam: Present: normal color Results - Labs CBC & BMP: 08/09/16 20:48 08/10/16 05:18
--- NOTE | 2016-08-10 08:18 | EKG Report ---
Stationary ECG Study [facility] ER Test Date: 08/09/2016 6:24:58 PM Pat Name: CARMEN TADEO Department: Room: 272 Gender: F Assistant Community Manager: : 1935 Requested by: Ru Frank Order Number: [id number] Reading MD: BOBBY ROBINS Intervals Ferguson Rate: 100 P: 46 AK: 123 QRS: 14 QRSD: 93 T: 178 QT: 353 QTc: 410 Interpretive Statements SINUS TACHYCARDIA ST-TWAVE ABNORMALITIES, POSSIBLE LATERAL ISCHEMIA Electronically Signed On 08-10-16 11:19:42 CDT by BOBBY ROBINS [email or web address]
[2016-08-10] MEDS ORDERED: SERTRALINE 25 MG TABLET PO SCH (09:00)
[2016-08-10] MEDS ORDERED: clonazePAM 0.5 MG TABLET PO SCH (09:00)
[2016-08-10] MEDS: ISOSORBIDE MONONITRATE 30 MG TABLET PO SCH (10:03)
[2016-08-10] MEDS: LEVOTHYROXINE 25 MCG TABLET PO SCH (10:03)
[2016-08-10] MEDS: TICAGRELOR 90 MG TABLET PO SCH ×2 (10:03→21:21)
[2016-08-10] MEDS: DOCUSATE SODIUM 100 MG CAPSULE PO SCH ×2 (10:03→21:23)
[2016-08-10] MEDS: amLODIPine 10 MG TABLET PO SCH (10:03)
[2016-08-10] MEDS: CEFUROXIME 250 MG TABLET PO SCH (10:03)
[2016-08-10] MEDS: PANTOPRAZOLE 40 MG VIAL IV SCH (10:04)
--- NOTE | 2016-08-10 15:42 | Nephrology Consult Note ---
History of Present Illness Chief complaint: ESRD History of present illness: Ms. Reyes is a 80 year old female recently discharged after a hospitalization for MO. Coronary stents were placed. She remained quite weak and was discharged to alf. She dialyzed as an outpatient yesterday. Both needles became dislodged and she lost blood. She was awake and alert at the time. Blood pressure was low on arrival to the ER. She is being transfused Home Medications Medication Instructions Recorded Confirmed Type Allopurinol 100 mg PO BID 01/08/15 08/09/16 History Carvedilol [Coreg] 12.5 mg PO BID 01/08/15 08/09/16 History amLODIPine [Norvasc] 10 mg PO DAILY 01/08/15 08/09/16 History Levothyroxine Sodium [Synthroid] 25 mcg PO DAILY 01/12/15 08/09/16 History Esomeprazole Magnesium [Nexium] 40 mg PO DAILY PRN 04/01/15 08/09/16 History Calcium Acetate 667 mg PO TID 11/20/15 08/09/16 History Cefuroxime Tab [Ceftin] 250 mg PO Q48H #14 tablet 08/08/16 08/09/16 Rx Isosorbide Mononitrate [Imdur] 30 mg PO DAILY #30 tablet 08/08/16 08/09/16 Rx Rosuvastatin [Crestor] 5 mg PO BEDTIME #30 tablet 08/08/16 08/09/16 Rx Sertraline [Zoloft] 25 mg PO DAILY #30 tablet 08/08/16 08/09/16 Rx Ticagrelor [Brilinta] 90 mg PO BID #60 tablet 08/08/16 08/09/16 Rx hydrALAZINE TAB [Apresoline Tab] 25 mg PO TID #90 tablet 08/08/16 08/09/16 Rx clonazePAM [Clonazepam] 1 mg PO DAILY 08/09/16 08/09/16 History Allergies Allergy/AdvReac Type Severity Reaction Status Date / Time No Known Allergies Allergy Verified 01/12/15 19:15 Medical,Surgical,& Family Hx - Medical History Cardio: History of: CHF, Hypertension, Cardiovascular Problems Neurology: No history of: Seizures HEENT: History of: Eye Problem (GLASSES), Dental Problems (UPPER DENTURE AND LOWER PARITAL) Endocrine: History of: Thyroid Disorder Rheumatology: History of;: Gout Respiratory: History of: Pneumonia, Lung Cancer, Respiratory Problems (right lung cancer) No history of: Obstructive Sleep Apnea Renal: History of: Dialysis ([facility] [place]; DR OLVERA), Renal Failure Gastrointestinal: History of: GERD (OCCASIONAL) Musculoskeletal: History of: Back/Neck Problems (VERTABRAE FRACTURES), Musculoskeletal Problems (BURSITIS HIPS) No history of: Amputation Hematology: History of: Anemia (PAST HISTORY) Other: History of: Anesthesia Reactions (NAUSEA WITH PAIN MEDICATIONS), Cancer ( RIGHT LUNG CANCER), MRSA (Last hospital admission patient's nasal swab was positive per RN.), Miscellaneous Medical Problems (HAY FEVER) - Surgical History Cardiac Surgeries: Sugical HX of: Cardiac Catheterization Thoracic Surgeries: Surgical HX of;: Lobectomy (right lung) HEENT Surgeries: Surgical HX of: Eye Surgery (BILATERAL CATARACT) Abdominal Surgeries: Surgical HX of: Appendectomy, Colonoscopy Reproductive Surgeries: Surgical HX of;: Gynecologic Surgery, Hysterectomy Orthopedic Surgeries: Surgical HX of;: Implanted Devices (FISTULA RIGHT ARM, CATHETER LEFT SUBCLAVIAN), Spinal Surgery (DR ALEXANDER- KYPHOPLASTY) - Family History Family History: Reports;: Family Heart Disease, Family Hypertension - Social History Smoking Status: Never smoker Frequency of Alcohol Use: None Type of Drug Use: None Review of Systems ROS unobtainable: due to mental status Exam - Vital Signs Vital signs: Period Temp Pulse Resp BP Sys/Brody Pulse Ox Last 24 Hr 96.5 F-98.5 F 81-102 18-26 89-129/47-66 97-100 Exam: Gen.: Sedated. Received Klonopin earlier ENT: Pupils equal round reactive to light. Neck: Supple. No JVD or bruit. Cardiovascular: Regular rate and rhythm. No murmur rub or gallop Lungs: Clear left. Decreased breath sounds on the right Abdomen: Soft. Nontender. Positive bowel sounds. No organomegaly Extremities: No edema Results - Labs CBC & BMP: 08/09/16 20:48 08/10/16 05:18 Assessment and Plan (1) ESRD (end stage renal disease) on dialysis Status: Chronic Assessment and plan: 80-year-old woman admitted with: * Acute blood loss during dialysis. She is being transfused * ESRD. Dialysis tomorrow * CAD. Recent MO and stent placement * Remote right pneumonectomy Current Visit: Yes (2) Acute blood loss anemia Status: Acute Current Visit: Yes (3) Generalized weakness Status: Acute Current Visit: Yes (4) Hypotension (arterial) Status: Acute Current Visit: Yes (5) coronary artery disease with stenting Status: Acute Current Visit: No (6) Hypertension Status: Chronic Current Visit: No (7) Status post pneumonectomy Status: Chronic Current Visit: No
[2016-08-10 18:11] LABS: Hemoglobin 10.3 GM/DL (12.0-16.0)
[2016-08-11] MEDS: DOCUSATE SODIUM 100 MG CAPSULE PO SCH ×2 (08:19→20:50)
--- NOTE | 2016-08-11 08:22 | Family Practice Progress Note ---
Family Practice - PN: Subj Interval history: Patient was admitted to the hospital after dialysis catheter became dislodged and she lost significant amount of blood. She had just been released from the hospital after a STEMI,. She had multivessel coronary artery disease with angioplasty and stent placement. She was only and swelling. When the bleeding occurred. I reviewed barrier and transfuse 2 units and had planned to discharge this a.m. back to the swing bed. On entering the room staff advised that she had large volume of bright red blood in her diaper. She is slowly losing from the rectum. Her hemoglobin and hematocrit are pending from this a.m. but hemoglobin was 10.3 and hematocrit was 31.0 last p.m.. I have ordered stat labs which are [id number] She is presently on Brilinta following her catheterization and STENTING. I have held the Brilinta and will monitor very closely. I have consulted GI service as they will be aware of the situation. Will review studies and decide whether further transfusions are needed at present. Exam (Progress Note) - Constitutional Vitals: Period Temp Pulse Resp BP Sys/Brody Pulse Ox Last 24 Hr 89.1 F-98.9 F 68-95 16-20 89-119/47-59 92-100 Results - Labs CBC & BMP: 08/10/16 17:33 08/10/16 05:18 Assessment and Plan (1) Acute blood loss anemia Status: Acute Assessment and plan: Apparently the dialysis catheter dislodged during dialysis and patient had significant blood loss. Being admitted for transfusion and evaluation Current Visit: Yes (2) Generalized weakness Status: Acute Assessment and plan: Patient has had significant weakness since recent staining for coronary artery disease. She had a non-STEMI. Current Visit: Yes (3) coronary artery disease with stenting Status: Acute Assessment and plan: Recent admission for non-STEMI with coronary artery disease and stenting Current Visit: No (4) Chronic kidney disease with end stage renal failure on dialysis Status: Chronic Assessment and plan: Patient has been on chronic dialysis Current Visit: No (5) Hypertension Status: Chronic Assessment and plan: Stable at present Current Visit: No (6) Ischemic cardiomyopathy Status: Chronic Assessment and plan: Stable at present Current Visit: No (7) Hypothyroidism Status: Chronic Assessment and plan: Stable at present Current Visit: Yes
[2016-08-11] MEDS: CALCIUM ACETATE 667 MG CAPSULE PO SCH ×3 (08:37→20:50)
[2016-08-11] MEDS: PANTOPRAZOLE 40 MG VIAL IV SCH (08:37)
[2016-08-11] MEDS: LEVOTHYROXINE 25 MCG TABLET PO SCH (08:37)
[2016-08-11] MEDS: ALLOPURINOL 100 MG TABLET PO SCH ×2 (08:37→20:49)
[2016-08-11 08:43] LABS: Basophils % 0.1 % (0.0-0.8); Eosinophils % 0.2 % (0.00-10.9); Hematocrit 28.6 VOL% (35.7-47.0); Hemoglobin 9.3 GM/DL (12.0-16.0); Immature Granulocytes % 0.5 %; Immature Granulocytes Absolute 0.05 #; Lymphocytes # 0.2 10*3/uL (1.4-4.0); Lymphocytes % 2.3 % (21.3-54.2); Mean Corpuscular HGB Conc 32.5 GM/DL (32-36); Mean Corpuscular Hemoglobin 30 PG (27-34); Mean Corpuscular Volume 93.5 FL (87-102); Mean Platelet Volume 12.3 FL (9.6-12.0); Monocytes # 0.6 10*3/uL (0.11-0.8); Monocytes % 5.9 % (1.7-12.7); Neutrophils # 9.2 10*3/uL (1.4-7.4); Platelet Count 69 T/CUMM (130-400); Red Blood Count 3.06 MC/CUMM (3.8-5.5); Red Cell Distribution Width 16.2 % (9.3-17.3); White Blood Count 10.1 T/CUMM (4-12)
[2016-08-11 09:06] LABS: Hypochromasia 1+; Lymphocytes 2 % (20-55); Ovalocytes Slight; Platelet Estimate Decreased; Segmented Neutrophils 94 % (50-85); Total Cells Counted 100
--- NOTE | 2016-08-11 09:22 | Physician Query Form ---
CLICK EDIT DOCUMENT TO SELECT QUERY ANSWER --> OK --> SIGN Shasha Davis RN Clinical Specialist Physician W) [phone] (f) [phone] [email or web address] PROVIDERS: Make your selection(s) from the choices in EACH section by typing an "x" and enter comments in the comment section. Please use your independent medical judgment in providing your response. This request does not imply that any particular answer is desired or expected. CLINICAL INDICATORS: (Providers should not edit this section) Based on documentation of "She had large volume of bright red blood in her diaper. She is slowly losing from the rectum. She is presently on Brilinta following her catheterization and STENTING. I have held the Brilinta and will monitor very closely". Based on the above, could you clarify the appropriate diagnosis, if significant , that supports the above abnormalities and additional evaluation, monitoring, and/or treatment rendered: ( x) Rectal bleeding due to Brilinta ( ) Rectal bleeding unrelated to Brilinta ( ) Rectal bleeding due to ( ) Other, please specify: ( ) Clinically unable to determine COMMENTS: PLEASE ALSO DOCUMENT RESPONSE IN PROGRESS NOTES AND/OR DISCHARGE SUMMARY Use of terms such as suspected, likely, or probable (associated with a specific diagnosis that is being evaluated, monitored, or treated as if it exists) are acceptable and can be restated in the discharge summary if not ruled out. MTDD
[2016-08-11 10:03] LABS: Hematocrit 28.6 VOL% (35.7-47.0); Hemoglobin 9.3 GM/DL (12.0-16.0)
[2016-08-11] MEDS: amLODIPine 10 MG TABLET PO SCH (10:49)
[2016-08-11] MEDS: CARVEDILOL 12.5 MG TABLET PO SCH ×2 (10:49→20:50)
--- NOTE | 2016-08-11 11:31 | Gastrointestinal Consult Note ---
Assessment and Plan (1) Lower GI bleed Status: Acute Assessment and plan: 08/11-Sudden onset of bright red rectal bleeding with clots mixed with stool. On Brilinta following recent heart stents, held at tis time. No prior hx of GI bleed in past. Hgb 9.3, down from 10.3 on yesterday. Recd two units PRBC for hgb 8.3 on admission. No prior history of endoscopy noted in facility database. Continue to monitor serial HH and transfused as needed. Plan and addendum to follow by Dr Romano. Current Visit: Yes History of Present Illness Chief complaint: GI bleed History of present illness: Ms. Reyes is a 80 year old female who was admitted to the hospital 3 days ago after being at dialysis and a needle becoming dislodged causing blood loss. Pt is a fair historian and appears somewhat weak today and unable to talk very much. Her spouses home health nurse is at bedside and assists in some history taking. Information also obtained from chart review. Pt has a history of ESRD and was at dialysis on Sunday when reportedly a needle became dislodged and caused patient to lose some blood. She was brought in by EMS after reports of weakness and SOB at dialysis. She was admitted for further workup. She has a history of CAD with recent stent placement following a non-STEMI on 07/24 and was recently discharged from our facility after a protracted inpatient stay for respiratory failure. Pt was discharged home at that time on Brilinta. Pt was transfused and was to be discharged home today however this morning she was noted to have onset of rectal bleeding with large bloody bowel movement and clots mixed with stool. Pt is complaining of what she states is some vaginal pain however verified this is in fact bleeding from the rectum. On admission her hemoglobin was noted to be 8.3. She received 2 units of blood and it improved to 10.3 however as noted back down today at 9.3. She denies any nausea or vomiting. Patient is reported to have endoscopy done at our facility in the past however no information noted in our facility database regarding this. Denies endoscopy at [facility] at the endoscopic clinic. Home Medications Medication Instructions Recorded Confirmed Type Allopurinol 100 mg PO BID 01/08/15 08/09/16 History Carvedilol [Coreg] 12.5 mg PO BID 01/08/15 08/09/16 History amLODIPine [Norvasc] 10 mg PO DAILY 01/08/15 08/09/16 History Levothyroxine Sodium [Synthroid] 25 mcg PO DAILY 01/12/15 08/09/16 History Esomeprazole Magnesium [Nexium] 40 mg PO DAILY PRN 04/01/15 08/09/16 History Calcium Acetate 667 mg PO TID 11/20/15 08/09/16 History Cefuroxime Tab [Ceftin] 250 mg PO Q48H #14 tablet 08/08/16 08/09/16 Rx Isosorbide Mononitrate [Imdur] 30 mg PO DAILY #30 tablet 08/08/16 08/09/16 Rx Rosuvastatin [Crestor] 5 mg PO BEDTIME #30 tablet 08/08/16 08/09/16 Rx Sertraline [Zoloft] 25 mg PO DAILY #30 tablet 08/08/16 08/09/16 Rx Ticagrelor [Brilinta] 90 mg PO BID #60 tablet 08/08/16 08/09/16 Rx hydrALAZINE TAB [Apresoline Tab] 25 mg PO TID #90 tablet 08/08/16 08/09/16 Rx clonazePAM [Clonazepam] 1 mg PO DAILY 08/09/16 08/09/16 History Allergies Allergy/AdvReac Type Severity Reaction Status Date / Time No Known Allergies Allergy Verified 01/12/15 19:15 Medical,Surgical,& Family Hx - Medical History Cardio: History of: CHF, Hypertension, Cardiovascular Problems Neurology: No history of: Seizures HEENT: History of: Eye Problem (GLASSES), Dental Problems (UPPER DENTURE AND LOWER PARITAL) Endocrine: History of: Thyroid Disorder Rheumatology: History of;: Gout Respiratory: History of: Pneumonia, Lung Cancer, Respiratory Problems (right lung cancer) No history of: Obstructive Sleep Apnea Renal: History of: Dialysis ([facility]; DR OLVERA), Renal Failure Gastrointestinal: History of: GERD (OCCASIONAL) Musculoskeletal: History of: Back/Neck Problems (VERTABRAE FRACTURES), Musculoskeletal Problems (BURSITIS HIPS) No history of: Amputation Hematology: History of: Anemia (PAST HISTORY) Other: History of: Anesthesia Reactions (NAUSEA WITH PAIN MEDICATIONS), Cancer ( RIGHT LUNG CANCER), MRSA (Last hospital admission patient's nasal swab was positive per RN.), Miscellaneous Medical Problems (HAY FEVER) - Surgical History Cardiac Surgeries: Sugical HX of: Cardiac Catheterization Thoracic Surgeries: Surgical HX of;: Lobectomy (right lung) HEENT Surgeries: Surgical HX of: Eye Surgery (BILATERAL CATARACT) Abdominal Surgeries: Surgical HX of: Appendectomy, Colonoscopy Reproductive Surgeries: Surgical HX of;: Gynecologic Surgery, Hysterectomy Orthopedic Surgeries: Surgical HX of;: Implanted Devices (FISTULA RIGHT ARM, CATHETER LEFT SUBCLAVIAN), Spinal Surgery (DR CATHERINE- KYPHOPLASTY) - Family History Family History: Reports;: Family Heart Disease, Family Hypertension - Social History Smoking Status: Never smoker Frequency of Alcohol Use: None Type of Drug Use: None 12 point system: reviewed and no additional remarkable complaints except as stated - Constitutional Constitutional: Present: as per HPI - EENT Eyes: Present: as per HPI Ears: Present: as per HPI Nose, mouth and throat: Present: as per HPI - Cardiovascular Cardiovascular: Present: as per HPI - Respiratory Respiratory: Present: as per HPI - Gastrointestinal Gastrointestinal: Present: as per HPI, abdominal pain, hematochezia - Genitourinary Genitourinary: Present: as per HPI - Musculoskeletal Musculoskeletal: Present: as per HPI - Neurological Neurological: Present: as per HPI - Psychiatric Psychiatric: Present: as per HPI - Endocrine Endocrine: Present: as per HPI - Hematologic/Lymphatic Hematologic/Lymphatic: Present: as per HPI Exam - Constitutional Vitals: Period Temp Pulse Resp BP Sys/Brody Pulse Ox Last 24 Hr 89.1 F-98.9 F 68-95 16-20 89-119/47-59 92-100 General appearance: normal weight, no acute distress - Head Head exam: Present: normal inspection, normocephalic - Eye Eye exam: Present: other (Lids and conjunctivae unremarkable). Absent: scleral icterus - ENT ENT exam: Present: normal exam, normal oropharynx - Neck Neck exam: Present: normal inspection - Respiratory Respiratory exam: Present: clear to auscultation bilaterally. Absent: rales, rhonchi, wheezes - Cardiovascular Cardiovascular exam: Present: regular rate and rhythm. Absent: diastolic murmur , JVD, systolic murmur - GI/Abdominal GI/Abdominal exam: Present: normal bowel sounds, soft. Absent: ascites, distended, mass, organomegaly, tenderness - Extremities Exam Extremities exam: Present: normal inspection, full ROM - Back Exam Back exam: Present: normal inspection - Neurological Exam Neurological exam: Present: alert, oriented X3 - Psychiatric Psychiatric exam: Present: normal affect, normal mood - Skin Skin exam: Present: normal color, warm, dry Results - Labs CBC & BMP: 08/11/16 08:24 08/10/16 05:18 Lab Results: I have reviewed the past 24 hour labs
[2016-08-11] MEDS: ISOSORBIDE MONONITRATE 30 MG TABLET PO SCH (14:11)
[2016-08-11 14:27] LABS: Hematocrit 22.8 VOL% (35.7-47.0); Hemoglobin 7.6 GM/DL (12.0-16.0)
[2016-08-11] MEDS ORDERED: ALBUMIN 25% 25 GM in PREMIX 1 EACH IV ONE ×2 (14:30)
--- NOTE | 2016-08-11 16:21 | Nephrology Progress Note ---
Nephrology - PN: Subj Interval history: She was seen during dialysis. Systolic blood pressure is low. She is awake but weak. She is oriented Lower GI bleeding noted this morning Exam (PN)-Nephrology - Vital Signs Vital signs: Period Temp Pulse Resp BP Sys/Brody Pulse Ox Last 24 Hr 89.1 F-98.9 F 68-95 16-20 90-119/44-59 92-100 Exam: ENT: Normal Cardiovascular: Regular rate and rhythm. No murmur rub or gallop Lungs: Clear Extremities: No edema - Lab 08/11/16 14:15 08/10/16 05:18 Most recent lab results Calcium 7.6 MG/DL (8.5-10.1) L 08/10/16 05:18 Magnesium 2.3 MG/DL (1.8-2.4) 08/10/16 05:18 Assessment and Plan (1) ESRD (end stage renal disease) on dialysis Status: Chronic Assessment and plan: 80-year-old woman admitted with: * GI bleed. GI has been consulted * ESRD. Blood pressure low during dialysis. Stat hematocrit shows dropped from 31-21. She will be transfused during dialysis. * CAD. Recent SC and stent placement * Remote right pneumonectomy Current Visit: Yes (2) Acute blood loss anemia Status: Acute Current Visit: Yes (3) Generalized weakness Status: Acute Current Visit: Yes (4) Hypotension (arterial) Status: Acute Current Visit: Yes (5) coronary artery disease with stenting Status: Acute Current Visit: No (6) Hypertension Status: Chronic Current Visit: No (7) Status post pneumonectomy Status: Chronic Current Visit: No
[2016-08-11 20:08] LABS: Hematocrit 31.1 VOL% (35.7-47.0); Hemoglobin 9.8 GM/DL (12.0-16.0)
[2016-08-11] MEDS: SODIUM CHLORIDE 0.9% 1,000 ML IV SCH (20:48)
[2016-08-11] MEDS: ROSUVASTATIN 10 MG TABLET PO SCH (20:49)
[2016-08-12 06:42] LABS: Basophils % 0.1 % (0.0-0.8); Eosinophils % 0.4 % (0.00-10.9); Hematocrit 30.7 VOL% (35.7-47.0); Hemoglobin 9.9 GM/DL (12.0-16.0); Immature Granulocytes % 0.4 %; Immature Granulocytes Absolute 0.03 #; Lymphocytes # 0.3 10*3/uL (1.4-4.0); Lymphocytes % 3.7 % (21.3-54.2); Mean Corpuscular HGB Conc 32.2 GM/DL (32-36); Mean Corpuscular Hemoglobin 28 PG (27-34); Mean Corpuscular Volume 87.7 FL (87-102); Mean Platelet Volume 12.9 FL (9.6-12.0); Monocytes # 0.5 10*3/uL (0.11-0.8); Monocytes % 6.9 % (1.7-12.7); Neutrophils # 6.7 10*3/uL (1.4-7.4); Neutrophils % 88.5 % (38.7-73.9); Platelet Count 63 T/CUMM (130-400); Red Cell Distribution Width 19.2 % (9.3-17.3); White Blood Count 7.6 T/CUMM (4-12)
[2016-08-12 07:03] LABS: Band Neutrophils 1 % (0-10); Hypochromasia 1+; Lymphocytes 3 % (20-55); Microcytosis 1+; Platelet Estimate Decreased; Segmented Neutrophils 94 % (50-85); Total Cells Counted 100
[2016-08-12 07:17] LABS: Albumin 2.4 G/DL (3.4-5.0); Bilirubin,Total 0.6 MG/DL (0.2-1.0); Calcium 7.7 MG/DL (8.5-10.1); Osmolality,Calculated 290.7 MOS/KG (273-304); Potassium 3.8 MMOL/L (3.5-5.1); Total Protein 4.6 G/DL (6.4-8.3)
[2016-08-12] MEDS: amLODIPine 10 MG TABLET PO SCH (08:51)
[2016-08-12] MEDS: CALCIUM ACETATE 667 MG CAPSULE PO SCH ×3 (08:51→20:32)
[2016-08-12] MEDS: ALLOPURINOL 100 MG TABLET PO SCH ×2 (08:52→20:32)
[2016-08-12] MEDS: LEVOTHYROXINE 25 MCG TABLET PO SCH (08:52)
[2016-08-12] MEDS: ISOSORBIDE MONONITRATE 30 MG TABLET PO SCH (08:52)
[2016-08-12] MEDS: DOCUSATE SODIUM 100 MG CAPSULE PO SCH ×2 (08:53→20:32)
[2016-08-12] MEDS: CARVEDILOL 12.5 MG TABLET PO SCH ×2 (08:53→20:32)
[2016-08-12] MEDS: PANTOPRAZOLE 40 MG VIAL IV SCH (08:54)
--- NOTE | 2016-08-12 09:06 | Family Practice Progress Note ---
Family Practice - PN: Subj Interval history: Patient seen. She is alert and oriented although still very weak. She was dialyzed yesterday and not had any new more GI bleeding at this time. Her H&H is stable. She is scheduled for dialysis tomorrow. We will continue to monitor very closely she is always received 2 units of blood Exam (Progress Note) - Constitutional Vitals: Period Temp Pulse Resp BP Sys/Brody Pulse Ox Last 24 Hr 97.2 F-99.2 F 87-95 16-22 90-130/44-63 92-100 Exam: Generally unchanged overall. HEENT neck is supple trachea midline Cardiovascular 1/6 systolic ejection murmur no gallop or rub Lungs no shortness of breath clear anteriorly Abdomen soft nondistended Results - Labs CBC & BMP: 08/12/16 06:32 08/12/16 06:32 Assessment and Plan (1) Acute blood loss anemia Status: Acute Assessment and plan: 08/12/2016 H&H is stable at this time no more obvious bleeding Current Visit: Yes (2) Lower GI bleed Status: Acute Assessment and plan: 08/12/2016: No bleeding at present Current Visit: Yes
[2016-08-12] MEDS: CEFUROXIME 250 MG TABLET PO SCH (09:17)
--- NOTE | 2016-08-12 11:41 | Gastrointestinal Progress Note ---
Assessment and Plan - Time spent with patient Time spent with patient: Greater than 30 minutes (1) Lower GI bleed Status: Acute Current Visit: Yes (2) Other specified counseling Status: Acute Current Visit: Yes Exam (Progress Note) - Constitutional Vitals: Period Temp Pulse Resp BP Sys/Brody Pulse Ox Last 24 Hr 97.2 F-99.2 F 90-95 16-22 119-130/57-63 92-100 Results - Labs CBC & BMP: 08/12/16 06:32 08/12/16 06:32 Note Addendum: PLEASE NOTE -- automatic citation of patient information is unavoidable in this electronic note. I have made a reasonable effort to review the information cited , but it is not a part of my evaluation, impression, or recommendation unless specifically discussed in the dictated text that follows. As well, voice recognition software was used in the creation of this clinical note. Reasonable effort was made to identify and correct gross errors. Despite proofreading, errors in sonar technician may be present, including nonsense verbiage at times. If you encounter such an error, please contact me at for discussion and correction. -- Jhoan Chief complaint: lower gastrointestinal bleeding Subjective: the patient is an 80-year-old female seen for follow-up of suspected lower gastrointestinal bleeding. One bowel movement has been documented overnight with no blood noted. Vital signs have been stable. Blood counts have been stable. She reports that she feels she needs to have a bowel movement but has been unable to do so on the bedpan. Medications: Tylenol, allopurinol, Norvasc, fossil, Coreg, Ceftin, Colace, Imdur , Synthroid, Zofran, Protonix, Crestor, normal saline infusion Review of Symptoms: 12 point review of symptoms was negative except as noted above Physical examination: Vital Signs: Current vital signs reviewed. General Appearance: lying in bed. Comfortable. Accompanied by family. Head: Normocephalic. Eyes: no scleral icterus. No scleral injection. No conjunctival pallor. Oral Cavity: Odor of breath was normal. No drooling was observed. Lips showed no abnormalities. Lungs: Respiration rhythm and depth was normal. Cardiovascular: Heart rate and rhythm were normal. Abdomen: abdomen was not distended. Abdominal auscultation revealed no abnormalities. Ascites was not discovered. Abdominal palpation revealed no tenderness and no hepatosplenomegaly. Musculoskeletal System: musculoskeletal system was grossly normal. Neurological: level of consciousness was normal. Speech was low volume. No coordination/cerebellum abnormalities were noted. Skin: Gen. appearance was normal. Color and pigmentation were normal. No skin lesions were appreciated. Laboratory: white blood count 7.6, hemoglobin 9.9, hematocrit 30.7, platelets 63 Radiology: reviewed with no pertinent changes noted. Impressions: 1. Lower gastrointestinal bleeding -- no overt bleeding overnight. Blood counts have remained stable. We continue to lean against diagnostic colonoscopy given the patient's comorbid conditions. 2. Other specified counseling -- Patient seen for greater than 30 minutes. Greater than 50% of this time was spent counseling regarding differential diagnosis, likely diagnosis,, diagnostic and therapeutic options, risks, benefits, and alternatives to procedures and medications, informed consent, and plan of care generally. Patient has expressed understanding and wishes to proceed. Recommendations: -- continued volume management -- continued monitoring of blood counts with transfusion as indicated -- consider colonoscopy if urgently indicated, otherwise risk/benefit profile argues against -- we will continue to follow with you
--- NOTE | 2016-08-12 11:45 | Nephrology Progress Note ---
Nephrology - PN: Subj Interval history: No shortness of breath or chest pain. She has had no further evidence of GI bleeding. Exam (PN)-Nephrology - Vital Signs Vital signs: Period Temp Pulse Resp BP Sys/Brody Pulse Ox Last 24 Hr 97.2 F-99.2 F 90-95 16-22 119-130/57-63 92-100 Exam: ENT: Normal Cardiovascular: Regular rate and rhythm. No murmur rub or gallop Lungs: Clear Extremities: No edema - Lab 08/12/16 06:32 08/12/16 06:32 Most recent lab results Calcium 7.7 MG/DL (8.5-10.1) L 08/12/16 06:32 Magnesium 2.3 MG/DL (1.8-2.4) 08/10/16 05:18 Assessment and Plan (1) ESRD (end stage renal disease) on dialysis Status: Chronic Assessment and plan: 80-year-old woman admitted with: * GI bleed. She required transfusion during dialysis yesterday. Hematocrit has remained stable since then * ESRD. Dialysis MWF * CAD. Recent NE and stent placement. Brilinta was discontinued. Plavix will be restarted. Discussed risk of bleeding versus stent closure * Remote right pneumonectomy Current Visit: Yes (2) Acute blood loss anemia Status: Acute Current Visit: Yes (3) Generalized weakness Status: Acute Current Visit: Yes (4) Hypotension (arterial) Status: Acute Current Visit: Yes (5) coronary artery disease with stenting Status: Acute Current Visit: No (6) Hypertension Status: Chronic Current Visit: No (7) Status post pneumonectomy Status: Chronic Current Visit: No
[2016-08-12] MEDS: CLOPIDOGREL 75 MG TABLET PO SCH (15:29)
[2016-08-12] MEDS ORDERED: clonazePAM 0.5 MG TABLET PO PRN (16:16)
[2016-08-12] MEDS: SODIUM CHLORIDE 0.9% 1,000 ML IV SCH (20:32)
[2016-08-12] MEDS: ROSUVASTATIN 10 MG TABLET PO SCH (20:33)
[2016-08-13 06:50] LABS: Basophils % 0.2 % (0.0-0.8); Eosinophils # 0.1 10*3/uL (0.0-0.87); Eosinophils % 0.8 % (0.00-10.9); Hematocrit 29.8 VOL% (35.7-47.0); Hemoglobin 9.5 GM/DL (12.0-16.0); Immature Granulocytes % 0.5 %; Immature Granulocytes Absolute 0.03 #; Lymphocytes # 0.4 10*3/uL (1.4-4.0); Lymphocytes % 5.7 % (21.3-54.2); Mean Corpuscular HGB Conc 31.9 GM/DL (32-36); Mean Corpuscular Hemoglobin 28 PG (27-34); Mean Corpuscular Volume 87.6 FL (87-102); Mean Platelet Volume 11.9 FL (9.6-12.0); Monocytes # 0.6 10*3/uL (0.11-0.8); Monocytes % 8.8 % (1.7-12.7); Neutrophils # 5.5 10*3/uL (1.4-7.4); Red Cell Distribution Width 19.2 % (9.3-17.3); White Blood Count 6.5 T/CUMM (4-12)
[2016-08-13 06:52] LABS: Platelet Count 70 T/CUMM (130-400)
[2016-08-13 07:14] LABS: Hypochromasia 1+; Microcytosis 1+; Ovalocytes Slight; Platelet Estimate Decreased
--- NOTE | 2016-08-13 09:34 | Gastrointestinal Progress Note ---
Assessment and Plan (1) Lower GI bleed Status: Acute Current Visit: Yes (2) Other specified counseling Status: Acute Current Visit: Yes Exam (Progress Note) - Constitutional Vitals: Period Temp Pulse Resp BP Sys/Brody Pulse Ox Last 24 Hr 98.0 F-99.1 F 84-98 16-20 112-141/48-67 90-100 Results - Labs CBC & BMP: 08/13/16 Unknown 08/13/16 Unknown Note Addendum: PLEASE NOTE -- automatic citation of patient information is unavoidable in this electronic note. I have made a reasonable effort to review the information cited , but it is not a part of my evaluation, impression, or recommendation unless specifically discussed in the dictated text that follows. As well, voice recognition software was used in the creation of this clinical note. Reasonable effort was made to identify and correct gross errors. Despite proofreading, errors in field marketing director may be present, including nonsense verbiage at times. If you encounter such an error, please contact me at [phone] for discussion and correction. -- Jhoan Chief complaint: lower gastrointestinal bleeding Subjective: the patient is an 80-year-old female seen for follow-up of suspected lower gastrointestinal bleeding. Patient was found to be bradycardic with undetectable pulse this morning and underwent ACLS protocol (code blue). She was apparently recovered in relatively short order and transferred to the intensive care unit for closer monitoring. At present, she is intubated but awake. She is attended by Dr. Montalvo who is working on maintaining her blood pressure. There has been no report of overt gastrointestinal bleeding. Of note, Plavix was restarted yesterday in consideration of the fact that the patient recently had a coronary stent placed. One bowel movement has been documented overnight with no blood noted. Blood counts have been stable. Medications: Tylenol, allopurinol, Norvasc, fossil, Coreg, Ceftin, Colace, Imdur , Synthroid, Zofran, Protonix, Crestor, normal saline infusion Review of Symptoms: unable to provide Physical examination: Vital Signs: Current vital signs reviewed. Patient was hypotensive. General Appearance: lying in bed. Intubated. Alert. Head: Normocephalic. Eyes: no scleral icterus. No scleral injection. No conjunctival pallor. Oral Cavity: endotracheal tube in place. Odor of breath was normal. No drooling was observed. Lips showed no abnormalities. Lungs: Respiration rhythm and depth was mechanically regulated. Cardiovascular: Heart rate and rhythm were normal. Abdomen: abdomen was not distended. Ascites was not discovered. Abdominal palpation revealed no tenderness and no hepatosplenomegaly. Musculoskeletal System: musculoskeletal system was grossly normal. Neurological: level of consciousness was normal. Skin: Gen. appearance was normal. Color and pigmentation were normal. No skin lesions were appreciated. Laboratory: hemoglobin 9.5, hematocrit 29.8 Radiology: reviewed with no pertinent changes noted. Impressions: 1. Lower gastrointestinal bleeding -- no overt bleeding overnight. Blood counts have remained stable. We continue to lean against diagnostic colonoscopy given the patient's comorbid conditions and particularly given this most recent. I recommend continued monitoring of blood counts and aggressive management of volume status. 2. Other specified counseling -- Patient seen for more than 30 minutes. Greater than 50% of this time was spent counseling regarding differential diagnosis, likely diagnosis,, diagnostic and therapeutic options, risks, benefits, and alternatives to procedures and medications, informed consent, and plan of care generally. Patient has expressed understanding and wishes to proceed. Recommendations: -- continued volume management -- continued monitoring of blood counts with transfusion as indicated -- consider colonoscopy if urgently indicated, otherwise risk/benefit profile argues against -- we will continue to follow with you. Dr. Romano will resume G.I. care for this patient tomorrow
--- NOTE | 2016-08-13 09:46 | Family Practice Progress Note ---
Family Practice - PN: Subj Interval history: Patient seen she is resting well. No acute distress. She is receiving dialysis and we are just monitoring her vitals which are stable at this time. Her hemoglobin hematocrit are 9.5 and 30. She does answer questions but is somewhat difficult to hear as she talks very quietly Exam (Progress Note) - Constitutional Vitals: Period Temp Pulse Resp BP Sys/Brody Pulse Ox Last 24 Hr 98.0 F-99.1 F 84-98 16-20 112-141/48-67 90-100 Exam: Generally unchanged overall. HEENT neck is supple trachea midline Cardiovascular 1/6 systolic ejection murmur no gallop or rub Lungs no shortness of breath clear anteriorly Abdomen soft nondistended Results - Labs CBC & BMP: 08/13/16 06:35 08/12/16 06:32 Assessment and Plan (1) Acute blood loss anemia Status: Acute Assessment and plan: 08/12/2016 H&H is stable at this time no more obvious bleeding 08/13/2016. She is stable at this time. Current Visit: Yes (2) Lower GI bleed Status: Acute Assessment and plan: 08/12/2016: No bleeding at present 08/13/2016: No obvious bleeding at present Current Visit: Yes
[2016-08-13] MEDS: CARVEDILOL 12.5 MG TABLET PO SCH ×2 (10:14→20:22)
[2016-08-13] MEDS: CALCIUM ACETATE 667 MG CAPSULE PO SCH ×3 (10:14→20:28)
[2016-08-13] MEDS: LEVOTHYROXINE 25 MCG TABLET PO SCH (10:15)
[2016-08-13] MEDS: ISOSORBIDE MONONITRATE 30 MG TABLET PO SCH (10:15)
[2016-08-13] MEDS: CLOPIDOGREL 75 MG TABLET PO SCH (10:15)
[2016-08-13] MEDS: DOCUSATE SODIUM 100 MG CAPSULE PO SCH ×2 (10:15→20:22)
[2016-08-13] MEDS: amLODIPine 10 MG TABLET PO SCH (10:15)
[2016-08-13] MEDS: ALLOPURINOL 100 MG TABLET PO SCH ×2 (10:15→20:28)
[2016-08-13] MEDS: PANTOPRAZOLE 40 MG VIAL IV SCH (10:16)
[2016-08-13] MEDS ORDERED: INSULIN REGULAR 100 UNIT/ML ONE (10:54)
--- NOTE | 2016-08-13 11:10 | Event Note ---
Patient is an 80-year-old black female with history of end-stage renal disease who was admitted to Dr. Carmichael. The patient was found without pulse and a CODE BLUE was called. Dr. Vidales responded and patient was found to be in a heart block with severe bradycardia. Upon my arrival CPR was in progress. Patient was given epinephrine IV by Dr. Vidales and this was followed 3 minutes later by another epinephrine IV. Patient was also empirically treated for hyperkalemia with D50, insulin, and bicarb. Endotracheal tube was placed without difficulty with 7.0 endotracheal tube. Breath sounds were decreased on the right. Patient had good color change. Patient had return of pulse following second epinephrine. With performing of chest x-ray patient had obvious chest wall deformity on the right with previous pneumonectomy. The patient's old chest x- rays are essentially unchanged. Patient was noted to have pink frothy sputum in the endotracheal tube. Right femoral vein 3 lm central venous catheter was placed without difficulty following administration of subcutaneous 1% lidocaine local. 3 lines aspirated without difficulty. 3 lines flushed without difficulty. Indication for placement was lack of IV access. Estimated blood loss 10 cc.
--- NOTE | 2016-08-13 11:35 | EKG Report ---
Stationary ECG Study [facility] Test Date: 08/13/2016 11:14:01 AM Pat Name: CARMEN TADEO Department: Room: 127 Gender: F Manager Intelligence: : [id number] Requested by: Micha Vidales Order Number: [id number] Reading MD: JOAQUIN BARNES Intervals Roberts Rate: 87 P: 52 TN: 137 QRS: 22 QRSD: 82 T: 75 QT: 374 QTc: 419 Interpretive Statements SINUS RHYTHM INTERMITTENT LBBB ABN ST-T Electronically Signed On 08-14-16 07:00:44 CDT by JOAQUIN BARNES [email or web address]
--- NOTE | 2016-08-13 12:10 | Nephrology Progress Note ---
Nephrology - PN: Subj Interval history: Ms. Reyes suffered an arrest a short time ago. She was awake and talking and oriented when seen by Dr. Montalvo. Short time later she was found without pulse. She was noted to be severely bradycardic. She was given CPR and epinephrine. Sinus rhythm returned. She was intubated and transferred to the ICU. She is awake. Systolic blood pressure is low, in the 80s. Exam (PN)-Nephrology - Vital Signs Vital signs: Period Temp Pulse Resp BP Sys/Brody Pulse Ox Last 24 Hr 97 F-99.1 F 80-98 7-20 93-141/53-67 90-100 Exam: Gen.: On ventilator. She is alert ENT: Pupils equal round reactive to light. Neck: Supple. No JVD or bruit. Cardiovascular: Regular rate and rhythm. No murmur rub or gallop Lungs: Decreased breath sounds on the right. (Previous pneumonectomy). Rhonchi on the left Abdomen: Soft. Nontender. Positive bowel sounds. No organomegaly Extremities: No edema - Lab 08/13/16 06:35 08/12/16 06:32 Most recent lab results Calcium 7.7 MG/DL (8.5-10.1) L 08/12/16 06:32 Magnesium 2.3 MG/DL (1.8-2.4) 08/10/16 05:18 Assessment and Plan (1) ESRD (end stage renal disease) on dialysis Status: Chronic Assessment and plan: 80-year-old woman admitted with: * Cardiac arrest. She is now in sinus rhythm. Blood pressure is low. Cardiology is following * GI bleed. She required transfusion during dialysis yesterday. Hematocrit has remained stable since then * ESRD. Dialysis MWF. Potassium was normal yesterday. Repeat BMP pending * CAD. Recent NE and stent placement. Brilinta was discontinued. Plavix will be restarted. Discussed risk of bleeding versus stent closure * Remote right pneumonectomy Current Visit: Yes (2) Acute blood loss anemia Status: Acute Current Visit: Yes (3) Generalized weakness Status: Acute Current Visit: Yes (4) Hypotension (arterial) Status: Acute Current Visit: Yes (5) coronary artery disease with stenting Status: Acute Current Visit: No (6) Hypertension Status: Chronic Current Visit: No (7) Status post pneumonectomy Status: Chronic Current Visit: No
[2016-08-13 12:13] LABS: ABG Base Excess -0.6 MMOL/L (-2.5-2.5); ABG HCO3 23.5 MMOL/L (20-26); ABG PH 7.241 (7.35-7.45); ABG TCO2 26.3 MMOL/L (23-27)
[2016-08-13 12:14] LABS: ABG PO2 37.8 MM HG (80-95)
--- NOTE | 2016-08-13 12:15 | XRay Report ---
XR KUB Indication: Central line placement Comparison: Flat and erect abdomen 01/26/2014. Technique: Supine AP image of the abdomen was obtained. Findings: Opacification of the lower right chest is suggested. Multiple remote rib deformities on the right appear stable. Bowel gas pattern demonstrates no significant abnormality. Multiple diverticula are present within the large bowel in the region of the descending and sigmoid colon. Right-sided central venous catheter terminates at L4. Impression: 1. Right femoral catheter placement is demonstrated the tip lies at L4 directed to the left. Correlation is recommended to confirm venous placement. 08/13/2016 12:09 PM PROCEDURE INTERPRETED AT [facility] DEPARTMENT OF RADIOLOGY Final Report Signed by: Dr. Mario Bennett
[2016-08-13] MEDS ORDERED: PHENYLEPHRINE DRIP 40 MG/250 ML PREMIX IV ONE (12:18)
[2016-08-13] MEDS: PHENYLEPHRINE DRIP 40 MG/250 ML PREMIX IV SCH ×3 (12:26→18:36)
[2016-08-13 12:29] LABS: Basophils % 0.1 % (0.0-0.8); Eosinophils % 0.2 % (0.00-10.9); Hematocrit 28.3 VOL% (35.7-47.0); Hemoglobin 8.9 GM/DL (12.0-16.0); Immature Granulocytes % 1.1 %; Lymphocytes # 0.2 10*3/uL (1.4-4.0); Lymphocytes % 1.9 % (21.3-54.2); Mean Corpuscular HGB Conc 31.4 GM/DL (32-36); Mean Corpuscular Hemoglobin 29 PG (27-34); Mean Corpuscular Volume 91.6 FL (87-102); Mean Platelet Volume 12.2 FL (9.6-12.0); Monocytes # 0.4 10*3/uL (0.11-0.8); Neutrophils # 8.2 10*3/uL (1.4-7.4); Neutrophils % 92.7 % (38.7-73.9); Platelet Count 60 T/CUMM (130-400); Red Blood Count 3.09 MC/CUMM (3.8-5.5); Red Cell Distribution Width 19.6 % (9.3-17.3); White Blood Count 8.8 T/CUMM (4-12)
--- NOTE | 2016-08-13 12:32 | XRay Report ---
XR chest 1V portable Indication: Shortness of breath Comparison: Chest x-ray 08/10/2016 Technique: Portable AP chest was performed. Findings: Endotracheal tube is in place which terminates at the level of aortic knob. Minimal interval increase in perihilar vasculature within the left lung is suggested which may reflect minimal evidence of pulmonary venous congestive changes. Small left-sided pleural effusion is present, small in size. This was not previously evident. Right chest remains opacified deformity of the right chest wall postoperative changes suggesting pneumonectomy are stable. Bones and soft tissues otherwise are stable. Impression: 1. The appearance of the left lung suggest vascular congestive changes. A new small left-sided pleural effusion additionally is present. 2. Interval intubation. 08/13/2016 12:27 PM PROCEDURE INTERPRETED AT [facility] DEPARTMENT OF RADIOLOGY Final Report Signed by: Dr. Mario Bennett
[2016-08-13 12:42] LABS: ABG Base Excess -0.1 MMOL/L (-2.5-2.5); ABG HCO3 24.4 MMOL/L (20-26); ABG Oxygen Saturation 99.9 % (95-100); ABG PCO2 48.3 MM HG (35-48); ABG PH 7.339 (7.35-7.45); ABG TCO2 24.1 MMOL/L (23-27)
[2016-08-13 12:48] LABS: Calcium 7.1 MG/DL (8.5-10.1); Osmolality,Calculated 302.7 MOS/KG (273-304); Potassium 3.8 MMOL/L (3.5-5.1)
[2016-08-13 12:53] LABS: Troponin I Only 0.169 NG/ML (0.00-0.045)
[2016-08-13 13:00] LABS: Band Neutrophils 2 % (0-10); Hypochromasia 1+; Lymphocytes 1 % (20-55); Metamyelocytes 3 %; Microcytosis 1+; Segmented Neutrophils 91 % (50-85); Total Cells Counted 100
[2016-08-13 13:01] LABS: Ovalocytes Slight; Platelet Estimate Decreased
--- NOTE | 2016-08-13 14:27 | Pulmonology Consult Note ---
Assessment and Plan (1) Chronic kidney disease with end stage renal failure on dialysis Status: Chronic Assessment and plan: Patient on dialysis Sunday. At present she is requiring pressors to keep her blood pressure up. Probably would not tolerate dialysis today Current Visit: No (2) Ischemic cardiomyopathy Status: Chronic Assessment and plan: Echo last admit showed ejection fraction 10-15%. Very severe ischemic cardiomyopathy. Does not take much for her to go into heart failure. Current Visit: No (3) Status post carcinoma right lung Status: Chronic Assessment and plan: Previous right pneumonectomy for lung cancer. 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 Current Visit: No (4) Status post pneumonectomy Status: Chronic Assessment and plan: Previous right pneumonectomy for lung cancer. Current Visit: No (5) Acute respiratory failure Status: Resolved Assessment and plan: Patient presently on ventilator because of pulmonary edema. PCO2 is 48 on current settings. PO2 is in the mid 300s. Will reduce FiO2. Start weaning when her fluid status is right. Current Visit: No History of Present Illness Chief complaint: Respiratory failure History of present illness: Ms. Reyes is a 80 year old female who is a dialysis patient. She had a previous right pneumonectomy for lung cancer. She came back into the hospital after the accessing herself at dialysis, with subsequent bleed about 5 days ago. She has been dialyzed Sunday and Sunday. Today she went into pulmonary edema acute respiratory failure and had a cardiac arrest with CPR. She is now on the ventilator and is responsive. A good bit of pulmonary edema fluid is coming out of her ET tube, however chest x-ray does not look terribly wet. She has an ejection fraction of 10-15%. I think congestive heart failure is likely the cause. Home Medications Medication Instructions Recorded Confirmed Type Allopurinol 100 mg PO BID 01/08/15 08/09/16 History Carvedilol [Coreg] 12.5 mg PO BID 01/08/15 08/09/16 History amLODIPine [Norvasc] 10 mg PO DAILY 01/08/15 08/09/16 History Levothyroxine Sodium [Synthroid] 25 mcg PO DAILY 01/12/15 08/09/16 History Esomeprazole Magnesium [Nexium] 40 mg PO DAILY PRN 04/01/15 08/09/16 History Calcium Acetate 667 mg PO TID 11/20/15 08/09/16 History Cefuroxime Tab [Ceftin] 250 mg PO Q48H #14 tablet 08/08/16 08/09/16 Rx Isosorbide Mononitrate [Imdur] 30 mg PO DAILY #30 tablet 08/08/16 08/09/16 Rx Rosuvastatin [Crestor] 5 mg PO BEDTIME #30 tablet 08/08/16 08/09/16 Rx Sertraline [Zoloft] 25 mg PO DAILY #30 tablet 08/08/16 08/09/16 Rx Ticagrelor [Brilinta] 90 mg PO BID #60 tablet 08/08/16 08/09/16 Rx hydrALAZINE TAB [Apresoline Tab] 25 mg PO TID #90 tablet 08/08/16 08/09/16 Rx clonazePAM [Clonazepam] 1 mg PO DAILY 08/09/16 08/09/16 History Allergies Allergy/AdvReac Type Severity Reaction Status Date / Time No Known Allergies Allergy Verified 01/12/15 19:15 ROS unobtainable: due to endotracheal tube Exam (Pulmonay) H&P - Constitutional Vitals: Period Temp Pulse Resp BP Sys/Brody Pulse Ox Last 24 Hr 97 F-99.1 F 70-98 0-20 65-161/42-82 90-100 Exam: Systolic blood pressure is 101. She is on Demetrius-Synephrine. She is responsive and squeezes fingers with both hands. No fever. Pupils react to light. Orotracheal tube in place. Neck supple. Chest reveals some rales in the left lung. Right chest is silent. Heart rapid rate normal rhythm no murmurs. Abdomen soft no masses. Bowel sounds present. Extremities no clubbing cyanosis. She has a trace of edema. Medical,Surgical,& Family Hx - Medical History Cardio: History of: CHF, Hypertension, Cardiovascular Problems Neurology: No history of: Seizures HEENT: History of: Eye Problem (GLASSES), Dental Problems (UPPER DENTURE AND LOWER PARITAL) Endocrine: History of: Thyroid Disorder Rheumatology: History of;: Gout Respiratory: History of: Pneumonia, Lung Cancer, Respiratory Problems (right lung cancer) No history of: Obstructive Sleep Apnea Renal: History of: Dialysis ([facility]; DR OLVERA), Renal Failure Gastrointestinal: History of: GERD (OCCASIONAL) Musculoskeletal: History of: Back/Neck Problems (VERTABRAE FRACTURES), Musculoskeletal Problems (BURSITIS HIPS) No history of: Amputation Hematology: History of: Anemia (PAST HISTORY) Other: History of: Anesthesia Reactions (NAUSEA WITH PAIN MEDICATIONS), Cancer ( RIGHT LUNG CANCER), MRSA (Last hospital admission patient's nasal swab was positive per RN.), Miscellaneous Medical Problems (HAY FEVER) - Surgical History Cardiac Surgeries: Sugical HX of: Cardiac Catheterization Thoracic Surgeries: Surgical HX of;: Lobectomy (right lung) HEENT Surgeries: Surgical HX of: Eye Surgery (BILATERAL CATARACT) Abdominal Surgeries: Surgical HX of: Appendectomy, Colonoscopy Reproductive Surgeries: Surgical HX of;: Gynecologic Surgery, Hysterectomy Orthopedic Surgeries: Surgical HX of;: Implanted Devices (FISTULA RIGHT ARM, CATHETER LEFT SUBCLAVIAN), Spinal Surgery (DR CATHERINE- KYPHOPLASTY) - Family History Family History: Reports;: Family Heart Disease, Family Hypertension - Social History Smoking Status: Never smoker Frequency of Alcohol Use: None Type of Drug Use: None Results - Labs CBC & BMP: 08/13/16 Unknown 08/13/16 Unknown Lab Results: I have reviewed the past 24 hour labs - Diagnostic Findings Procedure: Chest x-ray: image reviewed by me (Right lung surgically absent. Left lung with slightly increased interstitial markings. ET tube good position. )
[2016-08-13 15:17] LABS: ABG HCO3 23.4 MMOL/L (20-26); ABG Oxygen Saturation 88.6 % (95-100); ABG PCO2 53.6 MM HG (35-48); ABG PH 7.298 (7.35-7.45); ABG PO2 52.2 MM HG (80-95); ABG TCO2 23.8 MMOL/L (23-27); Pt O2 Delivery Device Ventilator
[2016-08-13] MEDS: PROPOFOL 1,000 MG/100 ML BOTTLE IV SCH (15:46)
[2016-08-13 19:43] LABS: Troponin I Only 0.335 NG/ML (0.00-0.045)
[2016-08-13] MEDS: ROSUVASTATIN 10 MG TABLET PO SCH (20:22)
[2016-08-13 20:48] LABS: Hematocrit 35.5 VOL% (35.7-47.0); Hemoglobin 11.2 GM/DL (12.0-16.0)
[2016-08-13] MEDS: NOREPINEPHRINE 16 MG in SODIUM CHLORIDE 0.9% 234 ML IV SCH (21:00)
[2016-08-13] MEDS: PHENYLEPHRINE INJ 160 MG in SODIUM CHLORIDE 0.9% 234 ML IV SCH (21:00)
[2016-08-13] MEDS: SODIUM CHLORIDE 0.9% 1,000 ML IV SCH (21:20)
[2016-08-14 05:23] LABS: Allen Test Positive; Pt O2 Delivery Device Ventilator
[2016-08-14 05:24] LABS: ABG Base Excess -4.9 MMOL/L (-2.5-2.5); ABG HCO3 19.4 MMOL/L (20-26); ABG Oxygen Saturation 92.6 % (95-100); ABG PCO2 33.7 MM HG (35-48); ABG PH 7.378 (7.35-7.45); ABG PO2 59.1 MM HG (80-95); ABG TCO2 20.4 MMOL/L (23-27)
[2016-08-14 05:57] LABS: Basophils % 0.2 % (0.0-0.8); Hematocrit 37.4 VOL% (35.7-47.0); Hemoglobin 11.9 GM/DL (12.0-16.0); Immature Granulocytes % 1.1 %; Immature Granulocytes Absolute 0.21 #; Lymphocytes # 0.8 10*3/uL (1.4-4.0); Lymphocytes % 4.2 % (21.3-54.2); Mean Corpuscular HGB Conc 31.8 GM/DL (32-36); Mean Corpuscular Hemoglobin 29 PG (27-34); Mean Corpuscular Volume 89.5 FL (87-102); Mean Platelet Volume 12.9 FL (9.6-12.0); Monocytes # 0.9 10*3/uL (0.11-0.8); Monocytes % 4.4 % (1.7-12.7); Neutrophils # 17.9 10*3/uL (1.4-7.4); Neutrophils % 90.1 % (38.7-73.9); Red Blood Count 4.18 MC/CUMM (3.8-5.5); Red Cell Distribution Width 20.1 % (9.3-17.3); White Blood Count 19.9 T/CUMM (4-12)
[2016-08-14 05:58] LABS: Platelet Count 70 T/CUMM (130-400)
[2016-08-14 06:43] LABS: Band Neutrophils 10 % (0-10); Burr Cells 2+; Lymphocytes 4 % (20-55); Platelet Estimate Decreased; Polychromasia Slight; Segmented Neutrophils 84 % (50-85); Target Cells Slight; Total Cells Counted 100
--- NOTE | 2016-08-14 07:35 | XRay Report ---
Referring Physician: Wily Magdaleno MD Exam: XR chest 1V portable Date: August 14, 2016 at 3:11 AM Reason: Ventilator Comparison: Chest one view portable August 13, 2016 Findings: An endotracheal tube is again in place. The mediastinum/heart are partially obscured but appear stable. There is again surgical change at the right lung, suggesting right pneumonectomy. Scattered opacities are seen within the left mid and lower lung zones. This could represent pulmonary edema or pneumonia. No pneumothorax is identified, but there is mild left pleural fluid. The osseous structures appear stable. A vascular stent is noted at the right arm. Impression: The opacities within the left lung have increased, especially at the left lower lung zone. This could represent pulmonary edema or pneumonia. There is also mild left pleural fluid as before. PROCEDURE INTERPRETED AT [facility] DEPARTMENT OF RADIOLOGY Final Report Signed by: Dr. Devyn Banda
--- NOTE | 2016-08-14 08:43 | Pulmonology Progress Note ---
Pulmonary - PN: Subj Interval history: Patient is an 80-year-old black lady that has had a previous right pneumonectomy. She is a dialysis patient and has a cardiomyopathy. She came in several weeks ago shortness of breath and was on the ventilator for short period. Her left lung cleared up nicely and she was doing well. She did have some confusion that cleared. She apparently went home and came back in with problems with her access. Over the weekend she went back in the pulmonary edema and is now back on the ventilator. She has a wide A-a O2 gradient and is requiring high FiO2 at this point. Her left lung does look wet. She will probably have dialysis today. Her blood pressure and heart rate have been relatively stable. She has required pressors up until this point. Exam (Progress Note) - Constitutional Vitals: Period Temp Pulse Resp BP Sys/Brody Pulse Ox Last 24 Hr 96.7 F-98.4 F 70-101 0-27 61-161/37-82 89-100 General appearance: no acute distress, under weight, other (She does appear alert today and is comfortable on the ventilator.) - Head Head exam: Present: normal inspection, normocephalic - Eye Eye exam: Present: EOMI. Absent: scleral icterus Pupils: Present: ULISES - ENT ENT exam: Present: other (ET tube is in good position) - Neck Neck exam: Present: lymphadenopathy. Absent: thyromegaly - Respiratory Respiratory exam: Present: decreased breath sounds (She has absent breath sounds on the right.), rales (She does have crackles in the left chest.), rhonchi - Cardiovascular Cardiovascular exam: Present: JVD, regular rate and rhythm, tachycardia. Absent : gallop, systolic murmur - GI/Abdominal GI/Abdominal exam: Present: normal bowel sounds, soft. Absent: organomegaly, tenderness - Extremities Exam Extremities exam: Absent: calf tenderness, edema - Neurological Exam Neurological exam: Present: alert - Psychiatric Psychiatric exam: Absent: anxious - Skin Skin exam: Present: warm, dry Results - Labs CBC & BMP: 08/14/16 04:40 08/13/16 Unknown Labs: Her PO2 is 59 on 70% oxygen with a PCO2 of 33 and a pH of 7.37 - Diagnostic Findings Procedure: Chest x-ray: image reviewed by me, report reviewed by me (Chest x- ray does show extensive changes in the left lung consistent with heart failure.) Assessment and Plan (1) Clotted dialysis access Status: Acute Assessment and plan: The patient came in with problems with her dialysis access and this is better now. Current Visit: No (2) Acute respiratory failure Status: Resolved Assessment and plan: Patient went into pulmonary edema and basically had a respiratory arrest. She appears to be stable on the ventilator at present. Current Visit: Yes (3) Chronic kidney disease with end stage renal failure on dialysis Status: Chronic Assessment and plan: Patient has end-stage renal disease and will probably dialyze today. Current Visit: Yes (4) Pulmonary edema Status: Acute Assessment and plan: Patient looks like she has pulmonary edema on her x-ray. Current Visit: Yes (5) Status post pneumonectomy Status: Chronic Assessment and plan: Patient had a pneumonectomy for lung cancer. Current Visit: Yes (6) Ischemic cardiomyopathy Status: Chronic Assessment and plan: Patient has known coronary artery disease with a very poor ejection fraction. She goes into pulmonary edema quite easily. Current Visit: No
--- NOTE | 2016-08-14 09:14 | Cardiology Consult Note ---
Assessment and Plan - Time spent with patient Time spent with patient: Greater than 30 minutes (1) Dyslipidemia Status: Chronic Assessment and plan: SEE PLAN OF CARE LISTED BELOW Current Visit: Yes (2) Cardiopulmonary arrest with successful resuscitation Status: Acute Assessment and plan: SEE PLAN OF CARE LISTED BELOW Current Visit: Yes (3) Acute blood loss anemia Status: Acute Assessment and plan: SEE PLAN OF CARE LISTED BELOW Current Visit: Yes (4) Generalized weakness Status: Chronic Assessment and plan: SEE PLAN OF CARE LISTED BELOW Current Visit: Yes (5) Lower GI bleed Status: Acute Assessment and plan: SEE PLAN OF CARE LISTED BELOW Current Visit: Yes (6) Pulmonary edema Status: Acute Assessment and plan: SEE PLAN OF CARE LISTED BELOW Current Visit: Yes (7) ESRD (end stage renal disease) on dialysis Problem details: Next routine CHD on Sunday after am cath. UF as tolerated by hemodynamics. Status: Chronic Current Visit: Yes (8) Status post pneumonectomy Status: Chronic Assessment and plan: SEE PLAN OF CARE LISTED BELOW Current Visit: Yes (9) coronary artery disease with stenting Status: Chronic Assessment and plan: SEE PLAN OF CARE LISTED BELOW Current Visit: No (10) Ischemic cardiomyopathy Status: Chronic Assessment and plan: SEE PLAN OF CARE LISTED BELOW Current Visit: No History of Present Illness - Data of Consult Patient: known to practice within the last 3 years Consult date: 08/14/16 Requesting Physician: Ryder Carmichael Primary care physician: Ryder Carmichael - Consult Narrative Reason for consult: S/P Cardiac arrest History of present illness: HOUSE NURSE: DR. BAIG PCP: DR. CARMICHAEL ANALYTICS DEVELOPER: DR. OLVERA Patient is intubated and sedated. There is no family at the bedside. The majority of this information is taken from staff and medical records. Ms. Reyes, 80BF, followed by Dr. Baig. Risk factors include: Known coronary artery disease (status post PCI mid LAD, circumflex 2 with Sanam July for NSTEMI), hypertension, dyslipidemia, advanced age, sedentary lifestyle and family history of premature coronary artery disease. History of end-stage renal dialysis (requiring dialysis Sunday and Sunday), diastolic heart failure, history of lung cancer with right pneumonectomy. Echocardiogram July 21, 2016 reveals EF 10-15%, 2+ LVE, no significant valvular abnormality, PAP 42.0mmHg + RAP. August 10, 2016, patient arrived to the emergency department by EMS from dialysis. EMS noted that the patient had de-accessed herself from her dialysis machine and had exsanguinated a significant amount of blood. She received 2 units of packed red blood cells for treatment of acute blood loss. She was confused at dialysis. Family acknowledged she had been confused and weak since recent NSTEMI. Sunday, August 11, 2016, patient began to experience a sudden onset of bright red rectal bleeding with clots mixed in with her stool. Her Brilinta was held given the significant amount of bleeding. No additional GI bleeding has been noted. Sunday morning, she was found to be without a pulse and CODE BLUE was initiated. Patient was found to be in heart block with severe bradycardia. CPR was initiated, she was intubated and ACLS protocol was followed. After receiving 2 rounds of epinephrine, return of pulse was noted. It is noted she did have pink, frothy sputum in the endotracheal tube at intubation. She has been moved to the CCU and cardiology has been consulted. At this time, patient is being maintained on 2 pressors. Chest x-ray this morning reveals worsening pulmonary edema versus pneumonia. White blood cell count 19.9. Hemoglobin and hematocrit 11.9 and 37.4 respectively. BMP pending this morning. Troponins are flat at 0.169-0.335 with normal CPK and CK-MB. Patient does waken follow commands appropriately. She is scheduled for dialysis today and hopefully this will help with her pulmonary edema. Chest x- ray in the morning. I will further discuss with Dr. Ca and await his recommendations. ASSESSMENT/PLAN: 1. KNOWN CAD S/P PCI LAD, CX X 2 (NIKITA) -will discuss with Dr. Ca timing of re-incorporation of antiplatelet medication given her recent PCIs and recent lower GI bleeding 2. HISTORY OF NSTEMI - Now post revascularization 3. S/P CARDIAC ARREST - Intubated but following commands appropriately. Continue current plan of care. 4. ESRD - Requires HD 5. GI BLEED - Anemia stable this morning 6. ICM - severe cardiomyopathy. When able, will incorporate betablockade and ARB/MATHEW. Continue lipid lowering agent. 7. ACUTE ON CHRONIC CHF - combined contributions, including severe systolic dysfunction (EF 10%-15%) and diastolic dysfunction. Continue current plan of care. Scheduled for HD today. 8. ADVANCED AGE - continue current plan of care. CC: Ryder Carmichael, DO - Home Medications and Allergies Home Medications: Home Medications Medication Instructions Recorded Confirmed Type Allopurinol 100 mg PO BID 01/08/15 08/09/16 History Carvedilol [Coreg] 12.5 mg PO BID 01/08/15 08/09/16 History amLODIPine [Norvasc] 10 mg PO DAILY 01/08/15 08/09/16 History Levothyroxine Sodium [Synthroid] 25 mcg PO DAILY 01/12/15 08/09/16 History Esomeprazole Magnesium [Nexium] 40 mg PO DAILY PRN 04/01/15 08/09/16 History Calcium Acetate 667 mg PO TID 11/20/15 08/09/16 History Cefuroxime Tab [Ceftin] 250 mg PO Q48H #14 tablet 08/08/16 08/09/16 Rx Isosorbide Mononitrate [Imdur] 30 mg PO DAILY #30 tablet 08/08/16 08/09/16 Rx Rosuvastatin [Crestor] 5 mg PO BEDTIME #30 tablet 08/08/16 08/09/16 Rx Sertraline [Zoloft] 25 mg PO DAILY #30 tablet 08/08/16 08/09/16 Rx Ticagrelor [Brilinta] 90 mg PO BID #60 tablet 08/08/16 08/09/16 Rx hydrALAZINE TAB [Apresoline Tab] 25 mg PO TID #90 tablet 08/08/16 08/09/16 Rx clonazePAM [Clonazepam] 1 mg PO DAILY 08/09/16 08/09/16 History Allergies/Adverse Reactions: Allergies Allergy/AdvReac Type Severity Reaction Status Date / Time No Known Allergies Allergy Verified 01/12/15 19:15 ROS unobtainable: due to endotracheal tube Medical,Surgical,& Family Hx - Medical History Cardio: History of: CHF, CAD, Hypertension, VA, Cardiovascular Problems Neurology: No history of: Seizures HEENT: History of: Eye Problem (GLASSES), Dental Problems (UPPER DENTURE AND LOWER PARITAL) Endocrine: History of: Thyroid Disorder Rheumatology: History of;: Gout Respiratory: History of: Pneumonia, Lung Cancer, Respiratory Problems (right lung cancer) No history of: Obstructive Sleep Apnea Renal: History of: Dialysis ([facility] --[facility]; DR OLVERA), Renal Failure Gastrointestinal: History of: GERD (OCCASIONAL) Musculoskeletal: History of: Back/Neck Problems (VERTABRAE FRACTURES), Musculoskeletal Problems (BURSITIS HIPS) No history of: Amputation Hematology: History of: Anemia (PAST HISTORY) Other: History of: Anesthesia Reactions (NAUSEA WITH PAIN MEDICATIONS), Cancer ( RIGHT LUNG CANCER), MRSA (Last hospital admission patient's nasal swab was positive per RN.), Miscellaneous Medical Problems (HAY FEVER) - Surgical History Cardiac Surgeries: Sugical HX of: Cardiac Catheterization Thoracic Surgeries: Surgical HX of;: Lobectomy (right lung) HEENT Surgeries: Surgical HX of: Eye Surgery (BILATERAL CATARACT) Abdominal Surgeries: Surgical HX of: Appendectomy, Colonoscopy Reproductive Surgeries: Surgical HX of;: Gynecologic Surgery, Hysterectomy Orthopedic Surgeries: Surgical HX of;: Implanted Devices (FISTULA RIGHT ARM, CATHETER LEFT SUBCLAVIAN), Spinal Surgery (DR ALEXANDER- KYPHOPLASTY) - Family History Family History: Reports;: Family Heart Disease, Family Hypertension - Social History Smoking Status: Never smoker Frequency of Alcohol Use: None Type of Drug Use: None Physical Examination Vital Signs Temp Pulse Resp BP Pulse Ox 96.6 F L 94 H 12 96/48 95 08/09/16 16:33 08/09/16 16:33 08/09/16 16:33 08/09/16 16:33 08/09/16 16:33 General: [Intubated and sedated. Wakes and responds appropriately. Appears comfortable. ] HEENT: [Normocephalic. Atraumatic. Mucous membranes moist. No jaundice noted. Conjunctiva moist and clear, sclerae anicteric] Neck: No obvious JVD/HJR, no thyromegaly or lymphadenopathy noted. No carotid bruit appreciated Cardiac: [Regular rate and rhythm.] [III/ ADELA heard best at 2ICS right. Lungs: [Course noted throughout. ET tube intact. Symmetrical chest wall movements noted. Abdomen: Soft, bowel sounds normoactive. Nontender and nondistended. No abdominal bruit or thrill noted. No masses noted. Musculoskeletal: No fluid collection. Decreased range of motion is noted. Extremities: No clubbing, cyanosis noted. [ No edema noted.] Upper extremity pulses 2+. Lower extremity pulses 2+. Capillary refill less than 3 seconds. Skin: No unusual lesions or rashes. No skin breakdown appreciated. Neuro: Moves all extremities well without hemiparesis or paralysis when sedation withheld. No essential tremor is appreciated. Result/EKG - Labs CBC & BMP: 08/14/16 04:40 08/13/16 Unknown Lab Results: I have reviewed the past 24 hour labs Labs: Laboratory Results - last 24 hr 08/13/16 08/13/16 08/13/16 12:13 12:30 14:30 WBC RBC Hgb Hct MCV MCH MCHC RDW Plt Count MPV Neut % (Auto) Lymph % (Auto) [place] % (Auto) Eos % (Auto) Baso % (Auto) Neut # (Auto) Lymph # (Auto) [place] # (Auto) Eos # (Auto) Baso # (Auto) Total Counted Immature Gran % Nucleated RBC % Immature Gran # Segmented Neutrophils Band Neutrophils Lymphocytes Monocytes Metamyelocytes Nucleated RBCs # Platelet Estimate Polychromasia Hypochromasia Microcytosis Target Cells Ovalocytes [place] Cells ABG pH 7.241 L 7.339 L 7.298 L ABG pCO2 65.0 H 48.3 H 53.6 H ABG pO2 37.8 L* 353.0 H 52.2 L ABG HCO3 23.5 24.4 23.4 ABG Total CO2 26.3 24.1 23.8 ABG O2 Saturation 72.0 L 99.9 88.6 L ABG Base Excess -0.6 -0.1 -1.0 FiO2 50.00 Sodium Potassium Chloride Carbon Dioxide Anion Gap BUN Creatinine GFR Calculation BUN/Creatinine Ratio Glucose Calculated Osmolality Calcium Magnesium Total Creatine Kinase CK-MB (CK-2) Troponin I 08/13/16 08/13/16 08/13/16 15:15 19:03 20:45 WBC RBC Hgb 11.2 L D Hct 35.5 L MCV MCH MCHC RDW Plt Count MPV Neut % (Auto) Lymph % (Auto) [place] % (Auto) Eos % (Auto) Baso % (Auto) Neut # (Auto) Lymph # (Auto) [place] # (Auto) Eos # (Auto) Baso # (Auto) Total Counted Immature Gran % Nucleated RBC % Immature Gran # Segmented Neutrophils Band Neutrophils Lymphocytes Monocytes Metamyelocytes Nucleated RBCs # Platelet Estimate Polychromasia Hypochromasia Microcytosis Target Cells Ovalocytes [place] Cells ABG pH ABG pCO2 ABG pO2 ABG HCO3 ABG Total CO2 ABG O2 Saturation ABG Base Excess FiO2 Sodium Potassium Chloride Carbon Dioxide Anion Gap BUN Creatinine GFR Calculation BUN/Creatinine Ratio Glucose Calculated Osmolality Calcium Magnesium Total Creatine Kinase 56 46 CK-MB (CK-2) 3.3 3.2 Troponin I 0.290 H D 0.335 H 08/13/16 08/13/16 08/13/16 Unknown Unknown Unknown WBC 8.8 D RBC 3.09 L Hgb 8.9 L Hct 28.3 L MCV 91.6 MCH 29 MCHC 31.4 L RDW 19.6 H Plt Count 60 L MPV 12.2 H Neut % (Auto) 92.7 H Lymph % (Auto) 1.9 L [place] % (Auto) 4.0 Eos % (Auto) 0.2 Baso % (Auto) 0.1 Neut # (Auto) 8.2 H Lymph # (Auto) 0.2 L [place] # (Auto) 0.4 Eos # (Auto) 0.0 Baso # (Auto) 0.0 Total Counted 100 Immature Gran % 1.1 Nucleated RBC % 0.0 Immature Gran # 0.10 Segmented Neutrophils 91 H Band Neutrophils 2 Lymphocytes 1 L Monocytes 3 Metamyelocytes 3 Nucleated RBCs # 0.00 Platelet Estimate Decreased Polychromasia Hypochromasia 1+ Microcytosis 1+ Target Cells Ovalocytes Slight [place] Cells ABG pH ABG pCO2 ABG pO2 ABG HCO3 ABG Total CO2 ABG O2 Saturation ABG Base Excess FiO2 Sodium 145 Potassium 3.8 Chloride 110 H Carbon Dioxide 27 Anion Gap 11.8 BUN 35 H Creatinine 3.60 H GFR Calculation 9 BUN/Creatinine Ratio 9.00 Glucose 221 H Calculated Osmolality 302.7 Calcium 7.1 L Magnesium 2.0 Total Creatine Kinase 54 CK-MB (CK-2) 1.9 Troponin I 0.169 H D 08/14/16 08/14/16 04:40 05:10 WBC 19.9 H D RBC 4.18 D Hgb 11.9 L Hct 37.4 MCV 89.5 MCH 29 MCHC 31.8 L RDW 20.1 H Plt Count 70 L MPV 12.9 H Neut % (Auto) 90.1 H Lymph % (Auto) 4.2 L [place] % (Auto) 4.4 Eos % (Auto) 0.0 Baso % (Auto) 0.2 Neut # (Auto) 17.9 H Lymph # (Auto) 0.8 L [place] # (Auto) 0.9 H Eos # (Auto) 0.0 Baso # (Auto) 0.0 Total Counted 100 Immature Gran % 1.1 Nucleated RBC % 0.0 Immature Gran # 0.21 Segmented Neutrophils 84 Band Neutrophils 10 Lymphocytes 4 L Monocytes 2 Metamyelocytes Nucleated RBCs # 0.00 Platelet Estimate Decreased Polychromasia Slight Hypochromasia Microcytosis Target Cells Slight Ovalocytes [place] Cells 2+ ABG pH 7.378 ABG pCO2 33.7 L ABG pO2 59.1 L ABG HCO3 19.4 L ABG Total CO2 20.4 L ABG O2 Saturation 92.6 L ABG Base Excess -4.9 L FiO2 70.00 Sodium Potassium Chloride Carbon Dioxide Anion Gap BUN Creatinine GFR Calculation BUN/Creatinine Ratio Glucose Calculated Osmolality Calcium Magnesium Total Creatine Kinase CK-MB (CK-2) Troponin I - Diagnostic Findings Procedure: Chest x-ray: report reviewed by me - EKG EKG results: interpreted by me EKG shows: sinus rhythm
[2016-08-14] MEDS: CARVEDILOL 12.5 MG TABLET PO SCH (11:00)
[2016-08-14] MEDS: CALCIUM ACETATE 667 MG CAPSULE PO SCH ×3 (11:00→20:24)
--- NOTE | 2016-08-14 11:01 | Nephrology Progress Note ---
Nephrology - PN: Subj Interval history: She is seen during dialysis. She remains on the ventilator. She is requiring pressor support. She is awake Exam (PN)-Nephrology - Vital Signs Vital signs: Period Temp Pulse Resp BP Sys/Brody Pulse Ox Last 24 Hr 96.7 F-98.4 F 70-101 0-27 61-161/37-82 89-100 Exam: Gen.: On ventilator. She is awake and responsive ENT: Pupils equal round reactive to light. Neck: Supple. No JVD or bruit. Cardiovascular: Regular rate and rhythm. No murmur rub or gallop Lungs: Decreased breath sounds on the right. Few rhonchi on the left. Abdomen: Soft. Nontender. Positive bowel sounds. No organomegaly Extremities: No edema - Lab 08/14/16 04:40 08/13/16 Unknown Most recent lab results ABG pH 7.378 (7.35-7.45) 08/14/16 05:10 ABG pCO2 33.7 MM HG (35-48) L 08/14/16 05:10 ABG pO2 59.1 MM HG (80-95) L 08/14/16 05:10 ABG HCO3 19.4 MMOL/L (20-26) L 08/14/16 05:10 ABG O2 Saturation 92.6 % (95-100) L 08/14/16 05:10 Calcium 7.1 MG/DL (8.5-10.1) L 08/13/16 Unknown Magnesium 2.0 MG/DL (1.8-2.4) 08/13/16 Unknown Assessment and Plan (1) ESRD (end stage renal disease) on dialysis Status: Chronic Assessment and plan: 80-year-old woman admitted with: * Cardiac arrest. She is now in sinus rhythm. * Hypotension. Continue pressors as required * GI bleed. Hematocrit stable * ESRD. Stable during dialysis * CAD. Recent AL and stent placement. Brilinta was discontinued. Plavix will be restarted. Discussed risk of bleeding versus stent closure * Remote right pneumonectomy Current Visit: Yes (2) Acute blood loss anemia Status: Acute Current Visit: Yes (3) Generalized weakness Status: Acute Current Visit: Yes (4) Hypotension (arterial) Status: Acute Current Visit: Yes (5) coronary artery disease with stenting Status: Acute Current Visit: No (6) Hypertension Status: Chronic Current Visit: No (7) Status post pneumonectomy Status: Chronic Current Visit: Yes
[2016-08-14] MEDS ORDERED: ASPIRIN EC 81 MG TABLET PO ONE (12:36)
[2016-08-14] MEDS: NOREPINEPHRINE 16 MG in SODIUM CHLORIDE 0.9% 234 ML IV SCH ×2 (13:00→20:54)
[2016-08-14] MEDS: PHENYLEPHRINE DRIP 40 MG/250 ML PREMIX IV SCH ×2 (13:00→16:44)
[2016-08-14] MEDS: PHENYLEPHRINE INJ 160 MG in SODIUM CHLORIDE 0.9% 234 ML IV SCH ×2 (13:00→20:54)
--- NOTE | 2016-08-14 13:02 | Gastrointestinal Progress Note ---
Assessment and Plan (1) Lower GI bleed Status: Acute Assessment and plan: 08/14-hemoglobin 11.9. No overt bleeding reported. On pressor support and ventilator at present time. Continue to monitor for any overt bleeding. Plan an addendum to followed by Dr. Romano. 08/11-Sudden onset of bright red rectal bleeding with clots mixed with stool. On Brilinta following recent heart stents, held at tis time. No prior hx of GI bleed in past. Hgb 9.3, down from 10.3 on yesterday. Recd two units PRBC for hgb 8.3 on admission. No prior history of endoscopy noted in facility database. Continue to monitor serial HH and transfused as needed. Plan and addendum to follow by Dr Romano. Current Visit: Yes Gastroenterology - PN: Subj Interval history: CC: Lower GI bleed Patient is seen, sedated however arousable to verbal stimulation, on ventilator. Events over the weekend noted where patient was found bradycardic and transferred to ICU following cardiac arrest. She was quickly revived however at this time remains on the ventilator with pressor support 2. She is undergoing dialysis as well. There are no reports of overt bleeding. Her Plavix was restarted on Sunday due to her recent stent placement. She did have a bowel movement reported yesterday with no blood noted. Hemoglobin remained stable at 11.9. Abdomen is soft, nontender ROS: No acute distress noted Exam (Progress Note) - Constitutional Vitals: Period Temp Pulse Resp BP Sys/Brody Pulse Ox Last 24 Hr 96.7 F-98.4 F 75-101 4-27 61-161/37-82 89-97 General appearance: normal weight, no acute distress - Head Head exam: Present: normal inspection, normocephalic - Eye Eye exam: Present: other (Lids and conjunctive are unremarkable). Absent: scleral icterus - ENT ENT exam: Present: normal exam, normal oropharynx - Neck Neck exam: Present: normal inspection - Respiratory Respiratory exam: Present: clear to auscultation bilaterally. Absent: rales, rhonchi, wheezes - Cardiovascular Cardiovascular exam: Present: regular rate and rhythm. Absent: diastolic murmur , JVD, systolic murmur - GI/Abdominal GI/Abdominal exam: Present: normal bowel sounds, soft. Absent: ascites, distended, mass, organomegaly, tenderness - Extremities Exam Extremities exam: Present: normal inspection, full ROM - Back Exam Back exam: Present: normal inspection - Neurological Exam Neurological exam: Present: alert, oriented X3 - Psychiatric Psychiatric exam: Present: normal affect, normal mood - Skin Skin exam: Present: normal color, warm, dry Results - Labs CBC & BMP: 08/14/16 04:40 08/13/16 Unknown Lab Results: I have reviewed the past 24 hour labs
[2016-08-14] MEDS ORDERED: ALBUMIN 25% 25 GM in PREMIX 1 EACH IV ONE (13:53)
[2016-08-14 14:47] LABS: Calcium 7.5 MG/DL (8.5-10.1); Osmolality,Calculated 297.8 MOS/KG (273-304); Potassium 4.7 MMOL/L (3.5-5.1)
[2016-08-14] MEDS: PROPOFOL 1,000 MG/100 ML BOTTLE IV SCH ×2 (15:00→15:40)
[2016-08-14] MEDS: CEFUROXIME 250 MG TABLET PO SCH (15:30)
[2016-08-14] MEDS: DOCUSATE SODIUM 100 MG CAPSULE PO SCH ×2 (15:30→20:25)
[2016-08-14] MEDS: ISOSORBIDE MONONITRATE 30 MG TABLET PO SCH (15:32)
[2016-08-14] MEDS: LEVOTHYROXINE 25 MCG TABLET PO SCH (15:33)
[2016-08-14] MEDS: PANTOPRAZOLE 40 MG VIAL IV SCH (15:33)
[2016-08-14] MEDS: ALLOPURINOL 100 MG TABLET PO SCH ×2 (15:37→20:24)
[2016-08-14] MEDS: DOPamine 800 MG/250 ML PREMIX IV SCH (15:38)
[2016-08-14] MEDS: amLODIPine 10 MG TABLET PO SCH (15:41)
[2016-08-14] MEDS ORDERED: GENTAMICIN INJ 80 MG in PREMIX 1 EACH IV ONE (15:49)
[2016-08-14] MEDS ORDERED: VANCOMYCIN INJ 1,000 MG in SODIUM CHLORIDE 0.9% 250 ML IV ONE (15:49)
[2016-08-14] MEDS ORDERED: GENTAMICIN INJ 80 MG in PREMIX 1 EACH IV PRN (15:59)
--- NOTE | 2016-08-14 17:20 | Family Practice Progress Note ---
Family Practice - PN: Subj Interval history: The patient apparently went into respiratory distress secondary to pulmonary edema requiring endotracheal intubation. Presently stable on a respirator. She was having problems with rectal bleeding on Sunday and this is apparently resolved. The patient is very frail and has presented multiple medical problems. She did have a cardiac arrest requiring epinephrine and intubation. Presently requiring vasopressor agents to maintain blood pressure and this is being tapered .Her heart failure has been addressed. I Agree with multiple sr technical sales consultant notes and recommendations. We will continue present treatment plan. Obviously long-term prognosis is poor. She has not ambulated since the original admission note. We had moved her to swing bed when she bled during dialysis and required readmission. She developed significant rectal bleeding on Sunday and required stopping her anticoagulants. We will need to make a decision about restarting some form of anticoagulation. We'll defer this decision to cardiology. Exam (Progress Note) - Constitutional Vitals: Period Temp Pulse Resp BP Sys/Brody Pulse Ox Last 24 Hr 97.3 F-98.4 F 77-107 5-27 58-140/37-79 88-100 Results - Labs CBC & BMP: 08/14/16 04:40 08/14/16 14:07 Assessment and Plan (1) Acute blood loss anemia Status: Acute Assessment and plan: Apparently the dialysis catheter dislodged during dialysis and patient had significant blood loss. Being admitted for transfusion and evaluation Current Visit: Yes (2) Generalized weakness Status: Chronic Assessment and plan: Patient has had significant weakness since recent staining for coronary artery disease. She had a non-STEMI. Current Visit: Yes (3) coronary artery disease with stenting Status: Chronic Assessment and plan: Recent admission for non-STEMI with coronary artery disease and stenting Current Visit: No (4) Chronic kidney disease with end stage renal failure on dialysis Status: Chronic Assessment and plan: Patient has been on chronic dialysis Current Visit: Yes (5) Hypertension Status: Chronic Assessment and plan: Stable at present Current Visit: No (6) Ischemic cardiomyopathy Status: Chronic Assessment and plan: Stable at present Current Visit: No (7) Hypothyroidism Status: Chronic Assessment and plan: Stable at present Current Visit: Yes
[2016-08-14] MEDS: SODIUM CHLORIDE 0.9% 1,000 ML IV SCH (20:03)
[2016-08-14] MEDS: ROSUVASTATIN 10 MG TABLET PO SCH (20:24)
[2016-08-15] MEDS: PHENYLEPHRINE INJ 160 MG in SODIUM CHLORIDE 0.9% 234 ML IV SCH ×2 (01:48→21:00)
[2016-08-15] MEDS: NOREPINEPHRINE 16 MG in SODIUM CHLORIDE 0.9% 234 ML IV SCH ×3 (03:16→23:18)
[2016-08-15 05:41] LABS: Allen Test Positive; Pt O2 Delivery Device Ventilator
[2016-08-15 05:42] LABS: ABG Base Excess -6.3 MMOL/L (-2.5-2.5); ABG HCO3 19.3 MMOL/L (20-26); ABG Oxygen Saturation 98.2 % (95-100); ABG PCO2 51.3 MM HG (35-48); ABG PH 7.229 (7.35-7.45); ABG TCO2 20.1 MMOL/L (23-27)
[2016-08-15 06:02] LABS: Basophils % 0.1 % (0.0-0.8); Eosinophils % 0.1 % (0.00-10.9); Hematocrit 29.7 VOL% (35.7-47.0); Hemoglobin 9.2 GM/DL (12.0-16.0); Immature Granulocytes % 2.3 %; Immature Granulocytes Absolute 0.25 #; Lymphocytes # 0.7 10*3/uL (1.4-4.0); Lymphocytes % 6.6 % (21.3-54.2); Mean Corpuscular Hemoglobin 28 PG (27-34); Mean Corpuscular Volume 91.1 FL (87-102); Mean Platelet Volume 13.3 FL (9.6-12.0); Monocytes # 0.7 10*3/uL (0.11-0.8); Monocytes % 6.1 % (1.7-12.7); Neutrophils # 9.1 10*3/uL (1.4-7.4); Neutrophils % 84.8 % (38.7-73.9); Red Blood Count 3.26 MC/CUMM (3.8-5.5); Red Cell Distribution Width 20.2 % (9.3-17.3); White Blood Count 10.7 T/CUMM (4-12)
[2016-08-15 06:07] LABS: Platelet Count 73 T/CUMM (130-400)
[2016-08-15 06:33] LABS: Band Neutrophils 14 % (0-10); Lymphocytes 6 % (20-55); Segmented Neutrophils 75 % (50-85); Total Cells Counted 100
[2016-08-15 06:36] LABS: Burr Cells Slight; Hypochromasia Slight; Microcytosis Slight; Ovalocytes Slight; Platelet Estimate Decreased
[2016-08-15 06:44] LABS: Calcium 7.1 MG/DL (8.5-10.1); Potassium 4.4 MMOL/L (3.5-5.1)
[2016-08-15 07:25] LABS: Albumin 2.1 G/DL (3.4-5.0); Calcium 6.9 MG/DL (8.5-10.1); Phosphorous 2.9 MG/DL (2.5-4.9); Potassium 4.4 MMOL/L (3.5-5.1)
--- NOTE | 2016-08-15 07:28 | XRay Report ---
Referring Physician: Wily Magdaleno MD Exam: XR chest 1V portable Date: August 15, 2016 at 3:04 AM Reason: Ventilator Comparison: Chest one view portable August 14, 2016 Findings: An endotracheal tube is again in place. There is also a feeding tube extending into the stomach and beyond the [id number]. Surgical change is again seen at the right lung, suggesting right pneumonectomy. There are prominent opacities within the left lung, mainly within the left lower lung zone. This could represent pulmonary edema or pneumonia. No pneumothorax is identified, but there is mild left pleural fluid. The osseous structures appear stable. A vascular stent is noted at the right arm. Impression: A feeding tube is now in place, extending into the stomach and beyond the [id number]. The study is otherwise similar to before. PROCEDURE INTERPRETED AT [facility] DEPARTMENT OF RADIOLOGY Final Report Signed by: Dr. Devyn Banda
--- NOTE | 2016-08-15 07:46 | Pulmonology Progress Note ---
Pulmonary - PN: Subj Interval history: Patient is an 80-year-old black lady that has had a previous right pneumonectomy. She is a dialysis patient and has a cardiomyopathy. She came in several weeks ago with shortness of breath and was on the ventilator for short period. Her left lung cleared up nicely and she was doing well. She did have some confusion that cleared. She apparently went home and came back in with problems with her access. Over the weekend she went back in the pulmonary edema and is now back on the ventilator. She has a wide A-a O2 gradient and is requiring high FiO2 at this point. Her left lung does look wet. She did have dialysis yesterday. However during the night she has had trouble ventilating she is requiring a lot of suctioning. Apparently she has been hard to clear her airway. Her chest x-ray still has diffuse infiltrates in the left lung. Will proceed with a bronchoscope to check her airway. Exam (Progress Note) - Constitutional Vitals: Period Temp Pulse Resp BP Sys/Brody Pulse Ox Last 24 Hr 97.3 F-98.3 F 74-117 12-27 55-138/39-79 70-100 Exam: General appearance: no acute distress, under weight, other (She is sedated at present.) - Head Head exam: Present: normal inspection, normocephalic - Eye Eye exam: Present: EOMI. Absent: scleral icterus Pupils: Present: ULISES - ENT ENT exam: Present: other (ET tube is in good position) - Neck Neck exam: Present: lymphadenopathy. Absent: thyromegaly - Respiratory Respiratory exam: Present: She does have some breath sounds on the left although there are very coarse. - Cardiovascular Cardiovascular exam: Present: JVD, regular rate and rhythm, tachycardia. Absent : gallop, systolic murmur - GI/Abdominal GI/Abdominal exam: Present: normal bowel sounds, soft. Absent: organomegaly, tenderness - Extremities Exam Extremities exam: Absent: calf tenderness, edema - Neurological Exam Neurological exam: Present: She is sedated on the ventilator at present. - Psychiatric Psychiatric exam: Absent: anxious - Skin Skin exam: Present: warm, dry Results - Labs CBC & BMP: 08/15/16 05:33 08/15/16 05:33 Labs: Her PO2 is 116 with a PCO2 of 51 and a pH of 7.22 on 100% oxygen. - Diagnostic Findings Procedure: Chest x-ray: image reviewed by me, report reviewed by me (Chest x- ray still shows extensive infiltrate in the left lung) Assessment and Plan (1) Clotted dialysis access Status: Acute Assessment and plan: The patient came in with problems with her dialysis access and this is better now. Current Visit: No (2) Acute respiratory failure Status: Resolved Assessment and plan: Patient went into pulmonary edema and basically had a respiratory arrest. She continues to have problems with oxygenation and ventilation. Current Visit: Yes (3) Chronic kidney disease with end stage renal failure on dialysis Status: Chronic Assessment and plan: Patient has end-stage renal disease and did okay with dialysis yesterday. Current Visit: Yes (4) Pulmonary edema Status: Acute Assessment and plan: Patient looks like she has pulmonary edema on her x-ray. She is still requiring a very high FiO2 Current Visit: Yes (5) Status post pneumonectomy Status: Chronic Assessment and plan: Patient had a pneumonectomy for lung cancer. Current Visit: Yes (6) Ischemic cardiomyopathy Status: Chronic Assessment and plan: Patient has known coronary artery disease with a very poor ejection fraction. She goes into pulmonary edema quite easily. She is requiring pressors to improve her blood pressure. She continues to be very ill. Current Visit: No
--- NOTE | 2016-08-15 08:01 | Operative Note ---
Date of procedure: 08/15/16 Pre-op diagnosis: Respiratory failure Post-op diagnosis: other (ET tube reposition, diffuse pulmonary edema.) Procedure: Patient is an 80-year-old has had a right pneumonectomy. She is on the ventilator with pulmonary edema in the left lung. She has been developing hypoxemia and the nurses have been having difficulty passing a suction catheter. There is a question of thick mucus plugging. A bronchoscope will be done to assess the airway. Procedure: Patient is sedated on the ventilator in the ICU. The fiberoptic bronchoscope was passed to the ET tube into the airways. The bronchopulmonary segments were identified but no specimens obtained. Findings: The ET tube is in the distal trachea with the office pointing towards the right pneumonectomy stump. The ET tube was pulled back a little bit in the trachea. The left main is open and the left upper lobe, lingula, left lower lobe are all open. There really are no thick purulent secretions seen. The airway looks open and unremarkable. Once the airways were evaluated the procedure was stopped. Impression: Left lung pulmonary edema. No mucous plugging. ET tube repositioned away from the right pneumonectomy stump. Plan: Will adjust the ventilator. Hopefully the patient can tolerate dialysis to remove the pulmonary edema. Anesthesia: conscious sedation Surgeon / Physician: Too Sims Estimated blood loss: none Specimens: none sent Condition: critical Disposition: ICU Results - Labs CBC & BMP: 08/15/16 05:33 08/15/16 05:33 Discharge Plan - Discharge Medications No Action amLODIPine [Norvasc] 10 mg PO DAILY Carvedilol [Coreg] 12.5 mg PO BID Allopurinol 100 mg PO BID Levothyroxine Sodium [Synthroid] 25 mcg PO DAILY Esomeprazole Magnesium [Nexium] 40 mg PO DAILY PRN PRN Reason: Reflux Calcium Acetate 667 mg PO TID Rosuvastatin [Crestor] 5 mg PO BEDTIME #30 tablet Sertraline [Zoloft] 25 mg PO DAILY #30 tablet hydrALAZINE TAB [Apresoline Tab] 25 mg PO TID #90 tablet clonazePAM [Clonazepam] 1 mg PO DAILY Cefuroxime Tab [Ceftin] 250 mg PO Q48H #14 tablet Isosorbide Mononitrate [Imdur] 30 mg PO DAILY #30 tablet Ticagrelor [Brilinta] 90 mg PO BID #60 tablet - Follow Up or Referral - Forms/Instructions
[2016-08-15] MEDS ORDERED: ALBUMIN 25% 25 GM in PREMIX 1 EACH IV STA (08:24)
[2016-08-15] MEDS: ISOSORBIDE MONONITRATE 30 MG TABLET PO SCH (09:09)
[2016-08-15] MEDS: DOCUSATE SODIUM 100 MG CAPSULE PO SCH ×2 (09:54→20:07)
[2016-08-15] MEDS: PANTOPRAZOLE 40 MG VIAL IV SCH (09:54)
[2016-08-15] MEDS: LEVOTHYROXINE 25 MCG TABLET PO SCH (09:54)
[2016-08-15] MEDS: ASPIRIN EC 81 MG TABLET PO SCH (09:54)
[2016-08-15] MEDS: ALLOPURINOL 100 MG TABLET PO SCH ×2 (09:54→20:07)
[2016-08-15] MEDS: CALCIUM ACETATE 667 MG CAPSULE PO SCH ×3 (09:54→20:11)
--- NOTE | 2016-08-15 11:29 | Cardiology Progress Note ---
Assessment and Plan - Time spent with patient Time spent with patient: Greater than 30 minutes (1) Dyslipidemia Status: Chronic Assessment and plan: SEE PLAN OF CARE LISTED BELOW Current Visit: Yes (2) Cardiopulmonary arrest with successful resuscitation Status: Acute Assessment and plan: SEE PLAN OF CARE LISTED BELOW Current Visit: Yes (3) Acute blood loss anemia Status: Acute Assessment and plan: SEE PLAN OF CARE LISTED BELOW Current Visit: Yes (4) Generalized weakness Status: Chronic Assessment and plan: SEE PLAN OF CARE LISTED BELOW Current Visit: Yes (5) Lower GI bleed Status: Acute Assessment and plan: SEE PLAN OF CARE LISTED BELOW Current Visit: Yes (6) Pulmonary edema Status: Acute Assessment and plan: SEE PLAN OF CARE LISTED BELOW Current Visit: Yes (7) ESRD (end stage renal disease) on dialysis Problem details: Next routine CHD on Sunday after am cath. UF as tolerated by hemodynamics. Status: Chronic Current Visit: Yes (8) Status post pneumonectomy Status: Chronic Assessment and plan: SEE PLAN OF CARE LISTED BELOW Current Visit: Yes (9) coronary artery disease with stenting Status: Chronic Assessment and plan: SEE PLAN OF CARE LISTED BELOW Current Visit: No (10) Ischemic cardiomyopathy Status: Chronic Assessment and plan: SEE PLAN OF CARE LISTED BELOW Current Visit: No Cardiology - PN: Subj Interval history: REGIONAL MARKETING DIRECTOR: DR. BAIG PCP: DR. CARDOZA WILDLIFE REMOVAL SPECIALIST: DR. OLVERA Patient is intubated and sedated. There is no family at the bedside. The majority of this information is taken from staff and medical records. Ms. Reyes, 80BF, followed by Dr. Baig. Risk factors include: Known coronary artery disease (status post PCI mid LAD, circumflex 2 with Sanam July for NSTEMI), hypertension, dyslipidemia, advanced age, sedentary lifestyle and family history of premature coronary artery disease. History of end-stage renal dialysis (requiring dialysis Sunday and Sunday), diastolic heart failure, history of lung cancer with right pneumonectomy. Echocardiogram July 21, 2016 reveals EF 10-15%, 2+ LVE, no significant valvular abnormality, PAP 42.0mmHg + RAP. August 10, 2016, patient arrived to the emergency department by EMS from dialysis. EMS noted that the patient had de-accessed herself from her dialysis machine and had exsanguinated a significant amount of blood. She received 2 units of packed red blood cells for treatment of acute blood loss. She was confused at dialysis. Family acknowledged she had been confused and weak since recent NSTEMI. Sunday, August 11, 2016, patient began to experience a sudden onset of bright red rectal bleeding with clots mixed in with her stool. Her Brilinta was held given the significant amount of bleeding. No additional GI bleeding has been noted. Sunday morning, she was found to be without a pulse and CODE BLUE was initiated. Patient was found to be in heart block with severe bradycardia. CPR was initiated, she was intubated and ACLS protocol was followed. After receiving 2 rounds of epinephrine, return of pulse was noted. It is noted she did have pink, frothy sputum in the endotracheal tube at intubation. She has been moved to the CCU and cardiology has been consulted. AUGUST 15, 2016: At this time, patient is being maintained on 3 pressors. Chest x -ray this morning reveals no significant change. Underwent FOB this morning, ET tube adjusted. ASA started yesterday. Anemia has worsened overnight, H&H 9.2 and 29.7. Creatinine worse (stage IV) 4.4 this morning. She is critically ill. Will further discuss with Dr. Ca and await additional recommendations. ASSESSMENT/PLAN: 1. KNOWN CAD S/P PCI LAD, CX X 2 (NIKITA) - ASA restarted. Anemia has worsened overnight. Need to restart Brilinta soon. Will discuss with Dr. Ca timing of re-incorporation of Brilinta given her recent PCIs and recent lower GI bleeding 2. HISTORY OF NSTEMI - Now post revascularization 3. S/P CARDIAC ARREST - Intubated but following commands appropriately. Continue current plan of care. 4. ESRD - Requires HD -- 5. GI BLEED - Anemia worse overnight. 6. ICM - severe cardiomyopathy. When able, will incorporate betablockade and ARB/MATHEW. Continue lipid lowering agent. 7. ACUTE ON CHRONIC CHF - combined contributions, including severe systolic dysfunction (EF 10%-15%) and diastolic dysfunction. Continue current plan of care. Scheduled for HD today. 8. ADVANCED AGE - continue current plan of care. Exam (Progress Note) - Constitutional Vitals: Period Temp Pulse Resp BP Sys/Brody Pulse Ox Last 24 Hr 97.0 F-97.6 F 74-117 12-29 55-138/39-79 70-100 Exam: General: [Intubated and sedated. Wakes and responds appropriately. Appears comfortable. ] HEENT: [Normocephalic. Atraumatic. Mucous membranes moist. No jaundice noted. Conjunctiva moist and clear, sclerae anicteric] Neck: No obvious JVD/HJR, no thyromegaly or lymphadenopathy noted. No carotid bruit appreciated Cardiac: [Regular rate and rhythm.] [III/ ADELA heard best at 2ICS right. Lungs: [Course noted throughout. ET tube intact. Symmetrical chest wall movements noted. Abdomen: Soft, bowel sounds normoactive. Nontender and nondistended. No abdominal bruit or thrill noted. No masses noted. Musculoskeletal: No fluid collection. Decreased range of motion is noted. Extremities: No clubbing, cyanosis noted. [ No edema noted.] Upper extremity pulses 2+. Lower extremity pulses 2+. Capillary refill less than 3 seconds. Skin: No unusual lesions or rashes. No skin breakdown appreciated. Neuro: Moves all extremities well without hemiparesis or paralysis when sedation withheld. No essential tremor is appreciated. Result/EKG - Labs CBC & BMP: 08/15/16 05:33 08/15/16 05:33 Lab Results: I have reviewed the past 24 hour labs Labs: Laboratory Results - last 24 hr 08/14/16 08/14/16 08/15/16 14:07 23:55 05:20 WBC RBC Hgb Hct MCV MCH MCHC RDW Plt Count MPV Neut % (Auto) Lymph % (Auto) [place] % (Auto) Eos % (Auto) Baso % (Auto) Neut # (Auto) Lymph # (Auto) [place] # (Auto) Eos # (Auto) Baso # (Auto) Total Counted Immature Gran % Nucleated RBC % Immature Gran # Segmented Neutrophils Band Neutrophils Lymphocytes Monocytes Nucleated RBCs # Platelet Estimate Hypochromasia Microcytosis Ovalocytes [place] Cells Morphology Comment ABG pH 7.229 L ABG pCO2 51.3 H ABG pO2 116.0 H ABG HCO3 19.3 L ABG Total CO2 20.1 L ABG O2 Saturation 98.2 ABG Base Excess -6.3 L FiO2 100.00 Sodium 144 Potassium 4.7 Chloride 110 H Carbon Dioxide 21 Anion Gap 17.7 H BUN 44 H Creatinine 4.00 H GFR Calculation 9 BUN/Creatinine Ratio 11.00 Glucose 112 H POC Glucose 189 H Calculated Osmolality 297.8 Calcium 7.5 L Phosphorus Magnesium Albumin Prealbumin 08/15/16 08/15/16 08/15/16 05:33 05:33 05:33 WBC 10.7 D RBC 3.26 L D Hgb 9.2 L D Hct 29.7 L MCV 91.1 MCH 28 MCHC 31.0 L RDW 20.2 H Plt Count 73 L MPV 13.3 H Neut % (Auto) 84.8 H Lymph % (Auto) 6.6 L [place] % (Auto) 6.1 Eos % (Auto) 0.1 Baso % (Auto) 0.1 Neut # (Auto) 9.1 H Lymph # (Auto) 0.7 L [place] # (Auto) 0.7 Eos # (Auto) 0.0 Baso # (Auto) 0.0 Total Counted 100 Immature Gran % 2.3 Nucleated RBC % 0.0 Immature Gran # 0.25 Segmented Neutrophils 75 Band Neutrophils 14 H Lymphocytes 6 L Monocytes 5 Nucleated RBCs # 0.00 Platelet Estimate Decreased Hypochromasia Slight Microcytosis Slight Ovalocytes Slight [place] Cells Slight Morphology Comment ABG pH ABG pCO2 ABG pO2 ABG HCO3 ABG Total CO2 ABG O2 Saturation ABG Base Excess FiO2 Sodium 143 143 Potassium 4.4 4.4 Chloride 112 H 110 H Carbon Dioxide 23 23 Anion Gap 12.4 14.4 BUN 51 H 55 H Creatinine 4.50 H 4.40 H GFR Calculation 9 9 BUN/Creatinine Ratio 11.00 12.00 Glucose 176 H 178 H POC Glucose Calculated Osmolality 302.0 303.0 Calcium 7.1 L 6.9 L Phosphorus 2.9 Magnesium 2.0 Albumin 2.1 L Prealbumin 08/15/16 08/15/16 05:33 05:40 WBC RBC Hgb Hct MCV MCH MCHC RDW Plt Count MPV Neut % (Auto) Lymph % (Auto) [place] % (Auto) Eos % (Auto) Baso % (Auto) Neut # (Auto) Lymph # (Auto) [place] # (Auto) Eos # (Auto) Baso # (Auto) Total Counted Immature Gran % Nucleated RBC % Immature Gran # Segmented Neutrophils Band Neutrophils Lymphocytes Monocytes Nucleated RBCs # Platelet Estimate Hypochromasia Microcytosis Ovalocytes [place] Cells Morphology Comment ABG pH ABG pCO2 ABG pO2 ABG HCO3 ABG Total CO2 ABG O2 Saturation ABG Base Excess FiO2 Sodium Potassium Chloride Carbon Dioxide Anion Gap BUN Creatinine GFR Calculation BUN/Creatinine Ratio Glucose POC Glucose 236 H Calculated Osmolality Calcium Phosphorus Magnesium Albumin Prealbumin 10.7 L - Diagnostic Findings Procedure: Chest x-ray: report reviewed by me - EKG EKG results: interpreted by me EKG shows: sinus rhythm
[2016-08-15] MEDS: DOPamine 800 MG/250 ML PREMIX IV SCH (12:41)
[2016-08-15] MEDS: PHENYLEPHRINE DRIP 40 MG/250 ML PREMIX IV SCH (12:41)
[2016-08-15] MEDS: PROPOFOL 1,000 MG/100 ML BOTTLE IV SCH (15:31)
[2016-08-15] MEDS: SODIUM CHLORIDE 0.9% 1,000 ML IV SCH ×2 (15:31→20:11)
--- NOTE | 2016-08-15 17:22 | Family Practice Progress Note ---
Family Practice - PN: Subj Interval history: Patient remains very weak on respirator.. Still requiring vasopressors for blood pressure control. Patient underwent bronchoscopy this a.m. but no significant mucous plugging noted. Findings more consistent with congestive heart failure. Patient scheduled for dialysis today and hopefully will be able to remove most of the fluid. Very difficult case with multiple issues involved. H&H's declined slightly from yesterday. Cardiology started patient back on aspirin. We'll watch for signs of bleeding closely. Hopefully patient will tolerate dialysis well. Prognosis overall is very poor Exam (Progress Note) - Constitutional Vitals: Period Temp Pulse Resp BP Sys/Brody Pulse Ox Last 24 Hr 97.0 F-97.6 F 74-113 12-29 68-138/40-64 70-100 Results - Labs CBC & BMP: 08/15/16 05:33 08/15/16 05:33 Assessment and Plan (1) Acute blood loss anemia Status: Acute Assessment and plan: Apparently the dialysis catheter dislodged during dialysis and patient had significant blood loss. Being admitted for transfusion and evaluation Current Visit: Yes (2) Generalized weakness Status: Chronic Assessment and plan: Patient has had significant weakness since recent staining for coronary artery disease. She had a non-STEMI. Current Visit: Yes (3) coronary artery disease with stenting Status: Chronic Assessment and plan: Recent admission for non-STEMI with coronary artery disease and stenting Current Visit: No (4) Chronic kidney disease with end stage renal failure on dialysis Status: Chronic Assessment and plan: Patient has been on chronic dialysis Current Visit: Yes (5) Hypertension Status: Chronic Assessment and plan: Stable at present Current Visit: No (6) Ischemic cardiomyopathy Status: Chronic Assessment and plan: Stable at present Current Visit: No (7) Hypothyroidism Status: Chronic Assessment and plan: Stable at present Current Visit: Yes
[2016-08-15] MEDS: ROSUVASTATIN 10 MG TABLET PO SCH (20:07)
--- NOTE | 2016-08-15 22:48 | Nephrology Progress Note ---
Nephrology - PN: Subj Interval history: She is hypotensive, requiring multiple pressors. Bronchoscopy this a.m. was done. No significant pneumonia or secretions seen. She remains on the ventilator Exam (PN)-Nephrology - Vital Signs Vital signs: Period Temp Pulse Resp BP Sys/Brody Pulse Ox Last 24 Hr 96.9 F-97.6 F 74-113 8-29 68-155/40-76 70-100 Exam: Gen.: Dated on ventilator ENT: Pupils equal round reactive to light. Neck: Supple. No JVD or bruit. Cardiovascular: Regular rate and rhythm. No murmur rub or gallop Lungs: Clear Abdomen: Soft. Nontender. Positive bowel sounds. No organomegaly Extremities: No edema - Lab 08/15/16 05:33 08/15/16 05:33 Most recent lab results ABG pH 7.229 (7.35-7.45) L 08/15/16 05:20 ABG pCO2 51.3 MM HG (35-48) H 08/15/16 05:20 ABG pO2 116.0 MM HG (80-95) H 08/15/16 05:20 ABG HCO3 19.3 MMOL/L (20-26) L 08/15/16 05:20 ABG O2 Saturation 98.2 % (95-100) 08/15/16 05:20 Calcium 6.9 MG/DL (8.5-10.1) L 08/15/16 05:33 Phosphorus 2.9 MG/DL (2.5-4.9) 08/15/16 05:33 Magnesium 2.0 MG/DL (1.8-2.4) 08/15/16 05:33 Assessment and Plan (1) ESRD (end stage renal disease) on dialysis Status: Chronic Assessment and plan: 80-year-old woman admitted with: * Cardiac arrest. She is now in sinus rhythm. * Hypotension. Continue pressors as required * GI bleed. Hematocrit stable * ESRD. Isolated ultrafiltration will be attempted. Hypotension precludes dialysis today. She is hemodynamically very tenuous. I discussed this rationale and her prognosis in detail with her son * CAD. Recent NH and stent placement. Followed by cardiology * Remote right pneumonectomy Current Visit: Yes (2) Acute blood loss anemia Status: Acute Current Visit: Yes (3) Generalized weakness Status: Chronic Current Visit: Yes (4) Hypotension (arterial) Status: Acute Current Visit: Yes (5) coronary artery disease with stenting Status: Chronic Current Visit: No (6) Hypertension Status: Chronic Current Visit: No (7) Status post pneumonectomy Status: Chronic Current Visit: Yes
--- NOTE | 2016-08-15 23:11 | ECHO Report ---
Ana Rosa Reyes Exam Date: 08/15/2016 11:07 Referring Physician: Technologist: Natali Zeng Age: 80 Ht (in): 64 Wt (lb): 119 Gender: F Exam Location: [facility] Echo Indications: Resp. failure BP: / HR: Rhythm: Sinus Technical Quality: limited study IMPRESSIONS A limited study with only very few images were obtained. Normal left ventricular size, with diastolic septal bounce. Mild concentric left ventricular hypertrophy. Systolic function appears to be mildly depressed, ejection fraction estimated around 40% Grade 1 diastolic dysfunction. Aortic valve sclerosis without stenosis or regurgitation. MEASUREMENTS (Male / Female) Normal Values 2D ECHO LV Diastolic Diameter PLAX 3.6 cm 4.2 - 5.9 / 3.9 - 5.3 cm LV Systolic Diameter PLAX 3.0 cm LV Fractional Shortening PLAX 15.0 % IVS Diastolic Thickness 1.2 cm 0.6 - 1.0 / 0.6 - 0.9 cm LVPW Diastolic Thickness 1.0 cm 0.6 - 1.0 / 0.6 - 0.9 cm RV Internal Dim ED PLAX 2.1 cm Aortic Root Diameter 2.3 cm LA Systolic Diameter LX 3.2 cm 3.0 - 4.0 / 2.7 - 3.8 cm DOPPLER TR Peak Velocity 163.0 cm/s TR Peak Gradient 10.6 mmHg FINDINGS Left Ventricle Normal left ventricular size, with diastolic septal bounce. Mild concentric left ventricular hypertrophy. Systolic function appears to be mildly depressed, ejection fraction estimated around 40%. Insufficient projections to estimate regional wall motion abnormalities. Grade 1 diastolic dysfunction. Right Ventricle Normal right ventricular size. Right Atrium Normal right atrial size. Left Atrium Normal left atrial size. Mitral Valve Mild mildly thickened mitral valve with mild mitral regurgitation. Aortic Valve Aortic valve sclerosis without stenosis or regurgitation. Tricuspid Valve Mild tricuspid valve sclerosis. Mild tricuspid valve regurgitation. Insufficient data to estimate pulmonary artery systolic pressure. Pulmonic Valve Pulmonic valve not well visualized. Pericardium No pericardial effusion. Aorta Normal size aortic root and proximal ascending aorta. Braeden Ca (Electronically Signed) Final Date: 15 Aug 2016 23:09
[2016-08-16 05:07] LABS: Basophils % 0.4 % (0.0-0.8); Hemoglobin 7.9 GM/DL (12.0-16.0); Immature Granulocytes % 0.6 %; Immature Granulocytes Absolute 0.03 #; Lymphocytes # 0.5 10*3/uL (1.4-4.0); Lymphocytes % 8.6 % (21.3-54.2); Mean Corpuscular HGB Conc 31.6 GM/DL (32-36); Mean Corpuscular Hemoglobin 28 PG (27-34); Mean Corpuscular Volume 89.6 FL (87-102); Monocytes # 0.3 10*3/uL (0.11-0.8); Monocytes % 5.2 % (1.7-12.7); Neutrophils # 4.4 10*3/uL (1.4-7.4); Neutrophils % 85.2 % (38.7-73.9); Platelet Count 46 T/CUMM (130-400); Red Blood Count 2.79 MC/CUMM (3.8-5.5); Red Cell Distribution Width 20.3 % (9.3-17.3); White Blood Count 5.2 T/CUMM (4-12)
[2016-08-16] MEDS: PHENYLEPHRINE INJ 160 MG in SODIUM CHLORIDE 0.9% 234 ML IV SCH ×2 (05:19→20:00)
[2016-08-16 05:37] LABS: Band Neutrophils 10 % (0-10); Burr Cells Slight; Hypochromasia Slight; Lymphocytes 6 % (20-55); Ovalocytes Slight; Platelet Estimate Decreased; Segmented Neutrophils 79 % (50-85); Total Cells Counted 100
[2016-08-16 05:38] LABS: Microcytosis Slight
[2016-08-16] MEDS: DOPamine 800 MG/250 ML PREMIX IV SCH ×2 (06:20→21:00)
[2016-08-16 06:51] LABS: Calcium 6.9 MG/DL (8.5-10.1); Osmolality,Calculated 300.1 MOS/KG (273-304); Potassium 4.7 MMOL/L (3.5-5.1)
--- NOTE | 2016-08-16 08:14 | Family Practice Progress Note ---
Family Practice - PN: Subj Interval history: Patient remains alert and responds to questions appropriately. Still on multiple vasopressors. will defer to Dr. Sims decide when to try to taper off respirator. Her hemoglobin this a.m. is 7.9 which is decreased from yesterday. I am reluctant to give patient additional blood in view of her pulmonary edema. Probably be better to infuse blood tomorrow which she has her dialysis. Her lung villavicencio are essentially clear this a.m. abdomen is soft moving all extremities. We will continue present treatment plan. Will review records later this p.m. Exam (Progress Note) - Constitutional Vitals: Period Temp Pulse Resp BP Sys/Brody Pulse Ox Last 24 Hr 96.3 F-97.6 F 81-108 8-23 75-155/42-76 89-100 Results - Labs CBC & BMP: 08/16/16 04:30 08/16/16 06:10 Assessment and Plan (1) Acute blood loss anemia Status: Acute Assessment and plan: Apparently the dialysis catheter dislodged during dialysis and patient had significant blood loss. Being admitted for transfusion and evaluation Current Visit: Yes (2) Generalized weakness Status: Chronic Assessment and plan: Patient has had significant weakness since recent staining for coronary artery disease. She had a non-STEMI. Current Visit: Yes (3) coronary artery disease with stenting Status: Chronic Assessment and plan: Recent admission for non-STEMI with coronary artery disease and stenting Current Visit: No (4) Chronic kidney disease with end stage renal failure on dialysis Status: Chronic Assessment and plan: Patient has been on chronic dialysis Current Visit: Yes (5) Hypertension Status: Chronic Assessment and plan: Stable at present Current Visit: No (6) Ischemic cardiomyopathy Status: Chronic Assessment and plan: Stable at present Current Visit: No (7) Hypothyroidism Status: Chronic Assessment and plan: Stable at present Current Visit: Yes
--- NOTE | 2016-08-16 08:31 | Pulmonology Progress Note ---
Pulmonary - PN: Subj Interval history: Patient is an 80-year-old black lady that has had a previous right pneumonectomy. She is a dialysis patient and has a cardiomyopathy. She came in several weeks ago with shortness of breath and was on the ventilator for short period. Her left lung cleared up nicely and she was doing well. She did have some confusion that cleared. She apparently went home and came back in with problems with her access. Over the weekend she went back in the pulmonary edema and is now back on the ventilator. She has a wide A-a O2 gradient and is requiring high FiO2 at this point. Her left lung does look wet. Yesterday she was able to continue with dialysis despite requiring pressors. She does look a little better today and more responsive. Her oxygenation is a little better. Exam (Progress Note) - Constitutional Vitals: Period Temp Pulse Resp BP Sys/Brody Pulse Ox Last 24 Hr 96.3 F-97.6 F 81-108 8-23 75-155/42-76 89-100 Exam: General appearance: no acute distress, under weight, other (She is responding better today.) - Head Head exam: Present: normal inspection, normocephalic - Eye Eye exam: Present: EOMI. Absent: scleral icterus Pupils: Present: ULISES - ENT ENT exam: Present: other (ET tube is in good position) - Neck Neck exam: Present: lymphadenopathy. Absent: thyromegaly - Respiratory Respiratory exam: Present: She does have some breath sounds on the left and her left lung does sound a little better. - Cardiovascular Cardiovascular exam: Present: JVD, regular rate and rhythm, tachycardia. Absent : gallop, systolic murmur - GI/Abdominal GI/Abdominal exam: Present: normal bowel sounds, soft. Absent: organomegaly, tenderness - Extremities Exam Extremities exam: Absent: calf tenderness, edema - Neurological Exam Neurological exam: Present: She is more alert today. - Psychiatric Psychiatric exam: Absent: anxious - Skin Skin exam: Present: warm, dry Results - Labs CBC & BMP: 08/16/16 04:30 08/16/16 06:10 Assessment and Plan (1) Clotted dialysis access Status: Acute Assessment and plan: The patient came in with problems with her dialysis access and this is better now. Current Visit: No (2) Acute respiratory failure Status: Resolved Assessment and plan: Patient went into pulmonary edema and basically had a respiratory arrest. She looks a little better although she still requiring a lot of oxygen. Current Visit: Yes (3) Chronic kidney disease with end stage renal failure on dialysis Status: Chronic Assessment and plan: Patient has end-stage renal disease and was able to tolerate dialysis despite being on pressors. Current Visit: Yes (4) Pulmonary edema Status: Acute Assessment and plan: Patient looks like she has pulmonary edema on her x-ray. She is still requiring a very high FiO2. Will repeat a chest x-ray tomorrow. Current Visit: Yes (5) Status post pneumonectomy Status: Chronic Assessment and plan: Patient had a pneumonectomy for lung cancer. Current Visit: Yes (6) Ischemic cardiomyopathy Status: Chronic Assessment and plan: Patient has known coronary artery disease with a very poor ejection fraction. She goes into pulmonary edema quite easily. She is requiring pressors to improve her blood pressure. She continues to be very ill. Will try to lower her FiO2. Current Visit: No
--- NOTE | 2016-08-16 08:41 | Cardiology Progress Note ---
Assessment and Plan - Time spent with patient Time spent with patient: Greater than 30 minutes (1) Dyslipidemia Status: Chronic Assessment and plan: SEE PLAN OF CARE LISTED BELOW Current Visit: Yes (2) Cardiopulmonary arrest with successful resuscitation Status: Resolved Assessment and plan: SEE PLAN OF CARE LISTED BELOW Current Visit: Yes (3) Acute blood loss anemia Status: Acute Assessment and plan: SEE PLAN OF CARE LISTED BELOW Current Visit: Yes (4) Generalized weakness Status: Chronic Assessment and plan: SEE PLAN OF CARE LISTED BELOW Current Visit: Yes (5) Lower GI bleed Status: Acute Assessment and plan: SEE PLAN OF CARE LISTED BELOW Current Visit: Yes (6) Pulmonary edema Status: Acute Assessment and plan: SEE PLAN OF CARE LISTED BELOW Current Visit: Yes (7) ESRD (end stage renal disease) on dialysis Problem details: Next routine CHD on Sunday after am cath. UF as tolerated by hemodynamics. Status: Chronic Current Visit: Yes (8) Status post pneumonectomy Status: Chronic Assessment and plan: SEE PLAN OF CARE LISTED BELOW Current Visit: Yes (9) coronary artery disease with stenting Status: Chronic Assessment and plan: SEE PLAN OF CARE LISTED BELOW Current Visit: No (10) Ischemic cardiomyopathy Status: Chronic Assessment and plan: SEE PLAN OF CARE LISTED BELOW Current Visit: No Cardiology - PN: Subj Interval history: HYDRO SPRAYER OPERATOR: DR. BAIG PCP: DR. CARDOZA EGG SETTER: DR. OLVERA Patient is intubated and sedated. There is no family at the bedside. The majority of this information is taken from staff and medical records. Ms. Reeys, 80BF, followed by Dr. Baig. Risk factors include: Known coronary artery disease (status post PCI mid LAD, circumflex 2 with Sanam July for NSTEMI), hypertension, dyslipidemia, advanced age, sedentary lifestyle and family history of premature coronary artery disease. History of end-stage renal dialysis (requiring dialysis Sunday and Sunday), diastolic heart failure, history of lung cancer with right pneumonectomy. Echocardiogram July 21, 2016 reveals EF 10-15%, 2+ LVE, no significant valvular abnormality, PAP 42.0mmHg + RAP. August 10, 2016, patient arrived to the emergency department by EMS from dialysis. EMS noted that the patient had de-accessed herself from her dialysis machine and had exsanguinated a significant amount of blood. She received 2 units of packed red blood cells for treatment of acute blood loss. She was confused at dialysis. Family acknowledged she had been confused and weak since recent NSTEMI. Sunday, August 11, 2016, patient began to experience a sudden onset of bright red rectal bleeding with clots mixed in with her stool. Her Brilinta was held given the significant amount of bleeding. No additional GI bleeding has been noted. Sunday morning, she was found to be without a pulse and CODE BLUE was initiated. Patient was found to be in heart block with severe bradycardia. CPR was initiated, she was intubated and ACLS protocol was followed. After receiving 2 rounds of epinephrine, return of pulse was noted. It is noted she did have pink, frothy sputum in the endotracheal tube at intubation. She has been moved to the CCU and cardiology has been consulted. AUGUST 15, 2016: At this time, patient is being maintained on 3 pressors. Chest x -ray this morning reveals no significant change. Underwent FOB this morning, ET tube adjusted. ASA started yesterday. Anemia has worsened overnight, H&H 9.2 and 29.7. Creatinine worse (stage IV) 4.4 this morning. She is critically ill. Will further discuss with Dr. Ca and await additional recommendations. AUGUST 16, 2016: This fairly his anemia has worsened overnight. Hemoglobin hematocrit 7.9 25.0 respectively. Platelet count 46. Aspirin 81 mg daily was initiated yesterday. Brilinta has been withheld. At this time, patient is being maintained on Dopamine, Levophed, Phenylephrine. She has generalized edema. She remains intubated but follows commands appropriately. She is critically ill wit poor prognosis. ASSESSMENT/PLAN: 1. KNOWN CAD S/P PCI LAD, CX X 2 (NIKITA) - ASA restarted. Anemia has worsened overnight. Need to restart Brilinta soon however due to the severity of the patient's anemia, this prohibits introduction of Brilinta. She is at high risk for stent thrombosis given these facts. 2. HISTORY OF NSTEMI - continue ASA if able. 3. S/P CARDIAC ARREST - Intubated but following commands appropriately. Continue current plan of care. 4. ESRD - Requires HD -- 5. GI BLEED - Anemia worse overnight. Brilinta on hold 6. ICM - severe cardiomyopathy. When able, will incorporate betablockade and ARB/MATHEW however remains on three pressors for hypotension. Continue lipid lowering agent. 7. ACUTE ON CHRONIC CHF - combined contributions, including severe systolic dysfunction (EF 10%-15%) and diastolic dysfunction. Continue current plan of care. 8. ADVANCED AGE - continue current plan of care. Exam (Progress Note) - Constitutional Vitals: Period Temp Pulse Resp BP Sys/Brody Pulse Ox Last 24 Hr 96.3 F-97.6 F 81-108 8-23 75-155/42-76 89-100 Exam: General: [Intubated and sedated. Wakes and responds appropriately. Appears comfortable. ] HEENT: [Normocephalic. Atraumatic. Mucous membranes moist. No jaundice noted. Conjunctiva moist and clear, sclerae anicteric] Neck: No obvious JVD/HJR, no thyromegaly or lymphadenopathy noted. No carotid bruit appreciated Cardiac: [Regular rate and rhythm.] [III/ ADELA heard best at 2ICS right. Lungs: [Course noted throughout. ET tube intact. Symmetrical chest wall movements noted. Abdomen: Soft, bowel sounds normoactive. Nontender and nondistended. No abdominal bruit or thrill noted. No masses noted. Musculoskeletal: No fluid collection. Decreased range of motion is noted. Extremities: No clubbing, cyanosis noted. [ Generaled 1+ edema noted.] Upper extremity pulses 2+. Lower extremity pulses 2+. Capillary refill less than 3 seconds. Skin: No unusual lesions or rashes. No skin breakdown appreciated. Neuro: Moves all extremities well without hemiparesis or paralysis when sedation withheld. No essential tremor is appreciated. Result/EKG - Labs CBC & BMP: 08/16/16 04:30 08/16/16 06:10 Lab Results: I have reviewed the past 24 hour labs Labs: Laboratory Results - last 24 hr 08/16/16 08/16/16 08/16/16 04:30 06:10 06:10 WBC 5.2 D RBC 2.79 L Hgb 7.9 L Hct 25.0 L MCV 89.6 MCH 28 MCHC 31.6 L RDW 20.3 H Plt Count 46 L D MPV 13.0 H Neut % (Auto) 85.2 H Lymph % (Auto) 8.6 L [place] % (Auto) 5.2 Eos % (Auto) 0.0 Baso % (Auto) 0.4 Neut # (Auto) 4.4 Lymph # (Auto) 0.5 L [place] # (Auto) 0.3 Eos # (Auto) 0.0 Baso # (Auto) 0.0 Total Counted 100 Immature Gran % 0.6 Nucleated RBC % 0.0 Immature Gran # 0.03 Segmented Neutrophils 79 Band Neutrophils 10 Lymphocytes 6 L Monocytes 5 Nucleated RBCs # 0.00 Platelet Estimate Decreased Hypochromasia Slight Microcytosis Slight Ovalocytes Slight Cinthia Cells Slight Morphology Comment Sodium 142 Potassium 4.7 Chloride 109 H Carbon Dioxide 22 Anion Gap 15.7 H BUN 55 H Creatinine 4.30 H GFR Calculation 9 BUN/Creatinine Ratio 12.00 Glucose 150 H Calculated Osmolality 300.1 Calcium 6.9 L Magnesium 2.0 Random Vancomycin 8.7 - Diagnostic Findings Procedure: Chest x-ray: report reviewed by me - EKG EKG results: interpreted by wv EKG shows: sinus rhythm
[2016-08-16] MEDS: ISOSORBIDE MONONITRATE 30 MG TABLET PO SCH (09:13)
[2016-08-16] MEDS: ASPIRIN EC 81 MG TABLET PO SCH (09:38)
[2016-08-16] MEDS: ALLOPURINOL 100 MG TABLET PO SCH ×2 (09:38→21:34)
[2016-08-16] MEDS: CALCIUM ACETATE 667 MG CAPSULE PO SCH ×3 (09:39→21:34)
[2016-08-16] MEDS: LEVOTHYROXINE 25 MCG TABLET PO SCH (09:39)
[2016-08-16] MEDS: CEFUROXIME 250 MG TABLET PO SCH (09:40)
[2016-08-16] MEDS: DOCUSATE SODIUM 100 MG CAPSULE PO SCH ×2 (09:40→21:34)
[2016-08-16] MEDS: PANTOPRAZOLE 40 MG VIAL IV SCH (09:41)
[2016-08-16] MEDS ORDERED: SODIUM CHLORIDE 0.9% 250 ML IV PRN (11:02)
--- NOTE | 2016-08-16 15:36 | Physician Query Form ---
CLICK EDIT DOCUMENT TO SELECT QUERY ANSWER --> OK --> SIGN Shasha Davis RN Clinical [facility] W) [phone] (f) [phone] [email or web address] PROVIDERS: Make your selection(s) from the choices in EACH section by typing an "x" and enter comments in the comment section. Please use your independent medical judgment in providing your response. This request does not imply that any particular answer is desired or expected. CLINICAL INDICATORS: (Providers should not edit this section) "Patient was admitted to the hospital after dialysis catheter became dislodged and she lost significant amount of blood". Based on documentation of "Hypotension and presently requiring vasopressor agents to maintain blood pressure". Blood pressure 65/43. Pt. treated with Levophed, Demetrius-synephrine, and Dopamine. Pt. transfused with 4 units of PRBC's. Please clarify which, if any, of the following is the etiology of the above symptoms and treatment rendered: (x) Hypovolemic shock ( ) Cardiogenic shock ( ) Hemorrhagic shock ( ) Traumatic shock ( ) Shock due to, please specify etiology: ( ) Shock, unknown etiology ( ) Drug induced, please specify substance: ( ) Iatrogenic Hypotension ( ) Orthostatic Hypotension ( ) Hypotension, unknown etiology ( ) Other, please specify: ( ) Clinically unable to determine COMMENTS: PLEASE ALSO DOCUMENT RESPONSE IN PROGRESS NOTES AND/OR DISCHARGE SUMMARY Use of terms such as suspected, likely, or probable (associated with a specific diagnosis that is being evaluated, monitored, or treated as if it exists) are acceptable and can be restated in the discharge summary if not ruled out. MTDD
[2016-08-16] MEDS: PHENYLEPHRINE DRIP 40 MG/250 ML PREMIX IV SCH (15:41)
[2016-08-16] MEDS: PROPOFOL 1,000 MG/100 ML BOTTLE IV SCH (15:43)
[2016-08-16] MEDS ORDERED: GENTAMICIN INJ 80 MG in PREMIX 1 EACH IV PRN (16:00)
--- NOTE | 2016-08-16 20:19 | Nephrology Progress Note ---
Nephrology - PN: Subj Interval history: She is still requiring 3 pressors. Systolic pressure approximately 100. She remains on the ventilator. She does follow simple commands. Exam (PN)-Nephrology - Vital Signs Vital signs: Period Temp Pulse Resp BP Sys/Brody Pulse Ox Last 24 Hr 96.3 F-97.7 F 81-105 6-31 73-153/42-96 89-100 Exam: Gen.: Remains on ventilator. ENT: Pupils equal round reactive to light. Neck: Supple. No JVD or bruit. Cardiovascular: Regular rate and rhythm. No murmur rub or gallop Lungs: Few rhonchi on the left Abdomen: Soft. Nontender. Positive bowel sounds. No organomegaly Extremities: 1+ edema - Lab 08/16/16 04:30 08/16/16 06:10 Most recent lab results ABG pH 7.229 (7.35-7.45) L 08/15/16 05:20 ABG pCO2 51.3 MM HG (35-48) H 08/15/16 05:20 ABG pO2 116.0 MM HG (80-95) H 08/15/16 05:20 ABG HCO3 19.3 MMOL/L (20-26) L 08/15/16 05:20 ABG O2 Saturation 98.2 % (95-100) 08/15/16 05:20 Calcium 6.9 MG/DL (8.5-10.1) L 08/16/16 06:10 Phosphorus 2.9 MG/DL (2.5-4.9) 08/15/16 05:33 Magnesium 2.0 MG/DL (1.8-2.4) 08/16/16 06:10 Assessment and Plan (1) ESRD (end stage renal disease) on dialysis Status: Chronic Assessment and plan: 80-year-old woman admitted with: * Cardiac arrest. She is now in sinus rhythm. * Hypotension. Continue pressors as required * GI bleed. Hematocrit is decreased. She will be transfused during dialysis * ESRD. She tolerated isolated ultrafiltration yesterday with removal of approximately 3 L. This will be attempted again today. Discussed with family members * CAD. Recent ID and stent placement. Followed by cardiology * Remote right pneumonectomy Current Visit: Yes (2) Acute blood loss anemia Status: Acute Current Visit: Yes (3) Generalized weakness Status: Chronic Current Visit: Yes (4) Hypotension (arterial) Status: Acute Current Visit: Yes (5) coronary artery disease with stenting Status: Chronic Current Visit: No (6) Hypertension Status: Chronic Current Visit: No (7) Status post pneumonectomy Status: Chronic Current Visit: Yes
[2016-08-16] MEDS: ROSUVASTATIN 10 MG TABLET PO SCH (21:34)
[2016-08-16] MEDS: MUPIROCIN 2% OINT 22 GM TUBE TOP SCH (21:35)
[2016-08-17] MEDS ORDERED: GLUCAGON 1 MG VIAL IM PRN (00:36)
[2016-08-17] MEDS: DEXTROSE 50% 25 GM/50 ML VIAL IV PRN ×3 (01:00→03:15)
[2016-08-17] MEDS ORDERED: DEXTROSE 5% 500 ML IV ONE (01:00)
[2016-08-17] MEDS ORDERED: INSULIN LISPRO 100 UNIT/ML SUBCUT SCH (06:00)
[2016-08-17] MEDS ORDERED: SODIUM BICARBONATE 50 MEQ/50 ML SYRINGE IV ONE (06:15)
[2016-08-17] MEDS ORDERED: CALCIUM CHLORIDE 1,000 MG/10 ML SYRINGE IV ONE (06:15)
[2016-08-17] MEDS ORDERED: DEXTROSE 50% 25 GM/50 ML SYRINGE IV ONE (06:15)
[2016-08-17] MEDS ORDERED: EPINEPHrine 1 MG/10 ML SYRINGE ONE (06:15)
[2016-08-17 06:48] LABS: Basophils % 0.5 % (0.0-0.8); Hematocrit 34.3 VOL% (35.7-47.0); Immature Granulocytes % 1.1 %; Immature Granulocytes Absolute 0.07 #; Lymphocytes # 0.5 10*3/uL (1.4-4.0); Lymphocytes % 7.3 % (21.3-54.2); Mean Corpuscular HGB Conc 33.8 GM/DL (32-36); Mean Corpuscular Hemoglobin 29 PG (27-34); Mean Corpuscular Volume 85.5 FL (87-102); Monocytes # 0.2 10*3/uL (0.11-0.8); Monocytes % 3.7 % (1.7-12.7); NRBC # 0.03 10*3/uL; Neutrophils # 5.5 10*3/uL (1.4-7.4); Neutrophils % 87.4 % (38.7-73.9); Red Cell Distribution Width 18.9 % (9.3-17.3); White Blood Count 6.3 T/CUMM (4-12)
[2016-08-17 07:24] LABS: Magnesium 1.8 MG/DL (1.8-2.4); Osmolality,Calculated 302.8 MOS/KG (273-304)
--- NOTE | 2016-08-17 08:02 | EKG Report ---
Stationary ECG Study [facility] Test Date: 08/17/2016 6:37:52 AM Pat Name: CARMEN TADEO Department: Room: 127 Gender: F [place] Operator: HOWARD : 1935 Requested by: Curt Anthony Order Number: [id number] Reading MD: WALTER CANTU Intervals [place] Rate: 95 P: 30 CO: 146 QRS: 126 QRSD: 154 T: 16 QT: 375 QTc: 428 Interpretive Statements SINUS RHYTHM MARKED RIGHT AXIS DEVIATION RIGHT BUNDLE BRANCH BLOCK Electronically Signed On 08-20-16 15:18:41 CDT by WALTER CANTU [email or web address]
[2016-08-17 08:03] LABS: ABG Base Excess -8.5 MMOL/L (-2.5-2.5); ABG HCO3 20.2 MMOL/L (20-26); ABG Oxygen Saturation 96.4 % (95-100); ABG PCO2 57.3 MM HG (35-48)
[2016-08-17 08:04] LABS: ABG PH 7.166 (7.35-7.45)
[2016-08-17 08:53] LABS: Hemoglobin 11.6 GM/DL (12.0-16.0); Platelet Count 14 T/CUMM (130-400); Red Blood Count 4.01 MC/CUMM (3.8-5.5)
[2016-08-17 09:12] LABS: Band Neutrophils 3 % (0-10); Lymphocytes 10 % (20-55); Nucleated Red Blood Cells 5 (0-5); Platelet Estimate Decreased; Segmented Neutrophils 83 % (50-85); Total Cells Counted 100
[2016-08-17 09:13] LABS: Burr Cells Slight; Hypochromasia Slight
[2016-08-17 09:14] LABS: Microcytosis Slight
[2016-08-17] MEDS: LEVOTHYROXINE 25 MCG TABLET PO SCH (09:54)
[2016-08-17] MEDS: CALCIUM ACETATE 667 MG CAPSULE PO SCH (09:54)
[2016-08-17] MEDS: DOCUSATE SODIUM 100 MG CAPSULE PO SCH (09:55)
[2016-08-17] MEDS: ALLOPURINOL 100 MG TABLET PO SCH (09:55)
[2016-08-17] MEDS: SODIUM CHLORIDE 0.9% 1,000 ML IV SCH (11:08)
[2016-08-17] MEDS: PANTOPRAZOLE 40 MG VIAL IV SCH (11:09)
[2016-08-17] MEDS: MUPIROCIN 2% OINT 22 GM TUBE TOP SCH (11:09)
[2016-08-17] MEDS: NOREPINEPHRINE 16 MG in SODIUM CHLORIDE 0.9% 234 ML IV SCH (11:09)
[2016-08-17 11:16] VITALS: BP 58/36
--- NOTE | 2016-08-17 12:14 | Event Note ---
I was rounding in the unit when a CODE BLUE was called on Ms. Foster. Nurses were doing closed chest massage. Patient was already on the ventilator on 100% oxygen. She has had a previous code about 30 minutes before. Chest x-ray done early this morning showed ET tube to be a little high but acceptable location. They had advanced it about 2 cm earlier. She had CPR for a little over 5 minutes including 2 doses of epinephrine. After 1 dose of bicarb she developed pulse again. She initially had pulseless electrical activity. She had been dialyzed yesterday and is a end-stage renal disease patient. ABGs are pending at present. She does have a good pulse blood pressure is 124/72. She is on pressors. Pulse is around 125. Pupils are reactive. She has good breath sounds on the left side although she has some rales. Will recheck chest x-ray.
--- NOTE | 2016-08-17 12:15 | Pulmonology Progress Note ---
Pulmonary - PN: Subj Interval history: Patient is an 80-year-old black lady that has had a previous right pneumonectomy. She is a dialysis patient and has a cardiomyopathy. She came in several weeks ago with shortness of breath and was on the ventilator for short period. Her left lung cleared up nicely and she was doing well. She did have some confusion that cleared. She apparently went home and came back in with problems with her access. Over the weekend she went back in the pulmonary edema and is now back on the ventilator. She has a wide A-a O2 gradient and is requiring high FiO2 at this point. Her left lung does look wet. The patient has done poorly this morning with having 3 episodes of brief CPR requiring chest compressions and epinephrine. She is on Levophed, dopamine, and Demetrius-Synephrine. She has a tachycardia with low blood pressure and basically has cardiogenic shock. She still has pulmonary edema in her left lung. Her overall prognosis is very poor. Exam (Progress Note) - Constitutional Vitals: Period Temp Pulse Resp BP Sys/Brody Pulse Ox Last 24 Hr 97 F-97.7 F 89-112 6-95 73-153/47-96 93-100 Exam: General appearance: the patient is unresponsive now and has ongoing shock. - Head Head exam: Present: normal inspection, normocephalic - Eye Eye exam: Present: EOMI. Absent: scleral icterus Pupils: Present: ULISES - ENT ENT exam: Present: other (ET tube is in good position. ET tube is in the mid trachea.) - Neck Neck exam: Present: lymphadenopathy. Absent: thyromegaly - Respiratory Respiratory exam: Present: She does have some breath sounds on the left but they are very coarse with extensive rales. - Cardiovascular Cardiovascular exam: Present: JVD, regular rate and rhythm, tachycardia. Absent : gallop, systolic murmur - GI/Abdominal GI/Abdominal exam: Present: normal bowel sounds, soft. Absent: organomegaly, tenderness - Extremities Exam Extremities exam: Absent: calf tenderness, edema - Neurological Exam Neurological exam: Present: She is unresponsive at present. - Psychiatric Psychiatric exam: Absent: anxious - Skin Skin exam: Present: Her extremities are cool and clammy. Results - Labs CBC & BMP: 08/16/16 04:30 08/17/16 06:50 - Diagnostic Findings Procedure: Chest x-ray: image reviewed by me, report reviewed by me (Chest x- ray still shows pulmonary edema left lung) Assessment and Plan (1) Clotted dialysis access Status: Acute Assessment and plan: The patient came in with problems with her dialysis access and this is better now. Current Visit: No (2) Acute respiratory failure Status: Resolved Assessment and plan: Patient went into pulmonary edema and basically had a respiratory arrest. Now she is on 100% oxygen and doing poorly. I doubt she will survive. Current Visit: Yes (3) Chronic kidney disease with end stage renal failure on dialysis Status: Chronic Assessment and plan: Patient has end-stage renal disease and is on multiple pressors and likely will be unable to do anymore dialysis. Current Visit: Yes (4) Pulmonary edema Status: Acute Assessment and plan: Patient looks like she has pulmonary edema on her x-ray. She is still requiring a very high FiO2. She is still oxygenating poorly. Current Visit: Yes (5) Status post pneumonectomy Status: Chronic Assessment and plan: Patient had a pneumonectomy for lung cancer. Current Visit: Yes (6) Ischemic cardiomyopathy Status: Chronic Assessment and plan: Patient has known coronary artery disease with a very poor ejection fraction. Now she is on multiple pressors and mainly has cardiogenic shock. Her outlook is very very poor. Current Visit: No
--- NOTE | 2016-08-17 12:16 | Family Practice Progress Note ---
Family Practice - PN: Subj Interval history: Patient has had 3 episodes of cardiac arrest this a.m.. She has responded to the medications are all 3 events. Patient remains on 3 vasopressors and is not showing any real improvement in the last 2 days. I reviewed lab in chart in detail. I discussed extremely poor prognosis with daughter and sister. They think that Ms. Reyes has a living will and will trying to locate that now. If they find a living will we will obviously honor that otherwise family will make decision about CODE STATUS today. Staff is to notify me with their response Exam (Progress Note) - Constitutional Vitals: Period Temp Pulse Resp BP Sys/Brody Pulse Ox Last 24 Hr 97 F-97.7 F 49-112 6-95 64-153/40-96 84-100 Results - Labs CBC & BMP: 08/16/16 04:30 08/17/16 06:50 Assessment and Plan (1) Acute blood loss anemia Status: Acute Assessment and plan: Apparently the dialysis catheter dislodged during dialysis and patient had significant blood loss. Being admitted for transfusion and evaluation Current Visit: Yes (2) Generalized weakness Status: Chronic Assessment and plan: Patient has had significant weakness since recent staining for coronary artery disease. She had a non-STEMI. Current Visit: Yes (3) coronary artery disease with stenting Status: Chronic Assessment and plan: Recent admission for non-STEMI with coronary artery disease and stenting Current Visit: No (4) Chronic kidney disease with end stage renal failure on dialysis Status: Chronic Assessment and plan: Patient has been on chronic dialysis Current Visit: Yes (5) Hypertension Status: Chronic Assessment and plan: Stable at present Current Visit: No (6) Ischemic cardiomyopathy Status: Chronic Assessment and plan: Stable at present Current Visit: No (7) Hypothyroidism Status: Chronic Assessment and plan: Stable at present Current Visit: Yes
--- NOTE | 2016-08-17 12:23 | Cardiology Progress Note ---
Assessment and Plan (1) Clotted dialysis access Status: Acute Current Visit: No (2) Acute respiratory failure Status: Resolved Assessment and plan: 80-year-old female, ischemic cardiomyopathy, status post circumflex and LAD PCI 3 weeks ago, end-stage renal disease on hemodialysis, CHF, recent lower GI bleed , symptomatic anemia, status post transfusion. Bradycardic cardiac arrest, due to suspected aspiration. Also, recent blood loss anemia due to hemodialysis complication. -She is in shock, despite multiple pressors, acidotic. Severe thrombocytopenia. Her condition is likely terminal. Updated family. Current Visit: Yes Cardiology - PN: Subj Interval history: She had several episodes of cardiac arrest earlier today. She is still hypotensive, on 3 pressors. Acidotic, thrombocytopenic, gasping on the ventilator. She is unresponsive. Exam (Progress Note) - Constitutional Vitals: Period Temp Pulse Resp BP Sys/Brody Pulse Ox Last 24 Hr 96.3 F-97.5 F 0-125 12-95 58-153/36-96 79-100 General appearance: normal weight, no acute distress - Head Head exam: Present: normal inspection, normocephalic - Eye Eye exam: Absent: conjunctival injection Pupils: Absent: dilated - ENT ENT exam: Present: normal external ear exam - Neck Neck exam: Present: normal inspection - Respiratory Respiratory exam: Present: clear to auscultation bilaterally - Cardiovascular Cardiovascular exam: Present: regular rate and rhythm, systolic murmur - GI/Abdominal GI/Abdominal exam: Present: other (No bowel sounds) - Extremities Exam Extremities exam: Present: normal capillary refill (Poor capillary refill). Absent: edema - Neurological Exam Neurological exam: Present: other (Unresponsive) - Skin Skin exam: Present: other (Cool, clammy) Result/EKG - Labs CBC & BMP: 08/17/16 08:25 08/17/16 06:50 Lab Results: I have reviewed the past 24 hour labs Labs: Laboratory Results - last 24 hr 08/16/16 08/17/16 08/17/16 11:02 00:22 00:24 WBC RBC Hgb Hct MCV MCH MCHC RDW Plt Count Neut % (Auto) Lymph % (Auto) [place] % (Auto) Eos % (Auto) Baso % (Auto) Neut # (Auto) Lymph # (Auto) [place] # (Auto) Eos # (Auto) Baso # (Auto) Total Counted Immature Gran % Nucleated RBC % Immature Gran # Segmented Neutrophils Band Neutrophils Lymphocytes Monocytes Nucleated RBCs Nucleated RBCs # Platelet Estimate Hypochromasia Microcytosis [place] Cells Morphology Comment ABG pH ABG pCO2 ABG pO2 ABG HCO3 ABG Total CO2 ABG O2 Saturation ABG Base Excess Sodium Potassium Chloride Carbon Dioxide Anion Gap BUN Creatinine GFR Calculation BUN/Creatinine Ratio Glucose POC Glucose 47 L* < 20 L* Calculated Osmolality Calcium Magnesium Blood Type AB POSITIVE Antibody Screen Positive Antibody Identification Anti-K Crossmatch See Detail 08/17/16 08/17/16 08/17/16 02:13 03:06 04:22 WBC RBC Hgb Hct MCV MCH MCHC RDW Plt Count Neut % (Auto) Lymph % (Auto) [place] % (Auto) Eos % (Auto) Baso % (Auto) Neut # (Auto) Lymph # (Auto) [place] # (Auto) Eos # (Auto) Baso # (Auto) Total Counted Immature Gran % Nucleated RBC % Immature Gran # Segmented Neutrophils Band Neutrophils Lymphocytes Monocytes Nucleated RBCs Nucleated RBCs # Platelet Estimate Hypochromasia Microcytosis [place] Cells Morphology Comment ABG pH ABG pCO2 ABG pO2 ABG HCO3 ABG Total CO2 ABG O2 Saturation ABG Base Excess Sodium Potassium Chloride Carbon Dioxide Anion Gap BUN Creatinine GFR Calculation BUN/Creatinine Ratio Glucose POC Glucose 39 L* 33 L* 313 H Calculated Osmolality Calcium Magnesium Blood Type Antibody Screen Antibody Identification Crossmatch 08/17/16 08/17/16 08/17/16 06:14 06:29 06:50 WBC RBC Hgb Hct MCV MCH MCHC RDW Plt Count Neut % (Auto) Lymph % (Auto) [place] % (Auto) Eos % (Auto) Baso % (Auto) Neut # (Auto) Lymph # (Auto) [place] # (Auto) Eos # (Auto) Baso # (Auto) Total Counted Immature Gran % Nucleated RBC % Immature Gran # Segmented Neutrophils Band Neutrophils Lymphocytes Monocytes Nucleated RBCs Nucleated RBCs # Platelet Estimate Hypochromasia Microcytosis [place] Cells Morphology Comment ABG pH ABG pCO2 ABG pO2 ABG HCO3 ABG Total CO2 ABG O2 Saturation ABG Base Excess Sodium 137 Potassium 4.0 Chloride 105 Carbon Dioxide 18 L Anion Gap 18.0 H BUN 45 H Creatinine 3.90 H GFR Calculation 11 BUN/Creatinine Ratio 11.00 Glucose 418 H POC Glucose < 20 L* > 500 H* Calculated Osmolality 302.8 Calcium 7.0 L Magnesium 1.8 Blood Type Antibody Screen Antibody Identification Crossmatch 08/17/16 08/17/16 07:00 08:25 WBC 6.3 RBC 4.01 D Hgb 11.6 L D Hct 34.3 L MCV 85.5 L MCH 29 MCHC 33.8 RDW 18.9 H Plt Count 14 L* D Neut % (Auto) 87.4 H Lymph % (Auto) 7.3 L [place] % (Auto) 3.7 Eos % (Auto) 0.0 Baso % (Auto) 0.5 Neut # (Auto) 5.5 Lymph # (Auto) 0.5 L [place] # (Auto) 0.2 Eos # (Auto) 0.0 Baso # (Auto) 0.0 Total Counted 100 Immature Gran % 1.1 Nucleated RBC % 0.5 Immature Gran # 0.07 Segmented Neutrophils 83 Band Neutrophils 3 Lymphocytes 10 L Monocytes 4 Nucleated RBCs 5 Nucleated RBCs # 0.03 Platelet Estimate Decreased Hypochromasia Slight Microcytosis Slight [place] Cells Slight Morphology Comment ABG pH 7.166 L* ABG pCO2 57.3 H ABG pO2 104.0 H ABG HCO3 20.2 ABG Total CO2 22.0 L ABG O2 Saturation 96.4 ABG Base Excess -8.5 L Sodium Potassium Chloride Carbon Dioxide Anion Gap BUN Creatinine GFR Calculation BUN/Creatinine Ratio Glucose POC Glucose Calculated Osmolality Calcium Magnesium Blood Type Antibody Screen Antibody Identification Crossmatch - EKG EKG results: interpreted by me
--- NOTE | 2016-08-17 13:02 | Discharge Summary ---
Hospital Course - Hospital Course Hospital Course: Ms. Reyes is a 80 year old female Pt is an 80 y/o black female arriving to ED by EMS from dialysis. EMS states that pt de-accessed herself from her dialysis machine. EMS reported that pt lost a lot of blood. Family states that pt has been confused since her surgery last week. She had 3 stents placed. Pt has been going to dialysis for years, family states. They also report that pt has been weak and SOB. Apparently the patient was receiving dialysis and the needle from the dialysis machine dislodged. He apparently lost a significant amount of blood. She was sent from the dialysis center to the emergency room and admitted. Transfusion was started in the emergency room. In view of history she was admitted for further evaluation and therapy HOSPITAL COURSE - the patient was admitted hospital lab and x-ray studies obtained. Patient initially required transfusion secondary to blood loss. She tolerated the blood transfusion well. Seen in consultation by Dr. Josh Hemphill. Patient was stabilized and on the morning of discharge she developed rectal bleeding. The bleeding was felt to be secondary to the Brilinta. The medication was held and patient required additional transfusions. The patient developed sudden onset of congestive heart failure. Subsequently required endotracheal intubation and was placed on respirator. She was followed by pulmonary and cardiology. She initially responded but subsequently developed severe hypotension. She subsequently required 3 vasopressors in order to maintain her blood pressures. Multiple attempts to reduce her vasopressors resulting in hypotension. On the morning of 08/17/2016 she developed a cardiac arrest. The initial arrest responded to medications. She subsequently had 3 additional cardiac arrest. She subsequently developed asystole which Failed to respond to treatment. Patient was pronounced at that time. Diagnosis - Discharge Diagnosis (1) Acute blood loss anemia Status: Acute (2) severe congestive heart failure Status: Acute (3) cardiopulmonary arrest Status: Acute (4) coronary artery disease with stenting Status: Chronic (5) Ischemic cardiomyopathy Status: Chronic (6) Chronic kidney disease with end stage renal failure on dialysis Status: Chronic (7) patient Status: Acute (8) Hypothyroidism Status: Chronic (9) Hypertension Status: Chronic (10) Generalized weakness Status: Chronic Discharge Plan - Discharge Data Disposition: - Discharge Medications No Action RX: amLODIPine [Norvasc] 10 mg PO DAILY RX: Carvedilol [Coreg] 12.5 mg PO BID RX: Allopurinol 100 mg PO BID RX: Levothyroxine Sodium [Synthroid] 25 mcg PO DAILY RX: Esomeprazole Magnesium [Nexium] 40 mg PO DAILY PRN PRN Reason: Reflux RX: Calcium Acetate 667 mg PO TID RX: Rosuvastatin [Crestor] 5 mg PO BEDTIME #30 tablet RX: Sertraline [Zoloft] 25 mg PO DAILY #30 tablet RX: hydrALAZINE TAB [Apresoline Tab] 25 mg PO TID #90 tablet RX: clonazePAM [Clonazepam] 1 mg PO DAILY RX: Cefuroxime Tab [Ceftin] 250 mg PO Q48H #14 tablet RX: Isosorbide Mononitrate [Imdur] 30 mg PO DAILY #30 tablet RX: Ticagrelor [Brilinta] 90 mg PO BID #60 tablet - Follow Up or Referral - Forms/Instructions Exam - Constitutional Vitals: Period Temp Pulse Resp BP Sys/Brody Pulse Ox Last 24 Hr 96.3 F-97.5 F 0-125 12-95 58-153/36-96 79-100 Discharge Results Procedures and tests throughout hospitalization: Pending Orders 08/14/16 16:18 Blood Culture Stat 08/16/16 11:02 Antibody Identification Stat Red Blood Cells Leuko Red Stat Type and Screen Stat 08/17/16 XR chest 1V portable Routine 08/17/16 04:00 XR chest 1V portable IN AM 08/17/16 07:02 XR chest 1V portable Stat Labs on day of discharge: Labs from last 24 hours 08/17/16 08/17/16 08/17/16 08:25 07:00 06:50 WBC 6.3 RBC 4.01 D Hgb 11.6 L D Hct 34.3 L MCV 85.5 L MCH 29 MCHC 33.8 RDW 18.9 H Plt Count 14 L* D Neut % (Auto) 87.4 H Lymph % (Auto) 7.3 L [place] % (Auto) 3.7 Eos % (Auto) 0.0 Baso % (Auto) 0.5 Neut # (Auto) 5.5 Lymph # (Auto) 0.5 L [place] # (Auto) 0.2 Eos # (Auto) 0.0 Baso # (Auto) 0.0 Total Counted 100 Immature Gran % 1.1 Nucleated RBC % 0.5 Immature Gran # 0.07 Segmented Neutrophils 83 Band Neutrophils 3 Lymphocytes 10 L Monocytes 4 Nucleated RBCs 5 Nucleated RBCs # 0.03 Platelet Estimate Decreased Hypochromasia Slight Microcytosis Slight [place] Cells Slight Morphology Comment ABG pH 7.166 L* ABG pCO2 57.3 H ABG pO2 104.0 H ABG HCO3 20.2 ABG Total CO2 22.0 L ABG O2 Saturation 96.4 ABG Base Excess -8.5 L Sodium 137 Potassium 4.0 Chloride 105 Carbon Dioxide 18 L Anion Gap 18.0 H BUN 45 H Creatinine 3.90 H GFR Calculation 11 BUN/Creatinine Ratio 11.00 Glucose 418 H POC Glucose Calculated Osmolality 302.8 Calcium 7.0 L Magnesium 1.8 Blood Type Antibody Screen Antibody Identification Crossmatch 08/17/16 08/17/16 08/17/16 06:29 06:14 04:22 WBC RBC Hgb Hct MCV MCH MCHC RDW Plt Count Neut % (Auto) Lymph % (Auto) [place] % (Auto) Eos % (Auto) Baso % (Auto) Neut # (Auto) Lymph # (Auto) [place] # (Auto) Eos # (Auto) Baso # (Auto) Total Counted Immature Gran % Nucleated RBC % Immature Gran # Segmented Neutrophils Band Neutrophils Lymphocytes Monocytes Nucleated RBCs Nucleated RBCs # Platelet Estimate Hypochromasia Microcytosis [place] Cells Morphology Comment ABG pH ABG pCO2 ABG pO2 ABG HCO3 ABG Total CO2 ABG O2 Saturation ABG Base Excess Sodium Potassium Chloride Carbon Dioxide Anion Gap BUN Creatinine GFR Calculation BUN/Creatinine Ratio Glucose POC Glucose > 500 H* < 20 L* 313 H Calculated Osmolality Calcium Magnesium Blood Type Antibody Screen Antibody Identification Crossmatch 08/17/16 08/17/16 08/17/16 03:06 02:13 00:24 WBC RBC Hgb Hct MCV MCH MCHC RDW Plt Count Neut % (Auto) Lymph % (Auto) [place] % (Auto) Eos % (Auto) Baso % (Auto) Neut # (Auto) Lymph # (Auto) [place] # (Auto) Eos # (Auto) Baso # (Auto) Total Counted Immature Gran % Nucleated RBC % Immature Gran # Segmented Neutrophils Band Neutrophils Lymphocytes Monocytes Nucleated RBCs Nucleated RBCs # Platelet Estimate Hypochromasia Microcytosis [place] Cells Morphology Comment ABG pH ABG pCO2 ABG pO2 ABG HCO3 ABG Total CO2 ABG O2 Saturation ABG Base Excess Sodium Potassium Chloride Carbon Dioxide Anion Gap BUN Creatinine GFR Calculation BUN/Creatinine Ratio Glucose POC Glucose 33 L* 39 L* < 20 L* Calculated Osmolality Calcium Magnesium Blood Type Antibody Screen Antibody Identification Crossmatch 08/17/16 08/16/16 00:22 11:02 WBC RBC Hgb Hct MCV MCH MCHC RDW Plt Count Neut % (Auto) Lymph % (Auto) [place] % (Auto) Eos % (Auto) Baso % (Auto) Neut # (Auto) Lymph # (Auto) [place] # (Auto) Eos # (Auto) Baso # (Auto) Total Counted Immature Gran % Nucleated RBC % Immature Gran # Segmented Neutrophils Band Neutrophils Lymphocytes Monocytes Nucleated RBCs Nucleated RBCs # Platelet Estimate Hypochromasia Microcytosis [place] Cells Morphology Comment ABG pH ABG pCO2 ABG pO2 ABG HCO3 ABG Total CO2 ABG O2 Saturation ABG Base Excess Sodium Potassium Chloride Carbon Dioxide Anion Gap BUN Creatinine GFR Calculation BUN/Creatinine Ratio Glucose POC Glucose 47 L* Calculated Osmolality Calcium Magnesium Blood Type AB POSITIVE Antibody Screen Positive Antibody Identification Anti-K Crossmatch See Detail Preliminary micro results at discharge 08/14/16 16:18 Blood Culture - Preliminary Blood No growth at 1 day 08/14/16 16:18 Blood Culture - Preliminary Blood No growth at 1 day DS: Provider Date of admission: 08/09/16 18:24 Primary care physician: Ryder Carmichael DO Attending physician on admission: Ryder Carmichael DO Consults: 08/09/16 20:28 Consult to Case Mgmt/Social Srvs [CONS] Routine Reason for Case Mgmt/Social Srvs: Discharge Planning Consult to Physician [CONS] Routine Comment: Dialysis Consulting Provider: Josh Hemphill When should Consulting Provider be notified: In am Date Notified: 08/10/16 Time Notified: 08:35 Consult Notification Comment: message left for Angelique 08/10/16 08:13 Consult to Physical Therapy [CONS] Routine Reason for Physical Therapy: Ambulation Start Therapy: Today 08/11/16 07:56 Consult to Physician [CONS] Routine Comment: Consulting Provider: Alexander Romano When should Consulting Provider be notified: Now Person Notified: Dr. Romano's nurse Date Notified: 08/11/16 Time Notified: 08:50 Consult Notification Comment: message left at 0828, call returned at 0850. Stated she would let velma know 08/13/16 11:08 Consult to Physician [CONS] Routine Comment: ventilator relationship management lead Provider: Wily Magdaleno Person Notified: Date Notified: 08/13/16 Time Notified: 11:15 Consult Notification Comment: Instructed CCU to draw blood gases, call him with results and he will direct how to set ventilator 08/14/16 08:29 Consult to Physician [CONS] Routine Comment: Consulting Provider: Devyn Baig When should Consulting Provider be notified: Now 08/14/16 15:24 Consult to Dietitian [CONS] Routine Reason for Dietitian: TF-Initiate/Manage Discharging clinician: Ryder Carmichael DO
--- NOTE | 2016-08-17 14:03 | XRay Report ---
Referring Physician: Too Sims MD Exam: XR chest 1V portable Date: August 17, 2016 at 3:19 AM Reason: On ventilator Comparison: Chest one view portable August 15, 2016 Findings: The patient is rotated to the right. An endotracheal tube is in place with its distal tip projecting below the thoracic inlet and above the sternoclavicular junctions. A feeding tube is again in place. The cardiomediastinal silhouette appears stable. Surgical change is again seen at the right lung, suggesting right pneumonectomy. Patchy opacities are again seen throughout the left lung and could represent pulmonary edema or pneumonia. No pneumothorax is identified, but there is mild left pleural fluid. The osseous structures appear stable. A vascular stent is noted at the right arm. Impression: 1. The distal tip of the endotracheal tube now projects below the thoracic inlet and above the sternoclavicular junctions. Accurate measurement from the jeff is difficult due to right pneumonectomy. 2. The study is otherwise similar to before with right pneumonectomy change and patchy opacities throughout the left lung. PROCEDURE INTERPRETED AT [facility] DEPARTMENT OF RADIOLOGY Final Report Signed by: Dr. Devyn Banda
--- NOTE | 2016-08-17 14:03 | XRay Report ---
Referring Physician: Ryder Carmichael Exam: XR chest 1V portable Date: August 17, 2016 at 3:34 AM Reason: Advanced endotracheal tube Comparison: Chest one view portable August 17, 2016 at 3:19 AM Findings: The distal tip of the endotracheal tube now projects at the level of the sternoclavicular junctions, likely 2 cm above the jeff. Identification of the jeff is difficult due to right pneumonectomy. The study is otherwise similar to before with right pneumonectomy change, a feeding tube and persistent prominent opacities within the left lung. The osseous structures appear stable. Impression: The distal tip of the endotracheal tube now projects at the level of the sternoclavicular junctions. The study is otherwise similar to before. PROCEDURE INTERPRETED AT [facility] DEPARTMENT OF RADIOLOGY Final Report Signed by: Dr. Devyn Banda
--- NOTE | 2016-08-17 14:04 | XRay Report ---
Portable chest Date: 08/17/2016 Clinical history: Post cardiac arrest Comparison: 08/17/2016 Technique: Portable AP sitting chest Findings: The heart remains enlarged and shift on the mediastinum to the right. Prior right pneumonectomy with pleural calcification. The endotracheal tube and nasogastric tube are in satisfactory position. Little change in the diffuse parenchymal findings in the left lung with stable left pleural effusion. Osteopenia with prior kyphoplasty. Metallic stents are noted in the right arm. Impression: Status post right pneumonectomy with little change in the diffuse edema/infiltration/atelectasis in the left lung with stable left pleural effusion. The supportive devices are in satisfactory position. PROCEDURE INTERPRETED AT [facility] DEPARTMENT OF RADIOLOGY Final Report Signed by: Dr. Ashlie Jacobo
== END 2016-08-17 10:05 | disposition expired | DRG 314 ==
LOC: EDUNIT# → EDBD → N.ED 16:29 → OBSVTOIN 18:24 → INTOOBSV 18:24 → N.EDINP 18:24 → N.TELES 19:37 → N.CC 08-13 11:16
PROVIDERS: ADMIT Family Medicine; ATTEND Family Medicine